=== PATIENT | female | born 1975 | race Caucasian/White ===

== ENCOUNTER → 2017-10-08 09:41 | Outpatient (CLI) | payer OTHER, SELFPAY ==
[2017-10-08 10:52] LABS: Microalbumin,Random Urine 9.4 mg/L (NO RANGE EST.); Microalbumin:Creatinine Ratio 6.6 mg/g CRE (<30 mg/g CRE)
[2017-10-08 11:02] LABS: ALB/GLOB Ratio 0.9 RATIO (0.9-2.4); AST(SGOT) 9 U/L (15-37); Alanine Aminotransfer ALT/SGPT 22 U/L (13-56); Albumin, Serum 3.4 g/dL (3.2-5.0); Alkaline Phosphatase 74 U/L (45-117); Anion Gap 8 (5-15); BUN 16 mg/dL (7-18); BUN/Creat Ratio 18.7 RATIO (10-20); Calcium,Total 8.4 mg/dL (8.5-10.1); Chloride 103 mmol/L (98-107); Cholesterol 151 mg/dL (200); Creatinine, Serum 0.86 mg/dL (0.55-1.02); EST Glomerular Filtration Rate 78 mL/min (>60); Est Glom Filt Rate - Afr Amer 94 mL/min (>60); Globulin 3.7 g/dL (2.2-4.2); Glucose 172 mg/dL (74-106); High Density Lipoprotein 34 mg/dL; Protein, Total 7.1 g/dL (6.4-8.2); Sodium Level 135 mmol/L (136-145); Triglycerides 121 mg/dL; Very Low Density Lipoprotein 24 mg/dL (5-40)
[2017-10-08 11:11] LABS: Hemoglobin A1c 9.4 % (4.2-6.3)
== END ==
PROVIDERS: Family Provider Family Medicine; PCP Family Medicine; Visit Provider Nurse Practitioner
DX: E10.9 Type 1 diabetes mellitus without complications (principal); E78.5 Hyperlipidemia, unspecified
CPT/HCPCS: 80053; 80061; 82043; 82570; 83036

== ENCOUNTER → 2017-10-31 12:16 | Outpatient (CLI) | payer BC, SELFPAY ==
[2017-10-31 14:42] LABS: Free T3 2.8 pg/mL (2.18-3.98); T4 Free Direct 0.92 ng/dL (0.76-1.46); Thyroid Stim Hormone (TSH) 2.91 uIU/mL (0.358-3.74)
[2017-11-02 11:22] LABS: Thyroid Peroxidase AB 7 IU/mL (0-34)
== END ==
PROVIDERS: Family Provider Family Medicine; PCP Family Medicine; Visit Provider Nurse Practitioner
DX: E03.9 Hypothyroidism, unspecified (principal)
CPT/HCPCS: 36415; 84439; 84443; 84481; 86376

== ENCOUNTER → 2018-01-19 07:58 | Outpatient (CLI) | payer BC, SELFPAY ==
[2018-01-19 09:26] LABS: Hemoglobin A1c 7.8 % (4.2-6.3)
[2018-01-19 09:35] LABS: AST(SGOT) 13 U/L (15-37); Alanine Aminotransfer ALT/SGPT 18 U/L (13-56); Albumin, Serum 3.4 g/dL (3.2-5.0); Alkaline Phosphatase 74 U/L (45-117); Anion Gap 7 (5-15); BUN 18 mg/dL (7-18); BUN/Creat Ratio 17.5 RATIO (10-20); Calcium,Total 8.5 mg/dL (8.5-10.1); Chloride 105 mmol/L (98-107); Creatinine, Serum 1.03 mg/dL (0.55-1.02); EST Glomerular Filtration Rate 63 mL/min (>60); Est Glom Filt Rate - Afr Amer 76 mL/min (>60); Globulin 3.5 g/dL (2.2-4.2); Glucose 183 mg/dL (74-106); Potassium 4.2 mmol/L (3.5-5.1); Protein, Total 6.9 g/dL (6.4-8.2); Sodium Level 139 mmol/L (136-145)
== END ==
PROVIDERS: Family Provider Family Medicine; PCP Family Medicine; Visit Provider Nurse Practitioner
DX: E10.319 Type 1 diabetes mellitus with unspecified diabetic retinopathy without macular edema (principal)
CPT/HCPCS: 36415; 80053; 83036

== ENCOUNTER → 2018-04-27 16:45 | Outpatient (CLI) | payer BC, SELFPAY ==
[2018-04-27 18:02] LABS: AST(SGOT) 22 U/L (15-37); Alanine Aminotransfer ALT/SGPT 31 U/L (13-56); Albumin, Serum 3.4 g/dL (3.2-5.0); Alkaline Phosphatase 72 U/L (45-117); Anion Gap 9 (5-15); BUN 14 mg/dL (7-18); BUN/Creat Ratio 13.7 RATIO (10-20); Calcium,Total 8.3 mg/dL (8.5-10.1); Chloride 102 mmol/L (98-107); Creatinine, Serum 1.02 mg/dL (0.55-1.02); EST Glomerular Filtration Rate 63 mL/min (>60); Est Glom Filt Rate - Afr Amer 77 mL/min (>60); Globulin 3.5 g/dL (2.2-4.2); Glucose 264 mg/dL (74-106); Potassium 3.9 mmol/L (3.5-5.1); Protein, Total 6.9 g/dL (6.4-8.2); Sodium Level 137 mmol/L (136-145)
[2018-04-27 18:08] LABS: Hemoglobin A1c 7.5 % (4.2-6.3)
== END ==
PROVIDERS: Visit Provider Nurse Practitioner
DX: E10.9 Type 1 diabetes mellitus without complications (principal)
CPT/HCPCS: 36415; 80053; 83036

== ENCOUNTER → 2018-06-22 08:57 | Outpatient (CLI) | payer BC, SELFPAY ==
[2018-06-26 12:00] LABS: Vitamin D 1,25-Dihydroxy 31.1 pg/mL (19.9-79.3)
== END ==
PROVIDERS: Referring Provider Nurse Practitioner; Visit Provider Nurse Practitioner
DX: E55.9 Vitamin D deficiency, unspecified (principal)
CPT/HCPCS: 36415; 82330; 82652; 83970

== ENCOUNTER → 2018-07-20 16:32 | Outpatient (CLI) | payer BC, SELFPAY ==
[2018-06-26 11:08] VITALS: BMI 35.9
--- NOTE | 2018-07-20 16:45 | EKG12_ITS ---
Test Reason : PREOP Blood Pressure : / mmHG Vent. Rate : 065 BPM Atrial Rate : 065 BPM P-R Int : 136 ms QRS Dur : 086 ms QT Int : 406 ms P-R-T Axes : 048 046 032 degrees QTc Int : 422 ms Normal sinus rhythm Normal ECG No previous ECGs available Confirmed by DELONTE SAWANT ([id number]), multimedia editor PAOLA NICOLE ([id number]) on 07/24/2018 9:38:54 AM Referred By: Toño Adair Confirmed By:DELONTE SAWANT
[2018-07-20 18:00] LABS: Anion Gap 7 (5-15); BUN 15 mg/dL (7-18); BUN/Creat Ratio 16.3 RATIO (10-20); Calcium,Total 8.7 mg/dL (8.5-10.1); Chloride 106 mmol/L (98-107); Creatinine, Serum 0.92 mg/dL (0.55-1.02); EST Glomerular Filtration Rate 71 mL/min (>60); Est Glom Filt Rate - Afr Amer 86 mL/min (>60); Glucose 167 mg/dL (74-106); Sodium Level 139 mmol/L (136-145)
--- OUTSIDE RECORDS SUMMARY | 2018-09-14 22:41 | XMS RPT_ITS ---
:02/24/2017 Author Organization [facility] Care Team Providers Name Role Phone DANIEL HOWELL Attending Unavailable PLAYL, JEREMIAS M Referring Unavailable PLAYL, JEREMIAS M Primary Care Unavailable PLAYL, JEREMIAS M Primary Care Unavailable OSEI, VALERIE Attending Unavailable DANIEL HOWELL Attending Unavailable PLAYL, JEREMIAS M Referring Unavailable PLAYL, JEREMIAS M Primary Care Unavailable MARTY MEJIA Attending Unavailable MARTY MEJIA Referring Unavailable MARTY MEJIA Admitting Unavailable MARTY MEJIA Attending Unavailable SHEREEN CARNEY (MACHINE GUIDE BASE WINDER) Attending Unavailable PLAYL, JEREMIAS M Attending Unavailable YAEL STARR (CEMENT TILE MAKER) Referring Unavailable PLAYL, JEREMIAS M Attending Unavailable PLAYL, JEREMIAS M Referring Unavailable SHEREEN CARNEY (MACHINE GUIDE BASE WINDER) Attending Unavailable PLAYL, JEREMIAS M Attending Unavailable DAVID ODELL Attending Unavailable ROBERTO, MARTY SPENCE Attending Unavailable DAVID ODELL Referring Unavailable ROBERTO, MARTY SPENCE Referring Unavailable PLAYL, JEREMIAS [place]air Attending Unavailable SHEREEN CARNEY (MACHINE GUIDE BASE WINDER) Referring Unavailable SHEREEN CARNEY (MACHINE GUIDE BASE WINDER) Attending Unavailable SHEREEN CARNEY (MACHINE GUIDE BASE WINDER) Referring Unavailable ROBERTO, MARTY SPENCE Attending Unavailable PLAYL, JEREMIAS [place]air Referring Unavailable PLAYL, JEREMIAS M Attending Unavailable SHONL, JEREMIAS M Attending Unavailable Shonl, Jeremias Primary Care Unavailable Paul Corona Attending Unavailable PROBLEMS PROBLEMS DATE TYPE CONDITION / CODE ATTENDING STATUS SOURCE 05/16/2018 Active Unknown / ROBERTO [facility] UNK(Unknown) JORDY Other [place] Repository 12/20/2017 Active Allergy to eggs / ROBERTO, [facility] Z91.012(ICD-10) [facility] Repository 12/20/2017 Active Allergy to milk ROBERTO, [facility] products / [facility] Z91.011(ICD-10) Repository 12/20/2017 Active Other adverse food ROBERTO MARTY [facility] reactions, not JORDY Other [place] elsewhere Repository classified, subsequent encounter / T78.1XXD(ICD-10) 09/05/2017 Active Infantile (acute) ROBERTO, [facility] (chronic) eczema / [facility] L20.83(ICD-10) Repository 03/23/2018 Active Encounter for SHEREEN CARNEY Active [facility] routine child (MACHINE GUIDE BASE WINDER) [facility] [place] health examination Repository without abnormal findings / Z00.129(ICD-10) 03/23/2018 Active Encounter for SHEREEN CARNEY Active [facility] immunization / (MACHINE GUIDE BASE WINDER) [facility] Z23(ICD-10) Repository 12/20/2017 Active Other adverse food Active [facility] reactions, not [facility] [place] elsewhere Repository classified, initial encounter / T78.1XXA(ICD-10) 10/11/2017 Active Displaced fracture NA Active [facility] of shaft of right [facility] [place] clavicle, Repository subsequent encounter for fracture with routine healing / S42.021D(ICD-10) PROCEDURES PROCEDURES No Procedure Records FoundRESULTS RESULTS PROGRESS Observed: 05/29/2018 Status: COMPLETED Source: [place] 10:07 AM [facility] RE[facility] HNO ID: [id number] Author: Jeremias Brock Service: (none) Author Type: Physician Type: Progress Notes Filed: 05/29/2018 10:52 AM Note Text: 15 month old female presents for a routine 15 month check-up. [] GENERAL QUESTIONS color enhanced section Parental concerns: NONE Diet: Breast: 4 feeds per 24 hours, feeding well, Juice: occasional, Solids: mostly table food Stools: NORMAL (soft and appropriately sized) Fluoride Water: uses significant amount of city water from: [employer] PWS - deficient (use recommendations for levels of <0.3 ppm), fluoride level: 0.13 ppm (2011 testing) Prescription: not using prescribed fluoride - patient refuses due to taste Ongoing subspecialty care: Ongoing care: allergy/immunology, urology Ongoing ancillary care: NONE Daycare/etc: NONE Lead exposure: No Significant stresses: No [] DEVELOPMENT FOR AGE 15 MONTHS color enhanced section Walks alone: Yes Drinks well from cup: Yes Stacks 2 cubes: Yes Gives and takes toys: Yes Uses 3-6 words: Yes Uses jargon and gestures: Yes Understands simple commands: Yes Points to 1-2 body parts: Yes Scribbles spontaneously: Yes 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 - Hydronephrosis 11/29/2017 resolved IMPORTED PAST SURGICAL HISTORY Procedure Laterality Date - NONE Family history: IMPORTED FAMILY HISTORY Problem Relation Age of Onset - Asthma Mother - Allergies Mother Social history: NEGATIVE SOCIAL HISTORY [] MISCELLANEOUS color enhanced section Difficulties with learning for caregiver: No [] ADDITIONAL NURSING COMMENTS color enhanced section None Dallas Love 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 PHYSICAL EXAM GENERAL: alert, well appearing, in no distress HABITUS: normal build HEAD: normocephalic LEFT EYE: no drainage noted, no conjunctival injection noted, pupil round and reactive to light, red reflex present; RIGHT EYE: no drainage noted, no conjunctival injection noted, pupil round and reactive to light, red reflex present; NO ADDITIONAL EYE FINDINGS LEFT EAR: pinna normal, auditory canal normal, tympanic membrane clear, no effusion noted, RIGHT EAR: pinna normal, auditory canal normal, tympanic membrane clear, no effusion noted NOSE/SINUSES: nares normal, mucosa normal, no drainage noted OROPHARYNX: lips without lesions noted, gums/mucosa normal, oropharynx without erythema or exudates NECK/ADENOPATHY: neck supple, no adenopathy noted CHEST/LUNGS: lungs clear to auscultation CARDIOVASCULAR: regular rate and rhythm, no murmur, capillary refill less than 2 seconds ABDOMEN: soft, nontender, bowel sounds normal, no masses, no organomegaly GENITILIA: FEMALE: external genitalia normal MUSCULOSKELETAL: extremities with full range of motion present throughout NEUROLOGICAL: cranial nerves II-XII grossly intact, deep tendon reflexes 2+/4+ throughout, muscle mass and tone normal SKIN: normal color, no rash, no jaundice [] ASSESSMENT color enhanced section Well patient Normal growth Normal development Issues: Continue specialty care unchanged PLAN Plan per orders. Counseling: car seats, home safety street and water safety, sunscreen whole milk, balanced diet meal behaviors, bottle weaning tooth care discipline, consistency appropriate expectations day care Forms filled out: NONE Follow up visit in 3 months for well care or prn with concerns. I have reviewed the above nursing obtained HPI and I concur. Problem list and history reviewed. Allergies reviewed. Medications reviewed. Immunizations reviewed. This note was partially generated using Confer voice recognition system, and there may be some incorrect words, spellings, and punctuation that were not noted in checking the note before saving. Jeremias Brock M.D. 15 month old female here for INACTIVATED INFLUENZA VACCINE. [id number] Season Patient is identified by name and date of : Yes [] CONTRAINDICATIONS color enhanced section Age less than 6 months? No Allergy to eggs, chicken, chicken feathers, or chicken dander? No Allergy to thimerosal (a preservative) or formaldehyde, gelatin? No History of severe reaction to any vaccine component or a previous dose of influenza vaccination? No History of Guillain-Dowling Syndrome within 6 weeks after a previous influenza vaccine? No Patient is not moderately or severely ill? No Current temperature greater or equal to 100.4F? No History of Bone Marrow Transplant prior 6 months or solid organ transplant in the past 3 months ? No History of fainting after a prior injection or medical procedure? No- ? If patient has fainted in the past, the CDC recommends sitting or lying down for 15 minutes after the vaccination. [] VERIFICATION color enhanced section Was the answer Yes for any of the above contraindications? No contraindications present. Acceptable to proceed with vaccine. Patient/guardian agrees the above answers are true to the best of their knowledge? Yes Flu vaccine information sheet given? Yes See immunization activity in [facility] for details of immunizations adminstered today. Patient age: 15 month old For The 6404-9796 Flu Season 6-35 months old: Fluzone 0.25 ml - IM (Preservative Free) 3 years of age: Fluzone 0.5 ml - IM (Preservative Free) 3 years and older: Fluzone 0.5 ml- IM-(with Preservatives) 65+ years old: 2-49 years old Fluzone High-Dose 0.5 ml - IM (Preservative Free) FLUMIST- intranasal REMEMBER: If patient is less than 9 years of age and this is the first vaccine of Influenza to be received in any flu season, they should receive a second dose in one months time. Estuardo Love LPN CNOV Observed: 05/29/2018 Status: COMPLETED Source: [place] 10:00 AM [facility] REPOSITORY Office Visit (PEDSWS) PRIYA JACQUES ([id number]) [birth year] F Date Time Provider Department 05/29/18 10:00 AM JEREMIAS BROCK [facility] During your visit today, we recorded the following information about you: Temperature Pulse Respiration Weight 97.1 degrees 120/minute 28/minute 10.2 kg Height Head Circumference 0.787 m 46.5cm Jeremias Brock MD 05/29/2018 10:52 AM Signed 15 month old female presents for a routine 15 month check-up. [] GENERAL QUESTIONS color enhanced section Parental concerns: NONE Diet: Breast: 4 feeds per 24 hours, feeding well, Juice: occasional, Solids: mostly table food Stools: NORMAL (soft and appropriately sized) Fluoride Water: uses significant amount of city water from: [employer] PWS - deficient (use recommendations for levels of <0.3 ppm), fluoride level: 0.13 ppm (2011 testing) Prescription: not using prescribed fluoride - patient refuses due to taste Ongoing subspecialty care: Ongoing care: allergy/immunology, urology Ongoing ancillary care: NONE Daycare/etc: NONE Lead exposure: No Significant stresses: No [] DEVELOPMENT FOR AGE 15 MONTHS color enhanced section Walks alone: Yes Drinks well from cup: Yes Stacks 2 cubes: Yes Gives and takes toys: Yes Uses 3-6 words: Yes Uses jargon and gestures: Yes Understands simple commands: Yes Points to 1-2 body parts: Yes Scribbles spontaneously: Yes 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 - Hydronephrosis 11/29/2017 resolved IMPORTED PAST SURGICAL HISTORY Procedure Laterality Date - NONE Family history: IMPORTED FAMILY HISTORY Problem Relation Age of Onset - Asthma Mother - Allergies Mother Social history: NEGATIVE SOCIAL HISTORY [] MISCELLANEOUS color enhanced section Difficulties with learning for caregiver: No [] ADDITIONAL NURSING COMMENTS color enhanced section None Estuardo Love 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 PHYSICAL EXAM GENERAL: alert, well appearing, in no distress HABITUS: normal build HEAD: normocephalic LEFT EYE: no drainage noted, no conjunctival injection noted, pupil round and reactive to light, red reflex present; RIGHT EYE: no drainage noted, no conjunctival injection noted, pupil round and reactive to light, red reflex present; NO ADDITIONAL EYE FINDINGS LEFT EAR: pinna normal, auditory canal normal, tympanic membrane clear, no effusion noted, RIGHT EAR: pinna normal, auditory canal normal, tympanic membrane clear, no effusion noted NOSE/SINUSES: nares normal, mucosa normal, no drainage noted OROPHARYNX: lips without lesions noted, gums/mucosa normal, oropharynx without erythema or exudates NECK/ADENOPATHY: neck supple, no adenopathy noted CHEST/LUNGS: lungs clear to auscultation CARDIOVASCULAR: regular rate and rhythm, no murmur, capillary refill less than 2 seconds ABDOMEN: soft, nontender, bowel sounds normal, no masses, no organomegaly GENITILIA: FEMALE: external genitalia normal MUSCULOSKELETAL: extremities with full range of motion present throughout NEUROLOGICAL: cranial nerves II-XII grossly intact, deep tendon reflexes 2+/4+ throughout, muscle mass and tone normal SKIN: normal color, no rash, no jaundice [] ASSESSMENT color enhanced section Well patient Normal growth Normal development Issues: Continue specialty care unchanged PLAN Plan per orders. Counseling: car seats, home safety street and water safety, sunscreen whole milk, balanced diet meal behaviors, bottle weaning tooth care discipline, consistency appropriate expectations day care Forms filled out: NONE Follow up visit in 3 months for well care or prn with concerns. I have reviewed the above nursing obtained HPI and I concur. Problem list and history reviewed. Allergies reviewed. Medications reviewed. Immunizations reviewed. This note was partially generated using Confer voice recognition system, and there may be some incorrect words, spellings, and punctuation that were not noted in checking the note before saving. Jeremias Brock M.D. 15 month old female here for INACTIVATED INFLUENZA VACCINE. [id number] Season Patient is identified by name and date of : Yes [] CONTRAINDICATIONS color enhanced section Age less than 6 months? No Allergy to eggs, chicken, chicken feathers, or chicken dander? No Allergy to thimerosal (a preservative) or formaldehyde, gelatin? No History of severe reaction to any vaccine component or a previous dose of influenza vaccination? No History of Guillain-Dowling Syndrome within 6 weeks after a previous influenza vaccine? No Patient is not moderately or severely ill? No Current temperature greater or equal to 100.4F? No History of Bone Marrow Transplant prior 6 months or solid organ transplant in the past 3 months ? No History of fainting after a prior injection or medical procedure? No- ? If patient has fainted in the past, the CDC recommends sitting or lying down for 15 minutes after the vaccination. [] VERIFICATION color enhanced section Was the answer Yes for any of the above contraindications? No contraindications present. Acceptable to proceed with vaccine. Patient/guardian agrees the above answers are true to the best of their knowledge? Yes Flu vaccine information sheet given? Yes See immunization activity in [facility] for details of immunizations adminstered today. Patient age: 15 month old For The [id number] Flu Season 6-35 months old: Fluzone 0.25 ml - IM (Preservative Free) 3 years of age: Fluzone 0.5 ml - IM (Preservative Free) 3 years and older: Fluzone 0.5 ml- IM-(with Preservatives) 65+ years old: 2-49 years old Fluzone High-Dose 0.5 ml - IM (Preservative Free) FLUMIST- intranasal REMEMBER: If patient is less than 9 years of age and this is the first vaccine of Influenza to be received in any flu season, they should receive a second dose in one months time. Estuardo Brock MD 05/29/2018 10:31 AM Signed 12-24 months Parent Tips ? Eat as a family. If you eat new, colorful and healthy food, your toddler will, too. ? At mealtimes, use small plates, spoons and forks. ? Let them serve themselves and choose how much to eat. Expect them to be messy. ? Gagging and funny faces can be normal when you offer new textures and tastes. Expect to offer a new food 10 to 12 times before they will accept it. ? Expect picky eating, but do not offer replacements. Don't worry if they don't eat that much. They will eat more at the next meal or the next day. ? Don't use food as a comfort or reward. Limit sweets, desserts and candy. Feeding Advice Self-feeding table food.* ? At each meal, serve vegetables first, when your toddler is most hungry. ? Half of the plate will be fruits and vegetables. The other half with be protein foods, such as fish, eggs, beans or meats, and whole grains, such as whole wheat bread and brown rice. ? If your toddler is hungry between meals, offer fruits and vegetables. *Beware of choking hazards (ask your healthcare provider). What should my toddler be drinking? ? If you are , continue to do so. ? Your toddler should be drinking from a cup. ? Offer milk in a cup at meals. Talk to your healthcare provider or dietitian about choices if your toddler cannot drink cow's milk. ? Water is best if your toddler is thirsty between meals. Juice is not necessary. If your doctor recommends it, give no more than 4 to 6 ounces a day of 100% juice. ? Sweetened beverages such as soft drinks, sports drinks, and fruit punches are not food for your toddler. Be Active ? Your toddler is naturally active. They like walking, climbing and more. It is best for toddlers not to sit for more than 30 minutes. ? Play with your toddler each day. ? Limit activities with screens (TV, computers, tablets, video games and cell phones) so your toddler is more active. Sleep Advice ? Enjoy a calming sleep routine with low lights, a warm bath, and reading together. ? No food or screens before bed. ? It is normal and best for toddlers at this age to sleep around 12 to 14 hours each day. This is a big year! From 12 to 24 months, your toddler will get good at walking, talking and feeding themselves. They also will learn to eat whatever your family eats. Have You Noticed? ? Your toddler asks for the same foods over and over. This is normal. Your job is to offer a wide variety of foods. ? Your toddler is starting to imitate the things that you do. Watching Your Child ? Every 12 to 24 month old toddler has temper tantrums. No is a big word. Try to learn what they want and say the words to them. ? When your toddler has a meltdown, don't react. Turn away for a few seconds. When they calm down, give them lots of attention. ? Talk quietly and listen to them, even if its babble. Use words to help them. Fun at Mealtime ? Meal times should be fun and messy. ? At least one time a day, sit down and eat together. ? Share what you're eating. Name things, say the colors and count. ? Watch how they learn about food by playing. Play with a Purpose Every day, set aside some time to play with your toddler down at their level: ? Talk - Babbling is talking. Talk back and forth and smile. ? Big muscles (legs, back arms) - At first, help them balance to pull up, walk and climb. Play games that make them run, jump, throw, kick and climb. ? Hands and fingers - Stack blocks or plastic cups, color, paint or use chalk; toss a soft ball, pull strings, and push toys. Try This! ? Offer 2 good choices for meals or snacks, but let them pick (apples or pears, peas or carrots). ? It's fun to mix breakfast, lunch and dinner foods, like eggs for dinner. ? Give small portions until you see how hungry they are. They'll ask if they want more. Healthy Bones AND Teeth 1-8 years old Kids need calcium to build strong bones and teeth. The amount need each day depends on his or her age. How much calcium does my child need each day? Kids Age Amount of calcium they need Calcium-rich servings each day 1 - 3 years 700 milligrams 2 servings 4 - 8 years 1,000 milligrams 3 servings Calcium-rich Foods Amount equal to one serving ? Milk ? 1 cup (8 ounces) ? Natural cheese like cheddar or string cheese ? 11/2 ounces (two 3/4 ounce slices) ? Yogurt ? 6 - 8 ounce container ? [place] milk or soy milk* ? 1 cup (8 ounces) ? Fortified nrhpi-rh-olq cereals ? 3/4 - 1 cup ? Tofu, soft or hard ? 1/2 cup ? White beans, cooked ? 1 cup ? Greens (kale, bok bebe, broccoli, collards, Tajik cabbage) ? 1 cup ? Almonds ? 1.5 ounces (30 or so nuts) - a big handful *The USDA recommends soy milk as the optimum alternative to cow's milk. Tips for a calcium boost There are small amounts of calcium in most fruits, vegetables, whole grains, beans, and lentils. Providing your child a variety of whole foods at each meal and snack time (in addition to the calcium-rich foods listed above) is the best way to make sure your child is getting the calcium he or she needs. ? Serve milk or a milk alternative at meals and water between meals. ? Add dark green leafy vegetables to your sandwiches or sauces for dinner. ? Offer 1/2 cup of low-sugar yogurt with fruit as part of breakfast or for a snack. ? A handful of almonds paired with fruit is a great snack. ? Try tofu in place of meat for dinner. Toddlers often enjoy eating and squishing tofu. ? Substitute milk for water when making hot cereals, instant or regular mashed potatoes, scrambled eggs, pancakes and condensed soups like tomato. Tips for Lactose Sensitive Kids If your child is lactose intolerant or only tolerates small amounts of milk, or milk products, try aged cheeses like cheddar and [place], which have much lower lactose levels. Yogurt has friendly bacteria called active cultures, which lower lactose levels. If your child avoids milk, soy milk is the best alternative because it contains the right amount of protein for each serving. [place] milk and rice milk have little protein. If you provide these milks, also provide a variety of other protein sources like lean meats, eggs, nuts, and beans. Almonds, tofu, dark green leafy vegetables, and canned sardines or salmon, are excellent non-dairy sources of calcium. Source: [place]., [place], Committee on Nutrition. Optimizing Bone Health in Children and Adolescents. 2014. [place] [employer]. Pediatr. 134(4) k2011-s2595. Dietary Guidelines for Americans, 9182-1525; visit www.heatherus.gov/dietaryguidelines and www.choosemyplate.gov/kids Referring Provider: SELF [200] Allergies As of Date: 05/29/2018 Noted Allergy Reaction IBUPROFEN 11/30/2017 4 - Hives EGG 12/20/2017 2 - Rash 4 - Hives MILK 09/05/2017 2 - Rash 4 - Hives 11 - Vomiting OTHER OMEGA-3S 05/01/2018 4 - Hives Comments: All Dairy products Date Reviewed: 05/29/2018 Reviewed by: Jeremias Brock - Fully Assessed Reason for Visit: Well Child [122] Imm/Inj [58] Cmt: Flu Vaccine Reason For Visit History Recorded Primary Visit Diagnosis:Encounter for routine child health examination w/o abnormal findings [Z00.129] Other Visit Diagnoses:Need for vaccination [Z23] Encounter for immunization [Z23] Order(s):INFLUENZA VAC QUADRIVALENT PRSRV FREE AGE 6-35 MO IM [[id number]] Order #: [id number] DIPTHERIA TETNUS ACELL PERTUS [[id number]] Order #: [id number] HIB VACCINE, PRP-T, IM [[id number]] Order #: [id number] Prescriptions as of 05/29/2018 Sig: DIPHENHYDRAMINE 12.5 MG/5 ML * Take by mouth as needed. EPIPEN INJECTION Inject intramuscularly as nee* ZYRTEC ORAL Take 2.5 mg by mouth. ACETAMINOPHEN 160 MG/5 ML ORA* Take by mouth every 4 hours * Medication notes this encounter DIPHENHYDRAMINE 12.5 MG/5 ML ORAL LIQUID >> [place] Ivan 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 05/29/2018 10:07 AM >> ESTUARDO LOVE 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 TueMay 29, 2018 10:07 AM prn Problem List As Of Date 05/29/2018 Noted Resolved Hydronephrosis [N13.30] 11/29/2017 Atopic dermatitis [L20.9] INVALID FOR* Closed displaced fracture of shaft of right cla*INVALID FOR*05/29/2018 Duplicated right renal collecting system [Q62.5]INVALID FOR* Milk allergy [Z91.011] INVALID FOR* More... Egg allergy [Z91.012] INVALID FOR* More... Ibuprofen adverse reaction [T39.315A] INVALID FOR* More... Other instructions from your clinician: 12-24 months Parent Tips ? Eat as a family. If you eat new, colorful and healthy food, your toddler will, too. ? At mealtimes, use small plates, spoons and forks. ? Let them serve themselves and choose how much to eat. Expect them to be messy. ? Gagging and funny faces can be normal when you offer new textures and tastes. Expect to offer a new food 10 to 12 times before they will accept it. ? Expect picky eating, but do not offer replacements. Don't worry if they don't eat that much. They will eat more at the next meal or the next day. ? Don't use food as a comfort or reward. Limit sweets, desserts and candy. Feeding Advice Self-feeding table food.* ? At each meal, serve vegetables first, when your toddler is most hungry. ? Half of the plate will be fruits and vegetables. The other half with be protein foods, such as fish, eggs, beans or meats, and whole grains, such as whole wheat bread and brown rice. ? If your toddler is hungry between meals, offer fruits and vegetables. *Beware of choking hazards (ask your healthcare provider). What should my toddler be drinking? ? If you are , continue to do so. ? Your toddler should be drinking from a cup. ? Offer milk in a cup at meals. Talk to your healthcare provider or dietitian about choices if your toddler cannot drink cow's milk. ? Water is best if your toddler is thirsty between meals. Juice is not necessary. If your doctor recommends it, give no more than 4 to 6 ounces a day of 100% juice. ? Sweetened beverages such as soft drinks, sports drinks, and fruit punches are not food for your toddler. Be Active ? Your toddler is naturally active. They like walking, climbing and more. It is best for toddlers not to sit for more than 30 minutes. ? Play with your toddler each day. ? Limit activities with screens (TV, computers, tablets, video games and cell phones) so your toddler is more active. Sleep Advice ? Enjoy a calming sleep routine with low lights, a warm bath, and reading together. ? No food or screens before bed. ? It is normal and best for toddlers at this age to sleep around 12 to 14 hours each day. This is a big year! From 12 to 24 months, your toddler will get good at walking, talking and feeding themselves. They also will learn to eat whatever your family eats. Have You Noticed? ? Your toddler asks for the same foods over and over. This is normal. Your job is to offer a wide variety of foods. ? Your toddler is starting to imitate the things that you do. Watching Your Child ? Every 12 to 24 month old toddler has temper tantrums. No is a big word. Try to learn what they want and say the words to them. ? When your toddler has a meltdown, don't react. Turn away for a few seconds. When they calm down, give them lots of attention. ? Talk quietly and listen to them, even if its babble. Use words to help them. Fun at Mealtime ? Meal times should be fun and messy. ? At least one time a day, sit down and eat together. ? Share what you're eating. Name things, say the colors and count. ? Watch how they learn about food by playing. Play with a Purpose Every day, set aside some time to play with your toddler down at their level: ? Talk - Babbling is talking. Talk back and forth and smile. ? Big muscles (legs, back arms) - At first, help them balance to pull up, walk and climb. Play games that make them run, jump, throw, kick and climb. ? Hands and fingers - Stack blocks or plastic cups, color, paint or use chalk; toss a soft ball, pull strings, and push toys. Try This! ? Offer 2 good choices for meals or snacks, but let them pick (apples or pears, peas or carrots). ? It's fun to mix breakfast, lunch and dinner foods, like eggs for dinner. ? Give small portions until you see how hungry they are. They'll ask if they want more. Healthy Bones AND Teeth 1-8 years old Kids need calcium to build strong bones and teeth. The amount need each day depends on his or her age. How much calcium does my child need each day? Kids Age Amount of calcium they need Calcium-rich servings each day 1 - 3 years 700 milligrams 2 servings 4 - 8 years 1,000 milligrams 3 servings Calcium-rich Foods Amount equal to one serving ? Milk ? 1 cup (8 ounces) ? Natural cheese like cheddar or string cheese ? 11/2 ounces (two 3/4 ounce slices) ? Yogurt ? 6 - 8 ounce container ? [place] milk or soy milk* ? 1 cup (8 ounces) ? Fortified pomcq-sr-joc cereals ? 3/4 - 1 cup ? Tofu, soft or hard ? 1/2 cup ? White beans, cooked ? 1 cup ? Greens (kale, bok bebe, broccoli, collards, Taj[place] cabbage) ? 1 cup ? Almonds ? 1.5 ounces (30 or so nuts) - a big handful *The USDA recommends soy milk as the optimum alternative to cow's milk. Tips for a calcium boost There are small amounts of calcium in most fruits, vegetables, whole grains, beans, and lentils. Providing your child a variety of whole foods at each meal and snack time (in addition to the calcium- rich foods listed above) is the best way to make sure your child is getting the calcium he or she needs. ? Serve milk or a milk alternative at meals and water between meals. ? Add dark green leafy vegetables to your sandwiches or sauces for dinner. ? Offer 1/2 cup of low-sugar yogurt with fruit as part of breakfast or for a snack. ? A handful of almonds paired with fruit is a great snack. ? Try tofu in place of meat for dinner. Toddlers often enjoy eating and squishing tofu. ? Substitute milk for water when making hot cereals, instant or regular mashed potatoes, scrambled eggs, pancakes and condensed soups like tomato. Tips for Lactose Sensitive Kids If your child is lactose intolerant or only tolerates small amounts of milk, or milk products, try aged cheeses like cheddar and Naur[place], which have much lower lactose levels. Yogurt has friendly bacteria called active cultures, which lower lactose levels. If your child avoids milk, soy milk is the best alternative because it contains the right amount of protein for each serving. [place] milk and rice milk have little protein. If you provide these milks, also provide a variety of other protein sources like lean meats, eggs, nuts, and beans. Almonds, tofu, dark green leafy vegetables, and canned sardines or salmon, are excellent non-dairy sources of calcium. Source: [place]., [place], Committee on Nutrition. Optimizing Bone Health in Children and Adolescents. 2014. [place] [employer]. Pediatr. 134(4) m0172-r2671. Dietary Guidelines for Americans, 2426-7087; visit www.[employer].gov/dietaryguidelines and www.choosemyplate.gov/kids Disposition: Return for Follow-up at 18 months of age. Follow-up and Disposition History Recorded Questionnaire: PED SOCIAL HLTH TOOL In the last 3 months, were you ever worried your food would run out before you could buy more? -> No In the last 12 months, has it been hard for you to pay any of these bills: Utility, Housing, Car, and Medical? -> No Are you worried that in the next 2 months, you may not have stable housing? -> No Do problems getting early childhood education worker make it difficult for you to work or study? (leave blank if you do not have children) -> No In the last 12 months, have you needed to see a doctor but could not because of the cost? -> No In the last 12 months, have you ever had to go without health care because you didn?t have a way to get there? -> No Do you ever need help reading hospital materials? -> No Are you afraid you might be hurt in your apartment building or house? -> No If you checked YES to any boxes above, would you like to receive assistance with any of these needs? -> No Are any of your needs urgent? (For example: I don?t have food tonight, I don?t have a place to sleep tonight) -> No Over the past 2 weeks, have you had little interest or pleasure in doing things? -> Not at all Over the past 2 weeks have you felt down, depressed or hopeless? 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 The last visit was on 04/27/18, and she returns for a baked egg challenge. She was accompanied by her mother and maternal grandmother. Avoiding milk (except in baked goods) and egg (in all forms) Went to [facility] last week Bark Skinner gave her a chocolate cookie containing egg Developed non-itchy hives on her chin Likely isolated to the sites of direct contact Resolved within 15 minutes Well this week Family has Auvi-Q 0.1 mg device Current Outpatient Prescriptions: diphenhydrAMINE (BENADRYL ALLERGY) 12.5 mg/5 mL liquid Take by mouth as needed. epinephrine (EPIPEN INJECTION) Inject intramuscularly as needed. cetirizine HCl (ZYRTEC ORAL) Take 2.5 mg by mouth. acetaminophen (CHILDREN'S TYLENOL) 160 mg/5 mL susp Take by mouth every 4 hours as needed. cefdinir (OMNICEF) 250 mg/5 mL suspension Take 250 mg by mouth twice daily. No current facility-administered medications for this visit. Review of Systems: Notable for those items mentioned in the HPI. All other systems reviewed and negative other than HPI. Physical Exam: Pulse 135, weight 10.4 kg (23 lb 0.3 oz). GEN- Awake, alert, comfortable, cooperative HEENT- Epicanthal folds with flat nasal bridge. No conjunctival injection or edema. No infraorbital shiners. NOSE- No nasal discharge or congestion. OP- Moist mucous membranes. No oral lesions. NECK- Normal. No lymphadenopathy. LUNGS- Clear without wheezing or crackles. Normal aeration. CV- Regular rate. No murmur. EXT- Normal. Well perfused. No peripheral edema. NEURO- Normal gait. Symmetric facial movements. Moving extremities well. SKIN- Well hydrated. One erythematous macule on right side of mouth. Scattered and very faint pink pinpoint papules in a cluster in left preauricular area. Baked egg challenge Checked into visit at 7:31 am and placed in room at 8:15 am. The risks, benefits, and alternatives of a graded baked egg challenge were reviewed with the mother. Informed consent was obtained. Priya was examined at baseline as documented above. She received gradually increases dose of muffin baked at home according to a provided recipe that contained 1/3 egg in each muffin. Her doses were administered every 15 minutes per the following protocol: ? 1/8 muffin 1/8 muffin 1/4 muffin 1/2 muffin Total of 1 muffin ? Priya did not demonstrate any signs or symptoms of an allergic reaction during the dosing or in a two hour observation after dosing completion. Priya was discharged home at 11:30 am in good condition. ? Outcome: passed baked egg challenge Assessment/Plan: Priya is a 14 month old girl with food allergies to milk and egg. She has an underlying history of mild eczema and a history of hives and vomiting after her only ibuprofen dose. ? 1. Food allergy to milk and egg with tolerance to baked milk and egg products Priya has a known history of food allergy to milk and egg, but she tolerates milk in baked goods. She used to tolerate egg in baked goods. Baked egg was restricted from her diet after a possible reaction, but she has successfully completed a baked egg challenge at this visit, and she did not have any signs or symptoms of reaction. I recommended continued avoidance of milk (except in baked goods) and egg (except in baked goods). I encouraged regular consumption of extensively heated milk and egg products according to provided instructions. A food allergy action plan was reviewed and provided in writing at the last visit. An Auvi-q 0.1 mg device was recently refilled. I plan to repeat ImmunoCAP testing at the follow up visit. ? 2. Mild eczema The patient's eczema has been well controlled. The family should continue daily bathing using the soak and seal technique. The family should continue using sensitive skin care products like Dove and Eucerin. Topical hydrocortisone may be applied twice a day as needed for flares. ? 3. History of hives and vomiting after ibuprofen The patient received her first and only dose of ibuprofen in the context of her first UTI. It is possible that she may have had an adverse ibuprofen reaction, but it is also possible that she may have experienced parainfectious urticaria, exacerbated by the direct mast cell release triggered by ibuprofen dosing, and vomiting secondary to the UTI. The patient has no immediate needs for ibuprofen dosing, and she should be treated with acetaminophen as needed for pain or fever for now. However, I advised the parents that it may be very reasonable to perform an ibuprofen dose challenge within the next couple of years to try to demonstrate tolerance if possible. Priya should return for follow up in 4-6 months. Thank you for allowing us to participate in the care of this patient. Please call with questions. Marty Mejia MD CNOV Observed: 05/16/2018 Status: COMPLETED Source: [place] 8:00 AM CLINIC OTHER CAMPUS REPOSITORY Office Visit (PALL[facility]) GEORGIEPRIYA Bolton ([id number]) [birth year] F Date Time Provider Department 05/16/18 8:00 AM MARTY MEJIA During your visit today, we recorded the following information about you: Pulse Weight 135/minute 10.4 kg Marty Mejia MD 05/16/2018 4:44 PM Signed This is a 14 month old girl with food allergy to milk and egg, mild eczema, and a history of reaction to ibuprofen. The last visit was on 04/27/18, and she returns for a baked egg challenge. She was accompanied by her mother and maternal grandmother. Avoiding milk (except in baked goods) and egg (in all forms) Went to [facility] last week Bark Skinner gave her a chocolate cookie containing egg Developed non-itchy hives on her chin Likely isolated to the sites of direct contact Resolved within 15 minutes Well this week Family has Auvi-Q 0.1 mg device Current Outpatient Prescriptions: diphenhydrAMINE (BENADRYL ALLERGY) 12.5 mg/5 mL liquid Take by mouth as needed. epinephrine (EPIPEN INJECTION) Inject intramuscularly as needed. cetirizine HCl (ZYRTEC ORAL) Take 2.5 mg by mouth. acetaminophen (CHILDREN'S TYLENOL) 160 mg/5 mL susp Take by mouth every 4 hours as needed. cefdinir (OMNICEF) 250 mg/5 mL suspension Take 250 mg by mouth twice daily. No current facility-administered medications for this visit. Review of Systems: Notable for those items mentioned in the HPI. All other systems reviewed and negative other than HPI. Physical Exam: Pulse 135, weight 10.4 kg (23 lb 0.3 oz). GEN- Awake, alert, comfortable, cooperative HEENT- Epicanthal folds with flat nasal bridge. No conjunctival injection or edema. No infraorbital shiners. NOSE- No nasal discharge or congestion. OP- Moist mucous membranes. No oral lesions. NECK- Normal. No lymphadenopathy. LUNGS- Clear without wheezing or crackles. Normal aeration. CV- Regular rate. No murmur. EXT- Normal. Well perfused. No peripheral edema. NEURO- Normal gait. Symmetric facial movements. Moving extremities well. SKIN- Well hydrated. One erythematous macule on right side of mouth. Scattered and very faint pink pinpoint papules in a cluster in left preauricular area. Baked egg challenge Checked into visit at 7:31 am and placed in room at 8:15 am. The risks, benefits, and alternatives of a graded baked egg challenge were reviewed with the mother. Informed consent was obtained. Priya was examined at baseline as documented above. She received gradually increases dose of muffin baked at home according to a provided recipe that contained 1/3 egg in each muffin. Her doses were administered every 15 minutes per the following protocol: ? 1/8 muffin 1/8 muffin 1/4 muffin 1/2 muffin Total of 1 muffin ? Priya did not demonstrate any signs or symptoms of an allergic reaction during the dosing or in a two hour observation after dosing completion. Priya was discharged home at 11:30 am in good condition. ? Outcome: passed baked egg challenge Assessment/Plan: Priya is a 14 month old girl with food allergies to milk and egg. She has an underlying history of mild eczema and a history of hives and vomiting after her only ibuprofen dose. ? 1. Food allergy to milk and egg with tolerance to baked milk and egg products Priya has a known history of food allergy to milk and egg, but she tolerates milk in baked goods. She used to tolerate egg in baked goods. Baked egg was restricted from her diet after a possible reaction, but she has successfully completed a baked egg challenge at this visit, and she did not have any signs or symptoms of reaction. I recommended continued avoidance of milk (except in baked goods) and egg (except in baked goods). I encouraged regular consumption of extensively heated milk and egg products according to provided instructions. A food allergy action plan was reviewed and provided in writing at the last visit. An Auvi-q 0.1 mg device was recently refilled. I plan to repeat ImmunoCAP testing at the follow up visit. ? 2. Mild eczema The patient's eczema has been well controlled. The family should continue daily bathing using the soak and seal technique. The family should continue using sensitive skin care products like Dove and Eucerin. Topical hydrocortisone may be applied twice a day as needed for flares. ? 3. History of hives and vomiting after ibuprofen The patient received her first and only dose of ibuprofen in the context of her first UTI. It is possible that she may have had an adverse ibuprofen reaction, but it is also possible that she may have experienced parainfectious urticaria, exacerbated by the direct mast cell release triggered by ibuprofen dosing, and vomiting secondary to the UTI. The patient has no immediate needs for ibuprofen dosing, and she should be treated with acetaminophen as needed for pain or fever for now. However, I advised the parents that it may be very reasonable to perform an ibuprofen dose challenge within the next couple of years to try to demonstrate tolerance if possible. Priya should return for follow up in 4-6 months. Thank you for allowing us to participate in the care of this patient. Please call with questions. MD Marty Cardona MD 05/16/2018 11:29 AM Addendum Congratulations! Priya has passed a baked egg challenge and is no longer considered to be allergic. I recommend that she continue to ingest baked milk and baked egg products on a regular basis (at least weekly) to maintain tolerance. Baked egg instructions Developed at [facility] [place] Your child has tolerated a baked egg product or passed the baked egg challenge. He or she will be able to eat extensively heated baked products with egg as an ingredient. If your child develops an allergic reaction to a food that contains baked egg, please record the offending food, amount eaten, preparation technique, and symptoms and contact the office at your earliest convenience to review the reaction. Your child MAY NOW EAT the following: *Store-bought baked products with egg or egg ingredients listed as the third ingredient or further down the list of ingredients. *Home-baked products that have no more than one third of a baked egg per serving. For example, a recipe that has 2 eggs per batch of a recipe that yields 6 servings. *Remember to check store-bought products and ingredients on the basis of your child's food allergies to avoid a reaction to other allergens. *All baked products must be baked throughout and not wet or soggy in the middle. Your child SHOULD CONTINUE TO AVOID unbaked egg and egg-based foods such as the following: *Baked products with egg listed as the first or second ingredient *Caesar salad dressing *Custard *Eggs in any form such as hard- or soft-boiled, scrambled, or poached *Egg noodles *Maltese toast/pancakes *Homemade waffles *Frosting containing egg *Ice cream *Mayonnaise *Quiche Follow up in 6 months Mary Anne Torres LPN 05/16/2018 1:57 PM Addendum ORAL FOOD CHALLENGES: Baked Eggs ORAL FOOD CHALLENGES: Muffin Time: 0835 Dose: 08/29 Reaction: None Treatment: None Time: 0850 Dose: 08/29 Reaction: None Treatment: None Time: 0905 Dose: 08/25 Reaction: None Treatment: None Time: 09 Dose: 08/23 Reaction: None Treatment: None Patient tolerated challenge well without incident. Patient discharged home with Mom and Grandmother. Mary Anne Torres LPN Referring Provider: MARTY MEJIA [[id number]] Allergies As of Date: 05/16/2018 Noted Allergy Reaction IBUPROFEN 11/30/2017 4 - Hives EGG 12/20/2017 2 - Rash 4 - Hives MILK 09/05/2017 2 - Rash 4 - Hives 11 - Vomiting OTHER OMEGA-3S 05/01/2018 4 - Hives Comments: All Dairy products Date Reviewed: 05/16/2018 Reviewed by: Marty Mejia - Fully Assessed Reason for Visit: Follow Up [171] Primary Visit Diagnosis:Allergic reaction to food, subsequent encounter [T78.1XXD] Other Visit Diagnoses:Milk allergy [Z91.011] Egg allergy [Z91.012] Infantile atopic dermatitis [L20.83] Order(s):INGESTION CHALLENGE TEST [[id number]] Order #: [id number] Prescriptions as of 05/16/2018 Sig: DIPHENHYDRAMINE 12.5 MG/5 ML * Take by mouth as needed. EPIPEN INJECTION Inject intramuscularly as nee* ZYRTEC ORAL Take 2.5 mg by mouth. 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 Egg allergy [Z91.012] INVALID FOR* More... Ibuprofen adverse reaction [T39.315A] INVALID FOR* More... Other instructions from your clinician: Congratulations! Priya has passed a baked egg challenge and is no longer considered to be allergic. I recommend that she continue to ingest baked milk and baked egg products on a regular basis (at least weekly) to maintain tolerance. Baked egg instructions Developed at [facility] Your child has tolerated a baked egg product or passed the baked egg challenge. He or she will be able to eat extensively heated baked products with egg as an ingredient. If your child develops an allergic reaction to a food that contains baked egg, please record the offending food, amount eaten, preparation technique, and symptoms and contact the office at your earliest convenience to review the reaction. Your child MAY NOW EAT the following: *Store-bought baked products with egg or egg ingredients listed as the third ingredient or further down the list of ingredients. *Home-baked products that have no more than one third of a baked egg per serving. For example, a recipe that has 2 eggs per batch of a recipe that yields 6 servings. *Remember to check store-bought products and ingredients on the basis of your child's food allergies to avoid a reaction to other allergens. *All baked products must be baked throughout and not wet or soggy in the middle. Your child SHOULD CONTINUE TO AVOID unbaked egg and egg- based foods such as the following: *Baked products with egg listed as the first or second ingredient *Caesar salad dressing *Custard *Eggs in any form such as hard- or soft-boiled, scrambled, or poached *Egg noodles *Maltese toast/pancakes *Homemade waffles *Frosting containing egg *Ice cream *Mayonnaise *Quiche Follow up in 6 months Visit Notes: >> Mary Anne Torres LPN e May 16, 2018 1:37 PM Status: Addendum ORAL FOOD CHALLENGES: Baked Eggs ORAL FOOD CHALLENGES: Muffin Time: 834 Dose: 08/29 Reaction: None Treatment: None Time: 08 Dose: 08/29 Reaction: None Treatment: None Time: 904 Dose: 08/25 Reaction: None Treatment: None Time: 919 Dose: 08/23 Reaction: None Treatment: None Patient tolerated challenge well without incident. Patient discharged home with Mom and Grandmother. Mary Anne Torres LPN Medications Discontinued During This Encounter cefdinir (OMNICEF) 250 mg/5 mL suspe* 05/16/2018 Class: Historical Med Route: ORAL Sig: Take 250 mg by mouth twice daily. Disc: Course of therapy completed Follow-up and Disposition History Recorded Encounter Status:Closed by MARTY MEJIA on 05/16/18 PROGRESS NOTE Observed: 05/01/2018 Status: COMPLETED Source: [place] 9:45 AM [facility] REPOSITORY Priya Jacques is here in follow-up for: Fluid In Kidney History of Presenting Problem: Here with mom. Doing well. No UTI, no fevers, no hematuria. Normal amount of wet diapers. BM daily.No obvious pain. US (05/01/2018): R 6.1 (borderline upper pole splitting), L 6.2 (no HN); Bladder: smooth walled; Rectum: no significant stool US (10/24/2017): R 5.3 (no HN), L 5.2 (no HN); Bladder: normal wall; Rectum: unremarkable 07/18/17: Here with mom. Tough to take FDN (mix in with food). Getting constipation. UA tr bl. Plan: stop CAP, FU 3 mo for US VCUG 07/18/17: no VUR 07/01/17: Here with mom/dad. Seen in ED 06/20 after developed fever to 101.5 (after recent diarrhea). Went to ER at [place] and urine concerning for UTI (UA LE/pr/hgb), transferred to [facility]. [Called to request culture results, but not enough urine so no culture]. Treated with ceftriaxone. UA at [facility] 06/21/17 LE/Hgb (UCx <1k). Discharged on Keflex, to be followed by Amox prophylaxis. No other UTIs. Born full term with normal US. No FH issues. PE: normal. Plan: FDN, VCUG US 06/21/17: R 5 (possible duplicated, Gr 1 HN), L 5.3 (splitting, primarily upper pole HN), normal bladder [my review] Past Medical History: Past Medical History: Diagnosis Date Broken collarbone UTI (urinary tract infection) History reviewed. No pertinent surgical history. Allergies: Allergies Allergen Reactions Motrin [Ibuprofen] Hives Other Hives All Dairy products Pampers Baby Dry Size 3 [Diapers & Supplies] Rash Per parents allergy to pampers diapers and wipes Medications: Outpatient Encounter Prescriptions as of 05/01/2018 Medication Sig Dispense Refill EPINEPHrine (EPIPEN IJ) Inject as directed Cetirizine HCl (ZYRTEC ALLERGY PO) Take by mouth DiphenhydrAMINE HCl (BENADRYL ALLERGY CHILDRENS PO) Take by mouth Acetaminophen (TYLENOL PO) Take 2.5 mL by mouth as needed No facility-administered encounter medications on file as of 05/01/2018. Family Medical History: Family History Problem Relation Age of Onset No known problems Mother No known problems Father Social History: Social History Social History Marital status: Single Spouse name: N/A Number of children: N/A Years of education: N/A Occupational History Not on file. Social History Main Topics Smoking status: Passive Smoke Exposure - Never Smoker Smokeless tobacco: Never Used Alcohol use Not on file Drug use: Unknown Sexual activity: Not on file Other Topics Concern Not on file Social History Narrative No narrative on file Additional History Is the patient on a special diet? No Age at toilet training? n/a Per parents, immunizations are up to date. Yes Patient lives with? Parents Factors which may affect learning None Review of Systems: Constitutional: negative Eyes: negative Ears, nose, mouth, throat, and face: negative Respiratory: negative Cardiovascular: negative Gastrointestinal: negative Integument/breast: negative Physical Examination: Vitals: 05/01/18 0957 Weight: 10.4 kg General: Well appearing, no acute distress Eyes: No exudates, conjunctiva normal HENT: Normocephalic, no nasal discharge Resp: Normal effort Lymphatic: No palpable lymph nodes (neck) Abdomen: Non-tender, non-distended, soft Neurologic: Grossly normal sensation Musculoskeletal: Normal ROM Skin: Warm and dry : Deferred Laboratory Testing: No results found for this visit on 05/01/18. Imaging: See HPI for brief read (+ media for scanned report/images). Assessment & Plan: Priya was seen today for fluid in kidney. Diagnoses and all orders for this visit: Other hydronephrosis - Kidney/Bladder Ultrasound Renal duplication History of UTI - Kidney/Bladder Ultrasound It is fortunate that we have not developed any UTIs and that the hydronephrosis shows no sign of worsening. We reviewed signs of UTI and they know to contact me if any issues were to arise. We will plan for follow up in 15 months for a repeat US. With a negative VCUG and ultrasounds either normal or with minimal splitting, I told mom that next visit may be the last if she continues to do well and the next US is stable. All questions were answered. Ambar Dominguez CNP May 01, 2018 I have personally shared in the visit of Priya Jacques, providing bedside participation in the E&M. I saw and evaluated the patient and discussed the plan with the resident/MACHINE GUIDE BASE WINDER. I added additional physical exam and history, which are in bold, and confirmed other pertinent data. I performed all of the medical decision making and developed the plan with the family. Daniel Howell MD PROGRESS Observed: 04/28/2018 Status: COMPLETED Source: [place] 8:32 AM [facility] REPOSIT[facility] O ID: [id number] Author: Jeremias Brock Service: (none) Author Type: Physician Type: Progress Notes Filed: 04/28/2018 8:33 AM Note Text: The patient was seen for the issues discussed below. Problem list and history reviewed. Allergies reviewed. Medications reviewed. Immunizations reviewed. HISTORY: see history section below PHYSICAL EXAM: GENERAL: alert, well appearing, in no distress LEFT EYE: no drainage noted, no conjunctival injection noted; RIGHT EYE: no drainage noted, no conjunctival injection noted; NO ADDITIONAL EYE FINDINGS LEFT EAR: pinna normal, auditory canal normal, tympanic membrane clear, no effusion noted, RIGHT EAR: pinna normal, auditory canal normal, tympanic membrane clear, no effusion noted NOSE/SINUSES: nares normal, mucosa normal, no drainage noted, congested OROPHARYNX: lips without lesions noted, gums/mucosa normal, oropharynx without erythema or exudates NECK/ADENOPATHY: neck supple, no adenopathy noted CHEST/LUNGS: lungs clear to auscultation GENERAL RECOMMENDATIONS: - Issues discussed in detail. - Symptom relief measures as needed. - Prescriptions, if ordered, are listed below. - Labs and/or X-rays, if ordered or obtained, are listed below. If the final results are not available at the conclusion of this visit, then additional recommendations may be made based on the final results. Note that all x-rays are reviewed by a radiologist before being considered final. - EKG, if ordered or obtained, is reviewed by a caser shoe parts before being considered final. Additional recommendations may be made based on the final results. - Return to clinic should current symptoms (if present) worsen, other problems develop, or as needed. ADDITIONAL AND DICTATED PORTION: ADDITIONAL HISTORY The following Nursing History was reviewed with the family: Patient presents with: Follow Up: ear infection- seen at [facility] on 04-19-18 Illness The patient has been treated with Omnicef for bilateral otitis media. Other then continued nasal congestion, no other issues are present this time. No fevers. No eye, ear, nose, throat complaints. No cough, wheezing, shortness of breath. No vomiting, diarrhea, abdominal pain. No rash. ADDITIONAL EXAM / OTHER INFORMATION none ADDITIONAL IMPRESSION / PLAN Otitis media resolved. Routine care. Time, established: Spent approx. 15+ minutes (43457 level) in [id number] contact with the patient and/or family, more than half of which was devoted to discussing the above problems. This note was partially generated using Confer voice recognition system, and there may be some incorrect words, spellings, and punctuation that were not noted in checking the note before saving. Jeremias Brock M.D. CNOV Observed: 04/28/2018 Status: COMPLETED Source: [place] 8:00 AM [facility] REPOS[facility] Office Visit (PEDSWS) PRIYA JACQUES ([id number]) [birth year] F Date Time Provider Department 04/28/18 8:00 AM JEREMIAS BROCK During your visit today, we recorded the following information about you: Temperature Pulse Respiration Weight 97.3 degrees 120/minute 24/minute 10.4 kg Jeremias Brock MD 04/28/2018 8:33 AM Signed The patient was seen for the issues discussed below. Problem list and history reviewed. Allergies reviewed. Medications reviewed. Immunizations reviewed. HISTORY: see history section below PHYSICAL EXAM: GENERAL: alert, well appearing, in no distress LEFT EYE: no drainage noted, no conjunctival injection noted; RIGHT EYE: no drainage noted, no conjunctival injection noted; NO ADDITIONAL EYE FINDINGS LEFT EAR: pinna normal, auditory canal normal, tympanic membrane clear, no effusion noted, RIGHT EAR: pinna normal, auditory canal normal, tympanic membrane clear, no effusion noted NOSE/SINUSES: nares normal, mucosa normal, no drainage noted, congested OROPHARYNX: lips without lesions noted, gums/mucosa normal, oropharynx without erythema or exudates NECK/ADENOPATHY: neck supple, no adenopathy noted CHEST/LUNGS: lungs clear to auscultation GENERAL RECOMMENDATIONS: - Issues discussed in detail. - Symptom relief measures as needed. - Prescriptions, if ordered, are listed below. - Labs and/or X-rays, if ordered or obtained, are listed below. If the final results are not available at the conclusion of this visit, then additional recommendations may be made based on the final results. Note that all x-rays are reviewed by a radiologist before being considered final. - EKG, if ordered or obtained, is reviewed by a caser shoe parts before being considered final. Additional recommendations may be made based on the final results. - Return to clinic should current symptoms (if present) worsen, other problems develop, or as needed. ADDITIONAL AND DICTATED PORTION: ADDITIONAL HISTORY The following Nursing History was reviewed with the family: Patient presents with: Follow Up: ear infection- seen at [facility] on 04-19-18 Illness The patient has been treated with Omnicef for bilateral otitis media. Other then continued nasal congestion, no other issues are present this time. No fevers. No eye, ear, nose, throat complaints. No cough, wheezing, shortness of breath. No vomiting, diarrhea, abdominal pain. No rash. ADDITIONAL EXAM / OTHER INFORMATION none ADDITIONAL IMPRESSION / PLAN Otitis media resolved. Routine care. Time, established: Spent approx. 15+ minutes (51475 level) in ivcp-zm-[id number] contact with the patient and/or family, more than half of which was devoted to discussing the above problems. This note was partially generated using Confer voice recognition system, and there may be some incorrect words, spellings, and punctuation that were not noted in checking the note before saving. Jeremias Brock M.D. Referring Provider: SELF [[id number]] Allergies As of Date: 04/28/2018 Noted Allergy Reaction IBUPROFEN 11/30/2017 4 - Hives EGG 12/20/2017 2 - Rash 4 - Hives MILK 09/05/2017 2 - Rash 4 - Hives 11 - Vomiting Date Reviewed: 04/28/2018 Reviewed by: Jeremias Brock - Fully Assessed Reason for Visit: Follow Up [171] Cmt: ear infection- seen at [facility] on 04-19-18 Illness [2733] Primary Visit Diagnosis:Bilateral otitis media, unspecified otitis media type [H66.93] Other Visit Diagnosis:Follow-up exam [Z09] Prescriptions as of 04/28/2018 Sig: CEFDINIR 250 MG/5 ML ORAL PAYTON* Take 250 mg by mouth twice da* EPIPEN INJECTION Inject intramuscularly as nee* ZYRTEC ORAL Take 2.5 mg by mouth. 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 Egg allergy [Z91.012] INVALID FOR* More... Ibuprofen adverse reaction [T39.315A] INVALID FOR* More... 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 The last visit was on 12/20/17. She was accompanied by her mother. Food allergy Avoiding: milk (except in baked good), egg in all forms Tolerating: baked milk products and peanut butter Unintentional exposures: Maternal grandmother gave her some yogurt bites. She broke out in hives on face and hands within 5 minutes, and lesions resolved within 20 minutes of Benadryl dosing. New reactions: none Epinephrine device: Auvi-q 0.1 mg Eczema Has been doing well No outbreaks No ibuprofen since last visit, avoiding due to possible reaction Current Outpatient Prescriptions: epinephrine (EPIPEN INJECTION) Inject intramuscularly as needed. cetirizine HCl (ZYRTEC ORAL) Take 2.5 mg by mouth. acetaminophen (CHILDREN'S TYLENOL) 160 mg/5 mL susp Take by mouth every 4 hours as needed. No current facility-administered medications for this visit. Review of Systems: Notable for those items mentioned in the HPI. All other systems reviewed and negative other than HPI. Physical Exam: Pulse 116, temperature 36.5 ?C (97.7 ?F), temperature source Temporal Artery, height 76.5 cm (2' 6.12), weight 10.3 kg (22 lb 10.4 oz), SpO2 100 %. GEN- Awake, alert, comfortable, cooperative HEENT- Epicanthal folds with flat nasal bridge. No conjunctival injection or edema. No infraorbital shiners. NOSE- No nasal discharge or congestion. OP- Moist mucous membranes. No oral lesions. NECK- Normal. No lymphadenopathy. LUNGS- Clear without wheezing or crackles. Normal aeration. CV- Regular rate. No murmur. EXT- Normal. Well perfused. No peripheral edema. NEURO- Normal gait. Symmetric facial movements. Moving extremities well. SKIN- Well hydrated. No visible rash. 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 She has an underlying history of mild eczema and a history of hives and vomiting after her only ibuprofen dose. ? 1. Food allergy to milk and egg Priya has a known history of food allergy to milk and egg, but she tolerates milk in baked goods. She used to tolerate egg in baked goods, but she had a single reaction so baked egg was restricted from her diet. I recommended continued avoidance of milk (except in baked goods) and egg, but I recommended a baked egg challenge. A food allergy action plan was reviewed and provided in writing at the last visit. An Auvi-q 0.1 mg device was refilled. The grader patrol was reluctant to administer the MMR vaccine, but I reassured the parents that MMR has been considered safe for egg allergic patients for many years. The MMR vaccine was administered in the office during the visit. I advised the parents that the seasonal influenza vaccine may also be given to infants and children with egg allergy without any special precautions according to the AAP and AAAAI organizations as there is minimal risk of reaction. 2. Mild eczema The patient's eczema has been well controlled. The family should continue daily bathing using the soak and seal technique. The family should continue using sensitive skin care products like Dove and Eucerin. Topical hydrocortisone may be applied twice a day as needed for flares. ? 3. History of hives and vomiting after ibuprofen The patient received her first and only dose of ibuprofen in the context of her first UTI. It is possible that she may have had an adverse ibuprofen reaction, but it is also possible that she may have experienced parainfectious urticaria, exacerbated by the direct mast cell release triggered by ibuprofen dosing, and vomiting secondary to the UTI. The patient has no immediate needs for ibuprofen dosing, and she should be treated with acetaminophen as needed for pain or fever for now. However, I advised the parents that it may be very reasonable to perform an ibuprofen dose challenge within the next couple of years to try to demonstrate tolerance if possible. Priya should return for follow up for a baked egg challenge. Thank you for allowing us to participate in the care of this patient. Please call with questions. Marty Mejia MD Sera Moreno 04/27/2018 10:53 AM Signed Time required to prepare patient and parent/s for examination greater than 5 mins Marty Mejia MD 04/27/2018 11:16 AM Signed Priya received her MMR vaccination at this visit. MMR can be safely given to infants and children with egg allergy. There is no contraindication. Priya should receive a seasonal influenza vaccine this fall. This may also be given to infants and children with egg allergy. There are no restrictions or special precautions required. Referring Provider: JEREMIAS BROCK [[id number]] Allergies As of Date: 04/27/2018 Noted Allergy Reaction IBUPROFEN 11/30/2017 4 - Hives EGG 12/20/2017 2 - Rash 4 - Hives MILK 09/05/2017 2 - Rash 4 - Hives 11 - Vomiting Date Reviewed: 04/27/2018 Reviewed by: Marty Mejia - Fully Assessed Reason for Visit: Follow Up [171] Cmt: food allergies Primary Visit Diagnosis:Allergic reaction to food, subsequent encounter [T78.1XXD] Other Visit Diagnoses:Milk allergy [Z91.011] Egg allergy [Z91.012] Adverse effect of ibuprofen, subsequent encounter [T39.315D] Order(s):MMR VIRUS IMMUNIZATION, SUBCUT [[id number]] Order #: [id number] Prescriptions as of 04/27/2018 Sig: CEFDINIR 250 MG/5 ML ORAL PAYTON* Take 250 mg by mouth twice da* EPIPEN INJECTION Inject intramuscularly as nee* ZYRTEC ORAL Take 2.5 mg by mouth. 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 Egg allergy [Z91.012] INVALID FOR* More... Ibuprofen adverse reaction [T39.315A] INVALID FOR* More... Other instructions from your clinician: Priya received her MMR vaccination at this visit. MMR can be safely given to infants and children with egg allergy. There is no contraindication. Priya should receive a seasonal influenza vaccine this fall. This may also be given to infants and children with egg allergy. There are no restrictions or special precautions required. Visit Notes: >> Sera Tiffanie Radha Apr 27, 2018 10:52 AM Status: Signed Time required to prepare patient and parent/s for examination greater than 5 mins Disposition: Return for baked egg challenge. 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 The last visit was on 12/20/17. She was accompanied by her mother. Food allergy Avoiding: milk (except in baked good), egg in all forms Tolerating: baked milk products and peanut butter Unintentional exposures: Maternal grandmother gave her some yogurt bites. She broke out in hives on face and hands within 5 minutes, and lesions resolved within 20 minutes of Benadryl dosing. New reactions: none Epinephrine device: Auvi-q 0.1 mg Eczema Has been doing well No outbreaks No ibuprofen since last visit, avoiding due to possible reaction Current Outpatient Prescriptions: epinephrine (EPIPEN INJECTION) Inject intramuscularly as needed. cetirizine HCl (ZYRTEC ORAL) Take 2.5 mg by mouth. acetaminophen (CHILDREN'S TYLENOL) 160 mg/5 mL susp Take by mouth every 4 hours as needed. No current facility-administered medications for this visit. Review of Systems: Notable for those items mentioned in the HPI. All other systems reviewed and negative other than HPI. Physical Exam: Pulse 116, temperature 36.5 ?C (97.7 ?F), temperature source Temporal Artery, height 76.5 cm (2' 6.12), weight 10.3 kg (22 lb 10.4 oz), SpO2 100 %. GEN- Awake, alert, comfortable, cooperative HEENT- Epicanthal folds with flat nasal bridge. No conjunctival injection or edema. No infraorbital shiners. NOSE- No nasal discharge or congestion. OP- Moist mucous membranes. No oral lesions. NECK- Normal. No lymphadenopathy. LUNGS- Clear without wheezing or crackles. Normal aeration. CV- Regular rate. No murmur. EXT- Normal. Well perfused. No peripheral edema. NEURO- Normal gait. Symmetric facial movements. Moving extremities well. SKIN- Well hydrated. No visible rash. 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 She has an underlying history of mild eczema and a history of hives and vomiting after her only ibuprofen dose. ? 1. Food allergy to milk and egg Priya has a known history of food allergy to milk and egg, but she tolerates milk in baked goods. She used to tolerate egg in baked goods, but she had a single reaction so baked egg was restricted from her diet. I recommended continued avoidance of milk (except in baked goods) and egg, but I recommended a baked egg challenge. A food allergy action plan was reviewed and provided in writing at the last visit. An Auvi- q 0.1 mg device was refilled. The grader patrol was reluctant to administer the MMR vaccine, but I reassured the parents that MMR has been considered safe for egg allergic patients for many years. The MMR vaccine was administered in the office during the visit. I advised the parents that the seasonal influenza vaccine may also be given to infants and children with egg allergy without any special precautions according to the AAP and AAAAI organizations as there is minimal risk of reaction. 2. Mild eczema The patient's eczema has been well controlled. The family should continue daily bathing using the soak and seal technique. The family should continue using sensitive skin care products like Dove and Eucerin. Topical hydrocortisone may be applied twice a day as needed for flares. ? 3. History of hives and vomiting after ibuprofen The patient received her first and only dose of ibuprofen in the context of her first UTI. It is possible that she may have had an adverse ibuprofen reaction, but it is also possible that she may have experienced parainfectious urticaria, exacerbated by the direct mast cell release triggered by ibuprofen dosing, and vomiting secondary to the UTI. The patient has no immediate needs for ibuprofen dosing, and she should be treated with acetaminophen as needed for pain or fever for now. However, I advised the parents that it may be very reasonable to perform an ibuprofen dose challenge within the next couple of years to try to demonstrate tolerance if possible. Priya should return for follow up for a baked egg challenge. Thank you for allowing us to participate in the care of this patient. Please call with questions. Marty Mejia MD CNCO Observed: 04/27/2018 Status: COMPLETED Source: [place] 12:00 AM [facility] Letter Text Priya Jacques has been scheduled for a medically supervised BAKED EGG challenge on 05/16/2018 @ 8:00 AM at [facility]. Please be on time and allow a minimum of 4 hours to complete the procedure. Due to limited space in the testing room, we ask that only parents or guardians accompany the child to this visit and that siblings and other family members do not accompany your child on this day. If other adult family members or children need to accompany the child, please call the physician's office to obtain permission. There are a few things that you child needs to do to prepare for this procedure: 1. Your child should not eat or drink anything the morning of the challenge. This will allow your child to be hungry enough to complete all the doses of the challenge. Your child may drink a small amount of water, if necessary and take all necessary medications. 2. Your child should avoid taking antihistamines or any medications containing antihistamines for 5-7 days prior to the challenge. If you are unsure if your child's medication is or contains an antihistamine, please contact your pharmacy. 3. Your child should be considered in good health on the day of the challenge. If your child is ill on the day of or the day before the challenge (i.e. cold, flu, fever, nausea, vomiting, diarrhea, wheezing, asthma symptoms), your child's food challenge should be rescheduled for a time when your child is in good health as the symptoms of his or her illness may resemble a reaction to the food being tested or the medications he or she is taking may mask a reaction to the food being tested. 4. You will need to prepare a batch of muffins at home and bring them with you to the challenge. The following is the recipe to follow: Baked Egg Recipe (Recipe developed at the [facility]) Yield: 6 muffins (2g egg protein per muffin) Dry Ingredients: Wet Ingredients: 1 cup of flour ? cup rice milk (may use cow milk or soy milk if your child is not allergic) ? teaspoon cinnamon (optional) 2 large eggs, beaten ? teaspoon salt ? teaspoon vanilla 1 teaspoon baking powder ? cup apple sauce ? cup sugar ? cup corn oil Directions: Preheat oven to 350? F. Line a muffin cat with 6 muffin liners Mix the dry ingredients (flour, cinnamon, salt, baking powder, sugar). Set aside. In a separate mixing bowl, use a whisk to mix the liquid ingredients thoroughly (rice milk, eggs, vanilla, applesauce, corn oil). Gradually add the liquid ingredients to the dry ingredients, stirring until well combined. Some small lumps may remain. Do not over stir. Divide the batter evenly into prepared muffin liners. You may end up making more than 6 muffins. Bake for 30-35 minutes or until llanes brown and firm to the touch. Bring the entire batch of muffins with you on the day of the challenge. 1 - 2 muffins are eaten during the challenge (depending on your physician's preference and the amount of muffins made). They are divided into 4 -6 doses, usually eaten every 15 minutes. When the child has finished the last dose, a 2 hour observation period (during which the child may consume food brought from home that has been tolerated in the past, if desired). If, at any time during the challenge, a reaction occurs, the child will be treated as needed and the challenge will be stopped. The child will be discharged two hours after the last dose has been fully consumed (or when any reaction has been treated adequately) and the child is deemed to be safely discharged by the physician. If you have any questions, please call the number below or message your physician through [employer]. Dr. Marty Mejia [facility] Office [address], [address] GPS address: [address] [place] [address] Office Food Challenge Appointment or Information: HEMOGLOBIN Collected: 03/24/2018 Status: F Source: [place] 2:45 PM [facility] REPOSITORY TYPE CODE TESTS RESULT OUT OF REFERENCE UNITS RANGE LAB HGB 10.1-12.7 g/dL Hemoglobin 11.2 Performed By: #### HGB, LEAD2 #### [facility] [employer] [address] [place] [id number] LEAD, BLOOD Collected: 03/24/2018 Status: F Source: [place] 2:45 [facility] REPOSITORY TYPE CODE TESTS RESULT OUT OF RANGE REFERENCE UNITS LAB LEAD 0.0-4.9 ug/dL Lead, <1.2 Blood Result Comment: This test was developed and its performance characteristics determined by [facility]'s Julien Chapman [facility] ([facility]). It has not been cleared or approved by the FDA. [facility] is regulated under CLIA as qualified to perform high-complexity testing. This test is used for clinical purposes. It should not be regarded as investigational or for research. Performed By: #### HGB, LEAD2 #### [facility] [employer] [address] [place] [id number] CNOV Observed: 03/23/2018 Status: COMPLETED Source: [place] 7:15 PM [facility] REPOSITORY Office Visit (PEDSWS) PRIYA JACQUES K ([id number]) [birth year] F Date Time Provider Department 03/23/18 7:15 PM SHEREEN CARNEY (MACHINE GUIDE [employer] WINDER) PEDSWS During your visit today, we recorded the following information about you: Temperature Pulse Respiration Weight 97.8 degrees 124/minute 32/minute 9.27 kg Height Head Circumference 0.743 m 45cm Maya Rowell MALENA 03/23/2018 7:16 PM Signed 12 month old female presents for a routine 12 month check-up. [] GENERAL QUESTIONS color enhanced section Parental concerns: NONE Diet: Breast: 3-4 feeds per 24 hours, feeding well, Solids: mostly table food Stools: NORMAL (soft and appropriately sized) Fluoride Water: uses significant amount of city water from: [employer] PWS - deficient (use recommendations for levels of <0.3 ppm), fluoride level: 0.13 ppm (2012 testing) Prescription: not using prescribed fluoride Ongoing subspecialty care: Ongoing care: allergy/immunology, urology Ongoing ancillary care: NONE Daycare/etc: NONE Lead exposure: No Significant stresses: No [] DEVELOPMENT FOR AGE 12 MONTHS color enhanced section Pulls to stand: Yes Cruises: Yes Walks with support: Yes Several steps alone (optional): Yes Points: Yes Precise pincer grasp: Yes Uses 1-3 words/sounds: Yes Uses mama and niya correctly: Yes Plays games such as peak-a-moss: Yes 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 - Hydronephrosis 11/29/2017 resolved IMPORTED PAST SURGICAL HISTORY Procedure Laterality Date - NONE Family history: IMPORTED FAMILY HISTORY Problem Relation Age of Onset - Asthma Mother - Allergies Mother Social history: Lives with: mother, father and aunt [] MISCELLANEOUS color enhanced section Difficulties with learning for patient: No [] ADDITIONAL NURSING COMMENTS color enhanced section None Maya Rowell LPN PHYSICAL EXAM General: alert and active in no apparent distress Head: Normocephalic Eyes: red reflexes present, no strabismus noted, conjunctiva clear, no drainage; sl erythematous around eyes (allergic dryness) Ears: External ears normal, canals clear Nose/Sinuses: Nares normal. Septum midline. Mucosa normal. No drainage or sinus tenderness. Oropharynx: moist mucous membranes, tonsils without hypertrophy and no exudates present Neck: supple, no adenopathy Heart: Regular Rate and Rhythm without murmurs or clicks and Pulses are normal Lungs: clear to auscultation Abdomen: Abdomen is soft, nontender, without organomegaly or masses. : External genitalia normal Musculoskeletal: Extremities with FROM and no problems identified., spine without evidence of scoliosis Neurological: Muscle tone normal and Normal age appropriate gait Skin: Normal skin exam without concerning lesions [] ASSESSMENT color enhanced section Well patient Normal growth Normal development PLAN Plan per orders. Note: MMR deferred due to egg allergy: to be given at Allergy office or wait for Legislative Assistant to approve it to be given here (has appt there 05/01/18). Parent verbalizes understanding. Counseling: car seats, home safety sunscreen whole milk advancing the diet, bottle weaning teething, tooth care discipline, consistency appropriate expectations Forms filled out: NONE Follow up visit in 3 months for well care or prn with concerns. I have reviewed the above nursing obtained HPI and I concur. Shereen Carney APRN.CEMENT TILE MAKER Shereen Carney APRN.CEMENT TILE MAKER 03/23/2018 8:09 PM Addendum Reviewed results of visit w/ patient/parent. Verbalize understanding. 12-24 months Parent Tips ? Eat as a family. If you eat new, colorful and healthy food, your toddler will, too. ? At mealtimes, use small plates, spoons and forks. ? Let them serve themselves and choose how much to eat. Expect them to be messy. ? Gagging and funny faces can be normal when you offer new textures and tastes. Expect to offer a new food 10 to 12 times before they will accept it. ? Expect picky eating, but do not offer replacements. Don't worry if they don't eat that much. They will eat more at the next meal or the next day. ? Don't use food as a comfort or reward. Limit sweets, desserts and candy. Feeding Advice Self-feeding table food.* ? At each meal, serve vegetables first, when your toddler is most hungry. ? Half of the plate will be fruits and vegetables. The other half with be protein foods, such as fish, eggs, beans or meats, and whole grains, such as whole wheat bread and brown rice. ? If your toddler is hungry between meals, offer fruits and vegetables. *Beware of choking hazards (ask your healthcare provider). What should my toddler be drinking? ? If you are , continue to do so. ? Your toddler should be drinking from a cup. ? Offer milk in a cup at meals. Talk to your healthcare provider or dietitian about choices if your toddler cannot drink cow's milk. ? Water is best if your toddler is thirsty between meals. Juice is not necessary. If your doctor recommends it, give no more than 4 to 6 ounces a day of 100% juice. ? Sweetened beverages such as soft drinks, sports drinks, and fruit punches are not food for your toddler. Be Active ? Your toddler is naturally active. They like walking, climbing and more. It is best for toddlers not to sit for more than 30 minutes. ? Play with your toddler each day. ? Limit activities with screens (TV, computers, tablets, video games and cell phones) so your toddler is more active. Sleep Advice ? Enjoy a calming sleep routine with low lights, a warm bath, and reading together. ? No food or screens before bed. ? It is normal and best for toddlers at this age to sleep around 12 to 14 hours each day. This is a big year! From 12 to 24 months, your toddler will get good at walking, talking and feeding themselves. They also will learn to eat whatever your family eats. Have You Noticed? ? Your toddler asks for the same foods over and over. This is normal. Your job is to offer a wide variety of foods. ? Your toddler is starting to imitate the things that you do. Watching Your Child ? Every 12 to 24 month old toddler has temper tantrums. No is a big word. Try to learn what they want and say the words to them. ? When your toddler has a meltdown, don't react. Turn away for a few seconds. When they calm down, give them lots of attention. ? Talk quietly and listen to them, even if its babble. Use words to help them. Fun at Mealtime ? Meal times should be fun and messy. ? At least one time a day, sit down and eat together. ? Share what you're eating. Name things, say the colors and count. ? Watch how they learn about food by playing. Play with a Purpose Every day, set aside some time to play with your toddler down at their level: ? Talk - Babbling is talking. Talk back and forth and smile. ? Big muscles (legs, back arms) - At first, help them balance to pull up, walk and climb. Play games that make them run, jump, throw, kick and climb. ? Hands and fingers - Stack blocks or plastic cups, color, paint or use chalk; toss a soft ball, pull strings, and push toys. Try This! ? Offer 2 good choices for meals or snacks, but let them pick (apples or pears, peas or carrots). ? It's fun to mix breakfast, lunch and dinner foods, like eggs for dinner. ? Give small portions until you see how hungry they are. They'll ask if they want more. Referring Provider: SELF [200] Allergies As of Date: 03/23/2018 Noted Allergy Reaction IBUPROFEN 11/30/2017 4 - Hives EGG 12/20/2017 2 - Rash 4 - Hives MILK 09/05/2017 2 - Rash 4 - Hives 11 - Vomiting Date Reviewed: 03/23/2018 Reviewed by: Shereen Cavazos (Ellen Carney - Fully Assessed Reason for Visit: Well Child [122] Primary Visit Diagnosis:Encounter for routine child health examination without abnormal findings [Z00.129] Other Visit Diagnosis:Encounter for immunization [Z23] Order(s):HEMOGLOBIN (HGB) [SQHGB] Order #: [id number] FUTURE LEAD BLOOD [SQLEAD] Order #: [id number] FUTURE PNEUMOCOCCAL-13 VACCINE PCV-13 [[id number]] Order #: [id number] HEPATITIS A VACCIN PED/ADOLX2 [[id number]] Order #: [id number] VARICELLA [[id number]] Order #: [id number] Prescriptions as of 03/23/2018 Sig: EPIPEN INJECTION Inject intramuscularly as nee* ZYRTEC ORAL Take by mouth. ACETAMINOPHEN 160 MG/5 ML ORA* Take by mouth every 4 hours * Problem List As Of Date 03/23/2018 Noted Resolved Hydronephrosis [N13.30] 11/29/2017 Atopic dermatitis [L20.9] INVALID FOR* Closed displaced fracture of shaft of right cla*INVALID FOR* Duplicated right renal collecting system [Q62.5]INVALID FOR* Allergic reaction to food [T78.1XXA] INVALID FOR* Milk allergy [Z91.011] INVALID FOR* More... Egg allergy [Z91.012] INVALID FOR* More... Ibuprofen adverse reaction [T39.315A] INVALID FOR* More... Other instructions from your clinician: Reviewed results of visit w/ patient/parent. Verbalize understanding. 12-24 months Parent Tips ? Eat as a family. If you eat new, colorful and healthy food, your toddler will, too. ? At mealtimes, use small plates, spoons and forks. ? Let them serve themselves and choose how much to eat. Expect them to be messy. ? Gagging and funny faces can be normal when you offer new textures and tastes. Expect to offer a new food 10 to 12 times before they will accept it. ? Expect picky eating, but do not offer replacements. Don't worry if they don't eat that much. They will eat more at the next meal or the next day. ? Don't use food as a comfort or reward. Limit sweets, desserts and candy. Feeding Advice Self-feeding table food.* ? At each meal, serve vegetables first, when your toddler is most hungry. ? Half of the plate will be fruits and vegetables. The other half with be protein foods, such as fish, eggs, beans or meats, and whole grains, such as whole wheat bread and brown rice. ? If your toddler is hungry between meals, offer fruits and vegetables. *Beware of choking hazards (ask your healthcare provider). What should my toddler be drinking? ? If you are , continue to do so. ? Your toddler should be drinking from a cup. ? Offer milk in a cup at meals. Talk to your healthcare provider or dietitian about choices if your toddler cannot drink cow's milk. ? Water is best if your toddler is thirsty between meals. Juice is not necessary. If your doctor recommends it, give no more than 4 to 6 ounces a day of 100% juice. ? Sweetened beverages such as soft drinks, sports drinks, and fruit punches are not food for your toddler. Be Active ? Your toddler is naturally active. They like walking, climbing and more. It is best for toddlers not to sit for more than 30 minutes. ? Play with your toddler each day. ? Limit activities with screens (TV, computers, tablets, video games and cell phones) so your toddler is more active. Sleep Advice ? Enjoy a calming sleep routine with low lights, a warm bath, and reading together. ? No food or screens before bed. ? It is normal and best for toddlers at this age to sleep around 12 to 14 hours each day. This is a big year! From 12 to 24 months, your toddler will get good at walking, talking and feeding themselves. They also will learn to eat whatever your family eats. Have You Noticed? ? Your toddler asks for the same foods over and over. This is normal. Your job is to offer a wide variety of foods. ? Your toddler is starting to imitate the things that you do. Watching Your Child ? Every 12 to 24 month old toddler has temper tantrums. No is a big word. Try to learn what they want and say the words to them. ? When your toddler has a meltdown, don't react. Turn away for a few seconds. When they calm down, give them lots of attention. ? Talk quietly and listen to them, even if its babble. Use words to help them. Fun at Mealtime ? Meal times should be fun and messy. ? At least one time a day, sit down and eat together. ? Share what you're eating. Name things, say the colors and count. ? Watch how they learn about food by playing. Play with a Purpose Every day, set aside some time to play with your toddler down at their level: ? Talk - Babbling is talking. Talk back and forth and smile. ? Big muscles (legs, back arms) - At first, help them balance to pull up, walk and climb. Play games that make them run, jump, throw, kick and climb. ? Hands and fingers - Stack blocks or plastic cups, color, paint or use chalk; toss a soft ball, pull strings, and push toys. Try This! ? Offer 2 good choices for meals or snacks, but let them pick (apples or pears, peas or carrots). ? It's fun to mix breakfast, lunch and dinner foods, like eggs for dinner. ? Give small portions until you see how hungry they are. They'll ask if they want more. Disposition: Return in about 3 months (around 06/23/2018) for well. Follow-up and Disposition History Recorded Encounter Status:Closed by SHEREEN CARNEY CNP on 03/23/18 PROGRESS Observed: 03/23/2018 Status: COMPLETED Source: [place] 7:14 PM [facility] REPOSITORY [facility] ID: [id number] Author: Maya Rowell LPN Service: (none) Author Type: (none) Type: Progress Notes Filed: 03/23/2018 8:09 PM Note Text: 12 month old female presents for a routine 12 month check-up. [] GENERAL QUESTIONS color enhanced section Parental concerns: NONE Diet: Breast: 3-4 feeds per 24 hours, feeding well, Solids: mostly table food Stools: NORMAL (soft and appropriately sized) Fluoride Water: uses significant amount of city water from: [employer] PWS - deficient (use recommendations for levels of <0.3 ppm), fluoride level: 0.13 ppm (2012 testing) Prescription: not using prescribed fluoride Ongoing subspecialty care: Ongoing care: allergy/immunology, urology Ongoing ancillary care: NONE Daycare/etc: NONE Lead exposure: No Significant stresses: No [] DEVELOPMENT FOR AGE 12 MONTHS color enhanced section Pulls to stand: Yes Cruises: Yes Walks with support: Yes Several steps alone (optional): Yes Points: Yes Precise pincer grasp: Yes Uses 1-3 words/sounds: Yes Uses mama and niya correctly: Yes Plays games such as [employer]: Yes 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 - Hydronephrosis 11/29/2017 resolved IMPORTED PAST SURGICAL HISTORY Procedure Laterality Date - NONE Family history: IMPORTED FAMILY HISTORY Problem Relation Age of Onset - Asthma Mother - Allergies Mother Social history: Lives with: mother, father and aunt [] MISCELLANEOUS color enhanced section Difficulties with learning for patient: No [] ADDITIONAL NURSING COMMENTS color enhanced section None Maya Rowell LPN PHYSICAL EXAM General: alert and active in no apparent distress Head: Normocephalic Eyes: red reflexes present, no strabismus noted, conjunctiva clear, no drainage; sl erythematous around eyes (allergic dryness) Ears: External ears normal, canals clear Nose/Sinuses: Nares normal. Septum midline. Mucosa normal. No drainage or sinus tenderness. Oropharynx: moist mucous membranes, tonsils without hypertrophy and no exudates present Neck: supple, no adenopathy Heart: Regular Rate and Rhythm without murmurs or clicks and Pulses are normal Lungs: clear to auscultation Abdomen: Abdomen is soft, nontender, without organomegaly or masses. : External genitalia normal Musculoskeletal: Extremities with FROM and no problems identified., spine without evidence of scoliosis Neurological: Muscle tone normal and Normal age appropriate gait Skin: Normal skin exam without concerning lesions [] ASSESSMENT color enhanced section Well patient Normal growth Normal development PLAN Plan per orders. Note: MMR deferred due to egg allergy: to be given at Allergy office or wait for Legislative Assistant to approve it to be given here (has appt there 05/01/18). Parent verbalizes understanding. Counseling: car seats, home safety sunscreen whole milk advancing the diet, bottle weaning teething, tooth care discipline, consistency appropriate expectations Forms filled out: NONE Follow up visit in 3 months for well care or prn with concerns. I have reviewed the above nursing obtained HPI and I concur. Shereen Carney APRN.CEMENT TILE MAKER PROGRESS Observed: 12/26/2017 Status: COMPLETED Source: [place] 9:39 AM [facility] REPOSITORY [facility] ID: [id number] Author: Jeremias Brock Service: (none) Author Type: Physician Type: Progress Notes Filed: 12/26/2017 10:10 AM Note Text: 10 month old female presents for a routine 9 month check-up. [] GENERAL QUESTIONS color enhanced section Parental concerns: NONE Diet: Breast: 3-4 feeds per 24 hours, feeding well, Solids: mostly table food Stools: NORMAL (soft and appropriately sized) Fluoride Water: uses significant amount of city water from: [employer] PWS - deficient (use recommendations for levels of <0.3 ppm), fluoride level: 0.13 ppm (2011 testing) Prescription: not using prescribed fluoride - has Rx, patient refuses due to taste Ongoing subspecialty care: Ongoing care: allergy/immunology, urology Ongoing ancillary care: NONE Daycare/etc: NONE Lead exposure: No Significant stresses: No [] DEVELOPMENT FOR AGE 9 MONTHS color enhanced section Patient is a female 10 month old who had an ASQ 10 month Questionnaire completed today. The questionnaire was completed by mother. Area Cutoff Score 0 5 10 15 20 25 30 35 40 45 50 55 60 Communication 22.87 50 Gross Motor 30.07 60 Fine Motor 37.97 55 Problem Solving 32.51 60 Personal-Social 27.25 60 If the baby's total score is in the white area, it is above the cutoff, and the baby's development appears to be normal. If the baby's total score is in the casarez area, it is close to the cutoff. (Please refer to cutoff score for infants with a score that is close to the red and casarez zone border.) Provide learning activities and monitor development. If the baby's total score is in the red area, it is below the cutoff. Further assessment with a professional may be needed. 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 - Hydronephrosis 11/29/2017 resolved IMPORTED PAST SURGICAL HISTORY Procedure Laterality Date - NONE Family history: IMPORTED FAMILY HISTORY Problem Relation Age of Onset - Asthma Mother - Allergies Mother Social history: NEGATIVE SOCIAL HISTORY [] MISCELLANEOUS color enhanced section Difficulties with learning for caregiver: No [] ADDITIONAL NURSING COMMENTS color enhanced section None Estuardo Love 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 PHYSICAL EXAM GENERAL: alert, well appearing, in no distress HABITUS: normal build HEAD: normocephalic, anterior fontanel soft and flat LEFT EYE: no drainage noted, no conjunctival injection noted, pupil round and reactive to light, red reflex present; RIGHT EYE: no drainage noted, no conjunctival injection noted, pupil round and reactive to light, red reflex present; NO ADDITIONAL EYE FINDINGS LEFT EAR: pinna normal, auditory canal normal, tympanic membrane clear, no effusion noted, RIGHT EAR: pinna normal, auditory canal normal, tympanic membrane clear, no effusion noted NOSE/SINUSES: nares normal, mucosa normal, no drainage noted OROPHARYNX: lips without lesions noted, gums/mucosa normal, oropharynx without erythema or exudates NECK/ADENOPATHY: neck supple, no adenopathy noted CHEST/LUNGS: lungs clear to auscultation CARDIOVASCULAR: regular rate and rhythm, no murmur, capillary refill less than 2 seconds ABDOMEN: soft, nontender, bowel sounds normal, no masses, no organomegaly GENITILIA: FEMALE: external genitalia normal MUSCULOSKELETAL: extremities with full range of motion present throughout NEUROLOGICAL: deep tendon reflexes 2+/4+ throughout, muscle mass and tone normal SKIN: normal color, no rash, no jaundice [] ASSESSMENT color enhanced section Well patient Normal growth Normal development Issues: 1. Otitis media resolved. Routine care. 2. Continue allergy and urology care unchanged. PLAN Plan per orders. Counseling: car seats, home safety sunscreen breast milk or formula advancing the diet, sipper cup teething, night awakening, shoes discipline, consistency Forms filled out: NONE Follow up visit in 3 months for well care or prn with concerns. I have reviewed the above nursing obtained HPI and I concur. Problem list and history reviewed. Allergies reviewed. Medications reviewed. Immunizations reviewed. This note was partially generated using Confer voice recognition system, and there may be some incorrect words, spellings, and punctuation that were not noted in checking the note before saving. Jeremias Brock M.D. CNOV Observed: 12/26/2017 Status: COMPLETED Source: [place] 9:30 AM [facility] REPOSITORY Office Visit (PEDSWS) PRIYA JACQUES ([id number]) [birth year] F Date Time Provider Department 12/26/17 9:30 AM JEREMIAS BROCK During your visit today, we recorded the following information about you: Temperature Pulse Respiration Weight 98.1 degrees 120/minute 28/minute 7.768 kg Height Head Circumference 0.711 m 44.5cm Jeremias Brock 12/26/2017 10:10 AM Signed 10 month old female presents for a routine 9 month check-up. [] GENERAL QUESTIONS color enhanced section Parental concerns: NONE Diet: Breast: 3-4 feeds per 24 hours, feeding well, Solids: mostly table food Stools: NORMAL (soft and appropriately sized) Fluoride Water: uses significant amount of city water from: [employer] PWS - deficient (use recommendations for levels of <0.3 ppm), fluoride level: 0.13 ppm (2011 testing) Prescription: not using prescribed fluoride - has Rx, patient refuses due to taste Ongoing subspecialty care: Ongoing care: allergy/immunology, urology Ongoing ancillary care: NONE Daycare/etc: NONE Lead exposure: No Significant stresses: No [] DEVELOPMENT FOR AGE 9 MONTHS color enhanced section Patient is a female 10 month old who had an ASQ 10 month Questionnaire completed today. The questionnaire was completed by mother. Area Cutoff Score 0 5 10 15 20 25 30 35 40 45 50 55 60 Communication 22.87 50 Gross Motor 30.07 60 Fine Motor 37.97 55 Problem Solving 32.51 60 Personal-Social 27.25 60 If the baby's total score is in the white area, it is above the cutoff, and the baby's development appears to be normal. If the baby's total score is in the casarez area, it is close to the cutoff. (Please refer to cutoff score for infants with a score that is close to the red and casarez zone border.) Provide learning activities and monitor development. If the baby's total score is in the red area, it is below the cutoff. Further assessment with a professional may be needed. 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 - Hydronephrosis 11/29/2017 resolved IMPORTED PAST SURGICAL HISTORY Procedure Laterality Date - NONE Family history: IMPORTED FAMILY HISTORY Problem Relation Age of Onset - Asthma Mother - Allergies Mother Social history: NEGATIVE SOCIAL HISTORY [] MISCELLANEOUS color enhanced section Difficulties with learning for caregiver: No [] ADDITIONAL NURSING COMMENTS color enhanced section None Estuardo Love 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 PHYSICAL EXAM GENERAL: alert, well appearing, in no distress HABITUS: normal build HEAD: normocephalic, anterior fontanel soft and flat LEFT EYE: no drainage noted, no conjunctival injection noted, pupil round and reactive to light, red reflex present; RIGHT EYE: no drainage noted, no conjunctival injection noted, pupil round and reactive to light, red reflex present; NO ADDITIONAL EYE FINDINGS LEFT EAR: pinna normal, auditory canal normal, tympanic membrane clear, no effusion noted, RIGHT EAR: pinna normal, auditory canal normal, tympanic membrane clear, no effusion noted NOSE/SINUSES: nares normal, mucosa normal, no drainage noted OROPHARYNX: lips without lesions noted, gums/mucosa normal, oropharynx without erythema or exudates NECK/ADENOPATHY: neck supple, no adenopathy noted CHEST/LUNGS: lungs clear to auscultation CARDIOVASCULAR: regular rate and rhythm, no murmur, capillary refill less than 2 seconds ABDOMEN: soft, nontender, bowel sounds normal, no masses, no organomegaly GENITILIA: FEMALE: external genitalia normal MUSCULOSKELETAL: extremities with full range of motion present throughout NEUROLOGICAL: deep tendon reflexes 2+/4+ throughout, muscle mass and tone normal SKIN: normal color, no rash, no jaundice [] ASSESSMENT color enhanced section Well patient Normal growth Normal development Issues: 1. Otitis media resolved. Routine care. 2. Continue allergy and urology care unchanged. PLAN Plan per orders. Counseling: car seats, home safety sunscreen breast milk or formula advancing the diet, sipper cup teething, night awakening, shoes discipline, consistency Forms filled out: NONE Follow up visit in 3 months for well care or prn with concerns. I have reviewed the above nursing obtained HPI and I concur. Problem list and history reviewed. Allergies reviewed. Medications reviewed. Immunizations reviewed. This note was partially generated using Confer voice recognition system, and there may be some incorrect words, spellings, and punctuation that were not noted in checking the note before saving. Jeremias Brock M.D. Jeremias Brock 12/26/2017 10:05 AM Signed 6-12 months Parent Tips ? For the next 6 months, babies will learn through tasting, smelling and touching food. Making faces or spitting out new foods is normal. ? Expect mealtime to be messy. ? Set regular feeding times with your baby. Some days they will eat less than other days. Let them be the guide. Do not force your baby to eat. Feeding Advice ? Continue on demand. ? If you are or formula feeding, let your baby decide how much to drink. ? The amount of milk they drink will decrease as they eat more solid foods. ? Ask your child's doctor about Vitamin D supplementation. Introducing food ? Offer new foods like soft veggies when your child is most hungry. Offer new foods with familiar foods. ? Your child may like something different from you. Be sure to offer lots of different fruits and vegetables. ? Stay positive. Don't be surprised if you have to offer a new food several times. ? This is your chance to let baby explore with their hands, tongue and eyes. Self-feeding with finger foods* ? Mealtimes: Offer new colors, flavors, textures and smells. Give small tastes. ? Enjoy family meals. Place your baby in a booster seat or high chair at the table. Let babies feed themselves as much as possible. ? Never bribe, reward or comfort your baby with food. ? They will let you know when they are done - tugging at their bib, turning their head or pushing away the plate or spoon. *Beware of choking hazards (ask your healthcare provider). What should baby be drinking? ? Around 9 to 12 months, trade the bottle for a cup. By one year, offer all drinks in a cup. ? At one year, offer milk at meals and water in between meals. Juice decreases your baby's appetite. Juice is not necessary. If your doctor recommends it, give less than 3 ounces a day of 100% juice. ? Soft drinks, fruit punch, sports drinks or other sweetened drinks are not good for your baby. Activity Advice ? Enjoy watching your baby crawl, reach, play with toys or walk. ? Play simple games together, like hiding or rolling balls. ? Play using all five senses by dancing to music, smelling new things, looking at colors and hand or clapping games. ? TV, computers, tablets, video games and cell phones can take away from time to move and explore. ? Build their words, talk to them. Ask baby what they see, read to them and tell stories together. Sleep Advice ? Continue a calming sleep routine with low lights, a warm bath, and reading together. ? No eating or TV before bed. ? It is normal and best for babies at this age to sleep about 14 hours each day. This is a happy time for your baby! ? Babies laugh, screech, kick when they see you coming. Watching Your Baby ? Watch your baby study new things with all five senses (sight, sound, smell, taste, feel). ? At first, your baby will point, screech, babble, and shake their head to show hunger or feeling full. Gradually they will use sounds, then words. ? Point out colors and count what's on the plate. ? Around 9 months they learn how to use their thumb and first finger to hot die picker small, soft food chunks, such as pieces of avocado, banana, pear, cheese or Cheerios. Fun at Mealtime ? Talk or sing when you sit with them. Ask questions and point. Wait to let baby make sounds. Talk back and forth. ? Put new and different foods and flavors on their finger or fist. Let the baby sit with you when you eat. ? Offer your baby lots of colors, textures, smells, and tastes. Let them squish, drop, splash, lick, and mix them up. Play with a Purpose Every day, set aside some time for floor play: ? Talk - Say out loud what you see them doing, like That's a banana. Are you squishing it? When they babble or make sounds, talk back to them. ? Big muscles (legs, back arms) - Put things just out of reach to make them roll, scoot, crawl or pull up to get them. ? Hands and fingers - Give them toys they can grab that feel rough, smooth, soft, furry. Offer things that light up or make sound (flash light, rattle, carl bag, wrapping paper). Try This! ? As you offer any new food, describe the food using all five senses. Say Mmm, tasty, then put a bite in your mouth and smile. What Comes Next? ? By 24 months, your child will learn to eat the same foods that your family does. ? Be aware of your baby's habits and tastes - they will continue to change. Don't get discouraged. ? Keep regular mealtimes, snack times, play times, nap times, reading times, and bed times. It will be easier for you and better for them. Referring Provider: SHEREEN CARNEY ([employer]ACH[employer]) [[id number]] Allergies As of Date: 12/26/2017 Noted Allergy Reaction IBUPROFEN 11/30/2017 4 - Hives EGG 12/20/2017 2 - Rash 4 - Hives MILK 09/05/2017 2 - Rash 4 - Hives 11 - Vomiting Date Reviewed: 12/26/2017 Reviewed by: Jeremias Brock - Fully Assessed Reason for Visit: Well Child [122] Cmt: 10 months ear recheck [Other] Reason For Visit History Recorded Visit Diagnosis:Encounter for routine child health examination without abnormal findings [Z00.129] Prescriptions as of 12/26/2017 Sig: ZYRTEC ORAL Take by mouth. ACETAMINOPHEN 160 MG/5 ML ORA* Take by mouth every 4 hours * Problem List As Of Date 12/26/2017 Noted Resolved Hydronephrosis [N13.30] 11/29/2017 Atopic dermatitis [L20.9] INVALID FOR* Closed displaced fracture of shaft of right cla*INVALID FOR* Duplicated right renal collecting system [Q62.5]INVALID FOR* Allergic reaction to food [T78.1XXA] INVALID FOR* Milk allergy [Z91.011] INVALID FOR* More... Egg allergy [Z91.012] INVALID FOR* More... Ibuprofen adverse reaction [T39.315A] INVALID FOR* More... Other instructions from your clinician: 6-12 months Parent Tips ? For the next 6 months, babies will learn through tasting, smelling and touching food. Making faces or spitting out new foods is normal. ? Expect mealtime to be messy. ? Set regular feeding times with your baby. Some days they will eat less than other days. Let them be the guide. Do not force your baby to eat. Feeding Advice ? Continue on demand. ? If you are or formula feeding, let your baby decide how much to drink. ? The amount of milk they drink will decrease as they eat more solid foods. ? Ask your child's doctor about Vitamin D supplementation. Introducing food ? Offer new foods like soft veggies when your child is most hungry. Offer new foods with familiar foods. ? Your child may like something different from you. Be sure to offer lots of different fruits and vegetables. ? Stay positive. Don't be surprised if you have to offer a new food several times. ? This is your chance to let baby explore with their hands, tongue and eyes. Self-feeding with finger foods* ? Mealtimes: Offer new colors, flavors, textures and smells. Give small tastes. ? Enjoy family meals. Place your baby in a booster seat or high chair at the table. Let babies feed themselves as much as possible. ? Never bribe, reward or comfort your baby with food. ? They will let you know when they are done - tugging at their bib, turning their head or pushing away the plate or spoon. *Beware of choking hazards (ask your healthcare provider). What should baby be drinking? ? Around 9 to 12 months, trade the bottle for a cup. By one year, offer all drinks in a cup. ? At one year, offer milk at meals and water in between meals. Juice decreases your baby's appetite. Juice is not necessary. If your doctor recommends it, give less than 3 ounces a day of 100% juice. ? Soft drinks, fruit punch, sports drinks or other sweetened drinks are not good for your baby. Activity Advice ? Enjoy watching your baby crawl, reach, play with toys or walk. ? Play simple games together, like hiding or rolling balls. ? Play using all five senses by dancing to music, smelling new things, looking at colors and hand or clapping games. ? TV, computers, tablets, video games and cell phones can take away from time to move and explore. ? Build their words, talk to them. Ask baby what they see, read to them and tell stories together. Sleep Advice ? Continue a calming sleep routine with low lights, a warm bath, and reading together. ? No eating or TV before bed. ? It is normal and best for babies at this age to sleep about 14 hours each day. This is a happy time for your baby! ? Babies laugh, screech, kick when they see you coming. Watching Your Baby ? Watch your baby study new things with all five senses (sight, sound, smell, taste, feel). ? At first, your baby will point, screech, babble, and shake their head to show hunger or feeling full. Gradually they will use sounds, then words. ? Point out colors and count what's on the plate. ? Around 9 months they learn how to use their thumb and first finger to hot die picker small, soft food chunks, such as pieces of avocado, banana, pear, cheese or Cheerios. Fun at Mealtime ? Talk or sing when you sit with them. Ask questions and point. Wait to let baby make sounds. Talk back and forth. ? Put new and different foods and flavors on their finger or fist. Let the baby sit with you when you eat. ? Offer your baby lots of colors, textures, smells, and tastes. Let them squish, drop, splash, lick, and mix them up. Play with a Purpose Every day, set aside some time for floor play: ? Talk - Say out loud what you see them doing, like That's a banana. Are you squishing it? When they babble or make sounds, talk back to them. ? Big muscles (legs, back arms) - Put things just out of reach to make them roll, scoot, crawl or pull up to get them. ? Hands and fingers - Give them toys they can grab that feel rough, smooth, soft, furry. Offer things that light up or make sound (flash light, rattle, carl bag, wrapping paper). Try This! ? As you offer any new food, describe the food using all five senses. Say Mmm, tasty, then put a bite in your mouth and smile. What Comes Next? ? By 24 months, your child will learn to eat the same foods that your family does. ? Be aware of your baby's habits and tastes - they will continue to change. Don't get discouraged. ? Keep regular mealtimes, snack times, play times, nap times, reading times, and bed times. It will be easier for you and better for them. Disposition: Return for Follow-up after first birthday. Follow-up and Disposition History Recorded Encounter Status:Closed by JEREMIAS BROCK MD on 12/26/17 ALGN EGG WHITE IGE Collected: 12/22/2017 Status: F Source: [place] 12:27 PM [facility] TYPE CODE TESTS RESULT OUT OF REFERENCE UNITS RANGE LAB EGGW <0.35 KU/L High Egg White 2.18 IgE LAB EGGCL 0 High Egg 2 White-Class Performed By: #### EGGWHT, MILKC #### [facility] [employer] [address] [place], [place] [address] ALGN MILK COW IGE Collected: 12/22/2017 Status: F Source: [place] 12:27 PM [facility] REPOSITORY TYPE CODE TESTS RESULT OUT OF REFERENCE UNITS RANGE LAB MLK <0.35 KU/L High Cow Milk 0.75 IgE LAB MLKCL 0 High Milk, 2 Cow-Class Performed By: #### EGGWHT, MILKC #### [facility] [employer] [address] [place], [place] [address] PROGRESS Observed: 12/20/2017 Status: COMPLETED Source: [place] 10:25 AM [facility] REPOSIT[facility] HNO ID: [id number] Author: Marty Mejia Service: (none) Author Type: Physician Type: Progress Notes Filed: 12/20/2017 2:22 PM Note Text: Consult This is a request for consultation by Dr. Jeremias Brock for an opinion regarding milk allergy. My final recommendations will be communicated back to the requesting physician by way of shared Medical record or letter to the requesting physician via [place] mail. This is a 9 month old girl with a suspected food allergy and prior reaction to ibuprofen. Has been breast fed since Mom has unrestricted diet No history of reactions to breast milk, no history of ingesting formula Ate a baby food puree containing milk at 6 months Developed small red dots around her mouth Director Of Corporate Responsibility recommended continuing the purees with milk Continued to have consistent reactions with red perioral bumps after milk exposures Has had hives with mashed potatoes and butter and hives with [id number] Has tolerated heated milk in products without reaction Had bite of mom's cereal with milk from a bowl of cereal with milk recently Developed hives within 5 minutes, eyes were swelling shut Did not receive treatment, symptoms resolved within 10-15 minutes Has not had vomiting, difficulty breathing, coughing, etc during reactions Mom continues to ingest milk, no reactions to breastmilk Has not had testing yet, does not have an epinephrine device Has tried scrambled egg once at 7 months Developed red flat dots in perioral distribution and on hands at sites of contact within minutes No other symptoms, no treatment required, resolved in 10-15 minutes Used to tolerate eggs in baked goods but had hives after eating cake recently Received first and only ibuprofen dose during first UTI in May 2017 Broke out in an itchy hive-like rash within 10 minutes of dose Vomited 2-3 times over the next 2 hours Has not had ibuprofen since then Has eczema, treated with a prescription topical hydrocortisone cream Uses Eucerin as a moisturizer Takes a bath every other day, has sensitive skin Previously using Gilberto and Gilberto, now using Dove sensitive skin Only has some flares behind ears now Tolerates peanut butter without symptoms Tolerates soy non-dairy yogurt and wheat products without reaction Has tolerated almond milk yogurt Tried salmon, no reaction Has not had tree nuts Mom unsure about sesame ingestion No history of wheezing Current Outpatient Prescriptions: acetaminophen (CHILDREN'S TYLENOL) 160 mg/5 mL susp Take by mouth every 4 hours as needed. No current facility-administered medications for this visit. 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 HEENT: No chronic nasal congestion, currently with mild URI for 2 days NECK: Negative for lumps, pain and significant neck swelling RESPIRATORY: Negative for cough, wheezing or shortness of breath. No snoring CARDIOVASCULAR: Negative for heart disease, extremity swelling. GI: Negative for abdominal discomfort, blood in stools or black stools or change in bowel habits, no vomiting, no diarrhea. MUSCULOSKELETAL: Negative for joint pain or swelling. SKIN: Negative for lesions, rash, and itching. History of mild eczema, history of urticaria with reactions HEMATOLOGY/LYMPHOLOGY: Negative for bruising easily, and swollen nodes. NEURO: Normal developmental milestones IMMUNE: As above All other reviewed and negative other than HPI. Physical Exam: Weight 7.3 kg (16 lb 1.5 oz). GEN- Sleeping comfortably in mother's arms during history and exam, well appearing HEENT- No dysmorphic features, no edema NOSE- Mild audible nasal congestion, no rhinorrhea OP- Moist, no edema NECK- Normal LUNGS- Normal, clear with good aeration, some transmitted upper airway sounds, no wheezing CV- Regular, no murmur ABD- Soft, non-tender, no hepatosplenomegaly EXT- Normal, no edema SKIN- No rashes but single patch of mild dry skin in right ear folds Skin testing was positive for milk and egg. Assessment/Plan: The patient is a pleasant 9 month old with newly confirmed food allergies to milk and egg. She has an underlying history of mild eczema and a history of hives and vomiting after her only ibuprofen dose. 1. Food allergy to milk and egg The patient has had reproducible cutaneous reactions to milk, starting with some mild perioral dermatitis but progressing to hives and angioedema in a more recent reaction. She had an initial cutaneous reaction to scrambled egg that was limited to the sites of direct contact, but she has had hives with a recent reaction to a baked egg product. Skin testing was positive to milk and egg. I recommended strict avoidance of milk (except in baked goods) and egg (in all forms). I encouraged regular ingestion of baked milk products to promote the development of milk tolerance. I recommended soy milk products as a substitute for cow's milk products, and I discussed a possible referral to nutrition for practical dietary advice. I encouraged the parents to continue to allow her to eat peanut regularly to maintain her peanut tolerance. I reviewed how to read a label instructions with the parents, and I provided a FARE food allergy form with avoidance recommendations in writing. A food allergy action plan was provided in writing, and the indications for epinephrine were reviewed with the parents.An Auvi-q 0.1 mg device was prescribed by fax as the infant [facility]. The administration technique was demonstrated using teach back and parental demonstration to confirm parental understanding. I ordered ImmunoCAP levels to milk and egg for additional prognostic information. 2. Mild eczema The patient's eczema has improved. I recommended daily bathing and explained the soak and seal technique. The family should continue using sensitive skin care products like Dove and Eucerin. Topical hydrocortisone may be applied twice a day as needed for flares. 3. History of hives and vomiting after ibuprofen The patient received her first and only dose of ibuprofen in the context of her first UTI. It is possible that she may have had an adverse ibuprofen reaction, but it is also possible that she may have experienced parainfectious urticaria, exacerbated by the direct mast cell release triggered by ibuprofen dosing, and vomiting secondary to the UTI. The patient has no immediate needs for ibuprofen dosing, and she should be treated with acetaminophen as needed for pain or fever for now. However, I advised the parents that it may be very reasonable to perform an ibuprofen dose challenge within the next couple of years to try to demonstrate tolerance if possible. Follow up in 2 months Thank you for allowing us to participate in the care of this patient. Please call with questions. Mraty Mejia MD CNOV Observed: 12/20/2017 Status: COMPLETED Source: [place] 9:00 AM [facility] REPOS[facility] Office Visit (PALLMN) PRIYA JACQUES ([id number]) [birth year] F Date Time Provider Department 12/20/17 9:00 AM MARTY MEJIA During your visit today, we recorded the following information about you: Weight 7.3 kg Marty Mejia MD 12/20/2017 2:22 PM Signed Consult This is a request for consultation by Dr. Jeremias Brock for an opinion regarding milk allergy. My final recommendations will be communicated back to the requesting physician by way of shared Medical record or letter to the requesting physician via US mail. This is a 9 month old girl with a suspected food allergy and prior reaction to ibuprofen. Has been breast fed since Mom has unrestricted diet No history of reactions to breast milk, no history of ingesting formula Ate a baby food puree containing milk at 6 months Developed small red dots around her mouth Director Of Corporate Responsibility recommended continuing the infant purees with milk Continued to have consistent reactions with red perioral bumps after milk exposures Has had hives with mashed potatoes and butter and hives with [id number] Has tolerated heated milk in products without reaction Had bite of mom's cereal with milk from a bowl of cereal with milk recently Developed hives within 5 minutes, eyes were swelling shut Did not receive treatment, symptoms resolved within 10-15 minutes Has not had vomiting, difficulty breathing, coughing, etc during reactions Mom continues to ingest milk, no reactions to breastmilk Has not had testing yet, does not have an epinephrine device Has tried scrambled egg once at 7 months Developed red flat dots in perioral distribution and on hands at sites of contact within minutes No other symptoms, no treatment required, resolved in 10-15 minutes Used to tolerate eggs in baked goods but had hives after eating cake recently Received first and only ibuprofen dose during first UTI in May 2017 Broke out in an itchy hive-like rash within 10 minutes of dose Vomited 2-3 times over the next 2 hours Has not had ibuprofen since then Has eczema, treated with a prescription topical hydrocortisone cream Uses Eucerin as a moisturizer Takes a bath every other day, has sensitive skin Previously using Gilberto and Gilberto, now using Dove sensitive skin Only has some flares behind ears now Tolerates peanut butter without symptoms Tolerates soy non-dairy yogurt and wheat products without reaction Has tolerated almond milk yogurt Tried salmon, no reaction Has not had tree nuts Mom unsure about sesame ingestion No history of wheezing Current Outpatient Prescriptions: acetaminophen (CHILDREN'S TYLENOL) 160 mg/5 mL susp Take by mouth every 4 hours as needed. No current facility-administered medications for this visit. 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 HEENT: No chronic nasal congestion, currently with mild URI for 2 days NECK: Negative for lumps, pain and significant neck swelling RESPIRATORY: Negative for cough, wheezing or shortness of breath. No snoring CARDIOVASCULAR: Negative for heart disease, extremity swelling. GI: Negative for abdominal discomfort, blood in stools or black stools or change in bowel habits, no vomiting, no diarrhea. MUSCULOSKELETAL: Negative for joint pain or swelling. SKIN: Negative for lesions, rash, and itching. History of mild eczema, history of urticaria with reactions HEMATOLOGY/LYMPHOLOGY: Negative for bruising easily, and swollen nodes. NEURO: Normal developmental milestones IMMUNE: As above All other reviewed and negative other than HPI. Physical Exam: Weight 7.3 kg (16 lb 1.5 oz). GEN- Sleeping comfortably in mother's arms during history and exam, well appearing HEENT- No dysmorphic features, no edema NOSE- Mild audible nasal congestion, no rhinorrhea OP- Moist, no edema NECK- Normal LUNGS- Normal, clear with good aeration, some transmitted upper airway sounds, no wheezing CV- Regular, no murmur ABD- Soft, non-tender, no hepatosplenomegaly EXT- Normal, no edema SKIN- No rashes but single patch of mild dry skin in right ear folds Skin testing was positive for milk and egg. Assessment/Plan: The patient is a pleasant 9 month old with newly confirmed food allergies to milk and egg. She has an underlying history of mild eczema and a history of hives and vomiting after her only ibuprofen dose. 1. Food allergy to milk and egg The patient has had reproducible cutaneous reactions to milk, starting with some mild perioral dermatitis but progressing to hives and angioedema in a more recent reaction. She had an initial cutaneous reaction to scrambled egg that was limited to the sites of direct contact, but she has had hives with a recent reaction to a baked egg product. Skin testing was positive to milk and egg. I recommended strict avoidance of milk (except in baked goods) and egg (in all forms). I encouraged regular ingestion of baked milk products to promote the development of milk tolerance. I recommended soy milk products as a substitute for cow's milk products, and I discussed a possible referral to nutrition for practical dietary advice. I encouraged the parents to continue to allow her to eat peanut regularly to maintain her peanut tolerance. I reviewed how to read a label instructions with the parents, and I provided a FARE food allergy form with avoidance recommendations in writing. A food allergy action plan was provided in writing, and the indications for epinephrine were reviewed with the parents.An Auvi-q 0.1 mg device was prescribed by fax as the infant dosing is not available by eprescription yet. The administration technique was demonstrated using teach back and parental demonstration to confirm parental understanding. I ordered ImmunoCAP levels to milk and egg for additional prognostic information. 2. Mild eczema The patient's eczema has improved. I recommended daily bathing and explained the soak and seal technique. The family should continue using sensitive skin care products like Dove and Eucerin. Topical hydrocortisone may be applied twice a day as needed for flares. 3. History of hives and vomiting after ibuprofen The patient received her first and only dose of ibuprofen in the context of her first UTI. It is possible that she may have had an adverse ibuprofen reaction, but it is also possible that she may have experienced parainfectious urticaria, exacerbated by the direct mast cell release triggered by ibuprofen dosing, and vomiting secondary to the UTI. The patient has no immediate needs for ibuprofen dosing, and she should be treated with acetaminophen as needed for pain or fever for now. However, I advised the parents that it may be very reasonable to perform an ibuprofen dose challenge within the next couple of years to try to demonstrate tolerance if possible. Follow up in 2 months Thank you for allowing us to participate in the care of this patient. Please call with questions. MD Marty Cardona MD 12/20/2017 11:21 AM Addendum Priya's skin testing was positive for milk and egg. I am sending lab testing at this visit for some additional prognostic information. Priya may continue to ingest milk in baked goods as she has tolerated baked milk. She should avoid milk in other forms, and she should avoid all forms of egg for now. Please continue to give peanut at least once a week. I am prescribing an Auvi-Q 0.1 mg device. I will have to submit the prescription to [facility], a mail order pharmacy. The pharmacy will call you to verify the shipping address. I will be calling you with test results. Follow up in 2 months. Ashlee Beard, RN, RN 12/20/2017 11:18 AM Signed FOOD ALLERGY SKIN TESTING -- Mean Wheal AND Flare Diameter Ordered By: Marty Mejia M.D. Interpreted By: Marty Mejia M.D. December 20, 2017 ALLERGEN MEASUREMENT Negative Control- W = 0mm F = 0mm Positive Control- W = 10mm F = 40mm Animal Eggwhite- W = 7mm F = 20mm Milk,Cow- W = 5mm F = 25mm * Clinically significant reactions are regarded as a wheal diameter greater than or equal to 3 mm with a flare diameter greater or equal to 6 mm. * Referring Provider: DAVID ODELL [[id number]] Allergies As of Date: 12/20/2017 Noted Allergy Reaction IBUPROFEN 11/30/2017 4 - Hives EGG 12/20/2017 2 - Rash 4 - Hives MILK 09/05/2017 2 - Rash 4 - Hives 11 - Vomiting Date Reviewed: 12/20/2017 Reviewed by: Marty Mejia - Fully Assessed Reason for Visit: Consult [502] Primary Visit Diagnosis:Allergic reaction to food, initial encounter [T78.1XXA] Other Visit Diagnoses:Milk allergy [Z91.011] Egg allergy [Z91.012] Infantile atopic dermatitis [L20.83] Adverse effect of ibuprofen, initial encounter [T39.315A] Order(s):ALLERGEN SKIN TEST-FOOD [[id number]] Order #: [id number] ALGN EGG WHITE IGE [SQEGGWHT] Order #: [id number] FUTURE ALGN MILK COW IGE [SQMILKC] Order #: [id number] FUTURE Prescriptions as of 12/20/2017 Sig: ACETAMINOPHEN 160 MG/5 ML ORA* Take by mouth every 4 hours * Problem List As Of Date 12/20/2017 Noted Resolved Hydronephrosis [N13.30] 11/29/2017 Atopic dermatitis [L20.9] INVALID FOR* Closed displaced fracture of shaft of right cla*INVALID FOR* Duplicated right renal collecting system [Q62.5]INVALID FOR* Allergic reaction to food [T78.1XXA] INVALID FOR* Milk allergy [Z91.011] INVALID FOR* More... Egg allergy [Z91.012] INVALID FOR* More... Ibuprofen adverse reaction [T39.315A] INVALID FOR* More... Other instructions from your clinician: Priya's skin testing was positive for milk and egg. I am sending lab testing at this visit for some additional prognostic information. Priya may continue to ingest milk in baked goods as she has tolerated baked milk. She should avoid milk in other forms, and she should avoid all forms of egg for now. Please continue to give peanut at least once a week. I am prescribing an Auvi-Q 0.1 mg device. I will have to submit the prescription to [facility], a mail order pharmacy. The pharmacy will call you to verify the shipping address. I will be calling you with test results. Follow up in 2 months. Visit Notes: >> Ashlee Cavazos (Rn) JOSÉ LUIS Beard December 20, 2017 11:16 AM Status: Signed FOOD ALLERGY SKIN TESTING -- Mean Wheal AND Flare Diameter Ordered By: Marty Mejia M.D. Interpreted By: Marty Mejia M.D. December 20, 2017 ALLERGEN MEASUREMENT Negative Control- W = 0mm F = 0mm Positive Control- W = 10mm F = 40mm Animal Eggwhite- W = 7mm F = 20mm Milk,Cow- W = 5mm F = 25mm * Clinically significant reactions are regarded as a wheal diameter greater than or equal to 3 mm with a flare diameter greater or equal to 6 mm. * Medications Discontinued During This Encounter Lactobacillus acidophilus (ACIDOPHIL* 10 c* 0 11/22/2017 12/20/2017 Si CAPSULE SPRINKLED ON BABY FOOD ONCE A DAY PO X 7 TO 10 DAYS Disc: Course of therapy completed pedi multivit no.2 w-fluoride (MULTI* 100 * 3 09/05/2017 12/20/2017 Route: ORAL Sig: Take 0.25 mg by mouth once daily. (1 ml = 0.25 mg fluoride) Disc: Discontinued by Patient nystatin (MYCOSTATIN) cream 30 g 0 07/16/2017 12/20/2017 Route: TOPICAL Sig: Apply 1 application to affected area four times daily. Disc: Course of therapy completed Disposition: Return in about 2 months (around 02/19/2018). Follow-up and Disposition History Recorded Encounter Status:Closed by MARTY MEJIA on 12/20/17 PROGRESS Observed: 12/02/2017 Status: COMPLETED Source: [place] 4:00 PM [facility] NADA REPOSITORY O ID: [id number] Author: David Odell Service: (none) Author Type: Physician Type: Progress Notes Filed: 12/04/2017 2:22 PM Note Text: 9-month-old female, PCP DELMY, seen on the schedule today at the request of the pediatric emergency room at [facility]. Patient's medical history was reviewed in the EPIC chart including her multiple visits as well as multiple providers and treatment course. Care everywhere was additionally reviewed. Patient received ceftriaxone approximate 48 hours ago for otitis media. Mother reports that the patient is significantly improved in the last 24 hours. Not fussy. Not irritable. Afebrile for 24 hours. Tolerating oral intake well. ACTIVE PROBLEM LIST Atopic Dermatitis Closed Displaced Fracture of Shaft of Right Clavicle Duplicated Right Renal Collecting System PAST MEDICAL HISTORY Diagnosis Date - Atopic dermatitis 09/05/2017 - Breech presentation 02/24/2017 Hip US Normal 03/2017 - Closed displaced fracture of shaft of right clavicle 10/11/2017 - 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/29/2017 - Hydronephrosis 11/29/2017 resolved PAST SURGICAL HISTORY Procedure Laterality Date - NONE ALLERGIES Allergen Reactions - Milk Rash 12/02/17 1604 Pulse: 118 Resp: 28 Temp: 36.9 ?C (98.4 ?F) TempSrc: Temporal Artery Weight: 7.229 kg (15 lb 15 oz) GENERAL: alert and active in no apparent distress, nontoxic-appearing HEAD: Normocephalic, atraumatic EYES: EOM's intact, conjunctiva clear, no drainage EARS: External auditory canals are free of lesions bilaterally. Tympanic membranes are intact bilaterally, thick serous fluid is present in the middle ear space bilaterally but there is no erythema or bulging NOSE/SINUSES : Clear nasal discharge OROPHARYNX:moist mucous membranes, tonsils without hypertrophy and no exudates present NECK: supple, no adenopathy CARDIOVASCULAR : Regular Rate and Rhythm without murmurs or clicks, well perfused LUNGS: clear to auscultation, excellent air exchange, resonant to percussion, easy respirations without grunting/flaring/retracting. MUSCULOSKELETAL: Extremities with FROM and no problems identified. EXTREMITIES: Normal exam of the extremities. No clubbing, cyanosis, or edema. NEUROLOGICAL : Muscle tone normal and Normal age appropriate gait SKIN : normal color, no jaundice or rash and Normal skin turgor Impression: Acute suppurative otitis media of both ears without spontaneous rupture of tympanic membranes, recurrence not specified (primary encounter diagnosis): Clinically well. Serous effusions present in the ears bilaterally. Plan: At this time I would not recommend further treatment with ceftriaxone or oral antibiotics If the patient were to become febrile with worsening of her ENT exam in the next 3-4 days I would recommend the patient is treated with ceftriaxone 50 mg/kg IM daily ?3 days. Discussed the natural history of otitis media and the resolution of fluid Patient should follow-up with her primary care provider in one month, sooner if needed David Odell MD [facility] Observed: 12/02/2017 Status: COMPLETED Source: [place] 4:00 PM [facility] NADA REPOSITORY Office Visit (WALKWS) PRIYA JACQUES Hoang ([id number]) [birth year] F Date Time Provider Department 12/02/17 4:00 PM DAVID ODELL During your visit today, we recorded the following information about you: Temperature Pulse Respiration Weight 98.4 degrees 118/minute 28/minute 7.229 kg David Odell MD 12/04/2017 2:22 PM Signed 9-month-old female, PCP DELMY, seen on the schedule today at the request of the pediatric emergency room at [facility]. Patient's medical history was reviewed in the EPIC chart including her multiple visits as well as multiple providers and treatment course. Care everywhere was additionally reviewed. Patient received ceftriaxone approximate 48 hours ago for otitis media. Mother reports that the patient is significantly improved in the last 24 hours. Not fussy. Not irritable. Afebrile for 24 hours. Tolerating oral intake well. ACTIVE PROBLEM LIST Atopic Dermatitis Closed Displaced Fracture of Shaft of Right Clavicle Duplicated Right Renal Collecting System PAST MEDICAL HISTORY Diagnosis Date - Atopic dermatitis 09/05/2017 - Breech presentation 02/24/2017 Hip US Normal 03/2017 - Closed displaced fracture of shaft of right clavicle 10/11/2017 - 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/29/2017 - Hydronephrosis 11/29/2017 resolved PAST SURGICAL HISTORY Procedure Laterality Date - NONE ALLERGIES Allergen Reactions - Milk Rash 12/02/17 1604 Pulse: 118 Resp: 28 Temp: 36.9 ?C (98.4 ?F) TempSrc: Temporal Artery Weight: 7.229 kg (15 lb 15 oz) GENERAL: alert and active in no apparent distress, nontoxic-appearing HEAD: Normocephalic, atraumatic EYES: EOM's intact, conjunctiva clear, no drainage EARS: External auditory canals are free of lesions bilaterally. Tympanic membranes are intact bilaterally, thick serous fluid is present in the middle ear space bilaterally but there is no erythema or bulging NOSE/SINUSES : Clear nasal discharge OROPHARYNX:moist mucous membranes, tonsils without hypertrophy and no exudates present NECK: supple, no adenopathy CARDIOVASCULAR : Regular Rate and Rhythm without murmurs or clicks, well perfused LUNGS: clear to auscultation, excellent air exchange, resonant to percussion, easy respirations without grunting/flaring/retracting. MUSCULOSKELETAL: Extremities with FROM and no problems identified. EXTREMITIES: Normal exam of the extremities. No clubbing, cyanosis, or edema. NEUROLOGICAL : Muscle tone normal and Normal age appropriate gait SKIN : normal color, no jaundice or rash and Normal skin turgor Impression: Acute suppurative otitis media of both ears without spontaneous rupture of tympanic membranes, recurrence not specified (primary encounter diagnosis): Clinically well. Serous effusions present in the ears bilaterally. Plan: At this time I would not recommend further treatment with ceftriaxone or oral antibiotics If the patient were to become febrile with worsening of her ENT exam in the next 3-4 days I would recommend the patient is treated with ceftriaxone 50 mg/kg IM daily ?3 days. Discussed the natural history of otitis media and the resolution of fluid Patient should follow-up with her primary care provider in one month, sooner if needed David Odell MD [facility] Department of Pediatrics, [facility] Referring Provider: SELF [200] Allergies As of Date: 12/02/2017 Noted Allergy Reaction MILK 09/05/2017 2 - Rash Date Reviewed: 12/02/2017 Reviewed by: Sherry Grove MA - Fully Assessed Reason for Visit: Recheck [92] Cmt: Ears Hives [56] Cmt: x 1 day, spreading Primary Visit Diagnosis:Acute suppurative otitis media of both ears without spontaneous rupture of tympanic membranes, recurrence not specified [H66.003] Prescriptions as of 12/02/2017 Sig: LACTOBACILLUS ACIDOPHILUS CAP* 1 CAPSULE SPRINKLED ON BABY F* ACETAMINOPHEN 160 MG/5 ML ORA* Take by mouth every 4 hours * PEDIATRIC MULTIVITAMIN NO.2 W* Take 0.25 mg by mouth once da* NYSTATIN 100,000 UNIT/GRAM TO* Apply 1 application to affect* Problem List As Of Date 12/02/2017 Noted Resolved Hydronephrosis [N13.30] 11/29/2017 Atopic dermatitis [L20.9] INVALID FOR* Closed displaced fracture of shaft of right cla*INVALID FOR* Duplicated right renal collecting system [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 Results faxed for continuity of care to [phone]. Nicole Mckenzie RN, RN 12/01/2017 2:20 PM Signed please fax over final urine culture report when completed Vance Mckenzie RN Allergies As of Date: 12/01/2017 Noted Allergy Reaction MILK 09/05/2017 2 - Rash Date Reviewed: 11/29/2017 Reviewed by: Jeremias Brock - Fully Assessed Reason for Visit: Release Of Medical Records [2017] Prescriptions as of 12/01/2017 Sig: LACTOBACILLUS ACIDOPHILUS CAP* 1 CAPSULE SPRINKLED ON BABY F* PEDIATRIC MULTIVITAMIN NO.2 W* Take 0.25 mg by mouth once da* NYSTATIN 100,000 UNIT/GRAM TO* Apply 1 application to affect* ACETAMINOPHEN 160 MG/5 ML ORA* Take by mouth every 4 hours * Problem List As Of Date 12/01/2017 Noted Resolved Hydronephrosis [N13.30] 11/29/2017 Atopic dermatitis [L20.9] INVALID FOR* Closed displaced fracture of shaft of right cla*INVALID FOR* Duplicated right renal collecting system [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.5]INVALID FOR* Encounter Status:Closed by NICOLE HOWE RN on 12/01/17 COMPLETE BLOOD COUNT Collected: 11/30/2017 Status: F Source: [place] 9:28 PM [facility] REPOSITORY TYPE CODE TESTS RESULT OUT OF REFERENCE UNITS RANGE LAB IWBC(LOINC 6.0-17.0 10E9/L ) WBC 12.0 LAB NRBC%(LOIN -1.0-0.0 % C) Nucleated RBC % 0.0 LAB RBC(LOINC) 3.70-4.90 10E12/L RBC 4.60 LAB IHGB(LOINC 10.5-12.8 g/dl ) Hemoglobin 11.4 LAB HCT(LOINC) 33.0-38.0 % Hematocrit 36.7 LAB MCV(LOINC) 70.0-84.0 fl MCV 79.8 LAB MCH(LOINC) 23.0-30.0 pg MCH 24.8 LAB MCHC(LOINC 31.0-37.0 % ) MCHC 31.1 LAB RDW(LOINC) 0.0-15.9 % RDW 13.8 LAB PLT(LOINC) 250-600 10E9/L Platelets 338 LAB MPV(LOINC) fl MPV 10.2 Result Comment: MPV is platelet range and age dependent LAB CMPLT(LOINC) NA Differential Complete Manual LAB IG%(LOINC) % % Immature granulocyte 0.20 Result Comment: Immature Granulocyte Percent includes promyelocytes, myelocytes, and metamyelocytes. IG% > 1.0 indicates a left shift is present. With automated differentials, bands are included in the neutrophil count and not in the Immature Granulocyte Percent. Performed By: #### CBC #### [facility] [id number] BASIC METABOLIC PANEL Collected: 11/30/2017 Status: F Source: [place] 9:28 PM [facility] REPOSITORY TYPE CODE TESTS RESULT OUT OF REFERENCE UNITS RANGE LAB NA(LOINC) 133-145 mEq/L Sodium 136 LAB K(LOINC) 3.3-5.1 mEq/L Potassium 4.5 LAB CL(LOINC) 96-108 mEq/L Chloride 99 LAB TCO2(LOINC 17.0-29.0 mEq/L ) Carbon Dioxide 22.9 LAB BUN(LOINC) 4-19 mg/dL Urea Nitrogen 8 LAB GLU(LOINC) 70-99 mg/dL High Glucose 105 Result Comment: Criteria for Diagnosis of Diabetes(Effective 01/25/11): Fasting specimen (no caloric intake for at least 8 hours). <100 mg/dl Normal 100-125 mg/dl Increased Risk for Diabetes >125 mg/dl Diagnostic for Diabetes Random Glucose (any time of day without regard to last meal). >=200 mg/dl plus Classic Symptoms of Diabetes LAB CREA(LOINC) 0.20-0.40 mg/dL Creatinine 0.27 Result Comment: Premature 0.3-1.0 mg/dL LAB CA(LOINC) 7.6-11.0 mg/dL Calcium 9.8 Performed By: #### BMP #### [address] [address] MANUAL DIFFERENTIAL Collected: 11/30/2017 Status: F Source: [place] 9:28 PM [facility] REPOSITORY TYPE CODE TESTS RESULT OUT OF REFERENCE UNITS RANGE LAB BANDS(EM 5-11 % NC) Band Neutrophils 4 Low LAB SEGS(LOIN 15-35 % C) Segmented 38 High Neutrophils LAB LYMPH(EM 45-76 % NC) Lymphocytes 45 LAB ATLYM(ME 0-8 % NC) Atypical 9 High Lymphocytes LAB MONO(LOIN 3-6 % C) Monocytes 4 LAB META(LOIN 0-0 % C) Metamyelocytes 0 LAB MYELO(EM 0-0 % NC) Myelocytes 0 LAB PROMY(EM 0-0 % NC) Promyelocytes 0 LAB ABNEU(EM NA NC) Absolute 5.0 Neutrophil No. LAB HYPO(LOIN NA C) Hypochromia Slight LAB POLY(LOIN NA C) Polychromasia Occasional LAB WCINC(EM NA NC) WBC Inclusions Occasional Result Comment: Occasional Toxic granulation Occasional # Vacuoles Performed By: #### MDIFF #### [address] [address] Observed: 11/30/2017 Status: F Source: [place] INFLUENZA A/B AG 8:25 PM [facility] REPOSITORY Influenza A/B Ag: Influenza A virus Ag: NEGATIVE Source: NPH Collected: 11/30/17 20:25 Site: Received : 11/30/17 20:38 Influenza A/B Ag FINAL 11/30/17 20:57 Influenza A virus Ag: NEGATIVE Influenza B virus Ag: NEGATIVE - Immunofluorometric Assay - A negative result does not rule out infection. - The sensitivity of this assay has been shown to be about 91% for the detection of seasonal influenza viruses. If influenza is circulating in your community, a diagnosis of influenza should be considered based on a patient's clinical presentation and empiric antiviral treatment should be considered, if indicated. - Normal Result: Negative. Performed By: #### FLUAG #### [facility] [address] [place], [place] [id number] ED PROVIDER PROGRESS Observed: 11/30/2017 Status: COMPLETED Source: [place] NOTE 8:11 PM [facility] REPOSITORY Priya Jacques : 02/24/2017 Chief Complaint Patient presents with Fever Allergies Allergen Reactions Motrin [Ibuprofen] Hives Pampers Baby Dry Size 3 [Diapers & Supplies] Rash Per parents allergy to pampers diapers and wipes DOS: 11/30/2017 Priya Jcaques is a 9 m.o. Girl with a PMHx of a duplicate renal collection. She presents today with a 2 day hx of fevers. She was dx with otitis media 2 weeks ago and started on amoxicillin. She had conjunctivitis and continued fevers. The abx was switched to omnicef. She seemed to be improving over the course of the week. 2 days ago the fever returned (highest reading at home was 103), she was not drinking/ eating (exculsively breast feed. Has not been taking much food since she got sick), she has been more tired and fussy and has only had one wet diaper today. Review of Systems Constitutional: Positive for activity change, appetite change, crying and fever. Negative for decreased responsiveness and diaphoresis. HENT: Positive for congestion and rhinorrhea. Eyes: Positive for discharge and redness. Respiratory: Negative for cough and wheezing. Cardiovascular: Negative for fatigue with feeds. Gastrointestinal: Positive for diarrhea. Negative for abdominal distention and constipation. Genitourinary: Negative for decreased urine volume. Musculoskeletal: Negative for extremity weakness. Skin: Negative for color change, pallor and rash. Neurological: Negative for seizures. Past Medical History: Diagnosis Date Broken collarbone UTI (urinary tract infection) History reviewed. No pertinent surgical history. Pediatric History Patient Guardian Status Mother: Isabela Aparicio Father: Chauncey Jacques Other Topics Concern Not on file Social History Narrative No narrative on file ED Triage Vitals Date and Time Temp Temp src Pulse Resp BP SpO2 Weight User 11/30/17 1656 (!) 38.8 C (101.8 F) Rectal 168 48 -- 99 % 7.24 kg MAB Physical Exam Constitutional: She appears well-developed and well-nourished. She is active. No distress. HENT: Head: Anterior fontanelle is full. Nose: Nasal discharge present. Mouth/Throat: Mucous membranes are moist. Erythema of the bilateral TM R>L, dullness and bulging of the Right. Eyes: Bilateral eyelids are red/ mildly swollen Neck: Normal range of motion. Cardiovascular: Normal rate and regular rhythm. Pulmonary/Chest: Effort normal and breath sounds normal. There is no cough. No respiratory distress. She has no wheezes. Abdominal: Soft. Bowel sounds are normal. She exhibits no distension. There is no tenderness. There is no guarding. Genitourinary: No labial rash. No labial fusion. Musculoskeletal: Normal range of motion. Lymphadenopathy: No occipital adenopathy is present. She has no cervical adenopathy. Neurological: She is alert. Skin: Skin is warm. Capillary refill takes less than 3 seconds. No petechiae and no rash noted. She is not diaphoretic. No jaundice. Procedures MDM Number of Diagnoses or Management Options Fever and chills: Left otitis media, unspecified otitis media type: Diagnosis management comments: Priya Jacques completed a course of abx for otitis media 2 days prior to the onset of fevers/ decreased PO intake. She appears to still have an acute otitis in the right ear. She was mildly dehydrated (dry appearing, only one wet diaper today.) Her CBC showed a leukocytosis. She was given fluid bolus and tylenol. She was feeling better/ more active and playful and her fever was controlled. She was given ceftriaxone IV and d/c home to follow up with her PCP. ED Course: Diagnosis' considered: Labs/Radiology: Consults: No orders of the defined types were placed in this encounter. Medical Record/Transferring Institution Record: Treatment/Reassessment: Diagnosis to highest level of medical certainty/plan: Final diagnoses: [H66.92] Left otitis media, unspecified otitis media type [R50.9] Fever and chills Attending note: I have reviewed the history and performed a pertinent physical examination. I agree with the findings described in the note above. Management of the patient has been carried out in accordance with my plans. In addition, patient with left otitis media with recent completion for the same. Mild dehydration with poor oral intake. Given IV fluids, labs obtained. Repeat exam with reassuring labs, much improved appearance with patient interactive, alert, playful with family. Given 1 dose Ceftriaxone and instructed to follow up with PCP tomorrow for Resp film array result as well as blood cultures. Concerning signs of dehydration, altered mental status and respiratory distress that require return reviewed. Electronically signed: 3:41 PM 12/01/17 Valerie Osei MD Observed: 11/29/2017 Status: F Source: [place] URINE CULTURE 3:25 PM [facility] Culture Result - <1,000 CFU/ml Normal urogenital stephane Performed By: #### URCUL #### [facility] [address] [place], [place] [address] PROGRESS Observed: 11/29/2017 Status: COMPLETED Source: [place] 2:45 PM [facility] HNO ID: [id number] Author: Jeremias Brock Service: (none) Author Type: Physician Type: Progress Notes Filed: 03/21/2018 2:57 PM Note Text: The patient was seen for the issues discussed below. Problem list and history reviewed. Allergies reviewed. Medications reviewed. Immunizations reviewed. HISTORY: see history section below PHYSICAL EXAM: GENERAL: alert, well appearing, quiet, in no distress LEFT EYE: no drainage noted, no conjunctival injection noted; RIGHT EYE: no drainage noted, no conjunctival injection noted; NO ADDITIONAL EYE FINDINGS LEFT EAR: pinna normal, auditory canal normal, tympanic membrane clear, no effusion noted, RIGHT EAR: pinna normal, auditory canal normal, tympanic membrane clear, effusion present (cloudy, moderate) NOSE/SINUSES: nares normal, mucosa normal, clear rhinorrhea OROPHARYNX: lips without lesions noted, gums/mucosa normal, oropharynx without erythema or exudates NECK/ADENOPATHY: neck supple, no adenopathy noted CHEST/LUNGS: lungs clear to auscultation, no retractions noted, expiratory phase normal, normal respiratory rate and rhythm CARDIOVASCULAR: regular rate and rhythm, capillary refill less than 2 seconds ABDOMEN: soft, nontender, bowel sounds normal, no masses, no organomegaly, abdomen nondistended SKIN: normal color, no rash, no jaundice, moist mucous membranes, turgor within normal limits GENERAL RECOMMENDATIONS: - Issues discussed in detail. - Symptom relief measures as needed. - Prescriptions, if ordered, are listed below. - Labs and/or X-rays, if ordered or obtained, are listed below. If the final results are not available at the conclusion of this visit, then additional recommendations may be made based on the final results. Note that all x-rays are reviewed by a radiologist before being considered final. - EKG, if ordered or obtained, is reviewed by a caser shoe parts before being considered final. Additional recommendations may be made based on the final results. - Return to clinic should current symptoms (if present) worsen, other problems develop, or as needed. ADDITIONAL AND DICTATED PORTION: ADDITIONAL HISTORY The following Nursing History was reviewed with the family: Patient presents with: Illness Fever Ciarra just completed Omnicef course for otitis media yesterday. She almost immediately developed fever 203? since that time. Fever has continued over the last 24 hours. Clear nasal drainage as well as some cough has also been present for several days. These 2 symptoms are improving. She has also been fussy. She also had diarrhea while on the antibiotics. Mother is concerned as the last time she had diarrhea she developed a urinary tract infection. 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 No urinary reflux was noted on imaging. Based on the duplicated renal collecting system, she is at higher risk to develop a urinary tract infection. No eye, ear, throat complaints. No lymphadenopathy. No bleeding or bruising. No wheezing, tachypnea, retractions. No vomiting. No abdominal distention. No rash or edema. ACTIVE PROBLEM LIST Atopic Dermatitis Closed Displaced Fracture of Shaft of Right Clavicle Duplicated Right Renal Collecting System IMPORTED PAST MEDICAL HISTORY Diagnosis Date - Breech presentation Hip US Normal 03/2017 - Hydronephrosis IMPORTED PAST SURGICAL HISTORY Procedure Laterality Date - NONE ADDITIONAL EXAM / OTHER INFORMATION Sterile catheterized urine was obtained with negative urinalysis. ADDITIONAL IMPRESSION / PLAN Fever. Catheterized urinalysis negative. Examination negative except for serous otitis. Patient just completed Omnicef yesterday. Urine sent for culture. Continue close observation. Symptom relief measures. This note was partially generated using Confer voice recognition system, and there may be some incorrect words, spellings, and punctuation that were not noted in checking the note before saving. Jeremias Brock M.D. Per Dr. Brock order: Urinary catheterization performed. A 5 straight catheter was placed under sterile technique without complications. Return: urine returned. Patient tolerated procedure well. Specimen obtained for testing:sent to lab Estuardo Love LPN CNOV Observed: 11/29/2017 Status: COMPLETED Source: [place] 2:00 PM [facility] Office Visit (PEDSWS) PRIYA JACQUES ([id number]) [birth year] F Date Time Provider Department 11/29/17 2:00 PM JEREMIAS BROCK During your visit today, we recorded the following information about you: Temperature Pulse Respiration Weight 98 degrees 120/minute 28/minute 7.314 kg Jeremias Brock MD 11/29/2017 3:00 PM Addendum The patient was seen for the issues discussed below. Problem list and history reviewed. Allergies reviewed. Medications reviewed. Immunizations reviewed. HISTORY: see history section below PHYSICAL EXAM: GENERAL: alert, well appearing, quiet, in no distress LEFT EYE: no drainage noted, no conjunctival injection noted; RIGHT EYE: no drainage noted, no conjunctival injection noted; NO ADDITIONAL EYE FINDINGS LEFT EAR: pinna normal, auditory canal normal, tympanic membrane clear, no effusion noted, RIGHT EAR: pinna normal, auditory canal normal, tympanic membrane clear, effusion present (cloudy, moderate) NOSE/SINUSES: nares normal, mucosa normal, clear rhinorrhea OROPHARYNX: lips without lesions noted, gums/mucosa normal, oropharynx without erythema or exudates NECK/ADENOPATHY: neck supple, no adenopathy noted CHEST/LUNGS: lungs clear to auscultation, no retractions noted, expiratory phase normal, normal respiratory rate and rhythm CARDIOVASCULAR: regular rate and rhythm, capillary refill less than 2 seconds ABDOMEN: soft, nontender, bowel sounds normal, no masses, no organomegaly, abdomen nondistended SKIN: normal color, no rash, no jaundice, moist mucous membranes, turgor within normal limits GENERAL RECOMMENDATIONS: - Issues discussed in detail. - Symptom relief measures as needed. - Prescriptions, if ordered, are listed below. - Labs and/or X-rays, if ordered or obtained, are listed below. If the final results are not available at the conclusion of this visit, then additional recommendations may be made based on the final results. Note that all x-rays are reviewed by a radiologist before being considered final. - EKG, if ordered or obtained, is reviewed by a caser shoe parts before being considered final. Additional recommendations may be made based on the final results. - Return to clinic should current symptoms (if present) worsen, other problems develop, or as needed. ADDITIONAL AND DICTATED PORTION: ADDITIONAL HISTORY The following Nursing History was reviewed with the family: Patient presents with: Illness Fever Ciarra just completed Omnicef course for otitis media yesterday. She almost immediately developed fever 203? since that time. Fever has continued over the last 24 hours. Clear nasal drainage as well as some cough has also been present for several days. These 2 symptoms are improving. She has also been fussy. She also had diarrhea while on the antibiotics. Mother is concerned as the last time she had diarrhea she developed a urinary tract infection. 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 No urinary reflux was noted on imaging. Based on the duplicated renal collecting system, she is at higher risk to develop a urinary tract infection. No eye, ear, throat complaints. No lymphadenopathy. No bleeding or bruising. No wheezing, tachypnea, retractions. No vomiting. No abdominal distention. No rash or edema. ACTIVE PROBLEM LIST Atopic Dermatitis Closed Displaced Fracture of Shaft of Right Clavicle Duplicated Right Renal Collecting System IMPORTED PAST MEDICAL HISTORY Diagnosis Date - Breech presentation Hip US Normal 03/2017 - Hydronephrosis IMPORTED PAST SURGICAL HISTORY Procedure Laterality Date - NONE ADDITIONAL EXAM / OTHER INFORMATION Sterile catheterized urine was obtained with negative urinalysis. ADDITIONAL IMPRESSION / PLAN Fever. Catheterized urinalysis negative. Examination negative except for serous otitis. Patient just completed Omnicef yesterday. Urine sent for culture. Continue close observation. Symptom relief measures. This note was partially generated using Confer voice recognition system, and there may be some incorrect words, spellings, and punctuation that were not noted in checking the note before saving. Jeremias Brock M.D. Per Dr. Brock order: Urinary catheterization performed. A 5 straight catheter was placed under sterile technique without complications. Return: urine returned. Patient tolerated procedure well. 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 #:[id number] Prescriptions as of 11/29/2017 Sig: X LACTOBACILLUS ACIDOPHILUS CAP* 1 CAPSULE SPRINKLED ON BABY F* X PEDIATRIC MULTIVITAMIN NO.2 W* Take 0.25 mg by mouth once da* X NYSTATIN 100,000 UNIT/GRAM TO* Apply 1 application to affect* ACETAMINOPHEN 160 MG/5 ML ORA* Take by mouth every 4 hours * Medication notes this encounter LACTOBACILLUS ACIDOPHILUS CAPSULE >> Estuardo Love 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 11/29/2017 1:55 PM >> LOVE, ESTUARDO 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 Tue Nov 29, 2017 1:55 PM prn Problem List As Of Date 11/29/2017 Noted Resolved Hydronephrosis [N13.30] 11/29/2017 Atopic dermatitis [L20.9] INVALID FOR* Closed displaced fracture of shaft of right cla*INVALID FOR* 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 Is on Omnicef x 2 days. Still pulling ears and fussy. Cough, runny nose, no fevers REVIEW OF SYSTEMS GENERAL: No weight loss, malaise or fevers; taking oral fluids ok HEENT: ear check, see HPI RESPIRATORY: cough, see HPI GI: no vomiting, loose stools with antibiotic : voiding qs All other reviewed and negative other than HPI. EXAM GENERAL: alert and active in no apparent distress HEAD: Normocephalic EYES: conjunctiva clear, no drainage EARS: Right and Left mild erythema, + fluid NOSE/SINUSES : clear coryza OROPHARYNX : moist mucous membranes and slight PND NECK: normal, supple, no adenopathy LUNGS: clear to auscultation, infreq loose cough, resp easy , no wheezes or rhonchi or rales ABDOMEN : Abdomen is soft, nontender, without organomegaly or masses. ASSESSMENT: Otitis media resolving PLAN: Continue present management with Omnicef Cool mist humidifier. Supportive measures reviewed. Current Outpatient Prescriptions: ciprofloxacin HCl (CILOXAN) 0.3 % ophthalmic solution 2 drops into affects eyes BID x 7 days cefdinir (OMNICEF) 250 mg/5 mL suspension Take 2 mL by mouth once daily for 10 days. acetaminophen (CHILDREN'S TYLENOL) 160 mg/5 mL susp Take by mouth every 4 hours as needed. pedi multivit no.2 w-fluoride (MULTI-VITAMIN WITH FLUORIDE) 0.25 mg/mL drop Take 0.25 mg by mouth once daily. (1 ml = 0.25 mg fluoride) nystatin (MYCOSTATIN) cream Apply 1 application to affected area four times daily. No current facility-administered medications for this visit. Shereen Carney APRN.CEMENT TILE MAKER CNOV Observed: 11/22/2017 Status: COMPLETED Source: [place] 12:15 PM [facility] Office Visit (PEDSWS) PRIYA JACQUES ([id number]) [birth year] F Date Time Provider Department 11/22/17 12:15 PM SHEREEN CARNEY (MACHINE GUIDE BASE WINDER) PEDSWS During your visit today, we recorded the following information about you: Temperature Pulse Respiration Weight 99 degrees 124/minute 24/minute 7.314 kg Shereen Carney APRN.[facility] 11/22/2017 12:30 PM Addendum Patient brought in today by mother presents today with ear recheck from . Is on Omnicef x 2 days. Still pulling ears and fussy. Cough, runny nose, no fevers REVIEW OF SYSTEMS GENERAL: No weight loss, malaise or fevers; taking oral fluids ok HEENT: ear check, see HPI RESPIRATORY: cough, see HPI GI: no vomiting, loose stools with antibiotic : voiding qs All other reviewed and negative other than HPI. EXAM GENERAL: alert and active in no apparent distress HEAD: Normocephalic EYES: conjunctiva clear, no drainage EARS: Right and Left mild erythema, + fluid NOSE/SINUSES : clear coryza OROPHARYNX : moist mucous membranes and slight PND NECK: normal, supple, no adenopathy LUNGS: clear to auscultation, infreq loose cough, resp easy , no wheezes or rhonchi or rales ABDOMEN : Abdomen is soft, nontender, without organomegaly or masses. ASSESSMENT: Otitis media resolving PLAN: Continue present management with Omnicef Cool mist humidifier. Supportive measures reviewed. Current Outpatient Prescriptions: ciprofloxacin HCl (CILOXAN) 0.3 % ophthalmic solution 2 drops into affects eyes BID x 7 days cefdinir (OMNICEF) 250 mg/5 mL suspension Take 2 mL by mouth once daily for 10 days. acetaminophen (CHILDREN'S TYLENOL) 160 mg/5 mL susp Take by mouth every 4 hours as needed. pedi multivit no.2 w-fluoride (MULTI-VITAMIN WITH FLUORIDE) 0.25 mg/mL drop Take 0.25 mg by mouth once daily. (1 ml = 0.25 mg fluoride) nystatin (MYCOSTATIN) cream Apply 1 application to affected area four times daily. No current facility-administered medications for this visit. Shereen Carney APRN.CEMENT TILE MAKER Shereen Carney APRN.[facility] 11/22/2017 12:26 PM Signed Orders reviewed. Parent verbalizes understanding. Shereen Carney APRN.[facility] 11/22/2017 12:30 PM Signed Addended by: SHEREEN CARNEY [facility] on: 11/22/2017 12:30 PM Modules accepted: Orders Referring Provider: SELF [[id number]] Allergies As of Date: 11/22/2017 Noted Allergy Reaction MILK 09/05/2017 2 - Rash Date Reviewed: 11/22/2017 Reviewed by: Shereen Cavazos (Nishant) Dom - Fully Assessed Reason for Visit: Recheck ear infection [Other] Cmt: Seen on 11/16 at Urgent care, seen again on 11/18 with change of Amoxicillin to Omnicef. No fevers. Eating and drinking okay. eye drainage [Other] Cmt: This has resolved since starting on Ciprodex gtts on 11/18. Reason For Visit History Recorded Primary Visit Diagnosis:Acute mucoid otitis media of both ears [H65.113] Order(s):Lactobacillus acidophilus (ACIDOPHILUS) cap1 CAPSULE SPRINKLED ON BABY FOOD ONCE A DAY PO X 7 TO 10 DAYSDisp: 10 capsuleRfl: 0 Prescriptions as of 11/22/2017 Sig: CIPROFLOXACIN 0.3 % EYE DROPS 2 drops into affects eyes BID* CEFDINIR 250 MG/5 ML ORAL [place]* Take 2 mL by mouth once daily* ACETAMINOPHEN 160 MG/5 ML ORA* Take by mouth every 4 hours * LACTOBACILLUS ACIDOPHILUS CAP* 1 CAPSULE SPRINKLED ON BABY F* PEDIATRIC MULTIVITAMIN NO.2 W* Take 0.25 mg by mouth once da* NYSTATIN 100,000 UNIT/GRAM TO* Apply 1 application to affect* Problem List As Of Date 11/22/2017 Noted Resolved Hydronephrosis [N13.30] Atopic dermatitis [L20.9] INVALID FOR* Closed displaced fracture of shaft of right cla*INVALID FOR* Other instructions from your clinician: Orders reviewed. Parent verbalizes understanding. Prescriptions ordered this encounter Disp Refills Start End LACTOBACILLUS ACIDOPHILUS CAPSULE 10 c* 0 11/22/2017 12/02/2017 Si CAPSULE SPRINKLED ON BABY FOOD ONCE A DAY PO X 7 TO 10 DAYS Follow-up and Disposition History Recorded Encounter Status:Closed by SHEREEN CARNEY CNP on 11/22/17 CNOV Observed: 11/18/2017 Status: COMPLETED Source: [place] 5:00 PM [facility] Office Visit (WSTR) PRIYA JACQUES ([id number]) [birth year] F Date Time Provider Department 11/18/17 5:00 PM SALLY ROGERS (NISHANT) WSTR During your visit today, we recorded the following information about you: Temperature Pulse Respiration Weight 98.2 degrees 128/minute 32/minute 7.286 kg Sally Rogers APRN.CNP 11/23/2017 7:44 AM Signed Subjective HPI Pt presents with drainage and redness in eyes x 24hrs. Pt seen in 3/28 for AOM and has started Amoxil but mother states has not noticed an improvement in fussiness. Denies known exposure to pink eye. Review of Systems Constitutional: Negative for chills, fever and malaise/fatigue. Fussy Decreased eating but still wetting diapers regularly HENT: Positive for congestion. Negative for ear pain and sore throat. Eyes: Positive for discharge and redness. Respiratory: Positive for cough. Gastrointestinal: Negative for abdominal pain, diarrhea, nausea and vomiting. Skin: Negative for rash. Neurological: Negative for headaches. PAST MEDICAL HISTORY Diagnosis Date - Breech presentation Hip US Normal 03/2017 - Hydronephrosis PAST SURGICAL HISTORY Procedure Laterality Date - NONE ALLERGIES Milk MEDICATIONS Lactobacillus acidophilus (ACIDOPHILUS) cap 1 CAPSULE SPRINKLED ON BABY FOOD ONCE A DAY PO X 7 TO 10 DAYS ciprofloxacin HCl (CILOXAN) 0.3 % ophthalmic solution 2 drops into affects eyes BID x 7 days cefdinir (OMNICEF) 250 mg/5 mL suspension Take 2 mL by mouth once daily for 10 days. pedi multivit no.2 w-fluoride (MULTI-VITAMIN WITH FLUORIDE) 0.25 mg/mL drop Take 0.25 mg by mouth once daily. (1 ml = 0.25 mg fluoride) nystatin (MYCOSTATIN) cream Apply 1 application to affected area four times daily. acetaminophen (CHILDREN'S TYLENOL) 160 mg/5 mL susp Take by mouth every 4 hours as needed. FAMILY HISTORY Problem Relation Age of Onset - Asthma Mother Social History Substance Use Topics - Smoking status: Passive Smoke Exposure - Never Smoker - Smokeless tobacco: Never Used Comment: outside - Alcohol use Not on file Objective Physical Exam Constitutional: She is well-developed, well-nourished, and in no distress. HENT: Head: Normocephalic. Right Ear: External ear and ear canal normal. Tympanic membrane is erythematous (opaque). Left Ear: External ear and ear canal normal. Tympanic membrane is erythematous (opaque). Nose: Rhinorrhea present. Right sinus exhibits no maxillary sinus tenderness and no frontal sinus tenderness. Left sinus exhibits no maxillary sinus tenderness and no frontal sinus tenderness. Mouth/Throat: Posterior oropharyngeal erythema (PND) present. Eyes: Right eye exhibits discharge. Left eye exhibits discharge. Right conjunctiva is injected. Left conjunctiva is injected. Neck: Normal range of motion. Neck supple. Cardiovascular: Normal rate, regular rhythm and normal heart sounds. Pulmonary/Chest: Effort normal and breath sounds normal. No respiratory distress. She has no wheezes. Abdominal: Soft. She exhibits no distension. There is no tenderness. Lymphadenopathy: She has cervical adenopathy. Skin: Skin is warm and dry. No rash noted. Nursing note and vitals reviewed. ASSESSMENT/PLAN: 1. Acute suppurative otitis media of both ears without spontaneous rupture of tympanic membranes, recurrence not specified - ICD9: 382.00, ICD10: H66.003 (primary diagnosis) Bilaterally - DC Amoxil - Will begin treatment with Omnicef 14 mg/kg QD - Supportive care with plenty of fluids, rest, and analgesia prn. - Follow up in 3-5 days if symptoms persist or worsen. 2. Acute conjunctivitis of both eyes, unspecified acute conjunctivitis type - ICD9: 372.00, ICD10: H10.33 - see medication orders - course and contagiousness issues discussed, including hand washing. - Instructed to call if high fever, development of periorbital redness or swelling, eye pain, visual changes, concerns or if symptoms persist. Prescription instructions reviewed with patient as applicable. Patient advised if symptoms do not improve or if symptoms worsen sooner, to contact their primary care physician. Potential red flag symptoms discussed with the patient. Reviewed appropriate action plan to take if red flag symptoms occur. Patient agreeable to treatment plan. Sally Rogers APRN.XOCHILT Rogers APRN.XOCHILT 11/18/2017 5:39 PM Signed CONJUNCTIVITIS GENERAL INFORMATION: Conjunctivitis is also known as pink eye. It is an irritation of the underside of the eyelid and the white part of the eye. Conjunctivitis can be caused by infection, chemical irritation, or allergy. If infectious, it is very contagious. INSTRUCTIONS: The doctor has prescribed antibiotic drops or ointment. Use them as prescribed. Do not touch the dropper to the eye. Throw out the medication after completing treatment. If the doctor only prescribed the medication to be placed in one eye, and the other eye starts to bother you with the same symptoms, you may treat it in the same fashion. To ease discomfort, apply a warm or cool clean washcloth to your eye several times a day for 10 to 20 minutes. Gently wipe away discharge from the eyes with tissues. Wash your hands often with soap and use paper towels to dry them. Do not share towels, washcloths, or pillows. This could spread infection. Do not use eye make-up until the infection has resolved. Keep contact lenses out of eyes until the irritation is gone. Discard any eye make-up which you may have contaminated before the infection was diagnosed, and any eye make-up older than one year. Children should not return to school or daycare until the eye is no longer pink. Do not drive or operate machinery if your vision is blurred. Wear sunglasses if your eyes are sensitive to the light. CONTACT YOUR DOCTOR IF YOU OR YOUR CHILD NOTICE: *The eye is still pink 3 days after starting treatment with medicine. *Pain in the eye increases. *The redness is spreading. *Vision becomes blurred. *You have a temperature over 100.5 F (38 C). Referring Provider: SELF [[id number]] Allergies As of Date: 11/18/2017 Noted Allergy Reaction MILK 09/05/2017 2 - Rash Date Reviewed: 11/18/2017 Reviewed by: Marianne Monique Ma - Fully Assessed Primary Visit Diagnosis:Acute suppurative otitis media of both ears without spontaneous rupture of tympanic membranes, recurrence not specified [H66.003] Other Visit Diagnosis:Acute conjunctivitis of both eyes, unspecified acute conjunctivitis type [H10.33] Order(s):ciprofloxacin HCl (CILOXAN) 0.3 % ophthalmic solution2 drops into affects eyes BID x 7 daysDisp: 1 BottleRfl: 0 cefdinir (OMNICEF) 250 mg/5 mL suspensionTake 2 mL by mouth once daily for 10 days.Disp: 20 mLRfl: 0 Prescriptions as of 11/18/2017 Sig: CIPROFLOXACIN 0.3 % EYE DROPS 2 drops into affects eyes BID* CEFDINIR 250 MG/5 ML ORAL PAYTON* Take 2 mL by mouth once daily* PEDIATRIC MULTIVITAMIN NO.2 W* Take 0.25 mg by mouth once da* NYSTATIN 100,000 UNIT/GRAM TO* Apply 1 application to affect* ACETAMINOPHEN 160 MG/5 ML ORA* Take by mouth every 4 hours * Problem List As Of Date 11/18/2017 Noted Resolved Hydronephrosis [N13.30] Atopic dermatitis [L20.9] INVALID FOR* Closed displaced fracture of shaft of right cla*INVALID FOR* Other instructions from your clinician: CONJUNCTIVITIS GENERAL INFORMATION: Conjunctivitis is also known as pink eye. It is an irritation of the underside of the eyelid and the white part of the eye. Conjunctivitis can be caused by infection, chemical irritation, or allergy. If infectious, it is very contagious. INSTRUCTIONS: The doctor has prescribed antibiotic drops or ointment. Use them as prescribed. Do not touch the dropper to the eye. Throw out the medication after completing treatment. If the doctor only prescribed the medication to be placed in one eye, and the other eye starts to bother you with the same symptoms, you may treat it in the same fashion. To ease discomfort, apply a warm or cool clean washcloth to your eye several times a day for 10 to 20 minutes. Gently wipe away discharge from the eyes with tissues. Wash your hands often with soap and use paper towels to dry them. Do not share towels, washcloths, or pillows. This could spread infection. Do not use eye make-up until the infection has resolved. Keep contact lenses out of eyes until the irritation is gone. Discard any eye make-up which you may have contaminated before the infection was diagnosed, and any eye make-up older than one year. Children should not return to school or daycare until the eye is no longer pink. Do not drive or operate machinery if your vision is blurred. Wear sunglasses if your eyes are sensitive to the light. CONTACT YOUR DOCTOR IF YOU OR YOUR CHILD NOTICE: *The eye is still pink 3 days after starting treatment with medicine. *Pain in the eye increases. *The redness is spreading. *Vision becomes blurred. *You have a temperature over 100.5 F (38 C). Prescriptions ordered this encounter Disp Refills Start End CIPROFLOXACIN 0.3 % EYE DROPS 1 Manjeet* 0 11/18/2017 11/25/2017 Si drops into affects eyes BID x 7 days CEFDINIR 250 MG/5 ML ORAL SUSPENSION 20 mL 0 11/18/2017 11/28/2017 Route: ORAL Sig: Take 2 mL by mouth once daily for 10 days. Medications Discontinued During This Encounter amoxicillin (AMOXIL) 400 mg/5 mL payton* 80 mL 0 11/16/2017 11/18/2017 Route: ORAL Sig: Take 4 mL by mouth twice daily for 10 days. Disc: Reason for discontinue is not on file. Disposition: Return if symptoms worsen or fail to improve. Follow-up and Disposition History Recorded Encounter Status:Closed by SALLY ROGERS on 11/23/17 PROGRESS Observed: 11/18/2017 Status: COMPLETED Source: [place] 7:41 AM [facility] REPOSITORY HNO ID: [id number] Author: Sally Mathis (Hydroelectric Component Machinist) Chauncey Service: (none) Author Type: Nurse Practitioner Type: Progress Notes Filed: 11/23/2017 7:44 AM Note Text: Subjective HPI Pt presents with drainage and redness in eyes x 24hrs. Pt seen in 11/16 for AOM and has started Amoxil but mother states has not noticed an improvement in fussiness. Denies known exposure to pink eye. Review of Systems Constitutional: Negative for chills, fever and malaise/fatigue. Fussy Decreased eating but still wetting diapers regularly HENT: Positive for congestion. Negative for ear pain and sore throat. Eyes: Positive for discharge and redness. Respiratory: Positive for cough. Gastrointestinal: Negative for abdominal pain, diarrhea, nausea and vomiting. Skin: Negative for rash. Neurological: Negative for headaches. PAST MEDICAL HISTORY Diagnosis Date - Breech presentation Hip US Normal 03/2017 - Hydronephrosis PAST SURGICAL HISTORY Procedure Laterality Date - NONE ALLERGIES Milk MEDICATIONS Lactobacillus acidophilus (ACIDOPHILUS) cap 1 CAPSULE SPRINKLED ON BABY FOOD ONCE A DAY PO X 7 TO 10 DAYS ciprofloxacin HCl (CILOXAN) 0.3 % ophthalmic solution 2 drops into affects eyes BID x 7 days cefdinir (OMNICEF) 250 mg/5 mL suspension Take 2 mL by mouth once daily for 10 days. pedi multivit no.2 w-fluoride (MULTI-VITAMIN WITH FLUORIDE) 0.25 mg/mL drop Take 0.25 mg by mouth once daily. (1 ml = 0.25 mg fluoride) nystatin (MYCOSTATIN) cream Apply 1 application to affected area four times daily. acetaminophen (CHILDREN'S TYLENOL) 160 mg/5 mL susp Take by mouth every 4 hours as needed. FAMILY HISTORY Problem Relation Age of Onset - Asthma Mother Social History Substance Use Topics - Smoking status: Passive Smoke Exposure - Never Smoker - Smokeless tobacco: Never Used Comment: outside - Alcohol use Not on file Objective Physical Exam Constitutional: She is well-developed, well-nourished, and in no distress. HENT: Head: Normocephalic. Right Ear: External ear and ear canal normal. Tympanic membrane is erythematous (opaque). Left Ear: External ear and ear canal normal. Tympanic membrane is erythematous (opaque). Nose: Rhinorrhea present. Right sinus exhibits no maxillary sinus tenderness and no frontal sinus tenderness. Left sinus exhibits no maxillary sinus tenderness and no frontal sinus tenderness. Mouth/Throat: Posterior oropharyngeal erythema (PND) present. Eyes: Right eye exhibits discharge. Left eye exhibits discharge. Right conjunctiva is injected. Left conjunctiva is injected. Neck: Normal range of motion. Neck supple. Cardiovascular: Normal rate, regular rhythm and normal heart sounds. Pulmonary/Chest: Effort normal and breath sounds normal. No respiratory distress. She has no wheezes. Abdominal: Soft. She exhibits no distension. There is no tenderness. Lymphadenopathy: She has cervical adenopathy. Skin: Skin is warm and dry. No rash noted. Nursing note and vitals reviewed. ASSESSMENT/PLAN: 1. Acute suppurative otitis media of both ears without spontaneous rupture of tympanic membranes, recurrence not specified - ICD9: 382.00, ICD10: H66.003 (primary diagnosis) Bilaterally - DC Amoxil - Will begin treatment with Omnicef 14 mg/kg QD - Supportive care with plenty of fluids, rest, and analgesia prn. - Follow up in 3-5 days if symptoms persist or worsen. 2. Acute conjunctivitis of both eyes, unspecified acute conjunctivitis type - ICD9: 372.00, ICD10: H10.33 - see medication orders - course and contagiousness issues discussed, including hand washing. - Instructed to call if high fever, development of periorbital redness or swelling, eye pain, visual changes, concerns or if symptoms persist. Prescription instructions reviewed with patient as applicable. Patient advised if symptoms do not improve or if symptoms worsen sooner, to contact their primary care physician. Potential red flag symptoms discussed with the patient. Reviewed appropriate action plan to take if red flag symptoms occur. Patient agreeable to treatment plan. Sally Rogers APRN.XOCHILT PROGRESS Observed: 11/16/2017 Status: COMPLETED Source: [place] 11:39 AM [facility] REPOSITORY O ID: [id number] Author: Sally Mathis (Nishant) Chauncey Service: (none) Author Type: Nurse Practitioner Type: Progress Notes Filed: 11/16/2017 12:06 PM Note Text: Subjective HPI Patient presents with: runny nose, cough and fussiness: x 3 days Mother states pulling at her right ear. OTC cough/congestion for infants with no reliefl Review of Systems Constitutional: Negative for fever. HENT: Positive for congestion and ear pain (pulling at right ear). Eyes: Negative for discharge and redness. Respiratory: Positive for cough. Gastrointestinal: Negative for diarrhea and vomiting. Skin: Negative for rash. Neurological: Negative for headaches. PAST MEDICAL HISTORY Diagnosis Date - Breech presentation Hip US Normal 03/2017 - Hydronephrosis PAST SURGICAL HISTORY Procedure Laterality Date - NONE ALLERGIES Milk MEDICATIONS pedi multivit no.2 w-fluoride (MULTI-VITAMIN WITH FLUORIDE) 0.25 mg/mL drop Take 0.25 mg by mouth once daily. (1 ml = 0.25 mg fluoride) nystatin (MYCOSTATIN) cream Apply 1 application to affected area four times daily. acetaminophen (CHILDREN'S TYLENOL) 160 mg/5 mL susp Take by mouth every 4 hours as needed. FAMILY HISTORY Problem Relation Age of Onset - Asthma Mother Social History Substance Use Topics - Smoking status: Passive Smoke Exposure - Never Smoker - Smokeless tobacco: Never Used Comment: outside - Alcohol use Not on file Objective Physical Exam Constitutional: She is well-developed, well-nourished, and in no distress. HENT: Head: Normocephalic. Right Ear: External ear and ear canal normal. Tympanic membrane is erythematous (opaque). Left Ear: External ear and ear canal normal. Tympanic membrane is injected. Nose: Nose normal. Eyes: Conjunctivae are normal. Neck: Normal range of motion. Cardiovascular: Normal rate, regular rhythm and normal heart sounds. Pulmonary/Chest: Effort normal and breath sounds normal. No respiratory distress. She has no wheezes. Abdominal: Soft. Lymphadenopathy: She has cervical adenopathy. Skin: Skin is warm and dry. No rash noted. Nursing note and vitals reviewed. ASSESSMENT/PLAN: 1. Acute suppurative otitis media of right ear without spontaneous rupture of tympanic membrane, recurrence not specified - ICD9: 382.00, ICD10: H66.001 (primary diagnosis) right - Will begin treatment with Amoxicillin - Supportive care with plenty of fluids, rest, and analgesia prn. - Follow up in 3-5 days if symptoms persist or worsen. 2. Viral URI - ICD9: 465.9, ICD10: J06.9 - Discussed viral etiology and rationale for treatment. - Symptomatic treatment with prn acetomenophen or ibuprofen - Saline nose gtts, humidifier and nasal suction prn - Supportive care with fluids and rest - Follow up in 3-5 days if symptoms persist or sooner if worsening of symptoms Prescription instructions reviewed with patient as applicable. Patient advised if symptoms do not improve or if symptoms worsen sooner, to contact their primary care physician. Potential red flag symptoms discussed with the patient. Reviewed appropriate action plan to take if red flag symptoms occur. Patient agreeable to treatment plan. Sally Rogers APRN.XOCHILT CNOV Observed: 11/16/2017 Status: COMPLETED Source: [place] 10:45 AM [facility] REPOSITORY Office Visit ([facility]) PRIYA JACQUES ([id number]) [birth year] F Date Time Provider Department 11/16/17 10:45 AM SALLY ROGERS (MACHINE GUIDE BASE WINDER) [facility] During your visit today, we recorded the following information about you: Temperature Pulse Respiration Weight 97.3 degrees 124/minute 28/minute 7.442 kg Sally Rogers APRN.CNP 11/16/2017 12:06 PM Signed Subjective HPI Patient presents with: runny nose, cough and fussiness: x 3 days Mother states pulling at her right ear. OTC cough/congestion for infants with no reliefl Review of Systems Constitutional: Negative for fever. HENT: Positive for congestion and ear pain (pulling at right ear). Eyes: Negative for discharge and redness. Respiratory: Positive for cough. Gastrointestinal: Negative for diarrhea and vomiting. Skin: Negative for rash. Neurological: Negative for headaches. PAST MEDICAL HISTORY Diagnosis Date - Breech presentation Hip US Normal 03/2017 - Hydronephrosis PAST SURGICAL HISTORY Procedure Laterality Date - NONE ALLERGIES Milk MEDICATIONS pedi multivit no.2 w-fluoride (MULTI-VITAMIN WITH FLUORIDE) 0.25 mg/mL drop Take 0.25 mg by mouth once daily. (1 ml = 0.25 mg fluoride) nystatin (MYCOSTATIN) cream Apply 1 application to affected area four times daily. acetaminophen (CHILDREN'S TYLENOL) 160 mg/5 mL susp Take by mouth every 4 hours as needed. FAMILY HISTORY Problem Relation Age of Onset - Asthma Mother Social History Substance Use Topics - Smoking status: Passive Smoke Exposure - Never Smoker - Smokeless tobacco: Never Used Comment: outside - Alcohol use Not on file Objective Physical Exam Constitutional: She is well-developed, well-nourished, and in no distress. HENT: Head: Normocephalic. Right Ear: External ear and ear canal normal. Tympanic membrane is erythematous (opaque). Left Ear: External ear and ear canal normal. Tympanic membrane is injected. Nose: Nose normal. Eyes: Conjunctivae are normal. Neck: Normal range of motion. Cardiovascular: Normal rate, regular rhythm and normal heart sounds. Pulmonary/Chest: Effort normal and breath sounds normal. No respiratory distress. She has no wheezes. Abdominal: Soft. Lymphadenopathy: She has cervical adenopathy. Skin: Skin is warm and dry. No rash noted. Nursing note and vitals reviewed. ASSESSMENT/PLAN: 1. Acute suppurative otitis media of right ear without spontaneous rupture of tympanic membrane, recurrence not specified - ICD9: 382.00, ICD10: H66.001 (primary diagnosis) right - Will begin treatment with Amoxicillin - Supportive care with plenty of fluids, rest, and analgesia prn. - Follow up in 3-5 days if symptoms persist or worsen. 2. Viral URI - ICD9: 465.9, ICD10: J06.9 - Discussed viral etiology and rationale for treatment. - Symptomatic treatment with prn acetomenophen or ibuprofen - Saline nose gtts, humidifier and nasal suction prn - Supportive care with fluids and rest - Follow up in 3-5 days if symptoms persist or sooner if worsening of symptoms Prescription instructions reviewed with patient as applicable. Patient advised if symptoms do not improve or if symptoms worsen sooner, to contact their primary care physician. Potential red flag symptoms discussed with the patient. Reviewed appropriate action plan to take if red flag symptoms occur. Patient agreeable to treatment plan. Sally Rogers APRN.CEMENT TILE MAKER Sally Rogers APRN.CEMENT TILE MAKER 11/16/2017 11:42 AM Signed Next to the common cold, an ear infection is the most common childhood illness. In fact, most children have at least one ear infection by the time they are 3 years old. Many ear infections clear up without causing any lasting problems. How do ear infections develop? When a child has a cold, nose or throat infection, or allergy, the mucus and fluid can enter the eustachian tube causing a buildup of fluid in the middle ear. If bacteria or a virus infects this fluid, it can cause swelling and pain in the ear. This type of ear infection is called acute otitis media (middle ear inflammation). Is my child at risk for developing an ear infection? Risk factors for developing childhood ear infections include - Age. Infants and young children are more likely to get ear infections than older children. Ear infections occur most often in children between 6 months and 3 years of age. - Family history. Ear infections can run in families. Children are more likely to have repeated middle ear infections if a parent or sibling also had repeated ear infections. - Colds. Colds often lead to ear infections. Children in group early childhood education worker settings have a higher chance of passing their colds to each other because they are exposed to more viruses from the other children. - Tobacco smoke. Children who breathe in someone else?s tobacco smoke have a higher risk of developing health problems, including ear infections. How can I reduce the risk of an ear infection? Some things you can do to help reduce your child?s risk of getting an ear infection are - Breastfeed instead of bottle-feed. may decrease the risk of frequent colds and ear infections. - Keep your child away from tobacco smoke, especially in your home or car. - Throw away pacifiers or limit to daytime use, if your child is older than 1 year. - Keep vaccinations up to date. How are ear infections treated? Because pain is often the first and most uncomfortable symptom of an ear infection, it?s important to help comfort your child by giving her pain medicine. Acetaminophen and ibuprofen are wwql-lhz-umypimn (OTC) pain medicines that may help decrease much of the pain. Be sure to use the right dosage for your child?s age and size. Don?t give aspirin to your child. There are also ear drops that may relieve ear pain for a short time. Ask your grader patrol whether these drops should be used. There is no need to use OTC cold medicines (decongestants and antihistamines), because they don?t help clear up ear infections. Not all ear infections require antibiotics. Some children who don?t have a high fever and aren?t severely ill may be observed without antibiotics. In most cases, pain and fever will improve in the first 1 to 2 days. If your child is younger than 2 years, has drainage from the ear, has a fever higher than 102.5?F, seems to be in a lot of pain, is unable to sleep, isn?t eating, or is acting ill, it?s important to call your grader patrol. If your child?s condition doesn?t improve within 3 days, or worsens at any time, call your grader patrol. Your grader patrol may wish to see your child and may prescribe an antibiotic to take by mouth, if one wasn?t given initially. If an antibiotic was already started, your child may need a different antibiotic. Be sure to follow your grader patrol?s instructions closely. If an antibiotic was prescribed, make sure your child finishes the entire prescription. If you stop the medicine too soon, some of the bacteria that caused the ear infection may still be present and cause an infection to start all over again. As the infection starts to clear up, your child might feel a ?popping? in the ears. This is a normal sign of healing. Children with ear infections don?t need to stay home if they are feeling well, as long as a early childhood education worker provider or someone at school can give them their medicine properly, if needed. If your child needs to travel in an airplane, or wants to swim, contact your grader patrol for specific Instructions. Are there complications from ear infections? Although it?s very rare, complications from ear infections can develop, including the following: - An infection of the inner ear that causes dizziness and imbalance (labyrinthitis) - An infection of the skull behind the ear (mastoiditis) - Scarring or thickening of the eardrum - Loss of feeling or movement in the face (facial paralysis) - Permanent hearing loss It?s normal for children to have several ear infections when they are young?even as many as 2 separate infections within a few months. Most ear infections that develop in children are minor. Recurring ear infections may be a nuisance, but they usually clear up without any lasting problems. With proper care and treatment, ear infections can usually be managed successfully. But, if your child has one ear infection after another for several months, you may want to talk about other treatment options with your grader patrol. Referring Provider: SELF [200] Allergies As of Date: 11/16/2017 Noted Allergy Reaction MILK 09/05/2017 2 - Rash Date Reviewed: 11/16/2017 Reviewed by: Ghada Werner LPN - Fully Assessed Reason for Visit: runny nose, cough and fussiness [Other] Cmt: x 3 days Primary Visit Diagnosis:Acute suppurative otitis media of right ear without spontaneous rupture of tympanic membrane, recurrence not specified [H66.001] Other Visit Diagnosis:Viral URI [J06.9] Order(s):amoxicillin (AMOXIL) 400 mg/5 mL suspensionTake 4 mL by mouth twice daily for 10 days.Disp: 80 mLRfl: 0 Prescriptions as of 11/16/2017 Sig: AMOXICILLIN 400 MG/5 ML ORAL * Take 4 mL by mouth twice manju* PEDIATRIC MULTIVITAMIN NO.2 W* Take 0.25 mg by mouth once da* NYSTATIN 100,000 UNIT/GRAM TO* Apply 1 application to affect* ACETAMINOPHEN 160 MG/5 ML ORA* Take by mouth every 4 hours * Problem List As Of Date 11/16/2017 Noted Resolved Hydronephrosis [N13.30] Atopic dermatitis [L20.9] INVALID FOR* Closed displaced fracture of shaft of right cla*INVALID FOR* Other instructions from your clinician: Next to the common cold, an ear infection is the most common childhood illness. In fact, most children have at least one ear infection by the time they are 3 years old. Many ear infections clear up without causing any lasting problems. How do ear infections develop? When a child has a cold, nose or throat infection, or allergy, the mucus and fluid can enter the eustachian tube causing a buildup of fluid in the middle ear. If bacteria or a virus infects this fluid, it can cause swelling and pain in the ear. This type of ear infection is called acute otitis media (middle ear inflammation). Is my child at risk for developing an ear infection? Risk factors for developing childhood ear infections include - Age. Infants and young children are more likely to get ear infections than older children. Ear infections occur most often in children between 6 months and 3 years of age. - Family history. Ear infections can run in families. Children are more likely to have repeated middle ear infections if a parent or sibling also had repeated ear infections. - Colds. Colds often lead to ear infections. Children in group early childhood education worker settings have a higher chance of passing their colds to each other because they are exposed to more viruses from the other children. - Tobacco smoke. Children who breathe in someone else?s tobacco smoke have a higher risk of developing health problems, including ear infections. How can I reduce the risk of an ear infection? Some things you can do to help reduce your child?s risk of getting an ear infection are - Breastfeed instead of bottle-feed. may decrease the risk of frequent colds and ear infections. - Keep your child away from tobacco smoke, especially in your home or car. - Throw away pacifiers or limit to daytime use, if your child is older than 1 year. - Keep vaccinations up to date. How are ear infections treated? Because pain is often the first and most uncomfortable symptom of an ear infection, it?s important to help comfort your child by giving her pain medicine. Acetaminophen and ibuprofen are nuna-snk-twxrjcr (OTC) pain medicines that may help decrease much of the pain. Be sure to use the right dosage for your child?s age and size. Don?t give aspirin to your child. There are also ear drops that may relieve ear pain for a short time. Ask your grader patrol whether these drops should be used. There is no need to use OTC cold medicines (decongestants and antihistamines), because they don?t help clear up ear infections. Not all ear infections require antibiotics. Some children who don?t have a high fever and aren?t severely ill may be observed without antibiotics. In most cases, pain and fever will improve in the first 1 to 2 days. If your child is younger than 2 years, has drainage from the ear, has a fever higher than 102.5?F, seems to be in a lot of pain, is unable to sleep, isn?t eating, or is acting ill, it?s important to call your grader patrol. If your child?s condition doesn?t improve within 3 days, or worsens at any time, call your grader patrol. Your grader patrol may wish to see your child and may prescribe an antibiotic to take by mouth, if one wasn?t given initially. If an antibiotic was already started, your child may need a different antibiotic. Be sure to follow your grader patrol?s instructions closely. If an antibiotic was prescribed, make sure your child finishes the entire prescription. If you stop the medicine too soon, some of the bacteria that caused the ear infection may still be present and cause an infection to start all over again. As the infection starts to clear up, your child might feel a ?popping? in the ears. This is a normal sign of healing. Children with ear infections don?t need to stay home if they are feeling well, as long as a early childhood education worker provider or someone at school can give them their medicine properly, if needed. If your child needs to travel in an airplane, or wants to swim, contact your grader patrol for specific Instructions. Are there complications from ear infections? Although it?s very rare, complications from ear infections can develop, including the following: - An infection of the inner ear that causes dizziness and imbalance (labyrinthitis) - An infection of the skull behind the ear (mastoiditis) - Scarring or thickening of the eardrum - Loss of feeling or movement in the face (facial paralysis) - Permanent hearing loss It?s normal for children to have several ear infections when they are young?even as many as 2 separate infections within a few months. Most ear infections that develop in children are minor. Recurring ear infections may be a nuisance, but they usually clear up without any lasting problems. With proper care and treatment, ear infections can usually be managed successfully. But, if your child has one ear infection after another for several months, you may want to talk about other treatment options with your grader patrol. Prescriptions ordered this encounter Disp Refills Start End AMOXICILLIN 400 MG/5 ML ORAL SUSPENS* 80 mL 0 11/16/2017 11/26/2017 Route: ORAL Sig: Take 4 mL by mouth twice daily for 10 days. Disposition: Return if symptoms worsen or fail to improve. Follow-up and Disposition History Recorded Encounter Status:Closed by SALLY ROGERS on 11/16/17 XR CLAVICLE 2V RT Observed: 11/15/2017 Status: F Source: [place] 11:46 AM [facility] NADA REPOSITORY * * *Final Report* * * DATE OF EXAM: Nov 15 2017 11:46AM WOX [id number] - XR CLAVICLE 2V RT / PROCEDURE REASON: Displaced fracture of shaft of right clavicle, subsequent encounter for fracture * * * * Physician Interpretation * * * * REASON FOR EXAM: Displaced fracture of shaft of right clavicle, subsequent encounter for fracture with routine healing TECHNIQUE: XR CLAVICLE 2V RT COMPARISON: 10/04/2017 FINDINGS: BONES: Healing midshaft right clavicular fracture. ALIGNMENT: Unchanged. CAST: None. IMPRESSION: Healing midshaft right clavicular fracture in unchanged alignment. Mica Plate Layer Hand: PSCB Transcribe Date/Time: Nov 15 2017 11:53A Dictated by : GEORGIE STEPHENS MD This examination was interpreted and the report reviewed and electronically signed by: GEORGIE STEPHENS MD on Nov 15 2017 11:54AM EST [id number] PROGRESS Observed: 11/15/2017 Status: COMPLETED Source: [place] 11:37 AM [facility] REPOSITORY HNO ID: [id number] Author: Jonathon Bangura (Rt) Jessica Anand Service: (none) Author Type: Household Cook Type: Progress Notes Filed: 11/15/2017 11:44 AM Note Text: Radiology Service Progress Note PATIENT NAME: Priya Jacques DATE OF SERVICE: November 15, 2017 TIME: 11:37 AM PATIENT IDENTITY VERIFICATION COMPLETED USING TWO (2) METHODS: Patient confirmed name verbally and Date of . PATIENT GENDER DATA: Female. status: : No status: NO. PATIENT RELEVANT IMPLANT DATA REVIEWED: Not Applicable RADIOLOGY DEPARTMENT: General X-ray: Exam(s) Completed: Upper Extremity X-Ray(s): Clavicle, right : PERIPHERAL IV DATA: Not applicable SIGNED BY: RT Kyle November 15, 2017 11:37 AM PROGRESS NOTE Observed: 10/24/2017 Status: COMPLETED Source: [place] 10:00 AM [facility] REPOSITORY Priya Jacques is here in follow-up for: Urinary Tract Infection History of Presenting Problem: Here with mom/dad. No issues since last seen. UTIs since last seen: No. Unexplained fevers: No. Hematuria: No. Voids: normal number of wet diapers. BM every couple days (breast fed). Recurrent flank/abdominal pain: No. US (10/24/2017): R 5.3 (no HN), L 5.2 (no HN); Bladder: normal wall; Rectum: unremarkable 07/18/17: Here with mom. Tough to take FDN (mix in with food). Getting constipation. UA tr bl. Plan: stop CAP, FU 3 mo for US VCUG 07/18/17: no VUR 07/01/17: Here with mom/dad. Seen in ED 06/20 after developed fever to 101.5 (after recent diarrhea). Went to ER at [place] and urine concerning for UTI (UA LE/pr/hgb), transferred to [facility]. [Called to request culture results, but not enough urine so no culture]. Treated with ceftriaxone. UA at [facility] 06/21/17 LE/Hgb (UCx <1k). Discharged on Keflex, to be followed by Amox prophylaxis. No other UTIs. Born full term with normal US. No FH issues. PE: normal. Plan: FDN, VCUG US 06/21/17: R 5 (possible duplicated, Gr 1 HN), L 5.3 (splitting, primarily upper pole HN), normal bladder [my review] Past Medical History: Past Medical History: Diagnosis Date Broken collarbone UTI (urinary tract infection) History reviewed. No pertinent surgical history. Allergies: Allergies Allergen Reactions Pampers Baby Dry Size 3 [Diapers & Supplies] Rash Per parents allergy to pampers diapers and wipes Medications: Outpatient Encounter Prescriptions as of 10/24/2017 Medication Sig Dispense Refill Acetaminophen (TYLENOL PO) Take 2.5 mL by mouth as needed [DISCONTINUED] nitrofurantoin (FURADANTIN) 25 MG/5ML SUSP oral suspension Take 2 mL (10 mg) by mouth daily 60 mL 5 No facility-administered encounter medications on file as of 10/24/2017. Family Medical History: Family History Problem Relation Age of Onset No known problems Mother No known problems Father Social History: Social History Social History Marital status: Single Spouse name: N/A Number of children: N/A Years of education: N/A Occupational History Not on file. Social History Main Topics Smoking status: Passive Smoke Exposure - Never Smoker Smokeless tobacco: Never Used Alcohol use Not on file Drug use: Unknown Sexual activity: Not on file Other Topics Concern Not on file Social History Narrative No narrative on file Additional History Is the patient on a special diet? No Age at toilet training? n/a Per parents, immunizations are up to date. Yes Patient lives with? Parents Factors which may affect learning None Review of Systems: Constitutional: negative Eyes: negative Ears, nose, mouth, throat, and face: negative Respiratory: negative Cardiovascular: negative Gastrointestinal: negative Integument/breast: negative Physical Examination: Vitals: 10/24/17 1006 Weight: 6.96 kg General: Well appearing, no acute distress Eyes: No exudates, conjunctiva normal HENT: Normocephalic, no nasal discharge Resp: Normal effort Lymphatic: No palpable lymph nodes (neck) Abdomen: Non-tender, non-distended, soft Neurologic: Grossly normal sensation Musculoskeletal: Normal ROM Skin: Warm and dry : Deferred Laboratory Testing: No results found for this visit on 10/24/17. Imaging: See HPI for brief read (+ media for scanned report/images). Assessment & Plan: Priya was seen today for urinary tract infection. Diagnoses and all orders for this visit: Other hydronephrosis - Kidney/Bladder Ultrasound Renal duplication I am happy that we have not developed any UTIs and that the hydronephrosis shows no sign of worsening. We reviewed signs of UTI and they know to contact me if any issues were to arise. We will plan for follow up in 6 months. All questions were answered Daniel Howell MD October 24, 2017 Counseling and/or coordination of care was greater than 12 minutes, which is more than 50% of the total time of 15 minutes spent on the encounter. PROGRESS Observed: 10/11/2017 Status: COMPLETED Source: [place] 4:06 PM [facility] NADA REPOSITORY [facility] ID: [id number] Author: Jeremias Brock Service: (none) Author Type: Physician Type: Progress Notes Filed: 10/11/2017 4:10 PM Note Text: The patient was seen for the issues discussed below. Problem list and history reviewed. Allergies reviewed. Medications reviewed. Immunizations reviewed. HISTORY: see history section below PHYSICAL EXAM: GENERAL: alert, well appearing, in no distress LEFT EYE: no drainage noted, no conjunctival injection noted; RIGHT EYE: no drainage noted, no conjunctival injection noted; NO ADDITIONAL EYE FINDINGS LEFT EAR: pinna normal, auditory canal normal, tympanic membrane clear, no effusion noted, RIGHT EAR: pinna normal, auditory canal normal, tympanic membrane clear, no effusion noted NOSE/SINUSES: nares normal, mucosa normal, no drainage noted OROPHARYNX: lips without lesions noted, gums/mucosa normal, oropharynx without erythema or exudates NECK/ADENOPATHY: neck supple, no adenopathy noted CHEST/LUNGS: lungs clear to auscultation CARDIOVASCULAR: regular rate and rhythm, capillary refill less than 2 seconds ABDOMEN: soft, nontender, bowel sounds normal, no masses, no organomegaly, abdomen nondistended SKIN: normal color, no rash, no jaundice, moist mucous membranes, turgor within normal limits EXTREMITIES: Callous formation present midshaft right clavicle. No tenderness to palpation. Patient using right upper extremity normally. Full range of motion present. Strength normal. GENERAL RECOMMENDATIONS: - Issues discussed in detail. - Symptom relief measures as needed. - Prescriptions, if ordered, are listed below. - Labs and/or X-rays, if ordered or obtained, are listed below. If the final results are not available at the conclusion of this visit, then additional recommendations may be made based on the final results. Note that all x-rays are reviewed by a radiologist before being considered final. - EKG, if ordered or obtained, is reviewed by a caser shoe parts before being considered final. Additional recommendations may be made based on the final results. - Return to clinic should current symptoms (if present) worsen, other problems develop, or as needed. ADDITIONAL AND DICTATED PORTION: ADDITIONAL HISTORY The following Nursing History was reviewed with the family: Patient presents with: Follow Up: praveen patino- see 10-04-17 Patient seen in the emergency room on 10/03/17 for right upper extremity injury. X-ray of the right upper extremity revealed no fracture. Patient subsequently seen in urgent care where x-ray of the clavicle was positive for fracture. Patient using the right arm normally. No fussiness. Callous formation has become prominent. No fever. No eye, ear, nose, throat complaints. No cough or wheezing. No vomiting or diarrhea. No rash. ADDITIONAL EXAM / OTHER INFORMATION none ADDITIONAL IMPRESSION / PLAN Right clavicle fracture with excellent callus formation. No evidence of neurologic sequelae to the upper extremity. Discussed in detail. Avoid injury to the region during the healing phase. Recheck x- ray in 4-8 weeks. Time, established: Spent approx. 15+ minutes (42290 level) in [id number]-bg-[id number] contact with the patient and/or family, more than half of which was devoted to discussing the above problems. This note was partially generated using Confer voice recognition system, and there may be some incorrect words, spellings, and punctuation that were not noted in checking the note before saving. Jeremias Brock M.D. XR CLAVICLE 2V RT Observed: 10/04/2017 Status: F Source: [place] 6:40 PM [facility] REPOSITORY * * *Final Report* * * DATE OF EXAM: Oct 04 2017 6:40PM WOX 5317 - XR CLAVICLE 2V RT / PROCEDURE REASON: Pain in right shoulder * * * * Physician Interpretation * * * * TECHNIQUE: XR CLAVICLE 2V RT Number of views: 2. HISTORY: Pain in right shoulder . Was seen in ER, did XR clavicle COMPARISON: None RESULT: Fracture of the midshaft of the right clavicle with around 2 mm of displacement and apex superior angulation. Associated soft tissue swelling at the fracture site. Glenohumeral joint is maintained. Visualized lung clear. IMPRESSION: Right midclavicular fracture as detailed. Mica Plate Layer Hand: KOBY Transcribe Date/Time: Oct 04 2017 6:47P Dictated by : DELONTE ROMERO MD This examination was interpreted and the report reviewed and electronically signed by: HERB BREAUX MD on Oct 04 2017 6:51PM EST [id number] PROGRESS Observed: 10/04/2017 Status: COMPLETED Source: [place] 6:29 PM [facility] REPOSITORY HNO ID: [id number] Author: Jonathon Bangura (RtJessica Lu Service: (none) Author Type: Household Cook Type: Progress Notes Filed: 10/04/2017 6:37 PM Note Text: Radiology Service Progress Note PATIENT NAME: Priya Jacques DATE OF SERVICE: October 04, 2017 TIME: 6:29 PM PATIENT IDENTITY VERIFICATION COMPLETED USING TWO (2) METHODS: Patient confirmed name verbally and Date of . PATIENT GENDER DATA: Female. status: : No status: NO. PATIENT RELEVANT IMPLANT DATA REVIEWED: Not Applicable RADIOLOGY DEPARTMENT: General X-ray: Exam(s) Completed: Upper Extremity X-Ray(s): Clavicle, right : PERIPHERAL IV DATA: Not applicable SIGNED BY: RT Kyle October 04, 2017 6:29 PM PROGRESS Observed: 10/04/2017 Status: COMPLETED Source: [place] 6:15 PM [facility] REPOSITORY HNO ID: [id number] Author: Yael Starr Service: (none) Author Type: Nurse Practitioner Type: Progress Notes Filed: 10/04/2017 7:11 PM Note Text: EXPRESS CARE VISIT PEDIATRIC RASH/NUR/INJURY Priya Jacques is a 7 month old female accompanied by mother and father and grandparents for evaluation of right shoulder pain and swelling of 1 day(s) duration. Child was seen yesterday in [place] ER and evaluated post fall while walking in front of mother. XR was done of upper arm, not of clavicle History was obtained from: mother HPI: Pruritic: N / A Drainage: No Pain: Cry when arm lifted or clavicle palpated Fevers: No Sore throat: No Known Exposures: No Sick Contacts: no Modifying Factors Attempted: tylenol ACTIVE PROBLEM LIST Atopic Dermatitis - 09/05/2017 Hydronephrosis PAST MEDICAL HISTORY Diagnosis Date - Breech presentation Hip US Normal 03/2017 - Hydronephrosis ALLERGIES: ALLERGIES Allergen Reactions - Milk Rash MEDICATIONS: acetaminophen (CHILDREN'S TYLENOL) 160 mg/5 mL susp Take by mouth every 4 hours as needed. pedi multivit no.2 w-fluoride (MULTI-VITAMIN WITH FLUORIDE) 0.25 mg/mL drop Take 0.25 mg by mouth once daily. (1 ml = 0.25 mg fluoride) nystatin (MYCOSTATIN) cream Apply 1 application to affected area four times daily. SOCIAL HISTORY: Lives with: both parents Attends daycare or school: no ROS: GENERAL: Normal sleep, appetite and activity. No fevers or irritability. HEENT: Negative for ear pain, nasal congestion or sore throat. NECK: Negative for stiffness, lumps or significant neck swelling MUSCULOSKELETAL: positive soft tissue swelling on clavicle, and pain with movement of right arm SKIN: Negative for lesions, rash, and itching NEURO: No weakness, seizures, headaches or change in mental status. All other systems reviewed and are negative. PHYSICAL EXAMINATION: Pulse 124 Temp 36.6 ?C (97.8 ?F) (Tympanic) Resp 24 Wt 6.747 kg (14 lb 14 oz) General: Well developed, No acute distress Neck: supple and no adenopathy Lungs: clear to auscultation bilaterally, good air exchange, no retractions CVS: Normal rate, regular rhythm, no murmur MS: Swelling over right clavicle, crepitus noted, with brisk cap refill in extremties of right hand, decreased ROM of right shoulder. Integument: Warm and Dry Rash: none Discharge: None ASSESSMENT/PLAN: 1. Acute pain of right shoulder - ICD9: 719.41, ICD10: M25.511 - XR CLAVICLE 2V RT - interpreted by IMPRESSION: Right midclavicular fracture as detailed. RESULT: Fracture of the midshaft of the right clavicle with around 2 mm of displacement and apex superior angulation. ?Associated soft tissue swelling at the fracture site. ?Glenohumeral joint is maintained. ? Visualized lung clear. ASSESSMENT/PLAN: 1. Acute pain of right shoulder - ICD9: 719.41, ICD10: M25.511 Ice Tylenol as needed for comfort Self limiting, per Dr. Odell no sling needed or pinning of arm Care on picking up, not under arms. Follow up with Dr. Brock in 1 week for recheck - XR CLAVICLE 2V RT - fracture seen Patient instructed to follow up with PCP if symptoms change, worsen or fail to improve in three days. Disposition: Home with mother SIGNATURE: Yael Starr CNP PATIENT NAME: Priya Jacques DATE: October 04, 2017 TIME: 6:15 PM EMERGENCY DEPARTMENT Observed: 10/03/2017 Status: F Source: [place] SUMMARY 4:43 PM [facility] REPOSITORY [facility] Medical Records Department [address] [place] [address] Emergency Department Summary 10/03/17 1525 MR#: [id number] Acct: [id number] Name: PRIYA JACQUES Rep #: [id number] : 02/24/2016 07M 06D From: Paul Kim PCP: Jeremias Brock MD Status: REG ER - ER Visit Summary Date of Service: 10/03/17 Chief Complaint: Right upper extremity injury History of Present Illness: The patient is a 7m 6d F here with parents evaluation right upper extremity injury half hour prior to arrival. Mother states patient wanting to walk, she was holding mother's finger walking when patient slipped. States her right shoulder was twisted back. Patient immediately cried. There is no direct falls on the ground. No head injuries. Patient no past medical history. No surgeries. Physical Examination: General: Nontoxic, well appearing child, no acute distress HEENT: Normocephalic, atraumatic. TMs are normal bilaterally. Moist mucosal membranes. No posterior pharyngeal erythema. Neck: Supple, no lymphadenopathy Cardiovascular: Regular rate and rhythm, no murmurs Lungs: No distress, no wheezing, no retractions Abdomen: Soft, nontender, nondistended Extremity: Normal range of motion. Right upper extremity: There is no clavicular tenderness or crepitus. Patient is crying when palpation proximal shoulder. No deformities. No pain at elbow or forearm. Skin intact. Skin: No rash or lesions Test Results: Upper extremity x-rays: No fracture Emergency Department Course and Treatment: Patient upper extremity injury. There is no clavicular tenderness or crepitus. Image studies of the upper extremity obtained shows no fracture. Tylenol was given by parents prior to arrival. They will continue this as needed. Monitor symptoms follow-up with PCP. All questions were answered. Treatment Plan: Symptomatic Disposition: Discharge Impression: Right shoulder strain This note was generated with Confer dictation software. It may contain incorrect words, spelling, and punctuation that were not noted in review of the chart prior to signing ED Disposition - Plan for ED Patient: Disposition: Home or Assisted Living Chief Complaint: Upper Extremity Injury Diagnosis: Right shoulder strain Instructions: ED Sprain Shoulder Referrals: Jeremias Brock MD [Primary Care Provider] - 5-7 Days What to do if you have Problems For any increased pain, shortness of breath, bleeding, nausea or vomiting, chest pain, or any unexpected problems, contact your Primary Care Provider. Call [facility] ([phone]) or report to the closest Emergency Room. Call 911 if necessary. 10/03/17 1643 <Electronically signed by Paul Kim> Date Paul Kim Cosigner Signature (If Indicated): Date CC: Jeremias Brock MD INFANT UPPER EXT Observed: 10/03/2017 Status: F Source: [place] MIN 2 VIEWS 3:25 PM [facility] REPOSITORY [facility] Imaging Services [address] [place] [id number] Infant Upper Ext Min 2 Views MR#: [id number] Acct: [id number] Name: PRIYA JACQUES Rep #: [id number] : 02/24/2016 F 07M 06D From: Minh Cunningham MD PCP: Jeremias Brock MD Status: REG ER Study: Upper Ext Min 2 Views Date of Exam: 10/03/17 Exam# [id number] Ordering Dr: Paul Corona DO STUDY: X-RAY - RIGHT UPPER EXTREMITY REASON FOR EXAM: Female, 7 months old. Injury. Fall. TECHNIQUE: 2 view(s) of the upper extremity. COMPARISON: None. FINDINGS: Normal visualized humerus. Normal visualized radius and ulna. There is no fracture seen. The soft tissue structures are unremarkable. RAD/Infant Upper Ext Min 2 Views IMPRESSION: Normal x-ray examination of the upper extremity. Electronically Signed: Minh Cunningham MD at 16:37 EST , Service support , CC: Jeremias Brock MD; Paul Corona Mica Plate Layer Hand: Signed PROGRESS Observed: 09/05/2017 Status: COMPLETED Source: [place] 3:42 PM [facility] REPOSITORY O ID: [id number] Author: Jeremias Brock Service: (none) Author Type: Physician Type: Progress Notes Filed: 09/05/2017 5:28 PM Note Text: 6 month old female presents for a routine 6 month check-up. [] GENERAL QUESTIONS color enhanced section Parental concerns: Issues: dry skin continuing Diet: Breast: 5-6 feeds per 24 hours, feeding well, Solids: mostly baby food Stools: NORMAL (soft and appropriately sized) Fluoride Water: uses significant amount of city water from: [employer] PWS - deficient (use recommendations for levels of <0.3 ppm), fluoride level: 0.13 ppm (2012 testing) Ongoing subspecialty care: Ongoing care: urology Ongoing ancillary care: NONE Daycare/etc: NONE Lead exposure: No Significant stresses: No [] DEVELOPMENT FOR AGE 6 MONTHS color enhanced section Rolls over: Yes Bears weight: Yes Sits with support: Yes Transfers objects hand to hand: Yes Rakes small objects with hand: Yes Turns to sound: Yes Laughs, squeals, and/or babbles: Yes Shows displeasure at toy loss: Yes HISTORY Past medical history: IMPORTED PAST MEDICAL HISTORY Diagnosis Date - Breech presentation Hip US Normal 03/2017 - Hydronephrosis IMPORTED PAST SURGICAL HISTORY Procedure Laterality Date - NONE Family history: IMPORTED FAMILY HISTORY Problem Relation Age of Onset - Asthma Mother Social history: NEGATIVE SOCIAL HISTORY [] MISCELLANEOUS color enhanced section Difficulties with learning for caregiver: No [] ADDITIONAL NURSING COMMENTS color enhanced section None Estuardo Love 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 PHYSICAL EXAM GENERAL: alert, well appearing, in no distress HABITUS: normal build HEAD: normocephalic, anterior fontanel soft and flat LEFT EYE: no drainage noted, no conjunctival injection noted, pupil round and reactive to light, red reflex present; RIGHT EYE: no drainage noted, no conjunctival injection noted, pupil round and reactive to light, red reflex present; NO ADDITIONAL EYE FINDINGS LEFT EAR: pinna normal, auditory canal normal, tympanic membrane clear, no effusion noted, RIGHT EAR: pinna normal, auditory canal normal, tympanic membrane clear, no effusion noted NOSE/SINUSES: nares normal, mucosa normal, no drainage noted OROPHARYNX: lips without lesions noted, gums/mucosa normal, oropharynx without erythema or exudates NECK/ADENOPATHY: neck supple, no adenopathy noted CHEST/LUNGS: lungs clear to auscultation CARDIOVASCULAR: regular rate and rhythm, no murmur, capillary refill less than 2 seconds ABDOMEN: soft, nontender, bowel sounds normal, no masses, no organomegaly GENITILIA: FEMALE: external genitalia normal MUSCULOSKELETAL: extremities with full range of motion present throughout NEUROLOGICAL: deep tendon reflexes 2+/4+ throughout, muscle mass and tone normal SKIN: normal color, no jaundice, mild atopic dermatitis over the back and lower extremities [] ASSESSMENT color enhanced section Well patient Normal growth Normal development Issues: Mother reports a history of patient having a rash around the mouth when milk was taken. Photographs reviewed in that revealed possible urticaria. No history of associated respiratory issues or other signs of anaphylaxis. Recommended avoiding milk products until at least one year of age. Mild atopic dermatitis. Discussed in detail. Moisturizing cream recommended. Avoid harsh soaps and detergents. Family history is positive for mother having eczema as a child. PLAN Plan per orders. Counseling: car seats, home safety sunscreen breast milk or formula advancing the diet, sipper cup teething, night awakening, shoes discipline, consistency Forms filled out: NONE Follow up visit in 3 months for well care or prn with concerns. I have reviewed the above nursing obtained HPI and I concur. Problem list and history reviewed. Allergies reviewed. Medications reviewed. Immunizations reviewed. This note was partially generated using Confer voice recognition system, and there may be some incorrect words, spellings, and punctuation that were not noted in checking the note before saving. Jeremias Brock M.D. 6 month old female here for INACTIVATED INFLUENZA VACCINE. [id number] Season Patient is identified by name and date of : Yes [] CONTRAINDICATIONS color enhanced section Age less than 6 months? No Allergy to eggs, chicken, chicken feathers, or chicken dander? No Allergy to thimerosal (a preservative) or formaldehyde? No History of severe reaction to any vaccine component or a previous dose of influenza vaccination? No History of Guillain-Dowling Syndrome within 6 weeks after a previous influenza vaccine? No Current moderate or severe illness? No Current temperature greater or equal to 100.4F? No History of Bone Marrow Transplant in past 6 months or solid organ transplant in the past 3 months ? No [] VERIFICATION color enhanced section Was the answer Yes for any of the above contraindications? No contraindications present. Acceptable to proceed with vaccine. Patient/guardian agrees the above answers are true to the best of their knowledge? Yes Flu vaccine information sheet given? Yes See immunization activity in [facility] for details of immunizations adminstered today. Patient age: 6 month old For The 2797-0263 Flu Season 6-35 months old: Fluzone 0.25 ml - IM (Preservative Free) 3 years of age: Fluzone 0.5 ml - IM (Preservative Free) 3 years and older: Fluzone 0.5 ml- IM-(with Preservatives) 65+ years old: Fluzone High-Dose 0.5 ml - IM (Preservative Free) REMEMBER: If patient is less than 9 years of age and this is the first vaccine of Influenza to be received in any flu season, they should receive a second dose in one months time. Estuardo Love LPN CNOV Observed: 09/05/2017 Status: COMPLETED Source: PILY 3:30 PM [facility] REPOSITORY Office Visit (PEDSWS) PRIYA JACQUES ([id number]) [birth year] F Date Time Provider Department 09/05/17 3:30 PM JEREMIAS BROCK During your visit today, we recorded the following information about you: Temperature Pulse Respiration Weight 98.2 degrees 120/minute 24/minute 5.897 kg Height Head Circumference 0.641 m 41.5cm Jeremias Brock MD 09/05/2017 5:28 PM Signed 6 month old female presents for a routine 6 month check-up. [] GENERAL QUESTIONS color enhanced section Parental concerns: Issues: dry skin continuing Diet: Breast: 5-6 feeds per 24 hours, feeding well, Solids: mostly baby food Stools: NORMAL (soft and appropriately sized) Fluoride Water: uses significant amount of ANDquot;cityANDquot; water from: [facility] PWS - deficient (use recommendations for levels of ANDlt;0.3 ppm), fluoride level: 0.13 ppm (2012 testing) Ongoing subspecialty care: Ongoing care: urology Ongoing ancillary care: NONE Daycare/etc: NONE Lead exposure: No Significant stresses: No [] DEVELOPMENT FOR AGE 6 MONTHS color enhanced section Rolls over: Yes Bears weight: Yes Sits with support: Yes Transfers objects hand to hand: Yes Rakes small objects with hand: Yes Turns to sound: Yes Laughs, squeals, and/or babbles: Yes Shows displeasure at toy loss: Yes HISTORY Past medical history: IMPORTED PAST MEDICAL HISTORY Diagnosis Date - Breech presentation Hip US Normal 03/2017 - Hydronephrosis IMPORTED PAST SURGICAL HISTORY Procedure Laterality Date - NONE Family history: IMPORTED FAMILY HISTORY Problem Relation Age of Onset - Asthma Mother Social history: NEGATIVE SOCIAL HISTORY [] MISCELLANEOUS color enhanced section Difficulties with learning for caregiver: No [] ADDITIONAL NURSING COMMENTS color enhanced section None Estuardo Love 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 PHYSICAL EXAM GENERAL: alert, well appearing, in no distress HABITUS: normal build HEAD: normocephalic, anterior fontanel soft and flat LEFT EYE: no drainage noted, no conjunctival injection noted, pupil round and reactive to light, red reflex present; RIGHT EYE: no drainage noted, no conjunctival injection noted, pupil round and reactive to light, red reflex present; NO ADDITIONAL EYE FINDINGS LEFT EAR: pinna normal, auditory canal normal, tympanic membrane clear, no effusion noted, RIGHT EAR: pinna normal, auditory canal normal, tympanic membrane clear, no effusion noted NOSE/SINUSES: nares normal, mucosa normal, no drainage noted OROPHARYNX: lips without lesions noted, gums/mucosa normal, oropharynx without erythema or exudates NECK/ADENOPATHY: neck supple, no adenopathy noted CHEST/LUNGS: lungs clear to auscultation CARDIOVASCULAR: regular rate and rhythm, no murmur, capillary refill less than 2 seconds ABDOMEN: soft, nontender, bowel sounds normal, no masses, no organomegaly GENITILIA: FEMALE: external genitalia normal MUSCULOSKELETAL: extremities with full range of motion present throughout NEUROLOGICAL: deep tendon reflexes 2+/4+ throughout, muscle mass and tone normal SKIN: normal color, no jaundice, mild atopic dermatitis over the back and lower extremities [] ASSESSMENT color enhanced section Well patient Normal growth Normal development Issues: Mother reports a history of patient having a rash around the mouth when milk was taken. Photographs reviewed in that revealed possible urticaria. No history of associated respiratory issues or other signs of anaphylaxis. Recommended avoiding milk products until at least one year of age. Mild atopic dermatitis. Discussed in detail. Moisturizing cream recommended. Avoid harsh soaps and detergents. Family history is positive for mother having eczema as a child. PLAN Plan per orders. Counseling: car seats, home safety sunscreen breast milk or formula advancing the diet, sipper cup teething, night awakening, shoes discipline, consistency Forms filled out: NONE Follow up visit in 3 months for well care or prn with concerns. I have reviewed the above nursing obtained HPI and I concur. Problem list and history reviewed. Allergies reviewed. Medications reviewed. Immunizations reviewed. This note was partially generated using Confer voice recognition system, and there may be some incorrect words, spellings, and punctuation that were not noted in checking the note before saving. Jeremias Brock M.D. 6 month old female here for INACTIVATED INFLUENZA VACCINE. [id number] Season Patient is identified by name and date of : Yes [] CONTRAINDICATIONS color enhanced section Age less than 6 months? No Allergy to eggs, chicken, chicken feathers, or chicken dander? No Allergy to thimerosal (a preservative) or formaldehyde? No History of severe reaction to any vaccine component or a previous dose of influenza vaccination? No History of Guillain-Dowling Syndrome within 6 weeks after a previous influenza vaccine? No Current moderate or severe illness? No Current temperature greater or equal to 100.4F? No History of Bone Marrow Transplant in past 6 months or solid organ transplant in the past 3 months ? No [] VERIFICATION color enhanced section Was the answer ANDquot;YesANDquot; for any of the above contraindications? No contraindications present. Acceptable to proceed with vaccine. Patient/guardian agrees the above answers are true to the best of their knowledge? Yes Flu vaccine information sheet given? Yes See immunization activity in [facility] for details of immunizations adminstered today. Patient age: 6 month old For The [id number] Flu Season 6-35 months old: Fluzone 0.25 ml - IM (Preservative Free) 3 years of age: Fluzone 0.5 ml - IM (Preservative Free) 3 years and older: Fluzone 0.5 ml- IM-(with Preservatives) 65+ years old: Fluzone High-Dose 0.5 ml - IM (Preservative Free) REMEMBER: If patient is less than 9 years of age and this is the first vaccine of Influenza to be received in any flu season, they should receive a second dose in one months time. Estuardo Brock MD 09/05/2017 4:11 PM Signed NUTRITION AND FEEDING Feeding Your Baby ? Most babies have doubled their weight. ? Your baby's growth will slow down. ? If you are still , that's great! Continue as long as you both like. ? If you are formula feeding, use an iron-fortified formula. ? You may begin to feed your baby solid food when your baby is ready. ? Some of the signs you baby is ready for solids ? Opens mouth for the spoon. ? Sits with support. ? Good head and neck control. ? Interest in foods you eat. Starting New Foods ? Introduce new foods one at a time. ? Iron-fortified cereal ? Good sources of iron include ? Red meat ? Introduce fruits and vegetables after your baby eats iron- fortified cereal or pureed meats well. ? Offer 1-2 tablespoons of solid food 2-3 times per day. ? Avoid feeding your baby too much by following the baby's signs of fullness. ? Leaning back ? Turning away ? Do not force your baby to eat or finish foods. ? It may take 10-15 times of giving your baby a food to try before she will like it. ? Avoid foods that can cause allergies---peanuts, tree nuts, fish, and shellfish. ? To prevent choking ? Only give your baby very soft, small bites of finger foods. ? Keep small objects and plastic bags away from your baby. FAMILY FUNCTIONING How Your Family is Doing ? Call on others for help. ? Encourage your partner to help care for your baby. ? Ask us about helpful resources if you are alone. ? Invite friends over or join a parent group. ? Choose a mature, trained, and responsible lab clerk or caregiver. ? You can talk with us about your early childhood education worker choices. ORAL HEALTH Healthy Teeth ? Many babies begin to cut teeth. ? Use a soft cloth or toothbrush to clean each tooth with water only as it comes in. ? Ask us about the need for fluoride. ? Do not give a bottle in bed. ? Do not prop the bottle. ? Have regular times for your baby to eat. Do not let him eat all day. INFANT DEVELOPMENT Your Baby's Development ? Place your baby so she is sitting up and can look around. ? Talk with your baby by copying the sounds your baby makes. ? Look at and read books together. ? Play games such as pemeXBT / [employer], [employer], and so big. ? Offer active play with mirrors, floor gyms, and colorful toys to hold. ? If your baby is fussy, give her safe toys to hold and put in her mouth and make sure she is getting regular naps and playtimes. Crib/Playpen ? Put your baby to sleep on her back. ? In a crib that meets current safety standards, with no drop- side rails and slats no more than 2 3/8 inches apart. Find more information on the Consumer Product Safety Commission Web site at www.cpsc.gov. ? If your crib has a drop-side rail, keep it up and locked at all times. Contact the crib company to see if there is a device to keep the drop-side rail from falling down. ? Keep soft objects and loose bedding such as comforters, pillows, bumper pads, and toys out of the crib. ? Lower your baby's mattress all the way. ? If using a mesh playpen, make sure the openings are less than 1/4 inch apart. SAFETY Safety ? Use a rear-facing car safety seat in the back seat in all vehicles, even for very short trips. ? Never put you baby in the front seat of a vehicle with a passenger air bag. ? Don't leave your baby alone in the tub or high places such as changing tables, beds, or sofas. ? While in the kitchen, keep your baby in a high chair or playpen. ? Do not use a baby walker. ? Place nuñez on stairs. ? Close doors to rooms where you baby could be hurt, like the bathroom. ? Prevent nur by setting your water heater so the temperature at the faucet is 120 degrees Fahrenheit or lower. ? Turn pot handles inward on the stove. ? Do not leave hot irons or hair care products plugged in. ? Never leave your baby alone near water or in bathwater, even in a bath seat or ring. ? Always be close enough to touch your baby. ? Lock up poisons, medicines, and cleaning supplies; call Poison Help if your baby eats them. What to Expect at Your Baby's 9 Month Visit We will talk about ? Disciplining your baby ? Introducing new foods and establishing a routine ? Helping your baby learn ? Car seat safety ? Safety at home Poison Help: Child safety seat inspection: 8-259-VYJIHZTNZ; seatcheck.org 6-12 months Parent Tips ? For the next 6 months, babies will learn through tasting, smelling and touching food. Making faces or spitting out new foods is normal. ? Expect mealtime to be messy. ? Set regular feeding times with your baby. Some days they will eat less than other days. Let them be the guide. Do not force your baby to eat. Feeding Advice ? Continue on demand. ? If you are or formula feeding, let your baby decide how much to drink. ? The amount of milk they drink will decrease as they eat more solid foods. ? Ask your child's doctor about Vitamin D supplementation. Introducing food ? Offer new foods like soft veggies when your child is most hungry. Offer new foods with familiar foods. ? Your child may like something different from you. Be sure to offer lots of different fruits and vegetables. ? Stay positive. Don't be surprised if you have to offer a new food several times. ? This is your chance to let baby explore with their hands, tongue and eyes. Self-feeding with finger foods* ? Mealtimes: Offer new colors, flavors, textures and smells. Give small tastes. ? Enjoy family meals. Place your baby in a booster seat or high chair at the table. Let babies feed themselves as much as possible. ? Never bribe, reward or comfort your baby with food. ? They will let you know when they are done - tugging at their bib, turning their head or pushing away the plate or spoon. *Beware of choking hazards (ask your healthcare provider). What should baby be drinking? ? Around 9 to 12 months, trade the bottle for a cup. By one year, offer all drinks in a cup. ? At one year, offer milk at meals and water in between meals. Juice decreases your baby's appetite. Juice is not necessary. If your doctor recommends it, give less than 3 ounces a day of 100% juice. ? Soft drinks, fruit punch, sports drinks or other sweetened drinks are not good for your baby. Activity Advice ? Enjoy watching your baby crawl, reach, play with toys or walk. ? Play simple games together, like hiding or rolling balls. ? Play using all five senses by dancing to music, smelling new things, looking at colors and hand or clapping games. ? TV, computers, tablets, video games and cell phones can take away from time to move and explore. ? Build their words, talk to them. Ask baby what they see, read to them and tell stories together. Sleep Advice ? Continue a calming sleep routine with low lights, a warm bath, and reading together. ? No eating or TV before bed. ? It is normal and best for babies at this age to sleep about 14 hours each day. This is a happy time for your baby! ? Babies laugh, screech, kick when they see you coming. Watching Your Baby ? Watch your baby study new things with all five senses (sight, sound, smell, taste, feel). ? At first, your baby will point, screech, babble, and shake their head to show hunger or feeling full. Gradually they will use sounds, then words. ? Point out colors and count what's on the plate. ? Around 9 months they learn how to use their thumb and first finger to hot die picker small, soft food chunks, such as pieces of avocado, banana, pear, cheese or Cheerios. Fun at Mealtime ? Talk or sing when you sit with them. Ask questions and point. Wait to let baby make sounds. ANDquot;TalkANDquot; back and forth. ? Put new and different foods and flavors on their finger or fist. Let the baby sit with you when you eat. ? Offer your baby lots of colors, textures, smells, and tastes. Let them squish, drop, splash, lick, and mix them up. Play with a Purpose Every day, set aside some time for floor play: ? Talk - Say out loud what you see them doing, like ANDquot;That's a banana. Are you squishing it?ANDquot; When they babble or make sounds, talk back to them. ? Big muscles (legs, back arms) - Put things just out of reach to make them roll, scoot, crawl or pull up to get them. ? Hands and fingers - Give them toys they can grab that feel rough, smooth, soft, furry. Offer things that light up or make sound (flash light, rattle, carl bag, wrapping paper). Try This! ? As you offer any new food, describe the food using all five senses. Say ANDquot;Mmm, tasty,ANDquot; then put a bite in your mouth and smile. What Comes Next? ? By 24 months, your child will learn to eat the same foods that your family does. ? Be aware of your baby's habits and tastes - they will continue to change. Don't get discouraged. ? Keep regular mealtimes, snack times, play times, nap times, reading times, and bed times. It will be easier for you and better for them. Transition to Solids When is Baby Ready for Solids? ? Most babies are ready to try solids around 6 months. Some babies are ready as early as 4 months or as late as 7 months but you will know when your baby is ready because they will: - sit up without support - grab things and hold items - guide objects to mouths Sometimes baby's activities make us think they are ready earlier - these are ANDquot;false clues.ANDquot; These may be a part of baby's development, but not a cue to begin solids. False cues: ? Watching others eat ? Waking at night ? Slow weight gain ? Lip smacking ? Not falling asleep while nursing or feeding How Do You Start Feeding Solids? ? Continue and/or iron-fortified formula; offer first bites between or bottles. ? Baby begins by joining the family for meals. Keep screens off to help baby enjoy the family and the meal. ? In the beginning, this is more about exploring foods. Do not worry if baby does not eat much in the beginning. ? Use small bites and soft foods to begin. ? Let baby feed herself - let her decide how much she wants to eat and how quickly. ? Offer water with solids once baby is 6 months and older - offer sippy cup to begin. How to continue? ? Offer a new food every other day. Make foods different colors, textures, smell, or add herbs. ? Offer foods that were spit out other days; remember new flavors sometimes take 5-13 tries before baby likes them. ? Gradually, move baby from sippy cup to a regular cup by age 12-18 months. Where? ? At the table with a high chair or booster seat. But remember a mess is to be expected. ? Baby's exploration is so good for their development but may not be for your carpeted floor. Put an old shower curtain or towel down. What? ? Soft, cooked vegetables - carrots, broccoli (soft enough to eat, but not too soft, so they crumble). ? Roasted, peeled vegetables - potato wedges, sweet potato and carrots. ? Ripe, soft fresh fruit - pear, banana, jim, melon and avocado. ? Meat and Fish - avoid lumps, but make it easy enough for baby to hot die picker and chew. Typically, baby will suck on meat and spit out remainder until they are older and can chew better. ? Beans - rinse soft beans and mash them with a fork to get rid of larger lumps. What About Choking? ? It is important to know that choking is different from gagging. Gagging is baby's normal safety response preventing the food from moving too far back inside the throat. ? Choking is when the food is obstructing baby's airway and baby is starting to look panicked, has stopped making sounds, and may be turning blue. ? To avoid or respond to choking, be sure that: - babies are always sitting up and not leaning when they are eating. - foods are soft and in small bites. - if baby is choking, follow standard CPR practices. Referring Provider: SELF [200] Allergies As of Date: 09/05/2017 Noted Allergy Reaction MILK 09/05/2017 2 - Rash Date Reviewed: 09/05/2017 Reviewed by: Jeremias Brock - Fully Assessed Reason for Visit: Well Child [122] Imm/Inj [58] Cmt: Flu Vaccine Reason For Visit History Recorded Primary Visit Diagnosis:Encounter for routine child health examination with abnormal findings [Z00.121] Other Visit Diagnoses:Atopic dermatitis, unspecified type [L20.9] Need for vaccination [Z23] Encounter for immunization [Z23] Order(s):INFLUENZA VAC QUADRIVALENT PRSRV FREE AGE 6-35 MO IM [[id number]] Order #: [id number] pedi multivit no.2 w-fluoride (MULTI-VITAMIN WITH FLUORIDE) 0.25 mg/mL dropTake 0.25 mg by mouth once daily. (1 ml = 0.25 mg fluoride)Disp: 100 mLRfl: 3 [id number] VACCINE IM [[id number]] Order #: [id number] PNEUMOCOCCAL-13 VACCINE PCV-13 [[id number]] Order #: [id number] ROTAVIRUS VACCINE, ORAL [[id number]] Order #: [id number] HEPATITIS B VACCINE,PED/ADOL,IM [[id number]] Order #: [id number] Prescriptions as of 09/05/2017 Sig: PEDIATRIC MULTIVITAMIN NO.2 W* Take 0.25 mg by mouth once da* NYSTATIN 100,000 UNIT/GRAM TO* Apply 1 application to affect* ACETAMINOPHEN 160 MG/5 ML ORA* Take by mouth every 4 hours * Medication notes this encounter NYSTATIN 100,000 UNIT/GRAM TOPICAL CREAM >> Estuardo Love 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 09/05/2017 3:42 PM >> LOVE, ESTUARDO 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 TueSep 05, 2017 3:42 PM finished ACETAMINOPHEN 160 MG/5 ML ORAL SUSPENSION >> Estuardo Love 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 09/05/2017 3:42 PM >> LOVE, ESTUARDO 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 TueSep 05, 2017 3:42 PM prn Problem List As Of Date 09/05/2017 Noted Resolved Hydronephrosis [N13.30] Atopic dermatitis [L20.9] INVALID FOR* Other instructions from your clinician: NUTRITION AND FEEDING Feeding Your Baby ? Most babies have doubled their weight. ? Your baby's growth will slow down. ? If you are still , that's great! Continue as long as you both like. ? If you are formula feeding, use an iron-fortified formula. ? You may begin to feed your baby solid food when your baby is ready. ? Some of the signs you baby is ready for solids ? Opens mouth for the spoon. ? Sits with support. ? Good head and neck control. ? Interest in foods you eat. Starting New Foods ? Introduce new foods one at a time. ? Iron-fortified cereal ? Good sources of iron include ? Red meat ? Introduce fruits and vegetables after your baby eats iron-fortified cereal or pureed meats well. ? Offer 1-2 tablespoons of solid food 2-3 times per day. ? Avoid feeding your baby too much by following the baby's signs of fullness. ? Leaning back ? Turning away ? Do not force your baby to eat or finish foods. ? It may take 10-15 times of giving your baby a food to try before she will like it. ? Avoid foods that can cause allergies---peanuts, tree nuts, fish, and shellfish. ? To prevent choking ? Only give your baby very soft, small bites of finger foods. ? Keep small objects and plastic bags away from your baby. FAMILY FUNCTIONING How Your Family is Doing ? Call on others for help. ? Encourage your partner to help care for your baby. ? Ask us about helpful resources if you are alone. ? Invite friends over or join a parent group. ? Choose a mature, trained, and responsible lab clerk or caregiver. ? You can talk with us about your early childhood education worker choices. ORAL HEALTH Healthy Teeth ? Many babies begin to cut teeth. ? Use a soft cloth or toothbrush to clean each tooth with water only as it comes in. ? Ask us about the need for fluoride. ? Do not give a bottle in bed. ? Do not prop the bottle. ? Have regular times for your baby to eat. Do not let him eat all day. INFANT DEVELOPMENT Your Baby's Development ? Place your baby so she is sitting up and can look around. ? Talk with your baby by copying the sounds your baby makes. ? Look at and read books together. ? Play games such as pemeXBT / [employer], [employer], and so big. ? Offer active play with mirrors, floor gyms, and colorful toys to hold. ? If your baby is fussy, give her safe toys to hold and put in her mouth and make sure she is getting regular naps and playtimes. Crib/Playpen ? Put your baby to sleep on her back. ? In a crib that meets current safety standards, with no drop-side rails and slats no more than 2 3/8 inches apart. Find more information on the Consumer Product Safety Commission Web site at www.cpsc.gov. ? If your crib has a drop-side rail, keep it up and locked at all times. Contact the crib company to see if there is a device to keep the drop-side rail from falling down. ? Keep soft objects and loose bedding such as comforters, pillows, bumper pads, and toys out of the crib. ? Lower your baby's mattress all the way. ? If using a mesh playpen, make sure the openings are less than 1/4 inch apart. SAFETY Safety ? Use a rear-facing car safety seat in the back seat in all vehicles, even for very short trips. ? Never put you baby in the front seat of a vehicle with a passenger air bag. ? Don't leave your baby alone in the tub or high places such as changing tables, beds, or sofas. ? While in the kitchen, keep your baby in a high chair or playpen. ? Do not use a baby walker. ? Place nuñez on stairs. ? Close doors to rooms where you baby could be hurt, like the bathroom. ? Prevent nur by setting your water heater so the temperature at the faucet is 120 degrees Fahrenheit or lower. ? Turn pot handles inward on the stove. ? Do not leave hot irons or hair care products plugged in. ? Never leave your baby alone near water or in bathwater, even in a bath seat or ring. ? Always be close enough to touch your baby. ? Lock up poisons, medicines, and cleaning supplies; call Poison Help if your baby eats them. What to Expect at Your Baby's 9 Month Visit We will talk about ? Disciplining your baby ? Introducing new foods and establishing a routine ? Helping your baby learn ? Car seat safety ? Safety at home Poison Help: Child safety seat inspection: 6-826-JIYGKWRYK; seatcheck.org 6-12 months Parent Tips ? For the next 6 months, babies will learn through tasting, smelling and touching food. Making faces or spitting out new foods is normal. ? Expect mealtime to be messy. ? Set regular feeding times with your baby. Some days they will eat less than other days. Let them be the guide. Do not force your baby to eat. Feeding Advice ? Continue on demand. ? If you are or formula feeding, let your baby decide how much to drink. ? The amount of milk they drink will decrease as they eat more solid foods. ? Ask your child's doctor about Vitamin D supplementation. Introducing food ? Offer new foods like soft veggies when your child is most hungry. Offer new foods with familiar foods. ? Your child may like something different from you. Be sure to offer lots of different fruits and vegetables. ? Stay positive. Don't be surprised if you have to offer a new food several times. ? This is your chance to let baby explore with their hands, tongue and eyes. Self-feeding with finger foods* ? Mealtimes: Offer new colors, flavors, textures and smells. Give small tastes. ? Enjoy family meals. Place your baby in a booster seat or high chair at the table. Let babies feed themselves as much as possible. ? Never bribe, reward or comfort your baby with food. ? They will let you know when they are done - tugging at their bib, turning their head or pushing away the plate or spoon. *Beware of choking hazards (ask your healthcare provider). What should baby be drinking? ? Around 9 to 12 months, trade the bottle for a cup. By one year, offer all drinks in a cup. ? At one year, offer milk at meals and water in between meals. Juice decreases your baby's appetite. Juice is not necessary. If your doctor recommends it, give less than 3 ounces a day of 100% juice. ? Soft drinks, fruit punch, sports drinks or other sweetened drinks are not good for your baby. Activity Advice ? Enjoy watching your baby crawl, reach, play with toys or walk. ? Play simple games together, like hiding or rolling balls. ? Play using all five senses by dancing to music, smelling new things, looking at colors and hand or clapping games. ? TV, computers, tablets, video games and cell phones can take away from time to move and explore. ? Build their words, talk to them. Ask baby what they see, read to them and tell stories together. Sleep Advice ? Continue a calming sleep routine with low lights, a warm bath, and reading together. ? No eating or TV before bed. ? It is normal and best for babies at this age to sleep about 14 hours each day. This is a happy time for your baby! ? Babies laugh, screech, kick when they see you coming. Watching Your Baby ? Watch your baby study new things with all five senses (sight, sound, smell, taste, feel). ? At first, your baby will point, screech, babble, and shake their head to show hunger or feeling full. Gradually they will use sounds, then words. ? Point out colors and count what's on the plate. ? Around 9 months they learn how to use their thumb and first finger to hot die picker small, soft food chunks, such as pieces of avocado, banana, pear, cheese or Cheerios. Fun at Mealtime ? Talk or sing when you sit with them. Ask questions and point. Wait to let baby make sounds. Talk back and forth. ? Put new and different foods and flavors on their finger or fist. Let the baby sit with you when you eat. ? Offer your baby lots of colors, textures, smells, and tastes. Let them squish, drop, splash, lick, and mix them up. Play with a Purpose Every day, set aside some time for floor play: ? Talk - Say out loud what you see them doing, like That's a banana. Are you squishing it? When they babble or make sounds, talk back to them. ? Big muscles (legs, back arms) - Put things just out of reach to make them roll, scoot, crawl or pull up to get them. ? Hands and fingers - Give them toys they can grab that feel rough, smooth, soft, furry. Offer things that light up or make sound (flash light, rattle, carl bag, wrapping paper). Try This! ? As you offer any new food, describe the food using all five senses. Say Mmm, tasty, then put a bite in your mouth and smile. What Comes Next? ? By 24 months, your child will learn to eat the same foods that your family does. ? Be aware of your baby's habits and tastes - they will continue to change. Don't get discouraged. ? Keep regular mealtimes, snack times, play times, nap times, reading times, and bed times. It will be easier for you and better for them. Transition to Solids When is Baby Ready for Solids? ? Most babies are ready to try solids around 6 months. Some babies are ready as early as 4 months or as late as 7 months but you will know when your baby is ready because they will: - sit up without support - grab things and hold items - guide objects to mouths Sometimes baby's activities make us think they are ready earlier - these are false clues. These may be a part of baby's development, but not a cue to begin solids. False cues: ? Watching others eat ? Waking at night ? Slow weight gain ? Lip smacking ? Not falling asleep while nursing or feeding How Do You Start Feeding Solids? ? Continue and/or iron-fortified formula; offer first bites between or bottles. ? Baby begins by joining the family for meals. Keep screens off to help baby enjoy the family and the meal. ? In the beginning, this is more about exploring foods. Do not worry if baby does not eat much in the beginning. ? Use small bites and soft foods to begin. ? Let baby feed herself - let her decide how much she wants to eat and how quickly. ? Offer water with solids once baby is 6 months and older - offer sippy cup to begin. How to continue? ? Offer a new food every other day. Make foods different colors, textures, smell, or add herbs. ? Offer foods that were spit out other days; remember new flavors sometimes take 5-13 tries before baby likes them. ? Gradually, move baby from sippy cup to a regular cup by age 12-18 months. Where? ? At the table with a high chair or booster seat. But remember a mess is to be expected. ? Baby's exploration is so good for their development but may not be for your carpeted floor. Put an old shower curtain or towel down. What? ? Soft, cooked vegetables - carrots, broccoli (soft enough to eat, but not too soft, so they crumble). ? Roasted, peeled vegetables - potato wedges, sweet potato and carrots. ? Ripe, soft fresh fruit - pear, banana, jim, melon and avocado. ? Meat and Fish - avoid lumps, but make it easy enough for baby to hot die picker and chew. Typically, baby will suck on meat and spit out remainder until they are older and can chew better. ? Beans - rinse soft beans and mash them with a fork to get rid of larger lumps. What About Choking? ? It is important to know that choking is different from gagging. Gagging is baby's normal safety response preventing the food from moving too far back inside the throat. ? Choking is when the food is obstructing baby's airway and baby is starting to look panicked, has stopped making sounds, and may be turning blue. ? To avoid or respond to choking, be sure that: - babies are always sitting up and not leaning when they are eating. - foods are soft and in small bites. - if baby is choking, follow standard CPR practices. Prescriptions ordered this encounter Disp Refills Start End PEDIATRIC MULTIVITAMIN NO.2 WITH FLU* 100 * 3 09/05/2017 Route: ORAL Sig: Take 0.25 mg by mouth once daily. (1 ml = 0.25 mg fluoride) Disposition: Return for Follow-up at 9-10 months of age. Follow-up and Disposition History Recorded Encounter Status:Closed by JEREMIAS BROCK MD on 09/05/17 PROGRESS Observed: 08/25/2017 Status: COMPLETED Source: [place] 1:13 PM [facility] REPOSITORY HNO ID: [id number] Author: Shereen Cavazos (Nishant) Dom Service: (none) Author Type: Nurse Practitioner Type: Progress Notes Filed: 08/25/2017 1:23 PM Note Text: Patient brought in today by mother presents today with cough x 10 days; vomiting with cough at times and can't catch her breath, runny nose x 10 days REVIEW OF SYSTEMS GENERAL: No weight loss, malaise or fevers ; eating normally, taking oral fluids ok HEENT: runny nose, see HPI RESPIRATORY: cough, see HPI; post-tussive vomiting x 5 in past 3 days GI: No nausea, vomiting, or diarrhea :voiding qs All other reviewed and negative other than HPI. EXAM GENERAL: alert and active in no apparent distress HEAD: Normocephalic EYES: conjunctiva clear, no drainage, red rimmed EARS: Right normal, Left normal NOSE/SINUSES : clear coryza OROPHARYNX : moist mucous membranes and slight PND NECK: normal, supple, no adenopathy LUNGS: clear to auscultation, occsa loose cough, resp easy , no wheezes or rhonchi or rales ABDOMEN : Abdomen is soft, nontender, without organomegaly or masses. SKIN: dry patches upper back ASSESSMENT: Viral respiratory illness Dry skin dermatitis PLAN: Cool mist humidifier. Supportive measures reviewed. Reviewed signs and symptoms of respiratory distress, and seek immediate medical attention for such. Bathe only every other day or less, unscented soap, moisturizer Current Outpatient Prescriptions: nystatin (MYCOSTATIN) cream Apply 1 application to affected area four times daily. acetaminophen (CHILDREN'S TYLENOL) 160 mg/5 mL susp Take by mouth every 4 hours as needed. No current facility-administered medications for this visit. Shereen Carney CNP CNOV Observed: 08/25/2017 Status: COMPLETED Source: [place] 12:45 PM [facility] REPOSITORY Office Visit (PEDSWS) GEORGIEPRIYA Bolton ([id number]) [birth year] F Date Time Provider Department 08/25/17 12:45 PM SHEREEN CARNEY (MACHINE GUIDE BASE WINDER) PEDSWS During your visit today, we recorded the following information about you: Temperature Pulse Respiration Weight 98.4 degrees 120/minute 28/minute 5.982 kg Shereen Carney CNP 08/25/2017 1:23 PM Signed Patient brought in today by mother presents today with cough x 10 days; vomiting with cough at times and ANDquot;can't catch her breathANDquot;, runny nose x 10 days REVIEW OF SYSTEMS GENERAL: No weight loss, malaise or fevers ; eating normally, taking oral fluids ok HEENT: runny nose, see HPI RESPIRATORY: cough, see HPI; post-tussive vomiting x 5 in past 3 days GI: No nausea, vomiting, or diarrhea :voiding qs All other reviewed and negative other than HPI. EXAM GENERAL: alert and active in no apparent distress HEAD: Normocephalic EYES: conjunctiva clear, no drainage, red rimmed EARS: Right normal, Left normal NOSE/SINUSES : clear coryza OROPHARYNX : moist mucous membranes and slight PND NECK: normal, supple, no adenopathy LUNGS: clear to auscultation, occsa loose cough, resp easy , no wheezes or rhonchi or rales ABDOMEN : Abdomen is soft, nontender, without organomegaly or masses. SKIN: dry patches upper back ASSESSMENT: Viral respiratory illness Dry skin dermatitis PLAN: Cool mist humidifier. Supportive measures reviewed. Reviewed signs and symptoms of respiratory distress, and seek immediate medical attention for such. Bathe only every other day or less, unscented soap, moisturizer Current Outpatient Prescriptions: nystatin (MYCOSTATIN) cream Apply 1 application to affected area four times daily. acetaminophen (CHILDREN'S TYLENOL) 160 mg/5 mL susp Take by mouth every 4 hours as needed. No current facility-administered medications for this visit. XOCHILT Davis CNP 08/25/2017 1:23 PM Signed Orders reviewed. Parent verbalizes understanding. Referring Provider: SELF [200] Allergies As of Date: 08/25/2017 (No Known Allergies) Date Reviewed: 08/25/2017 Reviewed by: Shereen Cavazos (Hydroelectric Component Machinist) Dom - Fully Assessed Reason for Visit: nasal drainage [Other] Cmt: green with red colored in at times, onset times 9 days, increased fussines, is eating well, drinking well. Cough [28] Cmt: wet, onest times 9 days, cries when she coughs like it hurts, mother currently has bronchitis. Primary Visit Diagnosis:Viral respiratory illness [J98.8, B97.89] Prescriptions as of 08/25/2017 Sig: NYSTATIN 100,000 UNIT/GRAM TO* Apply 1 application to affect* ACETAMINOPHEN 160 MG/5 ML ORA* Take by mouth every 4 hours * Medication notes this encounter NITROFURANTOIN 25 MG/5 ML ORAL SUSPENSION >> Vance Mckenzie, RN, RN 08/25/2017 12:48 PM >> VANCE MCKENZIE RN Radha Aug 25, 2017 12:48 PM [facility] specialist stopped the medication per mother. Problem List As Of Date 08/25/2017 Noted Resolved Hydronephrosis [N13.30] Other instructions from your clinician: Orders reviewed. Parent verbalizes understanding. Medications Discontinued During This Encounter nitrofurantoin (FURADANTIN) 25 mg/5 * 5 2017 08/25/2017 Class: Historical Med Sig: TAKE 2 ML (10 MG) BY MOUTH DAILY Disc: Reason for discontinue is not on file. Disposition: Return if symptoms worsen or fail to improve. Follow-up and Disposition History Recorded Encounter Status:Closed by SHEREEN CARNEY CNP on 08/25/17 PROGRESS Observed: 08/22/2017 Status: COMPLETED Source: [place] 11:54 AM [facility] REPOSITORY O ID: [id number] Author: Prakash Da Silva Service: (none) Author Type: Physician Type: Progress Notes Filed: 08/22/2017 12:15 PM Note Text: Patient presents with: Cough: x 1 week Fever: x 3 days Rhinitis: x 1 week Ear Problem: x 3 days pulling at right ear HPI: Feeling sick with URI for 1 week. Cough is worsening, fever the last couple days. Mother has bronchitis Positive symptoms: raspy Cough, Ear pulling, Rhinorrhea, Fever (up to 100.3), Negative symptoms: Diarrhea, OTC: Zarbees cough Medicine, Tylenol MEDICATIONS: Current Outpatient Prescriptions: nystatin (MYCOSTATIN) cream Apply 1 application to affected area four times daily. acetaminophen (CHILDREN'S TYLENOL) 160 mg/5 mL susp Take by mouth every 4 hours as needed. nitrofurantoin (FURADANTIN) 25 mg/5 mL suspension TAKE 2 ML (10 MG) BY MOUTH DAILY amoxicillin (AMOXIL) 250 mg/5 mL suspension No current facility-administered medications for this visit. ALLERGIES: ALLERGIES No Known Allergies VITALS: Pulse 136 Temp 36.2 ?C (97.1 ?F) (Left Tympanic) Resp (!) 22 Wt 5.925 kg (13 lb 1 oz) SpO2 98% PHYSICAL EXAM: GEN: mildly ill appearing, alert, active. Accompanied by her mother. HEENT: PERRL, EOMI, conjunctiva clear Ears: canals clear RTM without erythema, bulge, or effusion; LTM without erythema, bulge, or effusion Nose: Mild crust Throat: moist mucous membranes, mild erythema, no exudate Neck: supple, no thyromegaly, no lymphadenopathy HEART: regular rate and rhythm, no murmurs LUNGS: clear to auscultation, no wheezes or crackles, no increased WOB ABD: Soft, non-distended, non-tender, no masses ASSESSMENT/PLAN: 1. URI, acute - ICD9: 465.9, ICD10: J06.9 - Symptomatic treatment with prn acetomenophen or ibuprofen - Supportive care with Saline nose gtts, humidifier Prakash Da Silva MD CNOV Observed: 08/22/2017 Status: COMPLETED Source: [place] 10:35 AM [facility] REPOSITORY Office Visit (WSTR) PRIYA JACQUES ([id number]) [birth year] F Date Time Provider Department 08/22/17 10:35 AM PRAKASH DA SILVA [facility] During your visit today, we recorded the following information about you: Temperature Pulse Respiration Weight 97.1 degrees 136/minute 22/minute 5.925 kg Prakash Da Silva MD 08/22/2017 12:15 PM Signed Patient presents with: Cough: x 1 week Fever: x 3 days Rhinitis: x 1 week Ear Problem: x 3 days pulling at right ear HPI: Feeling sick with URI for 1 week. Cough is worsening, fever the last couple days. Mother has bronchitis Positive symptoms: raspy Cough, Ear pulling, Rhinorrhea, Fever (up to 100.3), Negative symptoms: Diarrhea, OTC: Zarbees cough Medicine, Tylenol MEDICATIONS: Current Outpatient Prescriptions: nystatin (MYCOSTATIN) cream Apply 1 application to affected area four times daily. acetaminophen (CHILDREN'S TYLENOL) 160 mg/5 mL susp Take by mouth every 4 hours as needed. nitrofurantoin (FURADANTIN) 25 mg/5 mL suspension TAKE 2 ML (10 MG) BY MOUTH DAILY amoxicillin (AMOXIL) 250 mg/5 mL suspension No current facility-administered medications for this visit. ALLERGIES: ALLERGIES No Known Allergies VITALS: Pulse 136 Temp 36.2 ?C (97.1 ?F) (Left Tympanic) Resp (!) 22 Wt 5.925 kg (13 lb 1 oz) SpO2 98% PHYSICAL EXAM: GEN: mildly ill appearing, alert, active. Accompanied by her mother. HEENT: PERRL, EOMI, conjunctiva clear Ears: canals clear RTM without erythema, bulge, or effusion; LTM without erythema, bulge, or effusion Nose: Mild crust Throat: moist mucous membranes, mild erythema, no exudate Neck: supple, no thyromegaly, no lymphadenopathy HEART: regular rate and rhythm, no murmurs LUNGS: clear to auscultation, no wheezes or crackles, no increased WOB ABD: Soft, non-distended, non-tender, no masses ASSESSMENT/PLAN: 1. URI, acute - ICD9: 465.9, ICD10: J06.9 - Symptomatic treatment with prn acetomenophen or ibuprofen - Supportive care with Saline nose gtts, humidifier Prakash Da Silva MD Referring Provider: SELF [200] Allergies As of Date: 08/22/2017 (No Known Allergies) Date Reviewed: 08/22/2017 Reviewed by: Ibeth Claros LPN - Fully Assessed Reason for Visit: Cough [28] Cmt: x 1 week Fever [47] Cmt: x 3 days Rhinitis [369] Cmt: x 1 week Ear Problem [38] Cmt: x 3 days pulling at right ear Primary Visit Diagnosis:URI, acute [J06.9] Prescriptions as of 08/22/2017 Sig: NYSTATIN 100,000 UNIT/GRAM TO* Apply 1 application to affect* ACETAMINOPHEN 160 MG/5 ML ORA* Take by mouth every 4 hours * NITROFURANTOIN 25 MG/5 ML ORA* TAKE 2 ML (10 MG) BY MOUTH DA* Problem List As Of Date 08/22/2017 Noted Resolved Hydronephrosis [N13.30] Medications Discontinued During This Encounter amoxicillin (AMOXIL) 250 mg/5 mL payton* 06/21/2017 08/22/2017 Class: Historical Med Sig: Disc: Reason for discontinue is not on file. Encounter Status:Closed by PRAKASH DA SILVA MD on 08/22/17 ALLERGIES ALLERGIES DATE TYPE / CODE NAME / CODE REACTION SEVERITY SOURCE 05/01/2018 DRUG OTHER OMEGA-3S HIVES [facility] INGREDI/419 Other [place] 645000(SNOM Repository ED CT) 05/01/2018 Food/749802 OTHER All dairy [facility] 000(SNOMED products Hospital CT) Repository 12/20/2017 DRUG EGG RASH [facility] INGREDI/419 Other [place] 212939(SNOM Repository ED CT) 11/30/2017 DRUG IBUPROFEN HIVES Med [facility] INGREDI/419 Other [place] 964191(SNOM Repository ED CT) 11/30/2017 DRUG IBUPROFEN Med [facility] INGREDI/419 [facility] [id number](SNOM Repository ED CT) 10/03/2017 Drug lactose/[id number] Hives Unknown [facility]/416 32(RXNORM) [facility] 788595(SNOM Repository ED CT) 09/05/2017 DRUG MILK RASH [facility] INGREDI/419 Other [place] 272989(SNOM Repository ED CT) 06/20/2017 DRUG/513671 DIAPERS & Per parents [place] [address](SNOMED SUPPLIES allergy to Hospital CT) pampers diapers Repository and wipes Drug NO KNOWN [facility] Class/64527 ALLERGIES [facility] [place] 1003(SNOMED Repository CT) ENCOUNTERS ENCOUNTERS ADMIT/DISCHARGE ACCOUNT NUMBER ADMITTING ENCOUNTER LOCATION SOURCE CLASS 05/29/2018/05/30/20 [id number] Ambulatory [address] [place] Repository 05/16/2018 [id number] MARTY MEJIA Ambulatory [facility] Other [place] Repository 05/16/2018/05/16/20 [id number] Ambulatory [address] Other [place] Repository 05/01/2018/05/01/20 [id number] Ambulatory Building:[place] [address] [facility] Repository 04/28/2018/05/01/20 [id number] Ambulatory [address] [place] Repository 04/27/2018/04/27/20 [id number] Ambulatory [address] [place] Repository 03/24/2018/03/24/20 [id number] Ambulatory [address] [place] Repository 03/23/2018/03/23/20 [id number] Ambulatory [address] [place] Repository 12/26/2017/12/29/19 [id number] Ambulatory [address] [place] Repository 12/22/2017 [id number] Ambulatory [facility] [place] Repository 12/20/2017/12/21/19 [id number] Ambulatory [address] [place] Repository 12/02/2017/12/06/19 [id number] Ambulatory [address] [place] Repository 11/30/2017/12/02/19 [id number] Emergency Building:[facility] [place] [address] [facility] Repository 11/29/2017/12/13/19 [id number] Ambulatory [address] [place] Repository 11/22/2017/11/23/19 [id number] Ambulatory [address] [place] Repository 11/18/2017/11/25/19 [id number] Ambulatory [address] [place] Repository 11/16/2017/11/17/19 [id number] Ambulatory [address] [address] [place] Repository 11/15/2017/11/17/19 [id number] Ambulatory [address] [place] Repository 10/24/2017/10/25/19 [id number] Ambulatory Building:[address] Repository 10/11/2017/10/13/19 [id number] Ambulatory [address] [place] Repository 10/04/2017/10/04/19 [id number] Ambulatory [address] [place] Repository 10/04/2017/10/04/19 [id number] Ambulatory [address] Repository 10/03/2017/10/03/19 [id number] Emergency [place] [address] ding:ED Repository 09/05/2017/09/06/19 [id number] Ambulatory [address] Repository 08/25/2017/08/29/19 [id number] Ambulatory [address] Repository 08/22/2017/08/23/19 [id number] Ambulatory [address] Repository PAYERS PAYERS ENCOUNTER GUARANTOR PAYER SUBSCRIBER SOURCE 05/01/[address] [facility] [address]: [facility] cy Number: [id number], [place] Date: [address], [place] [address]Chg: [phone] () 11/30/2017 ISABELA RUTH [facility] W cy Number: [id number] [address]ository [id number], [place] Date: [address] [address]Dcr: [phone] () 10/24/2017 ISABELA RUTH [facility] Insurance:Willem DEVRIES: [facility] W cy Number: [id number] Repository [facility] [id number] Date: [place]T [place], [place] [address]Nok: [phone] (HP) 10/03/2017 ISABELA N Primary PRIYA W[place] [id number] Insurance:MARILYN DEVRIES: [facility] [id number] PLANPolicy Number: Repository [id number]: (497) [id number] [phone] (HP) Date:[id number] [address]EL: 10/03/2017 Secondary NOT GIVENUNK [place] Insurance:SELF PAY [facility] Number: Effective Repository Date:2017-10-03
== END ==
PROVIDERS: Referring Provider Otolaryngology; Visit Provider Otolaryngology
DX: J03.90 Acute tonsillitis, unspecified (principal)
CPT/HCPCS: 36415; 80048; 87070; 87077; 93005

== ENCOUNTER → 2018-07-24 10:08 | Outpatient (CLI) | payer BC, SELFPAY ==
[2018-06-26 11:08] VITALS: BMI 35.9
[2018-07-24 10:47] LABS: Hemoglobin 14.1 g/dl (12.0-15.0); Mean Corp Hgb Conc 33.6 g/gl (32-36); Mean Corpuscular Hgb 29.2 pg (27.0-32.0); Platelet Count 324 K/mm3 (150-450); RBC Distribution Width CV 12.3 % (11.6-14.6); RBC Distribution Width SD 38.7 fl (35.1-43.9); Red Blood Count 4.83 M/mm3 (4.2-5.4); White Blood Count 9.3 K/mm3 (4.4-11.0)
[2018-07-24 10:51] LABS: Scan Indicated on CBC? Y/N NO
[2018-07-24 11:14] LABS: ALB/GLOB Ratio 0.8 RATIO (0.9-2.4); AST(SGOT) 13 U/L (15-37); Alanine Aminotransfer ALT/SGPT 20 U/L (13-56); Albumin, Serum 3.4 g/dL (3.2-5.0); Alkaline Phosphatase 92 U/L (45-117); Anion Gap 8 (5-15); BUN 15 mg/dL (7-18); BUN/Creat Ratio 14.4 RATIO (10-20); Calcium,Total 9.4 mg/dL (8.5-10.1); Chloride 101 mmol/L (98-107); Creatinine, Serum 1.04 mg/dL (0.55-1.02); EST Glomerular Filtration Rate 62 mL/min (>60); Est Glom Filt Rate - Afr Amer 75 mL/min (>60); Globulin 4.2 g/dL (2.2-4.2); Glucose 215 mg/dL (74-106); Potassium 4.1 mmol/L (3.5-5.1); Protein, Total 7.6 g/dL (6.4-8.2); Sodium Level 137 mmol/L (136-145)
[2018-07-24 12:11] LABS: Hemoglobin A1c 8.2 % (4.2-6.3)
--- OUTSIDE RECORDS SUMMARY | 2018-09-16 15:05 | XMS RPT_ITS ---
:02/24/2017 Author Organization [facility] Care Team Providers Name Role Phone DANIEL [...] Unavailable MARTY MEJIA Attending Unavailable SHEREEN CARNEY (CREDIT CARD INTERVIEWER) Attending Unavailable PLAYL, JEREMIAS M Attending Unavailable YAEL STARR (HUB LEAD) Referring Unavailable PLAYL, JEREMIAS M Attending Unavailable PLAYL, JEREMIAS M Referring Unavailable SHEREEN CARNEY (CREDIT CARD INTERVIEWER) Attending Unavailable PLAYL, JEREMIAS M Attending Unavailable DAVID ODELL Attending Unavailable ROEBRTO, MARTY SPENCE Attending Unavailable DAVID ODELL Referring Unavailable ROBERTO, MARTY SPENCE Referring Unavailable PLAYL, JEREMIAS [place]air Attending Unavailable SHEREEN CARNEY (CREDIT CARD INTERVIEWER) Referring Unavailable SHEREEN CARNEY (CREDIT CARD INTERVIEWER) Attending Unavailable SHEREEN CARNEY (CREDIT CARD INTERVIEWER) Referring Unavailable ROBERTO, MARTY SPENCE Attending Unavailable PLAYL, JEREMIAS [place] Referring Unavailable PLAYL, JEREMIAS M Attending Unavailable SHONL, JEREMIAS M Attending Unavailable Shonl, Jeremias Primary Care Unavailable Paul Corona Attending Unavailable PROBLEMS PROBLEMS DATE TYPE CONDITION / CODE ATTENDING STATUS SOURCE 05/16/2018 Active Unknown / ROBERTO [facility] UNK(Unknown) JORDY Other [facility] Repository 12/20/2017 Active Allergy to eggs / ROBERTO, [facility] Z91.012(ICD-10) [facility] Repository 12/20/2017 Active Allergy to milk ROBERTO, [facility] products / [facility] Z91.011(ICD-10) Repository 12/20/2017 Active Other adverse food ROBERTO MARTY [facility] reactions, not JORDY Other [facility] elsewhere Repository classified, subsequent encounter / T78.1XXD(ICD-10) 09/05/2017 Active Infantile (acute) ROBERTO, [facility] (chronic) eczema / [facility] L20.83(ICD-10) Repository 03/23/2018 Active Encounter for SHEREEN CARNEY Active [facility] routine child (CREDIT CARD INTERVIEWER) Main [facility] health examination Repository without abnormal findings / Z00.129(ICD-10) 03/23/2018 Active Encounter for SHEREEN CARNEY Active [facility] immunization / (CREDIT CARD INTERVIEWER) [facility] Z23(ICD-10) Repository 12/20/2017 Active Other adverse food Active [facility] reactions, not Main [facility] elsewhere Repository classified, initial encounter / T78.1XXA(ICD-10) 10/11/2017 Active Displaced fracture NA Active [facility] of shaft of right Main [facility] clavicle, Repository subsequent encounter for fracture with routine healing / S42.021D(ICD-10) PROCEDURES PROCEDURES No Procedure Records FoundRESULTS RESULTS PROGRESS Observed: 05/29/2018 Status: COMPLETED Source: [place] 10:07 AM [facility] REPOSITORY HNO ID: [id number] Author: Jeremias Brock Service: (none) Author Type: [...] uses significant amount of city water from: [employer] PWS - deficient (use recommendations for levels [...] ADDITIONAL NURSING COMMENTS color enhanced section None [place] Love MORTGAGE OPERATIONS MANAGER PHYSICAL EXAM GENERAL: alert, well appearing, in [...] reviewed. This note was partially generated using Life With Linda voice recognition system, and there may be some incorrect words, spellings, and punctuation that were not noted in checking the note before saving. Jeremias Brock M.D. 15 month old female here for INACTIVATED INFLUENZA VACCINE. [id number] Season Patient is identified by name and date of : Yes [] CONTRAINDICATIONS color enhanced section Age less than 6 months? No Allergy to eggs, chicken, chicken feathers, or chicken dander? No Allergy to thimerosal (a preservative) or formaldehyde, gelatin? No History of severe reaction to any vaccine component or a previous dose of influenza vaccination? No History of Guillain-[place] Syndrome within 6 weeks after a previous [...] sheet given? Yes See immunization activity in [facility] for details of immunizations adminstered today. Patient age: 15 month old For The 1986-3401 Flu Season 6-35 months old: Fluzone 0.25 [...] LPN CNOV Observed: 05/29/2018 Status: COMPLETED Source: [place] 10:00 AM [facility] REPOSITORY Office Visit (PEDSWS) PRIYA JACQUES ([id number]) [birth year] F Date Time Provider Department 05/29/18 [...] uses significant amount of city water from: [employer] PWS - deficient (use recommendations for levels [...] COMMENTS color enhanced section None Estuardo Love MORTGAGE OPERATIONS MANAGER PHYSICAL EXAM GENERAL: alert, well appearing, in [...] reviewed. This note was partially generated using [employer] With Linda voice recognition system, and there may be some incorrect words, spellings, and punctuation that were not noted in checking the note before saving. Jeremias Brock M.D. 15 month old female here for INACTIVATED INFLUENZA VACCINE. [id number] Season Patient is identified by name and date of : Yes [] CONTRAINDICATIONS color enhanced section Age less than 6 months? No Allergy to eggs, chicken, chicken feathers, or chicken dander? No Allergy to thimerosal (a preservative) or formaldehyde, gelatin? No History of severe reaction to any vaccine component or a previous dose of influenza vaccination? No History of Guillain-Saint [place] Syndrome within 6 weeks after a previous [...] sheet given? Yes See immunization activity in [facility] for details of immunizations adminstered today. Patient age: 15 month old For The 3315-4033 Flu Season 6-35 months old: Fluzone 0.25 [...] ? 6 - 8 ounce container ? [place] milk or soy milk* ? 1 cup (8 ounces) ? Fortified gczqo-pt-khk cereals ? 3/4 - 1 cup ? Tofu, soft or hard ? 1/2 cup ? White beans, cooked ? 1 cup ? Greens (kale, bok bebe, broccoli, collards, Lebanese cabbage) ? 1 cup ? Almonds ? [...] products, try aged cheeses like cheddar and Bolivian, which have much lower lactose levels. Yogurt has friendly bacteria called active cultures, which lower lactose levels. If your child avoids milk, soy milk is the best alternative because it contains the right amount of protein for each serving. [place] milk and rice milk have little protein. If you provide these milks, also provide a variety of other protein sources like lean meats, eggs, nuts, and beans. Almonds, tofu, dark green leafy vegetables, and canned sardines or salmon, are excellent non-dairy sources of calcium. Source: ALCON [place]., [place] Evelyn, Committee on Nutrition. Optimizing Bone Health in Children and Adolescents. 2014. [place] Academy of Pediatrics. Pediatr. 134(4) a6517-j3401. Dietary Guidelines for Americans, 6171-8156; visit www.heatherus.gov/dietaryguidelines and www.choosemyplate.gov/kids Referring Provider: SELF [...] QUADRIVALENT PRSRV FREE AGE 6-35 MO IM [[id number]] Order #: [id number] DIPTHERIA TETNUS ACELL PERTUS [[id number]] Order #: [id number] HIB VACCINE, PRP-T, IM [[id number]] Order #: [id number] Prescriptions as of 05/29/2018 Sig: DIPHENHYDRAMINE 12.5 MG/5 ML * Take by mouth as needed. EPIPEN INJECTION Inject intramuscularly as nee* ZYRTEC ORAL Take 2.5 mg by mouth. ACETAMINOPHEN 160 MG/5 ML ORA* Take by mouth every 4 hours * Medication notes this encounter DIPHENHYDRAMINE 12.5 MG/5 ML ORAL LIQUID >> Cleveland Ivan MORTGAGE OPERATIONS MANAGER 05/29/2018 10:07 AM >> ESTUARDO LOVE MORTGAGE OPERATIONS MANAGER TueMay 29, 2018 10:07 AM prn Problem [...] ? 6 - 8 ounce container ? [place] milk or soy milk* ? 1 cup (8 ounces) ? Fortified ugcbd-on-oek cereals ? 3/4 - 1 cup ? Tofu, soft or hard ? 1/2 cup ? White beans, cooked ? 1 cup ? Greens (kale, bok bebe, broccoli, collards, Lebanese cabbage) ? 1 cup ? Almonds ? [...] products, try aged cheeses like cheddar and Bolivian, which have much lower lactose levels. Yogurt has friendly bacteria called active cultures, which lower lactose levels. If your child avoids milk, soy milk is the best alternative because it contains the right amount of protein for each serving. [place] milk and rice milk have little protein. If you provide these milks, also provide a variety of other protein sources like lean meats, eggs, nuts, and beans. Almonds, tofu, dark green leafy vegetables, and canned sardines or salmon, are excellent non-dairy sources of calcium. Source: ALCON [place]., [place] Evelyn, Committee on Nutrition. Optimizing Bone Health in Children and Adolescents. 2014. [place] Academy of Pediatrics. Pediatr. 134(4) l5901-j5526. Dietary Guidelines for Americans, 2895-7963; visit www.FreeChargeus.gov/dietaryguidelines and www.choosemyplate.gov/kids Disposition: Return for Follow-up at [...] stable housing? -> No Do problems getting child care group leader make it difficult for you to work [...] 05/29/18 PROGRESS Observed: 05/16/2018 Status: COMPLETED Source: [place] 8:21 AM CLINIC OTHER CAMPUS REPOSITORY O ID: [id number] Author: Marty Mejia Service: (none) Author Type: [...] and egg (in all forms) Went to [facility] last week Supervisor Firearms gave her a chocolate cookie containing egg [...] MD CNOV Observed: 05/16/2018 Status: COMPLETED Source: [place] 8:00 AM [facility] OTHER [facility]AMPUS REPOSITORY Office Visit (PALLHM) GEORGIEPRIYA Bolton ([id number]) [birth year] F Date Time Provider Department 05/16/18 [...] and egg (in all forms) Went to [facility] last week Supervisor Firearms gave her a chocolate cookie containing egg [...] maintain tolerance. Baked egg instructions Developed at [facility] [place] Your child has tolerated a baked egg [...] or soft-boiled, scrambled, or poached *Egg noodles *Gabonese toast/pancakes *Homemade waffles *Frosting containing egg *Ice [...] Anne Torres LPN Referring Provider: MARTY MEJIA [[id number]] Allergies As of Date: 05/16/2018 Noted Allergy [...] Infantile atopic dermatitis [L20.83] Order(s):INGESTION CHALLENGE TEST [[id number]] Order #: [id number] Prescriptions as of 05/16/2018 Sig: DIPHENHYDRAMINE 12.5 [...] maintain tolerance. Baked egg instructions Developed at [facility] [place] Your child has tolerated a baked egg [...] or soft-boiled, scrambled, or poached *Egg noodles *Gabonese toast/pancakes *Homemade waffles *Frosting containing egg *Ice [...] Status: COMPLETED Source: [place] 9:45 AM [facility] REPOSITORY Priya Jacques is here in follow-up [...] (after recent diarrhea). Went to ER at [facility] and urine concerning for UTI (UA LE/pr/hgb), transferred to [facility]. [Called to request culture results, but not enough urine so no culture]. Treated with ceftriaxone. UA at [facility] 06/21/17 LE/Hgb (UCx <1k). Discharged on [...] patient and discussed the plan with the resident/CREDIT CARD INTERVIEWER. I added additional physical exam and history, which are in bold, and confirmed other pertinent data. I performed all of the medical decision making and developed the plan with the family. Daniel Howell MD PROGRESS Observed: 04/28/2018 Status: COMPLETED Source: [place] 8:32 AM [facility] REPOSITORY O ID: [id number] Author: Jeremias Brock Service: (none) Author Type: [...] ordered or obtained, is reviewed by a instrument mechanic before being considered final. Additional recommendations may be made based on the final results. - Return to clinic should current symptoms (if present) worsen, other problems develop, or as needed. ADDITIONAL AND DICTATED PORTION: ADDITIONAL HISTORY The following Nursing History was reviewed with the family: Patient presents with: Follow Up: ear infection- seen at [facility] on 04-19-18 Illness The patient [...] care. Time, established: Spent approx. 15+ minutes (56008 level) in djrg-qu-rtzs contact with the patient and/or family, more than half of which was devoted to discussing the above problems. This note was partially generated using Life With Linda voice recognition system, and there may be some incorrect words, spellings, and punctuation that were not noted in checking the note before saving. Jeremias Brock M.D. CNOV Observed: 04/28/2018 Status: COMPLETED Source: [place] 8:00 AM [facility] REPOSITORY Office Visit (PEDSWS) PRIYA JACQUES ([id number]) [birth year] F Date Time Provider Department 04/28/18 [...] ordered or obtained, is reviewed by a instrument mechanic before being considered final. Additional recommendations may be made based on the final results. - Return to clinic should current symptoms (if present) worsen, other problems develop, or as needed. ADDITIONAL AND DICTATED PORTION: ADDITIONAL HISTORY The following Nursing History was reviewed with the family: Patient presents with: Follow Up: ear infection- seen at [facility] on 04-19-18 Illness The patient [...] care. Time, established: Spent approx. 15+ minutes (57179 level) in fpvz-ll-yatr contact with the patient and/or family, more than half of which was devoted to discussing the above problems. This note was partially generated using Life With Linda voice recognition system, and there may be [...] Up [171] Cmt: ear infection- seen at [facility] on 04-19-18 Illness [2733] Primary [...] Medication notes this encounter EPIPEN INJECTION >> Cleveland Love MORTGAGE OPERATIONS MANAGER 04/28/2018 8:14 AM >> LOVE, ESTUARDO MORTGAGE OPERATIONS MANAGER TueApr 28, 2018 8:14 AM prn ZYRTEC ORAL >> Estuardo Love MORTGAGE OPERATIONS MANAGER 04/28/2018 8:14 AM >> LOVE, ESTUARDO MORTGAGE OPERATIONS MANAGER TueApr 28, 2018 8:14 AM prn Problem [...] 04/28/18 CNOV Observed: 04/27/2018 Status: COMPLETED Source: [place] 11:30 AM [facility] REPOSITORY Office Visit (PALLMN) PRIYA JACQUES ([id number]) [birth year] F Date Time Provider Department 04/27/18 [...] Auvi-q 0.1 mg device was refilled. The auto tech was reluctant to administer the MMR vaccine, [...] special precautions required. Referring Provider: JEREMIAS BROCK [[id number]] Allergies As of Date: 04/27/2018 Noted Allergy [...] subsequent encounter [T39.315D] Order(s):MMR VIRUS IMMUNIZATION, SUBCUT [[id number]] Order #: [id number] Prescriptions as of 04/27/2018 Sig: CEFDINIR 250 [...] 04/27/18 PROGRESS Observed: 04/27/2018 Status: COMPLETED Source: [place] 10:51 AM [facility] REPOSITORY HNO ID: [id number] Author: Marty Mejia Service: (none) Author Type: [...] q 0.1 mg device was refilled. The auto tech was reluctant to administer the MMR vaccine, [...] MD CNCO Observed: 04/27/2018 Status: COMPLETED Source: [place] 12:00 AM [facility] REPOSITORY Letter Text Priya Jacques has been scheduled for a medically supervised BAKED EGG challenge on 05/16/2018 @ 8:00 AM [facility]. Please be on time and allow a [...] Baked Egg Recipe (Recipe developed at the [facility] [place]) Yield: 6 muffins (2g egg protein per [...] number below or message your physician through [employer]d. Dr. Marty Mejia [facility] Medical Office Building [address], [address] GPS address: [address] [place] [address] Office Food Challenge Appointment or Information: HEMOGLOBIN Collected: 03/24/2018 Status: F Source: [place] 2:45 PM [facility] REPOSITORY TYPE CODE TESTS RESULT OUT OF REFERENCE UNITS RANGE LAB HGB 10.1-12.7 g/dL Hemoglobin 11.2 Performed By: #### HGB, LEAD2 #### [facility] [address] [place] [id number] LEAD, BLOOD Collected: 03/24/2018 Status: F Source: [place] 2:45 [facility] REPOSITORY TYPE CODE TESTS RESULT OUT OF RANGE REFERENCE UNITS LAB LEAD 0.0-4.9 ug/dL Lead, <1.2 Blood Result Comment: This test was developed and its performance characteristics determined by [facility]'s [facility] [place] ([facility]). It has not been cleared or approved by the FDA. [facility] is regulated under CLIA as qualified to perform high-complexity testing. This test is used for clinical purposes. It should not be regarded as investigational or for research. Performed By: #### HGB, LEAD2 #### [facility] [address] [place] [id number] CNOV Observed: 03/23/2018 Status: COMPLETED Source: [place] 7:15 PM [facility] REPOSITORY Office Visit (PEDSWS) PRIYA JACQUES K ([id number]) [birth year] F Date Time Provider Department 03/23/18 7:15 PM SHEREEN CARNEY (CREDIT CARD INTERVIEWER) PEDSWS During your visit today, we recorded [...] uses significant amount of city water from: [employer] PWS - deficient (use recommendations for levels [...] ADDITIONAL NURSING COMMENTS color enhanced section None aMya Rowell LPN PHYSICAL EXAM General: alert and [...] given at Allergy office or wait for Compounding Assistant to approve it to be given [...] obtained HPI and I concur. Shereen Carney APRN.HUB LEAD Shereen Carney APRN.HUB LEAD 03/23/2018 8:09 PM Addendum Reviewed results of [...] immunization [Z23] Order(s):HEMOGLOBIN (HGB) [SQHGB] Order #: [id number] FUTURE LEAD BLOOD [SQLEAD] Order #: [id number] FUTURE PNEUMOCOCCAL-13 VACCINE PCV-13 [[id number]] Order #: [id number] HEPATITIS A VACCIN PED/ADOLX2 [[id number]] Order #: [id number] VARICELLA [[id number]] Order #: [id number] Prescriptions as of 03/23/2018 Sig: EPIPEN INJECTION [...] 03/23/2018 Status: COMPLETED Source: [place] 7:14 PM [facility] REPOSITORY HNO ID: [id number] Author: Maya Rowell LPN Service: (none) Author [...] uses significant amount of city water from: [facility] [place] [employer] PWS - deficient (use recommendations for levels [...] niya correctly: Yes Plays games such as JellyvisionaEstate Assistmoss: Yes HISTORY Past medical history: IMPORTED PAST [...] given at Allergy office or wait for Compounding Assistant to approve it to be given [...] obtained HPI and I concur. Shereen Carney APRN.HUB LEAD PROGRESS Observed: 12/26/2017 Status: COMPLETED Source: [place] 9:39 AM [facility] REPOSITORY [facility] ID: [id number] Author: Jeremias Brock Service: (none) Author Type: [...] uses significant amount of city water from: [employer] PWS - deficient (use recommendations for levels [...] COMMENTS color enhanced section None Estuardo Love MORTGAGE OPERATIONS MANAGER PHYSICAL EXAM GENERAL: alert, well appearing, in [...] reviewed. This note was partially generated using Life With Linda voice recognition system, and there may be some incorrect words, spellings, and punctuation that were not noted in checking the note before saving. Jeremias Brock M.D. CNOV Observed: 12/26/2017 Status: COMPLETED Source: [place] 9:30 AM [facility] REPOSITORY Office Visit (PEDSWS) PRIYA JACQUES ([id number]) [birth year] F Date Time Provider Department 12/26/17 [...] uses significant amount of city water from: [employer] PWS - deficient (use recommendations for levels [...] COMMENTS color enhanced section None Estuardo Love MORTGAGE OPERATIONS MANAGER PHYSICAL EXAM GENERAL: alert, well appearing, in [...] reviewed. This note was partially generated using Life With Linda voice recognition system, and there may be [...] use their thumb and first finger to cook pickled meat small, soft food chunks, such as pieces [...] better for them. Referring Provider: SHEREEN CARNEY (CREDIT CARD INTERVIEWER) [[id number]] Allergies As of Date: 12/26/2017 Noted Allergy [...] use their thumb and first finger to cook pickled meat small, soft food chunks, such as pieces [...] WHITE IGE Collected: 12/22/2017 Status: F Source: [place] 12:27 PM [facility] REPOSITORY TYPE CODE TESTS RESULT OUT OF REFERENCE UNITS RANGE LAB EGGW <0.35 KU/L High Egg White 2.18 IgE LAB EGGCL 0 High Egg 2 White-Class Performed By: #### EGGWHT, MILKC #### [facility] [address] [place], [place] [address] ALGN MILK COW IGE Collected: 12/22/2017 Status: F Source: [place] 12:27 PM [facility] REPOSITORY TYPE CODE TESTS RESULT OUT OF REFERENCE UNITS RANGE LAB MLK <0.35 KU/L High Cow Milk 0.75 IgE LAB MLKCL 0 High Milk, 2 Cow-Class Performed By: #### EGGWHT, MILKC #### [facility] [address] [place], [place] [address] PROGRESS Observed: 12/20/2017 Status: COMPLETED Source: [place] 10:25 AM [facility] REPOSITORY HNO ID: [id number] Author: Marty Mejia Service: (none) Author Type: [...] Developed small red dots around her mouth Precision Instrument Maker recommended continuing the purees with milk Continued to have consistent reactions with red perioral bumps after milk exposures Has had hives with mashed potatoes and butter and hives with qyl-k-vawctx Has tolerated heated milk in products without [...] History: None Past Social History: Lives in [place] with parents Family has a dog Parents [...] the infant [facility]. The administration technique was demonstrated using [...] with questions. Marty Mejia MD CNOV Observed: 12/20/2017 Status: COMPLETED Source: [place] 9:00 AM [facility] REPOSITORY Office Visit (PALLMN) PRIYA JACQUES ([id number]) [birth year] F Date Time Provider Department 12/20/17 [...] Developed small red dots around her mouth Precision Instrument Maker recommended continuing the infant purees with milk Continued to have consistent reactions with red perioral bumps after milk exposures Has had hives with mashed potatoes and butter and hives with xda-z-ylryij Has tolerated heated milk in products without [...] History: None Past Social History: Lives in [place] with parents Family has a dog Parents [...] 6 mm. * Referring Provider: DAVID ODELL [[id number]] Allergies As of Date: 12/20/2017 Noted Allergy [...] ibuprofen, initial encounter [T39.315A] Order(s):ALLERGEN SKIN TEST-FOOD [[id number]] Order #: [id number] ALGN EGG WHITE IGE [SQEGGWHT] Order #: [id number] FUTURE ALGN MILK COW IGE [SQMILKC] Order #: [id number] FUTURE Prescriptions as of 12/20/2017 Sig: ACETAMINOPHEN [...] 12/20/17 PROGRESS Observed: 12/02/2017 Status: COMPLETED Source: [place] 4:00 PM [facility] REPOSITORY O ID: [id number] Author: David Odell Service: (none) Author Type: Physician Type: Progress Notes Filed: 12/04/2017 2:22 PM Note Text: 9-month-old female, PCP DELMY, seen on the schedule today at the request of the pediatric emergency room at [facility]. Patient's medical history was reviewed in the [...] month, sooner if needed David Odell MD [facility] CNOV Observed: 12/02/2017 Status: COMPLETED Source: [place] 4:00 PM [facility] REPOSITORY Office Visit (WALKWS) PRIYA JACQUES Hoang ([id number]) [birth year] F Date Time Provider Department 12/02/17 4:00 PM DAVID ODELL During your visit today, we recorded the following information about you: Temperature Pulse Respiration Weight 98.4 degrees 118/minute 28/minute 7.229 kg David Odell MD 12/04/2017 2:22 PM Signed 9-month-old female, PCP DELMY, seen on the schedule today at the request of the pediatric emergency room at [facility]. Patient's medical history was reviewed in the [...] month, sooner if needed David Odell MD [facility] Department of Pediatrics, [facility] [...] 12/04/17 CNPN Observed: 12/01/2017 Status: COMPLETED Source: [place] 12:00 AM [facility] REPOSITORY Telephone (PEDSWS) PRIYA JACQUES ([id number]) [birth year] F Date Time Provider Department 12/01/17 JEREMIAS BROCK During your visit today, we recorded the following information about you: Nicole Howe RN 12/01/2017 10:05 AM Signed Patient's urology office called, requesting results of recent u/a and culture. Results faxed for continuity of care to [phone]. Nicole Mckenzie RN, RN 12/01/2017 2:20 PM [...] 11/30/2017 Status: F Source: [place] 9:28 PM [facility] REPOSITORY TYPE CODE TESTS RESULT OUT [...] Granulocyte Percent. Performed By: #### CBC #### [facility] [place] [id number] BASIC METABOLIC PANEL Collected: 11/30/2017 Status: F Source: [place] 9:28 PM [facility] REPOSITORY TYPE CODE TESTS RESULT OUT [...] Calcium 9.8 Performed By: #### BMP #### [address] [address] MANUAL DIFFERENTIAL Collected: 11/30/2017 Status: F Source: [place] 9:28 PM [facility] REPOSITORY TYPE CODE TESTS RESULT OUT OF REFERENCE UNITS RANGE LAB BANDS(EM 5-11 % NC) Band Neutrophils 4 Low LAB SEGS(LOIN 15-35 % C) Segmented 38 High Neutrophils LAB LYMPH(EM 45-76 % NC) Lymphocytes 45 LAB ATLYM(EM 0-8 % NC) Atypical 9 High Lymphocytes [...] # Vacuoles Performed By: #### MDIFF #### [address] [address] Observed: 11/30/2017 Status: F Source: [place] INFLUENZA A/B AG 8:25 PM [facility] REPOSITORY Influenza A/B Ag: Influenza A [...] Result: Negative. Performed By: #### FLUAG #### [facility] [place] [address] [place], [place] [id number] ED PROVIDER PROGRESS Observed: 11/30/2017 Status: COMPLETED Source: [place]ARY NOTE 8:11 PM [facility] REPOSITORY Priya Jacques : 02/24/2016 Chief Complaint Patient presents with Fever Allergies Allergen Reactions Motrin [Ibuprofen] Hives Pampers Baby Dry Size 3 [Diapers & Supplies] Rash Per parents allergy to pampers diapers and wipes DOS: 11/30/2017 Priya Jacques is a 9 m.o. Girl with a [...] Osei MD Observed: 11/29/2017 Status: F Source: [place] URINE CULTURE 3:25 PM [facility] REPOSITORY Culture Result - <1,000 CFU/ml Normal urogenital stephane Performed By: #### URCUL #### [facility] [address] [place], [place] [address] PROGRESS Observed: 11/29/2017 Status: COMPLETED Source: [place] 2:45 PM [facility] REPOSITORY HNO ID: [id number] Author: Jeremias Brock Service: (none) Author Type: [...] ordered or obtained, is reviewed by a instrument mechanic before being considered final. Additional recommendations may [...] measures. This note was partially generated using Life With Linda voice recognition system, and there may be some incorrect words, spellings, and punctuation that were not noted in checking the note before saving. Jeermias Brock M.D. Per Dr. Brock order: Urinary catheterization performed. A 5 straight catheter was placed under sterile technique without complications. Return: urine returned. Patient tolerated procedure well. Specimen obtained for testing:sent to lab Estuardo Love LPN CNOV Observed: 11/29/2017 Status: COMPLETED Source: [place] 2:00 PM [facility] REPOSITORY Office Visit (PEDSWS) PRIYA JACQUES ([id number]) [birth year] F Date Time Provider Department 11/29/17 [...] ordered or obtained, is reviewed by a instrument mechanic before being considered final. Additional recommendations may [...] measures. This note was partially generated using Life With Linda voice recognition system, and there may be [...] recurrence not specified [H65.01] Order(s):UA DIP B/O [[id number]] Order #: [id number] URINE CULTURE [SQURCUL] Order #: [id number]. #:[id number] Prescriptions as of 11/29/2017 Sig: X LACTOBACILLUS ACIDOPHILUS CAP* 1 CAPSULE SPRINKLED ON BABY F* X PEDIATRIC MULTIVITAMIN NO.2 W* Take 0.25 mg by mouth once da* X NYSTATIN 100,000 UNIT/GRAM TO* Apply 1 application to affect* ACETAMINOPHEN 160 MG/5 ML ORA* Take by mouth every 4 hours * Medication notes this encounter LACTOBACILLUS ACIDOPHILUS CAPSULE >> Estuardo Love MORTGAGE OPERATIONS MANAGER 11/29/2017 1:55 PM >> LOVE, ESTUARDO MORTGAGE OPERATIONS MANAGER Tue Nov 29, 2017 1:55 PM prn Problem List As Of Date 11/29/2017 Noted Resolved Hydronephrosis [N13.30] 11/29/2017 Atopic dermatitis [L20.9] INVALID FOR* Closed displaced fracture of shaft of right cla*INVALID FOR* 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 Shereen Carney APRN.HUB LEAD CNOV Observed: 11/22/2017 Status: COMPLETED Source: [place] 12:15 PM [facility] REPOSITORY Office Visit (PEDSWS) PRIYA JACQUES ([id number]) [birth year] F Date Time Provider Department 11/22/17 12:15 PM SHEREEN CARNEY (CREDIT CARD INTERVIEWER) PEDSWS During your visit today, we recorded [...] facility-administered medications for this visit. Shereen Carney APRN.HUB LEAD Shereen Carney APRN.[facility] 11/22/2017 12:26 PM Signed Orders reviewed. Parent verbalizes understanding. Shereen Carney APRN.[facility] 11/22/2017 12:30 PM Signed Addended by: SHEREEN CARNEY [facility] on: 11/22/2017 12:30 PM Modules accepted: Orders [...] 11/22/17 CNOV Observed: 11/18/2017 Status: COMPLETED Source: [place] 5:00 PM [facility] REPOSITORY Office Visit (WSTR) PRIYA JACQUES ([id number]) [birth year] F Date Time Provider Department 11/18/17 [...] 11/23/17 PROGRESS Observed: 11/18/2017 Status: COMPLETED Source: [place] 7:41 AM [facility] REPOSITORY HNO ID: [id number] Author: Sally Mathis (Department Operations Manager) Chauncey Service: (none) Author Type: Nurse Practitioner [...] APRN.XOCHILT PROGRESS Observed: 11/16/2017 Status: COMPLETED Source: [place] 11:39 AM [facility] REPOSITORY O ID: [id number] Author: Sally Mathis (Nishant) Chauncey Service: (none) [...] APRN.XOCHILT CNOV Observed: 11/16/2017 Status: COMPLETED Source: [place] 10:45 AM [facility] REPOSITORY Office Visit (WSTR) PRIYA JACQUES ([id number]) [birth year] F Date Time Provider Department 11/16/17 10:45 AM SALLY ROGERS (CREDIT CARD INTERVIEWER) [facility] During your visit today, we recorded the [...] Patient agreeable to treatment plan. Sally Rogers APRN.HUB LEAD Sally Rogers APRN.HUB LEAD 11/16/2017 11:42 AM Signed Next to the [...] lead to ear infections. Children in group child care group leader settings have a higher chance of passing [...] her pain medicine. Acetaminophen and ibuprofen are vcuy-dtm-dtdmwnd (OTC) pain medicines that may help decrease much of the pain. Be sure to use the right dosage for your child?s age and size. Don?t give aspirin to your child. There are also ear drops that may relieve ear pain for a short time. Ask your auto tech whether these drops should be used. There [...] acting ill, it?s important to call your auto tech. If your child?s condition doesn?t improve within 3 days, or worsens at any time, call your auto tech. Your auto tech may wish to see your child and may prescribe an antibiotic to take by mouth, if one wasn?t given initially. If an antibiotic was already started, your child may need a different antibiotic. Be sure to follow your auto tech?s instructions closely. If an antibiotic was prescribed, [...] are feeling well, as long as a child care group leader provider or someone at school can give them their medicine properly, if needed. If your child needs to travel in an airplane, or wants to swim, contact your auto tech for specific Instructions. Are there complications from [...] talk about other treatment options with your auto tech. Referring Provider: SELF [200] Allergies As of [...] lead to ear infections. Children in group child care group leader settings have a higher chance of passing [...] her pain medicine. Acetaminophen and ibuprofen are qtcn-ibn-clwfuco (OTC) pain medicines that may help decrease much of the pain. Be sure to use the right dosage for your child?s age and size. Don?t give aspirin to your child. There are also ear drops that may relieve ear pain for a short time. Ask your auto tech whether these drops should be used. There [...] acting ill, it?s important to call your auto tech. If your child?s condition doesn?t improve within 3 days, or worsens at any time, call your auto tech. Your auto tech may wish to see your child and may prescribe an antibiotic to take by mouth, if one wasn?t given initially. If an antibiotic was already started, your child may need a different antibiotic. Be sure to follow your auto tech?s instructions closely. If an antibiotic was prescribed, [...] are feeling well, as long as a child care group leader provider or someone at school can give them their medicine properly, if needed. If your child needs to travel in an airplane, or wants to swim, contact your auto tech for specific Instructions. Are there complications from [...] talk about other treatment options with your auto tech. Prescriptions ordered this encounter Disp Refills Start End AMOXICILLIN 400 MG/5 ML ORAL SUSPENS* 80 mL 0 11/16/2017 11/26/2017 Route: ORAL Sig: Take 4 mL by mouth twice daily for 10 days. Disposition: Return if symptoms worsen or fail to improve. Follow-up and Disposition History Recorded Encounter Status:Closed by SALLY ROGERS on 11/16/17 XR CLAVICLE 2V RT Observed: 11/15/2017 Status: F Source: [place] 11:46 AM [facility] REPOSITORY * * *Final Report* * * [...] midshaft right clavicular fracture in unchanged alignment. Safekeeping Clerk: PSCB Transcribe Date/Time: Nov 15 2017 11:53A Dictated by : GEORGIE STEPHENS MD This examination was interpreted and the report reviewed and electronically signed by: GEORGIE STEPHENS MD on Nov 15 2017 11:54AM EST [id number] PROGRESS Observed: 11/15/2017 Status: COMPLETED Source: [place] 11:37 AM [facility] REPOSITORY HNO ID: [id number] Author: Jonathon Bangura (Rt) Jessica Anand Service: (none) Author Type: Detail Manager Type: Progress Notes Filed: 11/15/2017 11:44 AM [...] PROGRESS NOTE Observed: 10/24/2017 Status: COMPLETED Source: [place] 10:00 AM [facility] REPOSITORY Priya Jacques is here in follow-up [...] (after recent diarrhea). Went to ER at [facility] and urine concerning for UTI (UA LE/pr/hgb), transferred to [facility]. [Called to request culture results, but not enough urine so no culture]. Treated with ceftriaxone. UA at [facility] 06/21/17 LE/Hgb (UCx <1k). Discharged on [...] encounter. PROGRESS Observed: 10/11/2017 Status: COMPLETED Source: [place] 4:06 PM [facility] REPOSITORY [facility] ID: [id number] Author: Jeremias Brock Service: (none) Author Type: [...] ordered or obtained, is reviewed by a instrument mechanic before being considered final. Additional recommendations may [...] weeks. Time, established: Spent approx. 15+ minutes (72708 level) in mjbl-di-ttxx contact with the patient and/or family, more than half of which was devoted to discussing the above problems. This note was partially generated using Life With Linda voice recognition system, and there may be some incorrect words, spellings, and punctuation that were not noted in checking the note before saving. Jeremias Brock M.D. XR CLAVICLE 2V RT Observed: 10/04/2017 Status: F Source: [place] 6:40 PM [facility] REPOSITORY * * *Final Report* * [...] clear. IMPRESSION: Right midclavicular fracture as detailed. Safekeeping Clerk: KOBY Transcribe Date/Time: Oct 04 2017 6:47P Dictated by : DELONTE ROMERO MD This examination was interpreted and the report reviewed and electronically signed by: HERB BREAUX MD on Oct 04 2017 6:51PM EST [id number] PROGRESS Observed: 10/04/2017 Status: COMPLETED Source: [place] 6:29 PM [facility] REPOSITORY HNO ID: [id number] Author: Jonathon Bangura (RtJessica Lu Service: (none) Author Type: Detail Manager Type: Progress Notes Filed: 10/04/2017 6:37 PM [...] PM PROGRESS Observed: 10/04/2017 Status: COMPLETED Source: [place] 6:15 PM [facility] REPOSITORY HNO ID: [id number] Author: Yael Starr Service: (none) Author Type: Nurse Practitioner Type: Progress Notes Filed: 10/04/2017 7:11 PM Note Text: EXPRESS CARE VISIT PEDIATRIC RASH/NUR/INJURY Priya Jacques is a 7 month old female accompanied by mother and father and grandparents for evaluation of right shoulder pain and swelling of 1 day(s) duration. Child was seen yesterday in [facility] ER and evaluated post fall while walking [...] EMERGENCY DEPARTMENT Observed: 10/03/2017 Status: F Source: [place] SUMMARY 4:43 PM [facility] REPOSITORY [facility] Medical Records Department [address] [place] [address] Emergency Department Summary 10/03/17 1525 MR#: [id number] Acct: [id number] Name: PRIYA JACQUES Rep #: [id number] : 02/24/2016 07M 06D From: Paul Kim [...] shoulder strain This note was generated with Life With Linda dictation software. It may contain incorrect words, [...] your Primary Care Provider. Call [facility] ([phone]) or report to the closest Emergency Room. Call 911 if necessary. 10/03/17 1643 <Electronically signed by Paul Kim> Date Paul Kim Cosigner Signature (If Indicated): Date CC: Jeremias Brock MD INFANT UPPER EXT Observed: 10/03/2017 Status: F Source: [place] MIN 2 VIEWS 3:25 PM [facility] REPOSITORY [facility] Imaging Services [address] [place] [id number] Infant Upper Ext Min 2 Views MR#: [id number] Acct: [id number] Name: PRIYA JACQUES Rep #: [id number] : 02/24/2016 F 07M 06D From: Minh Cunningham MD PCP: Jeremias Brock MD Status: REG ER Study: Upper Ext Min 2 Views Date of Exam: 10/03/17 Exam# [id number] Ordering Dr: Paul Corona DO STUDY: X-RAY [...] , CC: Jeremias Brock MD; Paul Corona Safekeeping Clerk: Signed PROGRESS Observed: 09/05/2017 Status: COMPLETED Source: [place] 3:42 PM [facility] REPOSITORY O ID: [id number] Author: Jeremias Brock Service: (none) Author Type: [...] uses significant amount of city water from: [employer] PWS - deficient (use recommendations for levels [...] COMMENTS color enhanced section None Estuardo Love MORTGAGE OPERATIONS MANAGER PHYSICAL EXAM GENERAL: alert, well appearing, in [...] reviewed. This note was partially generated using Life With Linda voice recognition system, and there may be some incorrect words, spellings, and punctuation that were not noted in checking the note before saving. Jeremias Brock M.D. 6 month old female here for INACTIVATED INFLUENZA VACCINE. 9856-3124 Season Patient is identified by name and date of : Yes [] CONTRAINDICATIONS color enhanced section Age less than 6 months? No Allergy to eggs, chicken, chicken feathers, or chicken dander? No Allergy to thimerosal (a preservative) or formaldehyde? No History of severe reaction to any vaccine component or a previous dose of influenza vaccination? No History of Guillain-Saint [place] Syndrome within 6 weeks after a previous [...] sheet given? Yes See immunization activity in [facility] for details of immunizations adminstered today. Patient age: 6 month old For The 6168-8313 Flu Season 6-35 months old: Fluzone 0.25 [...] 09/05/2017 Status: COMPLETED Source: [place] 3:30 PM [facility] REPOSITORY Office Visit (PEDSWS) PRIYA JACQUES ([id number]) [birth year] F Date Time Provider Department 09/05/17 [...] uses significant amount of ANDquot;cityANDquot; water from: [facility] PWS - deficient (use recommendations for levels [...] COMMENTS color enhanced section None Estuardo Love MORTGAGE OPERATIONS MANAGER PHYSICAL EXAM GENERAL: alert, well appearing, in [...] reviewed. This note was partially generated using Life With Linda voice recognition system, and there may be some incorrect words, spellings, and punctuation that were not noted in checking the note before saving. Jeremias Brock M.D. 6 month old female here for INACTIVATED INFLUENZA VACCINE. 4674-6932 Season Patient is identified by name and date of : Yes [] CONTRAINDICATIONS color enhanced section Age less than 6 months? No Allergy to eggs, chicken, chicken feathers, or chicken dander? No Allergy to thimerosal (a preservative) or formaldehyde? No History of severe reaction to any vaccine component or a previous dose of influenza vaccination? No History of Guillain-Saint [place] Syndrome within 6 weeks after a previous [...] sheet given? Yes See immunization activity in [facility] for details of immunizations adminstered today. Patient age: 6 month old For The 6404-1744 Flu Season 6-35 months old: Fluzone 0.25 [...] ? Choose a mature, trained, and responsible customer engagement specialist or caregiver. ? You can talk with us about your child care group leader choices. [facility] [employer] ? Many [...] books together. ? Play games such as peOnstream Media, Keen IO, and so big. ? Offer active play [...] home Poison Help: Child safety seat inspection: 8-200-RNPZGBXZO; seatcheck.org 6-12 months Parent Tips ? For [...] use their thumb and first finger to cook pickled meat small, soft food chunks, such as pieces [...] make it easy enough for baby to cook pickled meat and chew. Typically, baby will suck on [...] QUADRIVALENT PRSRV FREE AGE 6-35 MO IM [[id number]] Order #: [id number] pedi multivit no.2 w-fluoride (MULTI-VITAMIN WITH FLUORIDE) 0.25 mg/mL dropTake 0.25 mg by mouth once daily. (1 ml = 0.25 mg fluoride)Disp: 100 mLRfl: 3 KIRQ-TYL-IZG VACCINE IM [[id number]] Order #: [id number] PNEUMOCOCCAL-13 VACCINE PCV-13 [[id number]] Order #: [id number] ROTAVIRUS VACCINE, ORAL [[id number]] Order #: [id number] HEPATITIS B VACCINE,PED/ADOL,IM [[id number]] Order #: [id number] Prescriptions as of 09/05/2017 Sig: PEDIATRIC MULTIVITAMIN NO.2 W* Take 0.25 mg by mouth once da* NYSTATIN 100,000 UNIT/GRAM TO* Apply 1 application to affect* ACETAMINOPHEN 160 MG/5 ML ORA* Take by mouth every 4 hours * Medication notes this encounter NYSTATIN 100,000 UNIT/GRAM TOPICAL CREAM >> Estuardo Love MORTGAGE OPERATIONS MANAGER 09/05/2017 3:42 PM >> LOVE, ESTUARDO MORTGAGE OPERATIONS MANAGER TueSep 05, 2017 3:42 PM finished ACETAMINOPHEN 160 MG/5 ML ORAL SUSPENSION >> Estuardo Love MORTGAGE OPERATIONS MANAGER 09/05/2017 3:42 PM >> LOVE, ESTUARDO MORTGAGE OPERATIONS MANAGER TueSep 05, 2017 3:42 PM prn Problem [...] ? Choose a mature, trained, and responsible customer engagement specialist or caregiver. ? You can talk with us about your child care group leader choices. [employer] [facility] ? Many [...] books together. ? Play games such as peOnstream Media, Keen IO, and so big. ? Offer active play [...] not use a baby walker. ? Place nuñze on stairs. ? Close doors to rooms [...] home Poison Help: Child safety seat inspection: 5-862-CXJPSLPDN; seatcheck.org 6-12 months Parent Tips ? For [...] use their thumb and first finger to cook pickled meat small, soft food chunks, such as pieces [...] make it easy enough for baby to cook pickled meat and chew. Typically, baby will suck on [...] 09/05/17 PROGRESS Observed: 08/25/2017 Status: COMPLETED Source: [place] 1:13 PM [facility] REPOSITORY HNO ID: [id number] Author: Shereen Cavazos (Nishant) Dom Service: (none) [...] CNP CNOV Observed: 08/25/2017 Status: COMPLETED Source: [place] 12:45 PM [facility] REPOSITORY Office Visit (PEDSWS) GEORGIEPRIYA Bolton ([id number]) [birth year] F Date Time Provider Department 08/25/17 12:45 PM SHEREEN CARNEY (CREDIT CARD INTERVIEWER) PEDSWS During your visit today, we recorded [...] Date Reviewed: 08/25/2017 Reviewed by: Shereen Cavazos (Department Operations Manager) Dom - Fully Assessed Reason for Visit: [...] 08/25/17 PROGRESS Observed: 08/22/2017 Status: COMPLETED Source: [place] 11:54 AM [facility] REPOSITORY O ID: [id number] Author: Prakash Da Silva Service: (none) Author [...] MD CNOV Observed: 08/22/2017 Status: COMPLETED Source: [place] 10:35 AM [facility] REPOSITORY Office Visit (WSTR) PRIYA JACQUES ([id number]) [birth year] F Date Time Provider Department 08/22/17 [...] SEVERITY SOURCE 05/01/2018 DRUG OTHER OMEGA-3S HIVES [facility] INGREDI/419 Other [facility] 086299(SNOM Repository ED CT) 05/01/2018 Food/041239 OTHER All dairy [facility] 000(SNOMED products Hospital CT) Repository 12/20/2017 DRUG EGG RASH [facility] INGREDI/419 Other [facility] 132453(SNOM Repository ED CT) 11/30/2017 DRUG IBUPROFEN HIVES Med [facility] INGREDI/419 Other [facility] 368226(SNOM Repository ED CT) 11/30/2017 DRUG IBUPROFEN Med [facility] INGREDI/419 [facility] 426166(SNOM Repository ED CT) 10/03/2017 Drug lactose/[id number] Hives Unknown [facility] Allergy/416 32(RXNORM) [facility] 723276(SNOM Repository ED CT) 09/05/2017 DRUG MILK RASH [facility] INGREDI/419 Other [facility] 975690(SNOM Repository ED CT) 06/20/2017 DRUG/359865 DIAPERS & Per parents [place] [address](SNOMED SUPPLIES allergy to Hospital CT) pampers diapers Repository and wipes Drug NO KNOWN [facility] Class/42320 ALLERGIES Main [facility] 1003(SNOMED Repository CT) ENCOUNTERS ENCOUNTERS ADMIT/DISCHARGE ACCOUNT NUMBER ADMITTING ENCOUNTER LOCATION SOURCE CLASS 05/29/2018/05/30/20 [id number] Ambulatory [address] Main [facility] Repository 05/16/2018 [id number] MARTY MEJIA Ambulatory [facility] Other [facility] Repository 05/16/2018/05/16/20 [id number] Ambulatory [address] Other [facility] Repository 05/01/2018/05/01/20 [id number] Ambulatory Building:[place] [address] [facility] Repository 04/28/2018/05/01/20 [id number] Ambulatory [address] Main [facility] Repository 04/27/2018/04/27/20 [id number] Ambulatory [address] Main [facility] Repository 03/24/2018/03/24/20 [id number] Ambulatory [address] Main [facility] Repository 03/23/2018/03/23/20 [id number] Ambulatory [address] Main [facility] Repository 12/26/2017/12/29/19 [id number] Ambulatory [address] Main [facility] Repository 12/22/2017 [id number] Ambulatory [facility] Main [facility] Repository 12/20/2017/12/21/19 [id number] Ambulatory [address] Main [facility] Repository 12/02/2017/12/06/19 [id number] Ambulatory [address] Main [facility] Repository 11/30/2017/12/02/19 [id number] Emergency Building:CAROL[place] 18 RGENCY [facility] Repository 11/29/2017/12/13/19 [id number] Ambulatory [address] Main [facility] Repository 11/22/2017/11/23/19 [id number] Ambulatory [address] Main [facility] Repository 11/18/2017/11/25/19 [id number] Ambulatory [address] Main [facility] Repository 11/16/2017/11/17/19 [id number] Ambulatory [address] Main [facility] Repository 11/15/2017/11/17/19 [id number] Ambulatory [address] Main [facility] Repository 10/24/2017/10/25/19 [id number] Ambulatory Building:[address] Repository 10/11/2017/10/13/19 [id number] Ambulatory [address] Main [facility] Repository 10/04/2017/10/04/19 [id number] Ambulatory [address] Main [facility] Repository 10/04/2017/10/04/19 [id number] Ambulatory [address] Repository 10/03/2017/10/03/19 [id number] Emergency [facility] [address] ding:ED Repository 09/05/2017/09/06/19 [id number] Ambulatory [address] Repository 08/25/2017/08/29/19 [id number] Ambulatory [address] Repository 08/22/2017/08/23/19 [id number] Ambulatory [address] Repository PAYERS PAYERS ENCOUNTER GUARANTOR PAYER SUBSCRIBER SOURCE 05/01/2018 [facility]UTH [facility]: [facility] cy Number: [id number] Repository [address] [id number], [place] Date: [address] [place], [place] [address]Eqb: [phone] () 11/30/2017 ISABELA RUTH [facility] W cy Number: [id number] Repository [address] [id number] [address], [place] Date: [address], [place] [address]Hey: [phone] () 10/24/2017 ISABELA RUTH Primary [facility] Insurance:Willem DEVRIES: [facility] W cy Number: [id number] Repository [facility] [address] [id number] Date: [address] [place], [place] [address]Sfy: [phone] (HP) 10/03/2017 ISABELA N Primary PRIYA WILD Oliver [id number] Insurance:MARILYN DEVRIES: [facility] [id number] PLANPolicy Number: Repository [id number]: [id number] [phone] (HP) Date:[id number] [address]YT: 10/03/2017 Secondary NOT GIVENUNK Oliver Insurance:SELF PAY [facility] Number: Effective Repository Date:2017-10-03
== END ==
PROVIDERS: Nurse Practitioner; Family Provider Family Medicine; PCP Family Medicine; Referring Provider Otolaryngology; Visit Provider Otolaryngology
DX: Z01.818 Encounter for other preprocedural examination (principal); E10.9 Type 1 diabetes mellitus without complications; E78.5 Hyperlipidemia, unspecified
CPT/HCPCS: 36415; 80053; 83036; 85027

== ENCOUNTER → 2018-11-06 07:30 | Outpatient (CLI) | payer BC, SELFPAY ==
[2018-10-16 10:40] VITALS: BMI 35.6
[2018-11-06 10:41] LABS: Microalbumin,Random Urine 44.5 mg/L (NO RANGE EST.)
[2018-11-06 10:46] LABS: AST(SGOT) 15 U/L (15-37); Alanine Aminotransfer ALT/SGPT 23 U/L (13-56); Albumin, Serum 3.4 g/dL (3.2-5.0); Alkaline Phosphatase 73 U/L (45-117); Anion Gap 7 (5-15); BUN 17 mg/dL (7-18); Calcium,Total 8.5 mg/dL (8.5-10.1); Chloride 105 mmol/L (98-107); Cholesterol 174 mg/dL (200); Creatinine, Serum 1.06 mg/dL (0.55-1.02); EST Glomerular Filtration Rate 60 mL/min (>60); Est Glom Filt Rate - Afr Amer 73 mL/min (>60); Globulin 3.5 g/dL (2.2-4.2); Glucose 175 mg/dL (74-106); High Density Lipoprotein 34 mg/dL; Protein, Total 6.9 g/dL (6.4-8.2); Sodium Level 139 mmol/L (136-145); Triglycerides 190 mg/dL; Very Low Density Lipoprotein 38 mg/dL (5-40)
== END ==
PROVIDERS: Family Provider Family Medicine; PCP Family Medicine; Referring Provider Nurse Practitioner; Visit Provider Nurse Practitioner
DX: E10.9 Type 1 diabetes mellitus without complications (principal); E78.5 Hyperlipidemia, unspecified
CPT/HCPCS: 36415; 80053; 80061; 82043; 82570; 83036

== ENCOUNTER → 2020-08-28 15:04 | Outpatient (CLI) | payer BC, SELFPAY ==
[2020-08-28 14:26] VITALS: BMI 36.2
[2020-08-28 16:57] LABS: AST(SGOT) 16 U/L (15-37); Alanine Aminotransfer ALT/SGPT 29 U/L (13-56); Albumin, Serum 3.6 g/dL (3.2-5.0); Alkaline Phosphatase 84 U/L (45-117); Anion Gap 5 (5-15); BUN 15 mg/dL (7-18); BUN/Creat Ratio 14.9 RATIO (10-20); Calcium,Total 8.8 mg/dL (8.5-10.1); Chloride 103 mmol/L (98-107); Cholesterol 199 mg/dL (200); Creatinine, Serum 1.01 mg/dL (0.55-1.02); EST Glomerular Filtration Rate 63 mL/min (>60); Est Glom Filt Rate - Afr Amer 77 mL/min (>60); Globulin 3.6 g/dL (2.2-4.2); Glucose 161 mg/dL (74-106); High Density Lipoprotein 31 mg/dL; Potassium 4.1 mmol/L (3.5-5.1); Protein, Total 7.2 g/dL (6.4-8.2); Sodium Level 135 mmol/L (136-145); Thyroid Stim Hormone (TSH) 2.19 uIU/mL (0.358-3.74); Triglycerides 362 mg/dL; Very Low Density Lipoprotein 72 mg/dL (5-40)
[2020-08-28 17:10] LABS: Microalbumin,Random Urine 18.6 mg/L (NO RANGE EST.); Microalbumin:Creatinine Ratio 11.5 mg/g CRE (<30 mg/g CRE)
[2020-09-01 20:45] LABS: Hepatitis Be Ab Negative (Negative)
== END ==
PROVIDERS: Referring Provider Internal Medicine Endocrinology, Diabetes & Metabolism; Visit Provider Internal Medicine Endocrinology, Diabetes & Metabolism
DX: E03.9 Hypothyroidism, unspecified (principal); E10.9 Type 1 diabetes mellitus without complications; E55.9 Vitamin D deficiency, unspecified; E78.2 Mixed hyperlipidemia
CPT/HCPCS: 36415; 80053; 80061; 82043; 82570; 84443; 86707

== ENCOUNTER → 2021-08-03 11:34 | Outpatient (CLI) | payer BC, SELFPAY ==
[2021-08-03 13:54] LABS: Vitamin D,25 Hydroxy 58.9 ng/mL
== END ==
PROVIDERS: PCP Family Medicine; Referring Provider Nurse Practitioner Family; Visit Provider Nurse Practitioner Family
DX: E55.9 Vitamin D deficiency, unspecified (principal)
CPT/HCPCS: 36415; 82306

== ENCOUNTER → 2021-12-30 | Outpatient (CLI) | payer BC, SELFPAY ==
[2021-12-30 10:29] LABS: Hemoglobin A1c 6.9 % (3.8-5.6)
[2021-12-30 10:34] LABS: Microalbumin,Random Urine 14.9 mg/L (NO RANGE EST.); Microalbumin:Creatinine Ratio 7.6 mg/g CRE (<30 mg/g CRE)
[2021-12-30 10:35] LABS: ALB/GLOB Ratio 1.1 RATIO (0.9-2.4); AST(SGOT) 16 U/L (15-37); Alanine Aminotransfer ALT/SGPT 26 U/L (13-56); Albumin, Serum 3.5 g/dL (3.2-5.0); Alkaline Phosphatase 57 U/L (45-117); Anion Gap 4 (5-15); BUN 18 mg/dL (7-18); BUN/Creat Ratio 19.2 RATIO (10-20); Chloride 105 mmol/L (98-107); Cholesterol 125 mg/dL (200); Creatinine, Serum 0.94 mg/dL (0.55-1.02); EST Glomerular Filtration Rate 69 mL/min (>60); Est Glom Filt Rate - Afr Amer 83 mL/min (>60); Globulin 3.3 g/dL (2.2-4.2); Glucose 135 mg/dL (74-106); High Density Lipoprotein 35 mg/dL; Potassium 3.9 mmol/L (3.5-5.1); Protein, Total 6.8 g/dL (6.4-8.2); Sodium Level 135 mmol/L (136-145); Thyroid Stim Hormone (TSH) 2.94 uIU/mL (0.358-3.74); Triglycerides 97 mg/dL; Very Low Density Lipoprotein 19 mg/dL (5-40)
[2021-12-30 11:00] LABS: Hepatitis C Antibody Non-Reactive (Nonreactive); Vitamin D,25 Hydroxy 61.4 ng/mL
== END | disposition home or self-care (01) ==
LOC: MTLAB 07:34
PROVIDERS: Internal Medicine Endocrinology, Diabetes & Metabolism; PCP Family Medicine; Referring Provider Family Medicine; Visit Provider Family Medicine
DX: E55.9 Vitamin D deficiency, unspecified (principal); E10.319 Type 1 diabetes mellitus with unspecified diabetic retinopathy without macular edema; F41.9 Anxiety disorder, unspecified; E78.5 Hyperlipidemia, unspecified; Z11.59 Encounter for screening for other viral diseases
CPT/HCPCS: 36415; 80053; 80061; 82043; 82306; 82570; 83036; 84443; 86803

== ENCOUNTER → 2022-06-30 | Outpatient (CLI) | payer BC, SELFPAY ==
--- NOTE | 2022-06-30 07:38 | RAD_ITS ---
PROCEDURE: Fluoroscopic guided right shoulder Injection DATE: 06/30/2022. INDICATION: Female, 46 years old. Chronic right shoulder pain. Adhesive capsulitis. PHYSICIAN: Francis Kapoor M.D. MEDICATIONS: 12 mg of BETAMETHASONE and 4 cc of 1% LIDOCAINE. 2% Lidocaine administered subcutaneously for local anesthesia. ACCESS SITE: Right shoulder. NEEDLE: 22-gauge spinal needle. FLUOROSCOPY TIME (if supplied): (0:38) minutes/seconds. One image was obtained. FINDINGS: The risks, benefits, and alternatives to the procedure were explained to the patient. The specific risks of bleeding, infection, and neurovascular injury were detailed and accepted. Witnessed informed consent was obtained. A 22-gauge spinal needle was positioned under radiographic fluoroscopic localization. Approximately 2 cc of ISOVUE-300 instilled for localization purposes. Medication was then injected. The patient tolerated the procedure well without any immediate complications. RAD/Inj/Asp Duglas Jt Should/Hip/Knee IMPRESSION: 1. Successful fluoroscopic guided right shoulder injection. Electronically Signed: Francis Kapoor MD at 8:39 EST ,
[2022-06-30] MEDS: Betamethasone/Betamethasone 30 MG/5 ML Vial 12 MG INTRAARTIC (08:10)
[2022-06-30] MEDS: Lidocaine 1% (5 ml sdv) 5 ML Vial 4 ML OPERA.SITE (08:10)
== END | disposition home or self-care (01) ==
PROVIDERS: PCP Family Medicine; Visit Provider Specialist
DX: M75.01 Adhesive capsulitis of right shoulder (principal)
CPT/HCPCS: 20610; 77002; J0702

== ENCOUNTER → 2023-01-10 | Outpatient (CLI) | payer BC, SELFPAY ==
[2023-01-10 10:31] LABS: Hemoglobin A1c 7.6 % (3.8-5.6)
== END | disposition home or self-care (01) ==
PROVIDERS: PCP Family Medicine; Referring Provider Nurse Practitioner Family; Visit Provider Nurse Practitioner Family
DX: E10.65 Type 1 diabetes mellitus with hyperglycemia (principal)
CPT/HCPCS: 36415; 83036

== ENCOUNTER → 2023-01-13 | Outpatient (CLI) | payer BC, SELFPAY ==
[2023-01-13 12:24] LABS: Microalbumin,Random Urine 7.9 mg/L (NO RANGE EST.); Microalbumin:Creatinine Ratio 7.5 mg/g CRE (<30 mg/g CRE)
[2023-01-13 12:37] LABS: Vitamin D,25 Hydroxy 67.9 ng/mL
[2023-01-13 13:06] LABS: AST(SGOT) 11 U/L (15-37); Alanine Aminotransfer ALT/SGPT 19 U/L (13-56); Albumin, Serum 3.5 g/dL (3.2-5.0); Alkaline Phosphatase 78 U/L (45-117); Anion Gap 5 (5-15); BUN 24 mg/dL (7-18); Calcium,Total 8.9 mg/dL (8.5-10.1); Chloride 105 mmol/L (98-107); Cholesterol 147 mg/dL (200); EST Glomerular Filtration Rate 63 mL/min (>60); Est Glom Filt Rate - Afr Amer 77 mL/min (>60); Globulin 3.6 g/dL (2.2-4.2); Glucose 124 mg/dL (74-106); High Density Lipoprotein 32 mg/dL; Potassium 4.2 mmol/L (3.5-5.1); Protein, Total 7.1 g/dL (6.4-8.2); Sodium Level 138 mmol/L (136-145); Thyroid Stim Hormone (TSH) 2.46 uIU/mL (0.358-3.74); Triglycerides 139 mg/dL; Very Low Density Lipoprotein 28 mg/dL (5-40)
== END | disposition home or self-care (01) ==
LOC: MTLAB 10:33 → LAB 10:34
PROVIDERS: PCP Family Medicine; Referring Provider Nurse Practitioner Family; Visit Provider Nurse Practitioner Family
DX: E10.65 Type 1 diabetes mellitus with hyperglycemia (principal)
CPT/HCPCS: 36415; 80053; 80061; 82043; 82306; 82570; 84443

== ENCOUNTER → 2023-06-16 | Outpatient (CLI) | payer BC, SELFPAY ==
[2023-06-16 11:26] LABS: Hematocrit 41.6 % (37-47); Hemoglobin 13.6 g/dL (12.0-15.0); Mean Corp Hgb Conc 32.7 g/dL (32-36); Mean Corpuscular Hgb 29.1 pg (27.0-32.0); Mean Corpuscular Volume 88.9 fL (81-99); Mean Platelet Vol. 9.8 fl (6.2-12.0); Platelet Count 278 K/mm3 (150-450); RBC Distribution Width CV 12.3 % (11.6-14.6); RBC Distribution Width SD 39.9 fl (35.1-43.9); Red Blood Count 4.68 M/mm3 (4.2-5.4)
[2023-06-16 11:53] LABS: Magnesium 2.1 mg/dL (1.6-2.6)
[2023-06-16 12:02] LABS: Vitamin B12 715 pg/mL (211-911)
== END | disposition home or self-care (01) ==
LOC: LAB 11:09
PROVIDERS: PCP Family Medicine; Referring Provider Family Medicine; Visit Provider Family Medicine
DX: Z00.00 Encounter for general adult medical examination without abnormal findings (principal); R53.83 Other fatigue; E55.9 Vitamin D deficiency, unspecified
CPT/HCPCS: 36415; 82607; 83735; 85027

== ENCOUNTER → 2024-03-31 | Outpatient (CLI) | payer BC, SELFPAY ==
[2024-03-31 08:31] LABS: Hematocrit 40.6 % (37-47); Mean Corpuscular Hgb 28.4 pg (27.0-32.0); Mean Corpuscular Volume 88.8 fL (81-99); Mean Platelet Vol. 9.6 fl (6.2-12.0); Platelet Count 283 K/mm3 (150-450); RBC Distribution Width CV 12.6 % (11.6-14.6); RBC Distribution Width SD 41.1 fl (35.1-43.9); Red Blood Count 4.57 M/mm3 (4.2-5.4); White Blood Count 8.2 K/mm3 (4.4-11.0)
[2024-03-31 09:08] LABS: ALB/GLOB Ratio 1.1 RATIO (0.9-2.4); AST(SGOT) 16 U/L (15-37); Alanine Aminotransfer ALT/SGPT 23 U/L (13-56); Albumin, Serum 3.3 g/dL (3.2-5.0); Alkaline Phosphatase 66 U/L (45-117); Anion Gap 3 (5-15); BUN 18 mg/dL (7-18); BUN/Creat Ratio 18.6 RATIO (10-20); Calcium,Total 8.1 mg/dL (8.5-10.1); Chloride 108 mmol/L (98-107); Cholesterol 131 mg/dL (200); Creatinine, Serum 0.97 mg/dL (0.55-1.02); EST Glomerular Filtration Rate 65 mL/min (>60); Est Glom Filt Rate - Afr Amer 79 mL/min (>60); Globulin 3.1 g/dL (2.2-4.2); Glucose 105 mg/dL (74-106); High Density Lipoprotein 34 mg/dL; Potassium 4.1 mmol/L (3.5-5.1); Protein, Total 6.4 g/dL (6.4-8.2); Sodium Level 138 mmol/L (136-145); Thyroid Stim Hormone (TSH) 2.69 uIU/mL (0.358-3.74); Triglycerides 137 mg/dL; Very Low Density Lipoprotein 27 mg/dL (5-40)
[2024-03-31 10:53] LABS: Microalbumin,Random Urine 7.6 mg/L (NO RANGE EST.); Microalbumin:Creatinine Ratio 7.1 mg/g CRE (<30 mg/g CRE)
[2024-04-02 09:51] LABS: Vitamin D,25 Hydroxy 46.6 ng/mL
== END | disposition home or self-care (01) ==
LOC: LAB 07:16
PROVIDERS: Nurse Practitioner Family; PCP Family Medicine; Referring Provider Family Medicine; Visit Provider Family Medicine
DX: Z00.00 Encounter for general adult medical examination without abnormal findings (principal); E10.319 Type 1 diabetes mellitus with unspecified diabetic retinopathy without macular edema; E78.5 Hyperlipidemia, unspecified; F41.9 Anxiety disorder, unspecified; E55.9 Vitamin D deficiency, unspecified
CPT/HCPCS: 36415; 80053; 80061; 82043; 82306; 82570; 84443; 85027

== ENCOUNTER → 2025-04-08 | Outpatient (CLI) | payer BC, SELFPAY ==
--- OUTSIDE RECORDS SUMMARY | 2025-04-08 07:13 | XMS RPT_ITS | CCD ---
Author Organization [facility]iniSyn[facility] Care Team Providers Care Local Flatbed Driver Name Role Phone Goldie Wendy DILLARD Unavailable Dr. Jan Muñoz Primary Care Provider Dr. Jan Muñoz Referring Provider [phone] Dr. Darshan Gomez Attending Provider [phone] MARLENE Recinos Attending Provider Jan Muñoz DO Primary Care Provider [phone] Jan Muñoz DO Primary Care Provider [phone] JAN MUÑOZ DO Primary Care [phone] Dr. Jan Muñoz Primary Care Provider Dr. Jan Muñoz Referring Provider [phone] MARLENE Recinos Attending Provider Dr. Jan Muñoz Primary Care Provider Dr. Jan Muñoz Referring Provider [phone] MARLENE Recinos Attending Provider Jan Muñoz DO Primary Care Provider [phone] JAN MUÑOZ DO Primary Care Physician [phone] JAN MUÑOZ DO Attending Unavailable JAN MUÑOZ DO Primary Care Unavailable Jan Muñoz DO Primary Care Provider [phone] JAN MUÑOZ DO Attending Unavailable JAN MUÑOZ DO Primary Care Unavailable CHARLOTTE, CRISTIN Referring Unavailable JAN MUÑOZ Primary Care Unavailable JAN MUÑOZ Primary Care Unavailable JAN MUÑOZ Primary Care Unavailable [place]TE, CRISTIN Attending Unavailable JAN MUÑOZ Primary Care Unavailable CRISTIN ELIAS Referring Unavailable Dr. Jan Muñoz DO Primary Care Provider [phone] Dr. Jan Muñoz DO Referring Provider Jorje BURNSCColleen Attending Provider Jan Muñoz Referring Unavailable Colleen Recinos Attending Unavailable Jan Muñoz Primary Care Unavailable Jan Muñoz Referring Unavailable Colleen Recinos Attending Unavailable Jan Muñoz Primary Care Unavailable Jan Muñoz Attending Unavailable Jan Muñoz Primary Care Unavailable Shaheed Muñozistin Referring Unavailable Jan Muñoz Referring Unavailable Colleen Recinos Attending Unavailable Jan Muñoz Primary Care Unavailable Jan Muñoz Referring Unavailable Colleen Recinos Attending Unavailable Jan Muñoz Primary Care Unavailable Allergies Allergy Classification Reported Allergen(s) Allergy Type Date of Onset Reaction(s) Facility (4 sources) Adhesive Tape; Translations: [TAPE] allergy to substance 10-14-19 17 Itching [facility] Work Phone: (12 sources) tape [Other] Propensity to adverse reactions 12-16-19 07 Itching [facility] (7 sources) Adhesive Tape-Silicones; Translations: [ADHESIVE TAPE-SILICONES] Drug Allergy 11-03-19 24 Hives, Itching [facility] (1 source) Adhesive Tape Drug allergy (disorder) 02-12-20 25 [facility] Repository Medications Current Medications Medication Drug Class(es) Dates Sig (Normalized) Sig (Original) aspirin 81 mg delayed release oral tablet (20 sources) Nonsteroidal Anti-inflammatory Drug Start: 08-30-2017 take 1 tablet by mouth once daily Aspirin (Adult Aspirin Regimen) 81 mg tablet,delayed release (DR/EC) Active 81 mg PO daily August 30, 2017 1:00am take 81 mg by mouth once daily A SPIRIN ORAL Take 81 mg by mouth once daily. Active Comment on above: Take 81 mg by mouth once daily. atorvastatin 10 mg oral tablet (20 sources) HMG-CoA Reductase Inhibitor Start: 021 End: 025 take 1 tablet by mouth once daily Atorvastatin 10 mg tablet Active 10 mg PO DAILY October 17, 2024 11:42am brimonidine tartrate 2 mg/ml ophthalmic solution (1 source) alpha-Adrenergic Agonist Start: Brimonidine 0.2 % drops Active NMA OPHTHALMIC February 11, 2025 12:00am bromfenac 0.75 mg/ml ophthalmic solution (1 source) Nonsteroidal Anti-inflammatory Drug Start: take 0.075 drop(s) into the eye(s) once daily Bromfenac (Bromsite) 0.075 % drops Active 1 NMA OPHTHALMIC daily February 11, 2025 12:00am calcium carbonate 1500 mg oral tablet (1 source) Start: 024 take 1 tablet by mouth once daily Calcium Carbonate (Calcium 600) 600 mg calcium (1,500 mg) tablet Active 600 mg PO daily May 03, 2024 12:00am cholecalciferol 0.05 mg oral capsule (20 sources) Vitamin D Start: 023 take 1 capsule by mouth once daily Cholecalciferol (Vitamin D3) 50 mcg (2,000 unit) capsule Active 50 ug PO DAILY January 13, 2023 12:00am Start: 08-30-2017 End: 01-13-2023 take 1 capsule by mouth every week Cholecalciferol (Vitamin D3) 50,000 unit capsule Discontinued 23223 U PO EVERY WEEK May 24, 2018 8:27pm May 20, 2020 4:42pm Start: 06-09-2017 End: 09-09-2025 VITAMIN D3 90806 UNIT TABS T mirtha on tablet once weekly. CHOLECALCIFEROL [phone] Wendy Amezcua NP citalopram 20 mg oral tablet (20 sources) Serotonin Reuptake Inhibitor Start: 08-30-2017 End: 12-23-2024 citalopram 20 mg oral tablet Dose : 20 mg = 1 tab(s), Oral, qDay, # 90 tab(s), 3 Refill(s), Pharmacy: [facility] [place]/[facility]acy [id number], Mild recurrent major depression Anxiety, 155.5, cm, 12/29/23 9:21:00 EDT, Height, kg, 12/29/23 9:12:00 EDT, Dosing Weight Start Date: 12/29/23 Stop Date: 12/23/24 Status: Ordered Comment on above: Take 20 mg by mouth once daily. COMPOUNDED PRESCRIPTION (20 sources) Start: 08-13-2010 COMPOUNDED PRESCRIPTION Transmitter adhesive patch. Apply with trasmitter 10 Patch 4 08/13/2010 Active Comment on above: Transmitter adhesive patch. Apply with trasmitter dexamethasone 0.001 mg/mg / neomycin 0.0035 mg/mg / polymyxin b 10 unt/mg ophthalmic ointment (3 sources) Aminoglycoside Antibacterial, Polymyxin-class Antibacterial, Corticosteroid Start: 09-11-2024 NEOMYCIN 3.5 MG/G-POLYMYXIN B 10,000 UNIT/G-DEXAMETH 0.1 % EYE OINT Use 1 application in the right eye daily at bedtime. 09/11/2024 Active docosahexanoic acid/epa (FISH OIL ORAL) (20 sources) docosahexanoic acid/epa (FISH OIL ORAL) Take by mouth. Active docosahexanoic a lissette/epa (FISH OIL ORAL) Take by mouth. 0 Active Comment on above: Take by mouth. dorzolamide 20 mg/ml / timolol 5 mg/ml ophthalmic solution (4 sources) Carbonic Anhydrase Inhibitor, beta-Adrenergic Jan Start: 11-19-2024 Dorzolamide-Timolol 22.3-6.8 mg/mL drops Active 1 NMA OPHTHALMIC TWICE A DAY November 19, 2024 12:00am Start: 11-01-2024 take 1 drop(s) into the eye(s) twice daily dorzolamide-timolol (COSOPT) 22.3-6.8 mg/mL ophthalmic solution Use 1 Drop in the right eye two times a day. 11/01/2024 Active Fish Oils (2 sources) Start: 03-01-2019 Fish Oil 1000 mg oral capsule Dose : 1,000 mg = 1 cap(s), Oral, qDay, # 90 cap(s), 0 Refill(s) Start Date: 03/01/19 Status: Ordered flax seed oil 1000 mg oral capsule (2 sources) Start: 03-01-2019 flax seed oil 1000 mg oral capsule Dose : 1,000 mg = 1 cap(s), Oral, Daily, 0 Refill(s) Start Date: 03/01/19 Status: Ordered insulin lispro 100 unt/ml injectable solution (20 sources) Insulin Analogue Start: 01-21-2025 Insulin Lispr o (Humalog U-100 Insulin) 100 unit/mL solution Active 0 SC daily January 21, 2025 8:22am uses 130U qd via pump SC QDAY Start: 11-23-2023 End: 01-21-2025 Insulin Lispro (Humalog U-10 0 Insulin) 100 unit/mL solution Discontinued 0 SC daily November 23, 2023 8:03am January 21, 2025 8:22am uses 130U qd via pump SC QDAY Start: 07-19-2022 End: 11-23-2023 Insulin Lispro (Humalog U-10 0 Insulin) 100 unit/mL solution Discontinued 0 SC daily July 19, 2022 1:10pm November 23, 2023 8:03am uses 130U qd via pump SC QDAY Start: 01-18-2022 End: 07-19-2022 Insulin Lispro (Humalog U-10 0 Insulin) 100 unit/mL solution Discontinued 0 SC daily January 18, 2022 4:45pm July 19, 2022 1:12pm uses 100U qd via pump SC QDAY; uses 100U qd via pump SC QDAY Start: 08-28-2020 End: 01-18-2022 Insulin Lispro (Humalog U-10 0 Insulin) 100 unit/mL solution Discontinued 0 SC daily January 29, 2021 10:24am January 18, 2022 4:45pm uses 100U qd via pump SC QDAY; uses 100U qd via pump SC QDAY Start: 11-08-2019 HumaLOG 100 un its/mL injectable solution VIAL See Instructions, Uses up to 110 units in insulin pump daily, # 40 mL, 11 Refill(s), Pharmacy: [id number] #30, 154.5, cm, 09/13/19 9:31:00 EST, Height, kg, 09/13/19 9:31:00 EST, Dosing Weight Start Date: 11/08/19 Status: Ordered Start: 11-13-2018 End: 08-28-2020 Insulin Lispro (Humalog U-10 0 Insulin) 100 unit/mL solution Discontinued 0 SC daily November 13, 2018 12:23pm August 28, 2020 3:52pm uses 100U qd via pump SC QDAY; uses 100U qd via pump SC QDAY Start: 08-30-2017 End: 11-13-2018 Insulin Lispro (Humalog U-10 0 Insulin) 100 unit/mL solution Discontinued 0 SC daily August 30, 2017 1:00am November 13, 2018 9:26am uses 100U qd via pump SC QDAY Start: 10-14-2016 End: 01-11-2025 Insulin Lispro (Humalog U-10 0 Insulin) 100 unit/mL solution Discontinued 100 U SC ONCE 30 October 17, 2017 6:41pm November 13, 2018 9:24am use up to 100 units via insulin pump daily E10.9 Start: 10-31-2015 insulin lispro (HUMALOG) 100 unit/mL injection Indications: 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 (HCC) Uses with insulin pump, up to 100 units daily 3 Vial 11 10/31/2015 Active Comment on above: Uses with insulin pu mp, up to 100 units daily Insulin Syringe-Needle U-100 (BD INSULIN SYRINGE UF II) 1/2 mL 31 x 5/16 Syrg (20 sources) Start: 10-27-19 13 Insulin Syringe-Needle U-100 (BD INSULIN SYRINGE UF II) 1/2 mL 31 x 5/16 Syrg use as directed if pump fails 100 Syringe 11 10/26/2012 Active Comment on above: use as directed if p ump fails INSULIN SYRINGE-NEEDLE U-100 0.5 ML 31 X 3/8 (20 sources) Start: 08-07-20 07 INSULIN SYRINGE-NEEDLE U-100 0.5 ML 31 X 3/8 use as directed with each meal 100 11 08/07/2007 Active Comment on above: use as directed with each meal mecobalamin 1 mg chewable tablet (1 source) Start: 07-28-20 take 1 tablet by mouth once daily Mecobalamin (Vitamin B12) 1,000 mcg tablet,chewable Active 1000 ug PO DAILY July 28, 2023 1:00am nitrofurantoin, macrocrystals 25 mg / nitrofurantoin, monohydrate 75 mg oral capsule (4 sources) Nitrofuran Antibacterial Start: 09-19-19 End: 09-24-19 take 1 capsule by mouth twice daily nitrofurantoin monohydrate and macrocrystal (MACROBID) 100 mg capsule Indications: Urinary frequency Take 1 capsule by mouth two times a day for 5 days. 10 capsule 09/19/2024 09/24/2024 Active Start: 03-23-2024 End: 03-28-2024 take 1 capsule by mouth twice daily nitrofurantoin monohydrate and macrocrystal (MACROBID) 100 mg capsule Indications: Urinary frequency Take 1 capsule by mouth two times a day for 5 days. 10 capsule 0 03/23/2024 03/28/2024 Active Start: 09-24-2023 End: 09-29-2023 take 1 capsule by mouth twice daily nitrofurantoin monohydrate and macrocrystal (MACROBID) 100 mg capsule Indications: Urinary frequency Take 1 capsule by mouth two times a day for 5 days. 10 capsule 0 09/24/2023 09/29/2023 Active Comment on above: Take 1 capsule by mo ut two times a day for 5 days. ofloxacin 3 mg/ml ophthalmic solution (1 source) Quinolone Antimicrobial Start: take 0.3 drop(s) into the eye(s) four times daily Ofloxacin 0.3 % drops Active 1 NMA OPHTHALMIC 4 TIMES DAILY February 11, 2025 12:00am Alpine-3 Fatty Acids (Fish Oil Concentrate) 1,000 mg capsule (6 sources) Start: take 1 capsule by mouth once daily Alpine-3 Fatty Acids (Fish Oil Concentrate) 1,000 mg capsule Active 1000 MG PO DAILY January 03, 2020 2:53pm Start: 01-03-2020 End: 07-30-2024 take 1 capsule by mouth once daily Alpine-3 Fatty Acids (Fish Oil Concentrate) 1,000 mg capsule Discontinued 1000 mg PO DAILY January 03, 2020 12:00am July 30, 2024 11:33am Start: 01-03-2020 take 1 capsule by mo ut once daily Alpine-3 Fatty Acids (Fish Oil Concentrate) 1,000 mg capsule Active 1000 MG PO DAILY January 03, 2020 12:00am Start: 01-03-2020 take 1 capsule by mo ut once daily Alpine-3 Fatty Acids (Fish Oil Concentrate) 1,000 mg capsule Active 1000 MG PO DAILY January 02, 2020 11:00pm ondansetron 4 mg oral tablet (16 sources) Serotonin-3 Receptor Antagonist Start: 01-03-2020 End: 11-19-2024 take 1 tablet by mouth every eight hours as needed for nausea and vomiting Ondansetron Hcl 4 mg tablet Active 4 mg PO Q8H as needed for nausea and vomiting November 19, 2024 3:56pm Start: 03-01-2019 Zofran 8 mg or al tablet mg = tab(s), Oral, AsDirected, 0 Refill(s) Start Date: 03/01/19 Status: Ordered vit B complex no.12/niacin,B 3, (VITAMIN B COMPLEX NO.12-NIACIN ORAL) (8 sources) vit B complex no .12/niacin,B3, (VITAMIN B COMPLEX NO.12-NIACIN ORAL) Take by mouth. Active vit B complex no .12/niacin,B3, (VITAMIN B COMPLEX NO.12-NIACIN ORAL) Take by mouth. 0 Active Comment on above: Take by mouth. Vitamin B12 1000 mcg oral tablet (1 source) Start: 06-02-2023 Vitamin B12 1000 mcg oral tablet Dose : 1,000 mcg = 1 tab(s), Oral, qDay, # 30 tab(s), 0 Refill(s) Start Date: 06/02/23 Status: Ordered Vitamin D3 50 mcg (2000 intl units) oral capsule (2 sources) Start: 12-02-2022 take 1 tablet by mouth once daily Vitamin D3 50 mcg (2000 intl units) oral capsule 1 tab(s), Oral, Daily, # 30 tab(s), 0 Refill(s) Start Date: 12/02/22 Status: Ordered Completed/Discontinued Medications Medication Drug Class(es) Dates Sig (Normalized) Sig (Original) empagliflozin 25 mg oral tablet (1 source) Sodium-Glucose Cotransporter 2 Inhibitor Start: 05-03-2024 End: 07-30-2024 take 1 tablet by mouth once daily in the morning Empagliflozin (Jardiance) 25 mg tablet Discontinued 25 mg PO EVERY MORNING May 03, 2024 12:00am July 30, 2024 11:33am enalapril maleate 20 mg oral tablet (20 sources) Angiotensin Converting Enzyme Inhibitor Start: 08-11-2016 End: 01-11-2025 take 1 tablet by mouth once daily Enalapril Maleate 20 mg tablet Discontinued 20 mg PO daily November 03, 2022 10:00am September 22, 2023 10:40am Comment on above: Take 1 tablet by emily th once daily. ergocalciferol 1.25 mg oral capsule (15 sources) Provitamin D2 Compound Start: 05-18-2016 End: 11-03-2023 take 1 capsule by mouth every week ergocalciferol, vitamin D2, (DRISDOL) 50,000 unit capsule Take 1 capsule by mouth once each week. 12 capsule 4 05/18/2016 11/03/2023 Discontinued Comment on above: Take 1 capsule by mo [facility] once each week. fluticasone propionate 0.05 mg/actuat metered dose nasal spray (6 sources) Corticosteroid Start: 05-01-2018 End: 01-03-2020 Fluticasone Propionate (Flonase Allergy Relief) 50 mcg/actuation spray,suspension Discontinued 1 NMA INTRANASAL DAILY May 01, 2018 12:00am January 03, 2020 2:52pm Start: 05-01-2018 End: 01-03-2020 Fluticasone Propionate (Flon ase Allergy Relief) 50 mcg/actuation spray,suspension Discontinued 1 SPRAY INTRANASAL DAILY May 01, 2018 12:00am January 03, 2020 2:52pm GLUCOSE BLOOD (1 source) Start: 10-14-2016 End: 01-11-2025 DialedIN ULTRA BLUE STRP Check BG 6 times daily GLUCOSE BLOOD [id number] Wendy Amezcua NP insulin glargine 100 unt/ml injectable solution (20 sources) Insulin Analog Start: 11-13-2015 End: 05-20-2020 Insulin Glargine (Lantus U-100 Insulin) 100 unit/mL solution Discontinued 0 SC daily January 09, 2018 1:07pm May 20, 2020 4:08pm use as directed incase of pump failure SC QDAY Comment on above: Inject 44 Units subc utaneously daily at bedtime. if pump fails (total of basal rates) linseed oil 1000 mg oral capsule (20 sources) Start: 03-20-2018 End: 07-30-2024 take 1 capsule by mouth once daily Flaxseed Oil 1,000 mg capsule Discontinued 1000 mg PO daily March 20, 2018 12:00am July 30, 2024 11:33am Comment on above: Take by mouth. prednisoLONE acetate 10 mg/ml ophthalmic suspension (1 source) Corticosteroid Start: 11-19-2024 End: 02-11-2025 Prednisolone Acetate 1 % drops,suspension Discontinued 1 NMA OPHTHALMIC 4 TIMES DAILY November 19, 2024 12:00am February 11, 2025 2:12pm simvastatin 10 mg oral tablet (20 sources) HMG-CoA Reductase Inhibitor Start: 05-05-2020 End: 05-05-2020 take 1 tablet by mouth once daily Simvastatin 10 mg tablet Discontinued 10 mg PO DAILY May 05, 2020 12:00am May 05, 2020 1:54pm Start: 10-14-2016 End: 01-11-2025 take 1 tablet by mouth once daily Simvastatin 20 mg tablet Discontinued 20 mg PO DAILY May 05, 2020 12:00am August 28, 2020 3:51pm Problems Active Problems Problem Classification Problem Date Documented Da te Episodic/Chronic Anxiety disorders (5 sources) Anxiety; Translations: [Mixed anxiety and depressive disorder] Onset: 10-22-2016 10-22-2016 Chronic Cataract (6 sources) Cataract; Translations: [Unspecified cataract] Onset: 11-05-2024 03-08-2023 Chronic Comment on above: OUexam 02/15/23 Diabetes mellitus with complications (20 sources) 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; Translations: [Hyperglycemia due to type 1 diabetes mellitus] Onset: 05-28-2005 Resolved: 02-20-2016 03-13-2020 Chronic Comment on above: PDR with macular barbie ma OUexam 02/15/23 Diabetes mellitus without complication (20 sources) Type 1 diabetes mellitus; Translations: [Diabetes mellitus] Onset: 05-13-2016 10-14-2016 Chronic Diabetes mellitus without complication (20 sources) Insulin pump present; Translations: [Presence of insulin pump (external) (internal)] Onset: 11-13-2015 Episodic Disorders of lipid metabolism (20 sources) Hyperlipidemia; Translations: [Type 2 diabetes mellitus with other specified complication] Onset: 11-13-2015 10-22-2016 Chronic Malaise and fatigue (2 sources) Fatigue 06-02-2023 Episodic Mood disorders (2 sources) Recurrent major depressive episodes, mild 06-02-2023 Chronic Nutritional deficiencies (20 sources) Vitamin D deficiency; Translations: [Vitamin D deficiency, unspecified] Onset: 02-02-2010 Chronic Other eye disorders (2 sources) Hemorrhage of right vitreous body; Translations: [Vitreous hemorrhage, right eye] 04-15-2023 Chronic Other eye disorders (1 source) Vitreous hemorrhage; Translations: [Vitreous hemorrhage, unspecified eye] 07-05-2023 Chronic Other non-traumatic joint disorders (3 sources) Shoulder pain 06-03-2022 Episodic Other non-traumatic joint disorders (1 source) Decreased range of hip movement 10-04-2024 Episodic Other nutritional; endocrine; and metabolic disorders (2 sources) Overweight; Translations: [Body mass index 30+ - obesity] Onset: 10-14-2016 12-23-2016 Chronic Other nutritional; endocrine; and metabolic disorders (7 sources) Obesity; Translations: [Obesity, unspecified] 10-09-2021 Chronic Other nutritional; endocrine; and metabolic disorders (4 sources) Obesity, unspecified; Translations: [Obesity, unspecified] Chronic Other nutritional; endocrine; and metabolic disorders (20 sources) Body mass index 30+ - obesity; Translations: [Obesity, unspecified] Onset: 04-13-2018 07-19-2022 Chronic Other nutritional; endocrine; and metabolic disorders (2 sources) Morbid obesity 06-02-2023 Chronic Other nutritional; endocrine; and metabolic disorders (6 sources) Overweight; Translations: [Overweight] 03-04-2018 Episodic 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 Other screening for suspected conditions (not mental disorders or infectious disease) (10 sources) Patient encounter status; Translations: [Encounter for screening mammogram for malignant neoplasm of breast] Onset: 11-05-2024 Episodic Residual codes; unclassified (3 sources) Needs influenza immunization 06-03-2021 Episodic Residual codes; unclassified (3 sources) Requires diphtheria, tetanus and pertussis vaccination 06-03-2022 Episodic Residual codes; unclassified (2 sources) Screening due 06-02-2023 Episodic Retinal detachments; defects; vascular occlusion; and retinopathy (2 sources) Unspecified background retinopathy; Translations: [Retinal disorder] Onset: 10-22-2016 10-22-2016 Chronic Thyroid disorders (9 sources) Acquired hypothyroidism; Translations: [Hypothyroidism, unspecified] Onset: 07-30-2024 Chronic Unclassified (1 source) Body mass index (BMI) 34.0-34.9, adult; Translations: [Body mass index (BMI) 34.0-34.9, adult] Onset: 12-23-2016 12-23-2016 Chronic Unclassified (1 source) Insertion of insulin pump; Translations: [Presence of insulin pump (external) (internal)] Onset: 10-14-2016 10-14-2016 Unclassified (20 sources) Type 1 diabetes mellitus; Translations: [Uncontrolled type 1 diabetes mellitus without complication, with long-term current use of insulin] Onset: 02-20-2016 02-20-2016 Unclassified (3 sources) Cancer cervix screening status 06-03-2021 Unclassified (3 sources) Never used tobacco 06-03-2022 Unclassified (20 sources) Patient encounter status 06-03-2021 Past or Other Problems Problem Classification Problem Date Documented Da te Episodic/Chronic Genitourinary symptoms and ill-defined conditions (7 sources) Increased frequency of urination; Translations: [Frequency of micturition] Onset: 07-30-2024 09-24-2023 Episodic Other connective tissue disease (20 sources) Adhesive capsulitis of right shoulder; Translations: [Adhesive capsulitis of right shoulder] Onset: 07-07-2022 Episodic Other non-traumatic joint disorders (20 sources) Chronic pain of right upper limb; Translations: [Pain in right shoulder] Onset: 04-15-2021 Episodic Unclassified (5 sources) nasal implant 03-22-2022 Results Test Name Value Interpretation Reference Range Facility Endocrinology Visit Reporton 02-11-2025 Endocrinology Visit Report [facility] [address] [place] [address] OFFICE VISIT Date of Service: 02/11/25 MR#: [id number] Acct: [id number] Name: MARCIE VELAZCO Rep #: [id number] : 1975 Provider: MARLENE patricia Age/Sex: 49/F [place] [facility] [place]: Signed Intake Vital Signs 11/19/24 14:34 02/11/25 14:06 Height 5 ft 1 in 5 ft 1 in Weight: 211 lb 4 oz 213 lb BMI 39.9 40.2 BP 128/73 H 139/74 H Blood Pressure Location Lt brachial Lt brachial Position Sitting Sitting Pulse 72 75 Pulse Source Monitor Monitor Pulse Oximetry (%) 97 96 Oxygen Delivery Method room air room air Intake Visit Reasons: 3 M FU Chief Complaint: f/u diabetes Is patient in pain?: No Allergies adhesive tape Allergy (Severe, Verified 02/11/25 14:11) Unknown Medications ???Medication ???Instructions ???Recorded ???Confirmed ???Type aspirin 81 mg tablet,delayed 81 mg PO QDAY 08/30/17 02/11/25 Hi story release (Adult Aspirin Regimen) citalopram 20 mg tablet (Celexa) 20 mg PO QDAY 08/30/17 02/11/25 Hi story blood sugar diagnostic (Accu-Chek #150 ea 09/29/22 02/11/25 Rx Guide test strips) cholecalciferol (vitamin D3) 50 50 mcg PO DAILY 01/13/23 02/11/25 History mcg (2,000 unit) capsule mecobalamin (vitamin B12) 1,000 1,000 mcg PO DAILY 07/28/23 History mcg chewable tablet insulin syringe-needle U-100 0.5 #100 ea 04/20/24 02/11/25 Rx mL 31 gauge x 5/16 (BD Insulin Syringe Ultra-Fine) calcium carbonate (Calcium 600) 600 mg PO QDAY 05/03/24 02/11/25 H istory atorvastatin 10 mg tablet 10 mg PO DAILY #90 tabs 10/17/24 0 02/11/25 Rx enalapril maleate 20 mg tablet 20 mg PO QDAY #90 tabs 10/17/24 Rx dorzolamide 22.3 mg-timolol 6.8 1 drp ophthalmic (eye) BID 5 02/11/25 History mg/mL eye drops ondansetron HCl 4 mg tablet 4 mg PO Q8H PRN nausea and 5 02/11/25 Rx vomiting #4 tabs insulin lispro 100 unit/mL See Rx Instructions subcut QDAY 02/11/25 Rx subcutaneous solution (Humalog e10.9 #117 mL U-100 Insulin) brimonidine 0.2 % eye drops drp ophthalmic (eye) Eye Pressure 02/11/25 02/11/25 History bromfenac 0.075 % eye drops 1 drp ophthalmic (eye) QDAY 02/11/25 History (BromSite) ofloxacin 0.3 % eye drops 1 drp ophthalmic (eye) 4X/DAY 01/2102/11/25 History PFSH Medical History (Updated 11/19/24 @ 16:06 by MARLENE Rosas) PDR (proliferative diabetic retinopathy) nasal implant Retinopathy High triglycerides High cholesterol Diabetes type 1, controlled Anxiety Surgical History H/O vitrectomy Family History Father Diabetes Heart disease High cholesterol Mother Heart disease Social History Smoking Status: Never smoker second hand exposure: No alcohol intake: current substance use type: does not use HPI HPI Chief Complaint: f/u diabetes Details: MARCIE VELAZCO, is a 49 F who presents to the office today for evaluation and management of diabetes. A1C today is 7.0%, improved from 11/19/24 at 7.3%. She has gained 2 lbs since that time. Currently using [employer] 780g with [employer] CGM. Insulin pump downloaded and reviewed- she continues to under reporting carbohydrates; however, she has been more diligent than typical. She reports recurring lows during sleeping hours. She is going to bed elevated, she is not correcting for elevated blood sugars, only bolusing for food. Denies any significant episode of hypoglycemia that has required assistance from others. BP controlled. Currently taking enalapril 20 mg once daily. She takes a daily statin. She takes a daily vitamin D supplement. She has upcoming labs scheduled with her PCP. She continues to have issues surrounding retinal detachment of left eye. Denies any acute concerns. ROS Const Constitutional: No fatigue or weight change Eyes Eyes: Positive for change in vision, irritation and vision loss ENT ENT: No dizziness/vertigo Cardio Cardiology: No chest pain at rest, chest pain with exertion, shortness of breath or palpitations Skin Skin: No wounds Endo Endocrine: No fatigue or weight change Exam Const General: cooperative, healthy appearing, comfortable and no acute distress Nutritional Appearance: obese Orientation: alert, awake and oriented x3 HENMT Head: normal to inspection Neck Neck: normal visual inspection Chest Chest palpation inspection: normal inspection of the chest Resp Effort Inspection: normal respiratory effort, able to speak in complete sentences, symmetric chest movement, normal re (more content not included)... Normal [facility] Endocrinology Visit Reporton 11-19-2024 Endocrinology Visit Report [facility] [address] [place] [address] OFFICE VISIT Date of Service: 11/19/24 MR#: [id number] Acct: [id number] Name: MARCIE VELAZCO Rep #: [id number] : 1975 Provider: MARLENE patricia Age/Sex: 49/F [place] [facility] [place]: Signed Intake Vital Signs 07/30/24 10:29 11/19/24 14:34 Height 5 ft 1 in 5 ft 1 in Weight: 209 lb 211 lb 4 oz BMI 39.4 39.9 BP 124/76 H 128/73 H Blood Pressure Location Lt brachial Lt brachial Position Sitting Sitting Pulse 80 72 Pulse Source Monitor Monitor Pulse Oximetry (%) 95 97 Oxygen Delivery Method room air room air Intake Visit Reasons: 3 M FU Chief Complaint: f/u diabetes Is patient in pain?: No Allergies adhesive tape Allergy (Severe, Verified 11/19/24 14:38) Unknown Medications ???Medication ???Instructions ???Recorded ???Confirmed ???Type aspirin 81 mg tablet,delayed 81 mg PO QDAY 08/30/17 11/19/24 Hi story release (Adult Aspirin Regimen) citalopram 20 mg tablet (Celexa) 20 mg PO QDAY 08/30/17 11/19/24 Hi story blood sugar diagnostic (Accu-Chek #150 ea 09/29/22 07/30/24 Rx Guide test strips) cholecalciferol (vitamin D3) 50 50 mcg PO DAILY 01/13/23 11/19/24 History mcg (2,000 unit) capsule mecobalamin (vitamin B12) 1,000 1,000 mcg PO DAILY 07/28/23 History mcg chewable tablet insulin lispro 100 unit/mL See Rx Instructions subcut QDAY 11/19/24 Rx subcutaneous solution (Humalog e10.9 #117 mL U-100 Insulin) insulin syringe-needle U-100 0.5 #100 ea 04/20/24 07/30/24 Rx mL 31 gauge x 5/16 (BD Insulin Syringe Ultra-Fine) calcium carbonate (Calcium 600) 600 mg PO QDAY 05/03/24 11/19/24 H istory atorvastatin 10 mg tablet 10 mg PO DAILY #90 tabs 10/17/24 0 11/19/24 Rx enalapril maleate 20 mg tablet 20 mg PO QDAY #90 tabs 10/17/24 Rx dorzolamide 22.3 mg-timolol 6.8 1 drp ophthalmic (eye) BID 5 11/19/24 History mg/mL eye drops ondansetron HCl 4 mg tablet 4 mg PO Q8H PRN nausea and 5 11/19/24 Rx vomiting #4 tabs prednisolone acetate 1 % eye 1 drp ophthalmic (eye) 4X/DAY 10/2211/19/24 History drops,suspension PFSH Medical History (Updated 11/19/24 @ 16:06 by MARLENE Rosas) PDR (proliferative diabetic retinopathy) nasal implant Retinopathy High triglycerides High cholesterol Diabetes type 1, controlled Anxiety Surgical History H/O vitrectomy Family History Father Diabetes Heart disease High cholesterol Mother Heart disease Social History Smoking Status: Never smoker second hand exposure: No alcohol intake: current substance use type: does not use HPI HPI Chief Complaint: f/u diabetes Details: MARCIE VELAZCO, is a 49 F who presents to the office today for evaluation and management of diabetes. A1C today is 7.3, improved from 07/30/24 at 7.7%. She has gained 2 lbs since that time. Currently using Medtronic 780g insulin pump. Insulin pump downloaded and reviewed- she is having post meal elevations. She is occasionally missing boluses, she boluses after she eats. She is trying to be more mindful about counting carbs accurately. BP is controlled. Currently taking enalapril 20 mg once daily. She is taking a daily statin. Recently had a retinal detachment to the right eye. Denies any acute concerns. ROS Const Constitutional: No fatigue or weight change Eyes Eyes: Positive for change in vision ENT ENT: No dizziness/vertigo Cardio Cardiology: No chest pain at rest, chest pain with exertion, shortness of breath or palpitations Skin Skin: No wounds Endo Endocrine: No fatigue or weight change Exam Const General: cooperative, healthy appearing, comfortable and no acute distress Nutritional Appearance: obese Orientation: alert, awake and oriented x3 HENMT Head: normal to inspection Ears: hearing grossly normal bilaterally Nose: external nose normal Face and sinus: normal facial exam Eyes General: appearance normal, both eyes and all related structures Alignment and Position: alignment normal Sclera: sclerae normal Neck Neck: normal visual inspection Chest Chest palpation inspection: normal inspection of the chest Resp Effort Inspection: normal respiratory effort, able to speak in complete sentences, symmetric chest movement, normal respiratory pattern, no audible wheezes and no cough Auscultation: Bilateral: Clear to Auscultation Cardio Rate: regular rate Rhythm: regular rhythm Heart Sounds: S1 normal and S2 normal GI Inspection: obesity Musc Cervical Sp (more content not included)... Normal [facility] Laboratory - Hematology and Cell countsOrdered By: Colleen Recinos on 11-19-2024 HbA1c (Bld) [Mass fraction] 7.3 % High 4.2-6.3 [facility] CNOVon 11-05-2024 CNOV Office Visit (OBGYWM) MARCIE VELAZCO ([id number]) 1975 F Date Time Provider Department 11/05/24 9:00 AM CRISTIN ELIAS OBGYWM During your visit today, we recorded the following information about you: Blood pressure Weight Height Last Period 124/76 93.6 kg 1.557 m 10/24/24 Cristin Elias APRN.VIDEO GAME REPAIR TECHNICIAN 11/05/2024 9:32 AM Signed Patient declined port warden. aMrcie is a 49 year old who presents for an annual gynecologic exam without complaints. Menses: cycles every 25-26 days and 3-5 days of flow. Contraception: vasectomy HPV vaccine: N/A Last Pap: 10/2023 normal HPV: 10/2023 negative History of abnormal pap: Yes 2015 ASCUS Last mammogram: 2024 today Sexually active: Yes OB History Gravida0 Para0 Term0 Preterm0 AB0 Living0 SAB0 IAB0 Ectopic0 Multiple0 Live Births0 FAMILY HISTORY Problem Relation Age of Onset Coronary Artery Disease Mother Diabetes Father Heart Father Fatal [place] Diabetes Other mat gr aunt SOCIAL HISTORY Social History Tobacco Use Smoking status: Never Passive exposure: Never Smokeless tobacco: Never Vaping Use Vaping status: Never Used Substance Use Topics Alcohol use: Yes Comment: occasionally Drug use: No REVIEW OF SYSTEMS Abdomen: No abdominal pain, nausea, vomiting, diarrhea, or constipation. No bloating, early satiety, indigestion, or increased flatulence. Bladder: No dysuria, gross hematuria, urinary frequency, urinary urgency, or incontinence. Breast: No breast lumps, nipple d/c, overlying skin changes, redness or skin retraction. Allergies and current medication updated:Yes SENSITIVE EXAM: The sensitive examination was discussed with the Patient or Patient's Authorized Wharf Labourer. As applicable, any other physician, advance practice provider, medical student, or other health professional student that will be observing or involved in the sensitive examination for educational or training purposes was discussed with the Patient or Authorized Wharf Labourer. The Patient or Authorized Wharf Labourer has agreed to proceed with the sensitive examination. (Sensitive examination includes inspection and/or palpation of the breasts, pelvis, prostate and anorectal regions). EXAM: BP 124/76 Ht 5' 1.299 (1.56m) Wt 206 lb 6.4 oz (93.6kg) LMP 10/24/2024 BMI 38.62 kg/(m2). GENERAL: pleasant, female in no apparent distress HEENT: Normocephalic, atraumatic, mucus membranes moist, and no lesions DERMATOLOGY: Normal, without lesions, non-icteric, and non-hirsute BREAST: soft, non-tender, symmetric, no dominant mass, normal nipple-areolar complex, no lymphadenopathy, and no nipple discharge CHEST: Normal inspiratory effort ABDOMEN: soft, non-tender, and no masses PELVIC: external genitalia normal, normal Bartholin's glands, urethra, Keener's glands, no vulvar lesions, no cervical lesions, physiologic discharge present, normal appearing perineal body and perianal region BIMANUAL: uterus normal size, shape and consistency, no adnexal masses, and non-tender RECTOVAGINAL: deferred. NEURO: alert and oriented x3,exam grossly non-focal EXTREMITIES: normal ASSESSMENT/PLAN: 1) Health maintenance: Pap/HPV up to date. Mammogram up to date . Nutrition, exercise and routine health maintenance exams reviewed. Calcium/Vitamin D supplementation information provided. Colon cancer screening: up to date with screening done 2021 2) Contraception: vasectomy. Contraceptive options reviewed and information provided. 3) STD screening: Declined STD check. 4) Follow up one year or sooner as needed Cristin Elias APRN.VIDEO GAME REPAIR TECHNICIAN Referring Provider: CRISTIN ELIAS [[id number]] Allergies As of Date: 11/05/2024 Noted Allergy Reaction ADHESIVE TAPE-SILICONES 11/03/2023 4 - Hives 9 - Itching Date Reviewed: 11/05/2024 Reviewed by: Cristin Elias APRN.VIDEO GAME REPAIR TECHNICIAN - Fully Assessed Reason for Visit: Well Woman [1463] Primary Visit Diagnosis:Encounter for gynecological examination (general) (routine) without abnormal findings [Z01.419] Other Visit Diagnosis:Encounter for screening mammogram for breast cancer [Z12.31] Order(s):[facility] Ana Paula ALANIZ [[id number]] Order #: [id number] FUTURE Prescriptions as of 11/05/2024 - NEOMYCIN 3.5 MG/G-POLYMYXIN B 10,000 UNIT/G-DEXAMETH 0.1 % EYE OINT Use 1 application in the right eye daily at bedtime. - dorzolamide-timolol (COSOPT) 22.3-6.8 mg/mL ophthalmic solution Use 1 Drop in the right eye two times a day. - vit B complex no.12/niacin,B3, (VITAMIN B COMPLEX NO.12-NIACIN ORAL) Take by mouth. - atorvastatin (LIPITOR) 10 mg tablet - docosahexanoic acid/epa (FISH OIL ORAL) Take by mouth. - Flaxseed Oil 1,000 mg cap Take by mouth. - enalapril (VASOTEC) 20 mg tablet Take 1 tablet by mouth once daily. - insulin glargine (LANTUS) 100 unit/mL injection Inject 44 Units subcutaneously daily at bedtime. if pu (more content not included)... Normal [facility] SCREENINGon 11-05-2024 [facility] * * *Final Report* * * DATE OF EXAM: Nov 05 2024 9:49AM ATIF 0581 - [facility] / PROCEDURE REASON: Encounter for screening mammogram for breast cancer * * * * Physician Interpretation * * * * RESULT: [place] [address] [place] [id number] #[id number] - [facility] HISTORY: 49 year-old patient seen for screening. Patient is asymptomatic in both breasts. Patient states no personal history of breast cancer. COMPARISON STUDIES: The present examination has been compared to prior imaging studies dated 07/24/2018 (mammogram), 08/02/2019 (mammogram), 08/04/2020 (mammogram), 08/13/2021 (mammogram) and 09/13/2022 (mammogram). MAMMOGRAM TECHNIQUE: The study was acquired using full field digital technology and interpreted from soft copy. MAMMOGRAM FINDINGS: There are scattered areas of fibroglandular density. No suspicious masses, calcifications or other abnormalities are seen in either breast. There are no significant interval changes. IMPRESSION: There is no mammographic evidence of malignancy in either breast. Routine screening mammogram is recommended. Annual mammogram will be due in 1 year. BI-RADS Category 1: Negative RISK: Based on the Tyrer-Cuzick (TC) risk assessment model, this patient has a 8.6% lifetime risk of developing breast cancer, meaning they are at average risk for developing breast cancer. However, this is only an estimate based on available history provided on the patient's questionnaire. We encourage all patients to talk with their providers about these results, further recommendations for managing breast health, and appropriate supplemental screening options if the patient has dense breast tissue. Interpreting Radiologist: Annalisa Hussein M.D. Electronically signed on: 11/06/2024 Hybrid Powertrain Development Engineer: SRUTHI Transcribe Date/Time: Nov 05 2024 9:39A Dictated by: ANNALISA HUSSEIN MD This examination was interpreted and the report reviewed and electronically signed by: ANNALISA HUSSEIN MD on Nov 06 2024 3:06PM EST [id number] Normal [facility] XR HIP BILATERAL W/PELVIS WA NIMUM 5 VIEWSon 10-05-2024 XR HIP BILATERAL W/PELVIS MINIMUM 5 VIEWS ORIGINAL EXAMINATION: XR pelvis two views and both hips two views each, 6 views 10/04/2024 10:49 am COMPARISON: None HISTORY: ORDERING SYSTEM PROVIDED HISTORY: Reason for Exam: pain, trauma, pain, patient gives history of recent fall, pain in both hips FINDINGS: There is no visualized acute fracture or dislocation. No radio-opaque foreign body or soft tissue gas is seen. Symmetric normal SI joints. No degenerative changes in either hip. IMPRESSION: No acute fracture seen. Interpreted by: Johnny Quintero MD Preliminary Report By: Johnny Quintero MD Electronically signed By Johnny Quintero MD Dictated Date: 10/05/2024 4:46:27 PM Prelim Date: 10/05/2024 4:47:31 PM Sign Date: 10/05/2024 4:47:31 PM Ordering Provider: JAN MUÑOZ Normal [facility] Bacteria Ur Culton Bacteria identified Cx Nom (U) ORGANISM ID: 1 10,000 -<50,000 CFU/ml Mixed microbiota No further workup. Mixed microbiota can be due to???urine???contami nation with skin bacteria at time of collection or presence of a long-term urinary catheter. If a new culture is needed, please consider re-education of the patient on proper midstream collection technique or straight catheterization for???urine???collec tion. Normal [facility] Comment on above: Performed By: #### 6 30-4 #### [facility] CLIA [id number] [address] [place] [address] [place] CNOVon 09-19-2024 CNOV Office Visit (UCWSTR) MARCIE VELAZCO ([id number]) 1975 F Date Time Provider Department 09/19/24 11:45 AM [facility] During your visit today, we recorded the following information about you: Temperature Pulse Respiration Blood pressure 97.2 degrees 86/minute 16/minute 142/82 Weight 97.6 kg Camila Carranza APRN.VIDEO GAME REPAIR TECHNICIAN 09/19/2024 12:25 PM Signed CC: Patient presents with: Urinary Frequency: burning with urination x 5 days HPI Marcie Velazco is a 49 year old female who presents with complaint of possible UTI. These symptoms have been present for 5 days. Associated symptoms: burning and urgency Denies: fever, chills, sweats, abdominal pain, and flank pain Treatments: nothing The ROS was otherwise negative. PMH, Medications, labs, allergies, and recent past visits with PCP were reviewed and updated as able. PHYSICAL EXAM: BP 142/82 Pulse 86 Temp 36.2 ?C (97.2 ?F) Resp 16 Wt 97.6 kg (215 lb 2.7 oz) LMP 10/19/2023 SpO2 98% BMI 40.66 kg/m? General: Well appearing and alert CV: Regular rate and rhythm without obvious murmur Lungs: clear to auscultation bilaterally Back: straight and symmetric Abdomen: soft, nontender, nondistended PAST MEDICAL HISTORY Diagnosis Date Anxiety Diabetes mellitus Frozen shoulder right shoulder PAST SURGICAL HISTORY Procedure Laterality Date INSULIN PUMP IMPLANTATION HX 2006 PAST SURGICAL HISTORY OF 01/05/07 removal of insulin pump PAST SURGICAL HISTORY OF 03/27/2012 eye surgery PAST SURGICAL HISTORY OF 07/2018 nasal implant ALLERGIES Adhesive Tape-Silicones MEDICATIONS vit B complex no.12/niacin,B3, (VITAMIN B COMPLEX NO.12-NIACIN ORAL) Take by mouth. atorvastatin (LIPITOR) 10 mg tablet docosahexanoic acid/epa (FISH OIL ORAL) Take by mouth. Flaxseed Oil 1,000 mg cap Take by mouth. enalapril (VASOTEC) 20 mg tablet Take 1 tablet by mouth once daily. insulin glargine (LANTUS) 100 unit/mL injection Inject 44 Units subcutaneously daily at bedtime. if pump fails (total of basal rates) insulin lispro (HUMALOG) 100 unit/mL injection Uses with insulin pump, up to 100 units daily blood sugar diagnostic (AccountNowTOUCH ULTRA TEST) test strip Testing up to six times daily ASPIRIN ORAL Take 81 mg by mouth once daily. Insulin Syringe-Needle U-100 (BD INSULIN SYRINGE UF II) 1/2 mL 31 x 5/16 Syrg use as directed if pump fails citalopram (CELEXA) 20 mg tablet Take 20 mg by mouth once daily. COMPOUNDED PRESCRIPTION Transmitter adhesive patch. Apply with trasmitter INSULIN SYRINGE-NEEDLE U-100 0.5 ML 31 X 3/8 use as directed with each meal nitrofurantoin monohydrate and macrocrystal (MACROBID) 100 mg capsule Take 1 capsule by mouth two times a day for 5 days. FAMILY HISTORY Problem Relation Age of Onset Coronary Artery Disease Mother Diabetes Father Heart Father Fatal [place] Diabetes Other mat gr aunt Social History Tobacco Use Smoking status: Never Passive exposure: Never Smokeless tobacco: Never Vaping Use Vaping status: Never Used Substance Use Topics Alcohol use: Yes Comment: occasionally Drug use: No ASSESSMENT/PLAN: 1. Urinary frequency - ICD9: 788.41, ICD10: R35.0 - UA DIP, URINE (POC) - BACTERIAL CULTURE, URINE - NITROFURANTOIN MONOHYDRATE AND MACROCRYSTAL 100 MG ORAL CAP Prescription instructions reviewed with patient as applicable. Potential red flag symptoms discussed with the patient. Reviewed appropriate action plan to take if red flag symptoms occur. Patient agreeable to treatment plan. Camila Carranza APRN.VIDEO GAME REPAIR TECHNICIAN Allergies As of Date: 09/19/2024 Noted Allergy Reaction ADHESIVE TAPE-SILICONES 11/03/2023 4 - Hives 9 - Itching Date Reviewed: 09/19/2024 Reviewed by: Radha Mckinney MA - Fully Assessed Reason for Visit: Urinary Frequency [1086] Cmt: burning with urination x 5 days Primary Visit Diagnosis:Urinary frequency [R35.0] Order(s):UA DIP, URINE (POC) [[id number]] Order #: [id number]. #:[id number] BACTERIAL CULTURE, URINE [SQURCUL] Order #: [id number]. #:[id number] nitrofurantoin monohydrate and macrocrystal (MACROBID) 100 mg capsuleTake 1 capsule by mouth two times a day for 5 days.Disp: 10 capsuleRfl: 0 Prescriptions as of 09/19/2024 - nitrofurantoin monohydrate and macrocrystal (MACROBID) 100 mg capsule Take 1 capsule by mouth two times a day for 5 days. - vit B complex no.12/niacin,B3, (VITAMIN B COMPLEX NO.12-NIACIN ORAL) Take by mouth. - atorvastatin (LIPITOR) 10 mg tablet - docosahexanoic acid/epa (FISH OIL ORAL) Take by mouth. - Flaxseed Oil 1,000 mg cap Take by mouth. - enalapril (VASOTEC) 20 mg tablet Take 1 tablet by mouth once daily. - insulin glargine (LANTUS) 100 unit/mL injection Inject 44 Units subcutaneously daily at bedtime. if pump fails (total of basal rates) - insulin lispro (HUMALOG) 100 unit/mL inje (more content not included)... Normal [facility] UA DIP, URINE (POC)on 2024 BILIRUBIN UA (POCT) Negative Negative [facility] CLARITY UA (POCT) [facility] COLOR UA (POCT) Light yellow [facility] GLUCOSE UA (POCT) Negative Negative mg/dL [facility] Hemoglobin Ql (U) Large Abnormal Negative [facility] Interpretation and review of laboratory results Abnormal [facility] KETONE UA (POCT) Negative Negative mg/dL [facility] LEUKOCYTES UA (POCT) Moderate Abnormal Negative [facility] NITRITE UA (POCT) Negative Negative [facility] PH UA (POCT) 6.5 4.5 - 8.0 [facility] Protein Ql (U) 100 mg/dL Abnormal Negative [facility] SPECIFIC GRAVITY UA (POCT) 1.015 1.005 - 1.030 [facility] UROBILINOGEN UA (POCT) 0.2 Normal E.U./dL [facility] Location:[facility], [address], [place], [place], [id number] [place] [address] POINT OF CARE [facility] Endocrinology Visit Reporton 07-30-2024 Endocrinology Visit Report [facility] [address] [place], [place] [id number] OFFICE VISIT Date of Service: 07/30/24 MR#: [id number] Acct: [id number] Name: MARCIE VELAZCO Rep #: [id number] : 1975 Provider: MARLENE patricia Age/Sex: 49/F [place] [facility] [place]: Signed Intake Vital Signs 05/03/24 10:26 07/30/24 10:29 Height 5 ft 1 in 5 ft 1 in Weight: 209 lb 209 lb BMI 39.4 39.4 BP 127/65 H 124/76 H Blood Pressure Location Lt brachial Lt brachial Position Sitting Sitting Pulse 70 80 Pulse Source Monitor Monitor Pulse Oximetry (%) 96 95 Oxygen Delivery Method room air room air Intake Visit Reasons: 3 M FU Chief Complaint: f/u diabetes Is patient in pain?: No Allergies adhesive tape Allergy (Severe, Verified 05/03/24 10:31) Unknown Medications ???Medication ???Instructions ???Recorded ???Confirmed ???Type aspirin 81 mg tablet,delayed 81 mg PO QDAY 08/30/17 07/30/24 History release (Adult Aspirin Regimen) citalopram 20 mg tablet (Celexa) 20 mg PO QDAY 08/30/17 07/30/24 History blood sugar diagnostic (Accu-Chek #150 ea 09/29/22 07/30/24 Rx Guide test strips) cholecalciferol (vitamin D3) 50 50 mcg PO DAILY 01/13/23 07/30/24 History mcg (2,000 unit) capsule mecobalamin (vitamin B12) 1,000 1,000 mcg PO DAILY 07/28/23 07/30/24 History mcg chewable tablet atorvastatin 10 mg tablet 10 mg PO DAILY #90 tabs 09/22/23 07/30/24 Rx enalapril maleate 20 mg tablet 20 mg PO QDAY #90 tabs 09/22/23 07/30/24 Rx ondansetron HCl 4 mg tablet 4 mg PO Q8H PRN nausea and 09/22/23 07/30/24 Rx vomiting #4 tabs insulin lispro 100 unit/mL See Rx Instructions subcut QDAY 11/23/23 07/30/24 Rx subcutaneous solution (Humalog e10.9 #117 mL U-100 Insulin) insulin syringe-needle U-100 0.5 #100 ea 04/20/24 07/30/24 Rx mL 31 gauge x 5/16 (BD Insulin Syringe Ultra-Fine) calcium carbonate (Calcium 600) 600 mg PO QDAY 05/03/24 07/30/24 History PFSH Medical History PDR (proliferative diabetic retinopathy) Diabetes nasal implant Retinopathy High triglycerides High cholesterol Diabetes type 1, controlled Anxiety Surgical History H/O vitrectomy Family History Father Diabetes Heart disease High cholesterol Mother Heart disease Social History Smoking Status: Never smoker second hand exposure: No alcohol intake: current substance use type: does not use HPI HPI Chief Complaint: f/u diabetes Details: MARCIE VELAZCO, is a 49 F who presents to the office today for evaluation and management of diabetes. A1C today is 7.7%, increased from 05/03/24 at 7.4%. Weight is stable. Currently using [employer] 780g with [employer] CGM. Insulin pump downloaded and reviewed- she is having post meal elevations, she is under reporting carbohydrates. Occasionally she is missing boluses. Denies significant episodes of hypoglycemia that have required assistance from others. She admits that she is off track with her diet. She has started receiving eye injections q 8 weeks to right eye. She has microalbuminuria. SGLT-2 was ordered at her last appointment; however, there has been difficulty getting it approved by insurance. She is on ACEI. BP controlled. Currently taking enalapril 20 mg once daily. Labs are up to date. Denies any acute concerns. ROS Const Constitutional: No fatigue or weight change ENT ENT: No dizziness/vertigo Cardio Cardiology: No chest pain at rest, chest pain with exertion, shortness of breath or palpitations Skin Skin: No wounds Endo Endocrine: No fatigue or weight change Results POC A1C POC A1C 7.7 % Last Edit by Hitesh Toledo RN on 07/30/24 10:38 Assessment and Plan Assessment and Plan (1) Type 1 diabetes mellitus with hyperglycemia: Status: Chronic Plan: Chronic- not well controlled. I reviewed with the patient the risk of developing and worsening of diabetes complications including retinopathy, neuropathy, nephropathy, heart attack, stroke, amputation, and sudden . Diabetes education provided. A1C NOT at goal: <7.5%. CGM tracings reviewed in detail with patient. CGM: she is checking blood sugar 4x/day, she is on a continuous infusion insulin pump, she is using blood sugar reading to titrate insulin dose, he is at risk of hypoglycemia. Reviewed most recent labs. The patient was counseled regarding the importance of foot care including daily visual and tactile inspection. The patient was instructed not to go barefoot and to always wear socks with their shoes. Follow up in 3 months. (2 (more content not included)... Normal [facility] Endocrinology Visit Reporton 05-03-2024 Endocrinology Visit Report [facility] [address] [place] [address] OFFICE VISIT Date of Service: 05/03/24 MR#: [id number] Acct: [id number] Name: MARCIE VELAZCO Rep #: [id number] : 1975 Provider: MARLENE patricia Age/Sex: 48/F [place] [facility] [place]: Signed Intake Vital Signs 01/12/24 09:59 05/03/24 10:26 Height 5 ft 1 in 5 ft 1 in Weight: 202 lb 2 oz 209 lb BMI 38.2 39.4 BP 114/68 127/65 H Blood Pressure Location Rt brachial Lt brachial Position Sitting Pulse 71 70 Pulse Source Monitor Temp 96.5 F L Temp Source Temporal Pulse Oximetry (%) 95 96 Oxygen Delivery Method room air Intake Visit Reasons: 3 M ARISTIDES, RS 04/19 Chief Complaint: f/u diabetes 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 Required: No Accompanied by: Self Is patient in pain?: No Allergies adhesive tape Allergy (Severe, Verified 05/03/24 10:31) Unknown Medications ???Medication ???Instructions ???Recorded ???Confirmed ???Type aspirin 81 mg tablet,delayed 81 mg PO QDAY 08/30/17 05/03/24 History release (Adult Aspirin Regimen) citalopram 20 mg tablet (Celexa) 20 mg PO QDAY 08/30/17 05/03/24 History flaxseed oil 1,000 mg capsule 1,000 mg PO QDAY 03/20/18 05/03/24 History omega-3 fatty acids 1,000 mg 1,000 mg PO DAILY 01/03/20 05/03/24 History capsule (Fish Oil Concentrate) blood sugar diagnostic (Accu-Chek #150 ea 09/29/22 05/03/24 Rx Guide test strips) cholecalciferol (vitamin D3) 50 50 mcg PO DAILY 01/13/23 05/03/24 History mcg (2,000 unit) capsule mecobalamin (vitamin B12) 1,000 1,000 mcg PO DAILY 07/28/23 05/03/24 History mcg chewable tablet atorvastatin 10 mg tablet 10 mg PO DAILY #90 tabs 09/22/23 05/03/24 Rx enalapril maleate 20 mg tablet 20 mg PO QDAY #90 tabs 09/22/23 05/03/24 Rx ondansetron HCl 4 mg tablet 4 mg PO Q8H PRN nausea and 09/22/23 05/03/24 Rx vomiting #4 tabs insulin lispro 100 unit/mL See Rx Instructions subcut QDAY 11/23/23 05/03/24 Rx subcutaneous solution (Humalog e10.9 #117 mL U-100 Insulin) insulin syringe-needle U-100 0.5 #100 ea 04/20/24 05/03/24 Rx mL 31 gauge x 5/16 (BD Insulin Syringe Ultra-Fine) calcium carbonate (Calcium 600) 600 mg PO QDAY 05/03/24 05/03/24 History empagliflozin 25 mg tablet 25 mg PO QAM #30 tabs 05/03/24 05/03/24 Rx (Jardiance) PFSH Medical History PDR (proliferative diabetic retinopathy) Diabetes nasal implant Retinopathy High triglycerides High cholesterol Diabetes type 1, controlled Anxiety Surgical History H/O vitrectomy Family History Father Diabetes Heart disease High cholesterol Mother Heart disease Social History Smoking Status: Never smoker second hand exposure: No alcohol intake: current substance use type: does not use HPI HPI Chief Complaint: f/u diabetes Details: MARCIE MILES, is a 48 F who presents to the office today for evaluation and management of diabetes. A1C today is 7.4%, increased from 01/12/24 at 7.0%. She has gained 7 lbs. Currently using Medtronic 780g with Guardian 4 CGM- overall pleased with system. Insulin pump downloaded and reviewed- she continues to under report carbohydrates- she is aware of this. She is receiving a significant amount of auto correct for elevated blood sugars. Denies any significant episode of hypoglycemia that has required assistance from others. Hx of retinopathy and microalbuminuria. Labs are up to date. Denies any acute concerns. ROS Const Constitutional: Positive for fatigue and weight change Eyes Eyes: Positive for blurry vision Psych Psychiatric: Positive for other (brain fog) Endo Endocrine: Positive for fatigue, heat intolerance and weight change Exam Const General: cooperative, healthy appearing, comfortable and no acute distress Nutritional Appearance: obese Orientation: alert, awake and oriented x3 HENMT Head: normal to inspection Ears: hearing grossly normal bilaterally Nose: external nose normal Face and sinus: normal facial exam Eyes General: appearance normal, both eyes and all related structures Alignment and Position: alignment normal Sclera: sclerae normal Neck Neck: normal visual inspection Carotids: normal carotid upstroke Chest Chest palpation inspection: normal inspection of the chest Resp Effort Inspection: normal respiratory effort, able to speak in complete sentences, symmetric chest movement, normal respiratory pattern, no audible wheezes and no cough Auscultation: Bilateral: Clear to Auscultation Cardio Rate: regular rate Rhythm: regular rhythm He (more content not included)... Normal [facility] Vitamin D,25 Hydroxyon 04-02 Vitamin D 25-OH 46.6 ng/mL Normal [facility] Comment on above: Order Comment: JIMMY AYALA ORDERED LIPID,TSH,CMP,VITD, MICROALBUMIN URINE DR WONG ORDERED CMP, TSH, LIPID, VITD, CBC Result Comment: Kisha min D 25(OH) Status Range Deficiency <20 ng/mL (50nmol/L) Insufficiency 20 - 30 ng/mL (50 - 75 nmol/L) Sufficiency 30 - 100 ng/mL (75 - 250 nmol/L) Toxicity >100 ng/mL (>250 nmol/L) Performed By: #### L 501.1289, L500.4050, L100.0500, L506.1000, L500.4100, L502.0250 #### [facility] [address] [place], [address] CBC-Complete Blood Cnt No Di ffon 03-31-2024 Erythrocyte distribution width (RBC) [Ratio] 12.6 % Normal 11.6-14.6 [facility] Comment on above: Order Comment: JIMMY AYALA ORDERED LIPID,TSH,CMP,VITD, MICROALBUMIN URINE DR WONG ORDERED CMP, TSH, LIPID, VITD, CBC Performed By: #### L 501.9520, L500.4050, L100.0500, L506.1000, L500.4100, L502.0250 #### [facility] [address] [place], [address] Hematocrit (Bld) [Volume fraction] 40.6 % Normal 37-47 [facility] Comment on above: Order Comment: JIMMY AYALA ORDERED LIPID,TSH,CMP,VITD, MICROALBUMIN URINE DR WONG ORDERED CMP, TSH, LIPID, VITD, CBC Performed By: #### L 501.9520, L500.4050, L100.0500, L506.1000, L500.4100, L502.0250 #### [facility] [address] [place], [address] Hemoglobin (Bld) [Mass/Vol] 13.0 g/dL Normal 12.0-15.0 [facility] Comment on above: Order Comment: JIMMY AYALA ORDERED LIPID,TSH,CMP,VITD, MICROALBUMIN URINE DR WONG ORDERED CMP, TSH, LIPID, VITD, CBC Performed By: #### L 501.9520, L500.4050, L100.0500, L506.1000, L500.4100, L502.0250 #### [facility] [address] [place], [address] MCH (RBC) [Entitic mass] 28.4 pg Normal 27.0-32.0 [facility] Comment on above: Order Comment: JIMMY AYALA ORDERED LIPID,TSH,CMP,VITD, MICROALBUMIN URINE DR WONG ORDERED CMP, TSH, LIPID, VITD, CBC Performed By: #### L 501.9520, L500.4050, L100.0500, L506.1000, L500.4100, L502.0250 #### [facility] [address] [place], [address] MCHC (RBC) [Mass/Vol] 32.0 g/dL Normal 32-36 [facility] Comment on above: Order Comment: JIMMY AYALA ORDERED LIPID,TSH,CMP,VITD, MICROALBUMIN URINE DR WONG ORDERED CMP, TSH, LIPID, VITD, CBC Performed By: #### L 501.9520, L500.4050, L100.0500, L506.1000, L500.4100, L502.0250 #### [facility] [address] [place], [address] MCV (RBC) [Entitic vol] 88.8 fL Normal 81-99 [facility] Comment on above: Order Comment: JIMMY AYALA ORDERED LIPID,TSH,CMP,VITD, MICROALBUMIN URINE DR WONG ORDERED CMP, TSH, LIPID, VITD, CBC Performed By: #### L 501.9520, L500.4050, L100.0500, L506.1000, L500.4100, L502.0250 #### [facility] [address] [place], [address] Platelet mean volume (Bld) [Entitic vol] 9.6 fL Normal 6.2-12.0 [facility] Comment on above: Order Comment: JIMMY AYALA ORDERED LIPID,TSH,CMP,VITD, MICROALBUMIN URINE DR WONG ORDERED CMP, TSH, LIPID, VITD, CBC Performed By: #### L 501.9520, L500.4050, L100.0500, L506.1000, L500.4100, L502.0250 #### [facility] [address] [place], [address] Platelets (Bld) [#/Vol] 283 10*3/uL Normal 150-450 [facility] Comment on above: Order Comment: JIMMY AYALA ORDERED LIPID,TSH,CMP,VITD, MICROALBUMIN URINE DR WONG ORDERED CMP, TSH, LIPID, VITD, CBC Performed By: #### L 501.9520, L500.4050, L100.0500, L506.1000, L500.4100, L502.0250 #### [facility] [address] [place], [address] RBC (Bld) [#/Vol] 4.57 10*6/uL Normal 4.2-5.4 [facility] Comment on above: Order Comment: JIMMY AYALA ORDERED LIPID,TSH,CMP,VITD, MICROALBUMIN URINE DR WONG ORDERED CMP, TSH, LIPID, VITD, CBC Performed By: #### L 501.9520, L500.4050, L100.0500, L506.1000, L500.4100, L502.0250 #### [facility] [address] [place], [address] RDW SD 41.1 fl Normal 35.1-43.9 [facility] Comment on above: Order Comment: JIMMY AYALA ORDERED LIPID,TSH,CMP,VITD, MICROALBUMIN URINE DR WONG ORDERED CMP, TSH, LIPID, VITD, CBC Performed By: #### L 501.9520, L500.4050, L100.0500, L506.1000, L500.4100, L502.0250 #### [facility] [address] [place], [address] WBC (Bld) [#/Vol] 8.2 10*3/uL Normal 4.4-11.0 [facility] Comment on above: Order Comment: JIMMY AYALA ORDERED LIPID,TSH,CMP,VITD, MICROALBUMIN URINE DR WONG ORDERED CMP, TSH, LIPID, VITD, CBC Performed By: #### L 501.9520, L500.4050, L100.0500, L506.1000, L500.4100, L502.0250 #### [facility] [address] [place], [address] Comprehensive Metabolic Prof njon 03-31-2024 Albumin [Mass/Vol] 3.3 g/dL Normal 3.2-5.0 [facility] Comment on above: Order Comment: JIMMY AYALA ORDERED LIPID,TSH,CMP,VITD, MICROALBUMIN URINE DR WONG ORDERED CMP, TSH, LIPID, VITD, CBC Performed By: #### L 501.9520, L500.4050, L100.0500, L506.1000, L500.4100, L502.0250 #### [facility] [address] [place], [address] Albumin/Globulin [Mass ratio] 1.1 {ratio} Normal 0.9-2.4 [facility] Comment on above: Order Comment: JIMMY AYALA ORDERED LIPID,TSH,CMP,VITD, MICROALBUMIN URINE DR WONG ORDERED CMP, TSH, LIPID, VITD, CBC Performed By: #### L 501.9520, L500.4050, L100.0500, L506.1000, L500.4100, L502.0250 #### [facility] [address] [place], [address] ALK P 66 U/L Normal 45-117 [facility] Comment on above: Order Comment: JIMMY AYALA ORDERED LIPID,TSH,CMP,VITD, MICROALBUMIN URINE DR WONG ORDERED CMP, TSH, LIPID, VITD, CBC Performed By: #### L 501.9520, L500.4050, L100.0500, L506.1000, L500.4100, L502.0250 #### [facility] [address] [facility] [address] [place], [place], [id number] ALT [Catalytic activity/Vol] 23 U/L Normal 13-56 [facility] Comment on above: Order Comment: JIMMY AYALA ORDERED LIPID,TSH,CMP,VITD, MICROALBUMIN URINE DR WONG ORDERED CMP, TSH, LIPID, VITD, CBC Performed By: #### L 501.9520, L500.4050, L100.0500, L506.1000, L500.4100, L502.0250 #### [facility] [address] [place], [address] ( AST [Catalytic activity/Vol] 16 U/L Normal 15-37 [facility] Comment on above: Order Comment: JIMMY AYALA ORDERED LIPID,TSH,CMP,VITD, MICROALBUMIN URINE DR WONG ORDERED CMP, TSH, LIPID, VITD, CBC Performed By: #### L 501.9520, L500.4050, L100.0500, L506.1000, L500.4100, L502.0250 #### [facility] [address] [place], [address] Bilirubin [Mass/Vol] 0.60 mg/dL Normal 0.20-1.00 [facility] Comment on above: Order Comment: JIMMY AYALA ORDERED LIPID,TSH,CMP,VITD, MICROALBUMIN URINE DR WONG ORDERED CMP, TSH, LIPID, VITD, CBC Result Comment: For patients on eltrombopag therapy, use of Dimension [place] TBIL is not recommended. Performed By: #### L 501.9520, L500.4050, L100.0500, L506.1000, L500.4100, L502.0250 #### [facility] [address] [facility] [place], [address] BUN/CRE 18.6 RATIO Normal 10-20 [facility] Comment on above: Order Comment: JIMMY AYALA ORDERED LIPID,TSH,CMP,VITD, MICROALBUMIN URINE DR WONG ORDERED CMP, TSH, LIPID, VITD, CBC Performed By: #### L 501.9520, L500.4050, L100.0500, L506.1000, L500.4100, L502.0250 #### [facility] [address] [place], [address] CA,Total 8.1 mg/dL Low 8.5-10.1 [facility] Comment on above: Order Comment: JIMMY AYALA ORDERED LIPID,TSH,CMP,VITD, MICROALBUMIN URINE DR WONG ORDERED CMP, TSH, LIPID, VITD, CBC Performed By: #### L 501.9520, L500.4050, L100.0500, L506.1000, L500.4100, L502.0250 #### [facility] [address] [place], [address] Chloride [Moles/Vol] 108 mmol/L High 98-107 [facility] Comment on above: Order Comment: JIMMY AYALA ORDERED LIPID,TSH,CMP,VITD, MICROALBUMIN URINE DR WONG ORDERED CMP, TSH, LIPID, VITD, CBC Performed By: #### L 501.9520, L500.4050, L100.0500, L506.1000, L500.4100, L502.0250 #### [facility] [address] [place], [address] CO2 [Moles/Vol] 27.0 mmol/L Normal 21.0-32.0 [facility] Comment on above: Order Comment: JIMMY AYALA ORDERED LIPID,TSH,CMP,VITD, MICROALBUMIN URINE DR WONG ORDERED CMP, TSH, LIPID, VITD, CBC Performed By: #### L 501.9520, L500.4050, L100.0500, L506.1000, L500.4100, L502.0250 #### [facility] [address] [place], [address] Creatinine [Mass/Vol] 0.97 mg/dL Normal 0.55-1.02 [facility] Comment on above: Order Comment: JIMMY AYALA ORDERED LIPID,TSH,CMP,VITD, MICROALBUMIN URINE DR WONG ORDERED CMP, TSH, LIPID, VITD, CBC Result Comment: The validity of the calculated GFR GFRAA in patients over 70 years has not been determined. Clinical correlation is essential. Performed By: #### L 501.9520, L500.4050, L100.0500, L506.1000, L500.4100, L502.0250 #### [facility] [address] [place], [address] EST GFR - AA 79 mL/min Normal >60 [facility] Comment on above: Order Comment: JIMMY AYALA ORDERED LIPID,TSH,CMP,VITD, MICROALBUMIN URINE DR WONG ORDERED CMP, TSH, LIPID, VITD, CBC Result Comment: Afri can Iranian GFR Calc Performed By: #### L 501.9520, L500.4050, L100.0500, L506.1000, L500.4100, L502.0250 #### [facility] [address] [place], [address] GAP 3 Low 5-15 [facility] Comment on above: Order Comment: JIMMY AYALA ORDERED LIPID,TSH,CMP,VITD, MICROALBUMIN URINE DR WONG ORDERED CMP, TSH, LIPID, VITD, CBC Performed By: #### L 501.9520, L500.4050, L100.0500, L506.1000, L500.4100, L502.0250 #### [facility] [address] [place], [address] GFR/1.73 sq M.predicted among non-blacks MDRD (S/P/Bld) [Vol rate/Area] 65 mL/min/{1.73_m2} Normal >60 [facility] Comment on above: Order Comment: JIMMY AYALA ORDERED LIPID,TSH,CMP,VITD, MICROALBUMIN URINE DR WONG ORDERED CMP, TSH, LIPID, VITD, CBC Result Comment: Non- GFR Calc Performed By: #### L 501.9520, L500.4050, L100.0500, L506.1000, L500.4100, L502.0250 #### [facility] [address] [place], [address] Globulin (S) [Mass/Vol] 3.1 g/dL Normal 2.2-4.2 [facility] Comment on above: Order Comment: JIMMY AYALA ORDERED LIPID,TSH,CMP,VITD, MICROALBUMIN URINE DR WONG ORDERED CMP, TSH, LIPID, VITD, CBC Performed By: #### L 501.9520, L500.4050, L100.0500, L506.1000, L500.4100, L502.0250 #### [facility] [address] [facility] [place], [address] Glucose [Mass/Vol] 105 mg/dL Normal 74-106 [facility] Comment on above: Order Comment: JIMMY AYALA ORDERED LIPID,TSH,CMP,VITD, MICROALBUMIN URINE DR WONG ORDERED CMP, TSH, LIPID, VITD, CBC Result Comment: Fast ing Glucose result from 100 to 125 mg/dL suggests IMPAIRED HOMEOSTASIS per A.D.A. criteria. Performed By: #### L 501.9520, L500.4050, L100.0500, L506.1000, L500.4100, L502.0250 #### [facility] [address] [place], [address] Potassium [Moles/Vol] 4.1 mmol/L Normal 3.5-5.1 [facility] Comment on above: Order Comment: JIMMY AYALA ORDERED LIPID,TSH,CMP,VITD, MICROALBUMIN URINE DR WONG ORDERED CMP, TSH, LIPID, VITD, CBC Performed By: #### L 501.9520, L500.4050, L100.0500, L506.1000, L500.4100, L502.0250 #### [facility] [address] [place], [address] Sodium [Moles/Vol] 138 mmol/L Normal 136-145 [facility] Comment on above: Order Comment: JIMMY AYALA ORDERED LIPID,TSH,CMP,VITD, MICROALBUMIN URINE DR WONG ORDERED CMP, TSH, LIPID, VITD, CBC Performed By: #### L 501.9520, L500.4050, L100.0500, L506.1000, L500.4100, L502.0250 #### [facility] [address] [place], [address] T PROT 6.4 g/dL Normal 6.4-8.2 [facility] Comment on above: Order Comment: JIMMY AYALA ORDERED LIPID,TSH,CMP,VITD, MICROALBUMIN URINE DR WONG ORDERED CMP, TSH, LIPID, VITD, CBC Performed By: #### L 501.9520, L500.4050, L100.0500, L506.1000, L500.4100, L502.0250 #### [facility] [address] [place], [address] Urea nitrogen [Mass/Vol] 18 mg/dL Normal 7-18 [facility] Comment on above: Order Comment: JIMMY AYALA ORDERED LIPID,TSH,CMP,VITD, MICROALBUMIN URINE DR WONG ORDERED CMP, TSH, LIPID, VITD, CBC Performed By: #### L 501.9520, L500.4050, L100.0500, L506.1000, L500.4100, L502.0250 #### [facility] [address] [place], [place], [address] Lipid Profileon 03-31-2024 Cholesterol [Mass/Vol] 131 mg/dL Normal 200 [facility] Comment on above: Order Comment: JIMMY AYALA ORDERED LIPID,TSH,CMP,VITD, MICROALBUMIN URINE DR WONG ORDERED CMP, TSH, LIPID, VITD, CBC Result Comment: <200 mg/dL Desirable 200-240 mg/dL Borderline >240 mg/dL High Risk Performed By: #### L 501.9520, L500.4050, L100.0500, L506.1000, L500.4100, L502.0250 #### [facility] [address] [place], [address] Cholesterol in HDL [Mass/Vol] 34 mg/dL Low [facility] Comment on above: Order Comment: JIMMY AYALA ORDERED LIPID,TSH,CMP,VITD, MICROALBUMIN URINE DR WONG ORDERED CMP, TSH, LIPID, VITD, CBC Result Comment: The drugs N-Acetylcysteine and Metamizole may falsely depress this assay. Reference Range HDL <40 mg/dL Low HDL Cholesterol HDL >or= 60 mg/dL High HDL Cholesterol Performed By: #### L 501.9520, L500.4050, L100.0500, L506.1000, L500.4100, L502.0250 #### [facility] [address] [place], [address] Cholesterol in LDL [Mass/Vol] 70 mg/dL Normal 0-130 [facility] Comment on above: Order Comment: JIMMY AYALA ORDERED LIPID,TSH,CMP,VITD, MICROALBUMIN URINE DR WONG ORDERED CMP, TSH, LIPID, VITD, CBC Performed By: #### L 501.9520, L500.4050, L100.0500, L506.1000, L500.4100, L502.0250 #### [facility] [address] [place], [address] Cholesterol in VLDL [Mass/Vol] 27 mg/dL Normal 5-40 [facility] Comment on above: Order Comment: JIMMY AYALA ORDERED LIPID,TSH,CMP,VITD, MICROALBUMIN URINE DR WONG ORDERED CMP, TSH, LIPID, VITD, CBC Performed By: #### L 501.9520, L500.4050, L100.0500, L506.1000, L500.4100, L502.0250 #### [facility] [address] [place], [place], [phone] ([phone]) Triglyceride [Mass/Vol] 137 mg/dL Normal [facility] Comment on above: Order Comment: JIMMY AYALA ORDERED LIPID,TSH,CMP,VITD, MICROALBUMIN URINE DR WONG ORDERED CMP, TSH, LIPID, VITD, CBC Result Comment: The drugs N-Acetylcysteine and Metamizole may falsely depress this assay. Serum Triglycerides Reference Interval Normal <150 mg/dL Borderline high 150 - 199 mg/dL High 200 - 499 mg/dL Very High > or = 500 mg/dL Performed By: #### L 501.9520, L500.4050, L100.0500, L506.1000, L500.4100, L502.0250 #### [facility] [address] [place], [place], [id number] ([phone]) Microalb:Creat Ratio,Random URon 03-31-2024 Creatinine [Mass/Vol] 108.00 mg/dL Normal NO RANGE EST . [facility] Comment on above: Order Comment: JIMMY AYALA ORDERED LIPID,TSH,CMP,VITD, MICROALBUMIN URINE DR WONG ORDERED CMP, TSH, LIPID, VITD, CBC Performed By: #### L 501.9520, L500.4050, L100.0500, L506.1000, L500.4100, L502.0250 #### [facility] [address] [place], [place], [phone] ([phone]) MALB:CRE 7.1 mg/g CRE Normal <30 mg/g CRE [facility] Comment on above: Order Comment: JIMMY AYALA ORDERED LIPID,TSH,CMP,VITD, MICROALBUMIN URINE DR WONG ORDERED CMP, TSH, LIPID, VITD, CBC Performed By: #### L 501.9520, L500.4050, L100.0500, L506.1000, L500.4100, L502.0250 #### [facility] [address] [place], [address] MICROALBUMIN,UR 7.6 mg/L Normal NO RANGE EST. [facility] Comment on above: Order Comment: JIMMY AYALA ORDERED LIPID,TSH,CMP,VITD, MICROALBUMIN URINE DR WONG ORDERED CMP, TSH, LIPID, VITD, CBC Performed By: #### L 501.9520, L500.4050, L100.0500, L506.1000, L500.4100, L502.0250 #### [facility] [address] [place], [place], [id number] Thyroid Stim Hormone (TSH)on 03-31-2024 TSH 2.69 uIU/mL Normal 0.358-3.74 [facility] Comment on above: Order Comment: JIMMY AYALA ORDERED LIPID,TSH,CMP,VITD, MICROALBUMIN URINE DR WONG ORDERED CMP, TSH, LIPID, VITD, CBC Performed By: #### L 501.9520, L500.4050, L100.0500, L506.1000, L500.4100, L502.0250 #### [facility] [address] [place], [address] Bacteria Ur Culton 4 Bacteria identified Cx Nom (U) ORGANISM ID: 1 50,000-<100,000 CFU/ml Escherichia coli ORGANISM ID: 1 (ESCHERICHIA COLI) ANTIBIOTIC INTERPRETATION AYALA STATUS REFERENCE RANGE Ampicillin S <=2 F Susceptible <=8 , Intermediate >8 , Resistant >16 Cefazolin S <=4 F Susceptible 0-16 , Intermediate <0 or >16 , Resistant >16 For uncomplicated urinary tract infections, cefazolin results can be used to predict susceptibility or resistance to cephalexin. Ceftriaxone S <=1 F Susceptible <=1 , Intermediate >1 , Resistant >=4 Cefepime S <=1 F Susceptible <=2 , Susceptible-Dose Dependent >2 , Resistant >=16 Ertapenem S <=0.5 F Susceptible <=0.5 , Intermediate >.5 , Resistant >1 Meropenem S <=0.25 F Susceptible <=1 , Intermediate >1 , Resistant >2 Ampicillin/Sulbact S <=2 F Susceptible <=8 , Intermediate >8 , Resistant >16 Piperacillin/Tazobac S <=4 F Susceptible <16 , Susceptible-Dose Dependent >=16 , Resistant >=32 Gentamicin S <=1 F Susceptible <=2 , Intermediate >2 , Resistant >=8 Tobramycin S <=1 F Susceptible <4 , Intermediate >=4 , Resistant >=8 Trimeth sulfameth S <=20 F Susceptible <=40 , Resistant >40 Ciprofloxacin S <=0.25 F Susceptible <0.5 , Intermediate >=.5 , Resistant >=1 Nitrofurantoin S <=16 F Susceptible <=32 , Intermediate >32 , Resistant >64 Abnormal [facility] Comment on above: Performed By: #### 6 30-4 #### [facility] CLIA [id number] [address] [place] [address] [place] CNOVon 03-23-2024 CNOV Office Visit ([facility]WSTR) MARCIE VELAZCO ([id number]) 1975 F Date Time Provider Department 03/23/24 11:00 AM PRAKASH DA SILVA [facility] During your visit today, we recorded the following information about you: Temperature Pulse Respiration Blood pressure 97.3 degrees 82/minute 20/minute 114/58 Weight 94.2 kg Prakash Da Silva MD 03/23/2024 11:35 AM Signed Patient presents with: Urinary Problem: Frequency, pain x 4 days HPI: Symptoms for 4 days. Dysuria: Yes Frequency: Yes Hematuria: pink when wiping today Nausea: No Fever or chills: No Back pain: No Abdominal pain: bladder area pressure Prior UTI: Yes, E coli 2021, mixed 09/2023. Blood sugar has been running OK. PAST MEDICAL HISTORY No date: Anxiety No date: Diabetes mellitus No date: Frozen shoulder Comment: right shoulder PAST SURGICAL HISTORY 2007: INSULIN PUMP IMPLANTATION HX 01/05/07: PAST SURGICAL HISTORY OF Comment: removal of insulin pump 03/27/2012: PAST SURGICAL HISTORY OF Comment: eye surgery 07/2018: PAST SURGICAL HISTORY OF Comment: nasal implant MEDICATIONS: Current Outpatient Medications Medication Sig vit B complex no.12/niacin,B3, (VITAMIN B COMPLEX NO.12-NIACIN ORAL) Take by mouth. atorvastatin (LIPITOR) 10 mg tablet docosahexanoic acid/epa (FISH OIL ORAL) Take by mouth. Flaxseed Oil 1,000 mg cap Take by mouth. enalapril (VASOTEC) 20 mg tablet Take 1 tablet by mouth once daily. insulin glargine (LANTUS) 100 unit/mL injection Inject 44 Units subcutaneously daily at bedtime. if pump fails (total of basal rates) insulin lispro (HUMALOG) 100 unit/mL injection Uses with insulin pump, up to 100 units daily blood sugar diagnostic (ONETOUCH ULTRA TEST) test strip Testing up to six times daily ASPIRIN ORAL Take 81 mg by mouth once daily. Insulin Syringe-Needle U-100 (BD INSULIN SYRINGE UF II) 1/2 mL 31 x 5/16 Syrg use as directed if pump fails citalopram (CELEXA) 20 mg tablet Take 20 mg by mouth once daily. COMPOUNDED PRESCRIPTION Transmitter adhesive patch. Apply with trasmitter INSULIN SYRINGE-NEEDLE U-100 0.5 ML 31 X 3/8 use as directed with each meal No current facility-administere d medications for this visit. ALLERGIES: ALLERGIES Allergen Reactions Adhesive Tape-Silic* Hives, Itching VITALS: BP 114/58 Pulse 82 Temp 36.3 ?C (97.3 ?F) Resp 20 Wt 94.2 kg (207 lb 10.8 oz) LMP 10/19/2023 SpO2 98% BMI 39.24 kg/m? PHYSICAL EXAM: GEN: NAD HEENT: EOMI, conjunctiva clear, HEART: regular rate and rhythm, no murmurs LUNGS: clear to auscultation, no wheezes or crackles, no increased WOB ABDOMEN: Soft, nondistended, no masses, no suprapubic tenderness BACK: No CVA tenderness ASSESSMENT/PLAN: 1. Urinary frequency - ICD9: 788.41, ICD10: R35.0 - UA positive for hilario esterase and hematuria - UA DIP, URINE (POC) - URINE CULTURE - NITROFURANTOIN MONOHYDRATE AND MACROCRYSTAL 100 MG ORAL CAP Prakash Da Silva MD Allergies As of Date: 03/23/2024 Noted Allergy Reaction ADHESIVE TAPE-SILICONES 11/03/2023 4 - Hives 9 - Itching Date Reviewed: 03/23/2024 Reviewed by: Afua Huff MA - Fully Assessed Reason for Visit: Urinary Problem [252] Cmt: Frequency, pain x 4 days Primary Visit Diagnosis:Urinary frequency [R35.0] Order(s):UA DIP, URINE (POC) [[id number]] Order #: [id number]. #:[id number] URINE CULTURE [SQURCUL] Order #: [id number]. #:[id number] nitrofurantoin monohydrate and macrocrystal (MACROBID) 100 mg capsuleTake 1 capsule by mouth two times a day for 5 days.Disp: 10 capsuleRfl: 0 Prescriptions as of 03/23/2024 - nitrofurantoin monohydrate and macrocrystal (MACROBID) 100 mg capsule Take 1 capsule by mouth two times a day for 5 days. - vit B complex no.12/niacin,B3, (VITAMIN B COMPLEX NO.12-NIACIN ORAL) Take by mouth. - atorvastatin (LIPITOR) 10 mg tablet - docosahexanoic acid/epa (FISH OIL ORAL) Take by mouth. - Flaxseed Oil 1,000 mg cap Take by mouth. - enalapril (VASOTEC) 20 mg tablet Take 1 tablet by mouth once daily. - insulin glargine (LANTUS) 100 unit/mL injection Inject 44 Units subcutaneously daily at bedtime. if pump fails (total of basal rates) - insulin lispro (HUMALOG) 100 unit/mL injection Uses with insulin pump, up to 100 units daily - blood sugar diagnostic (AccountNowTOUCH ULTRA TEST) test strip Testing up to six times daily - ASPIRIN ORAL Take 81 mg by mouth once daily. - Insulin Syringe-Needle U-100 (BD INSULIN SYRINGE UF II) 1/2 mL 31 x 5/16 Syrg use as directed if pump fails - citalopram (CELEXA) 20 mg tablet Take 20 mg by mouth once daily. - COMPOUNDED PRESCRIPTION Transmitter adhesive patch. Apply with trasmitter - INSULIN SYRINGE-NEEDLE U-100 0.5 ML 31 X 3/8 use as directed with each meal Problem List As Of Date 03/23/2024 Noted Resolved Diabetes mellitus types 1 AND 2 [E10.39] 05/28 (more content not included)... Normal [facility] UA DIP, URINE (POC)on 2023 BILIRUBIN UA (POCT) Negative Negative [facility] CLARITY UA (POCT) Cloudy [facility] [place] [facility] COLOR UA (POCT) Yellow [facility] [place] GLUCOSE UA (POCT) Negative Negative mg/dL [facility] [place] Hemoglobin Ql (U) Small Abnormal Negative [facility] [place] [facility] Interpretation and review of laboratory results Abnormal [facility] [place] KETONE UA (POCT) Negative Negative mg/dL [facility] [place] LEUKOCYTES UA (POCT) Small Abnormal Negative [facility] NITRITE UA (POCT) Negative Negative [facility] [place] [facility] PH UA (POCT) 5.5 4.5 - 8.0 [facility] [place] Protein Ql (U) Negative Negative mg/dL [facility] [place] SPECIFIC GRAVITY UA (POCT) 1.015 1.005 - 1.030 [facility] [place] UROBILINOGEN UA (POCT) 0.2 Normal E.U./dL [facility] [place] Location:[address], [place], [place], [id number] [place] [address] POINT OF CARE [facility] [place] LABORATORYOrdered By: Mamadou Cottrell on 12-29-2023 Albumin DL <= 20 mg/L (U) [Mass/Vol] 497 mcg/dL Invalid Interpretation Code AO ADM SS Albumin/Creatinine DL <= 20 mg/L (U) [Mass ratio] 7 mcg/mg Normal 0 - 30 mcg/mg AO ADM SS Creatinine (U) [Mass/Vol] 68.3 mg/dL Normal 28.0 - 117.0 mg/dL AO ADM SS MALBRon 12-29-2023 U Creatinine 68.3 mg/dL Normal 28.0-117.0 [facility] Comment on above: Performed By: #### M ALBR #### [facility] [address] [place], [place] [address] U Microalb 497 mcg/dL Normal [facility] ([place]) Comment on above: Performed By: #### M ALBR #### [facility] [address] [place], [place] [address] U Ratio Alb/Cre 7 mcg/mg Normal 0-30 [facility] ([place]) Comment on above: Performed By: #### M ALBR #### [facility] [address] [place], [place] [address] UA DIP, URINE (POC)on 2023 BILIRUBIN UA (POCT) Negative Negative [facility] CLARITY UA (POCT) Clear [facility] [place] [facility] COLOR UA (POCT) Yellow [facility] [place] GLUCOSE UA (POCT) Negative Negative mg/dL [facility] [place] Hemoglobin Ql (U) Moderate Abnormal Negative [facility] [place] [facility] KETONE UA (POCT) Negative Negative mg/dL [facility] [place] LEUKOCYTES UA (POCT) Negative Negative [facility] NITRITE UA (POCT) Negative Negative [facility] [place] [facility] PH UA (POCT) 6.0 4.5 - 8.0 [facility] [place] Protein Ql (U) Negative Negative mg[facility] SPECIFIC GRAVITY UA (POCT) >=1.030 1.005 - 1.030 [facility] [place] UROBILINOGEN UA (POCT) 0.2 E.U./dL Normal E.U./dL [facility] [place] Basophil percentageOrdered B y: Jan Guzmanlay on 06-16-2023 WBC (Bld) [#/Vol] 7.0 10*3/uL 4.4-11.0 [facility] Blood erythrocytes count (nu mber/volume)Ordered By: Jan Muñoz on 06-16-2023 RBC (Bld) [#/Vol] 4.68 10*6/uL 4.2-5.4 [facility] Blood hemoglobin measurement (mass/volume)Ordered By: Jan Muñoz on 06-16-2023 Hemoglobin (Bld) [Mass/Vol] 13.6 g/dL 12.0-15.0 [facility] Blood platelet mean volumeOr dered By: Jan Muñzo on 06-16-2023 Platelet mean volume (Bld) [Entitic vol] 9.8 fL 6.2-12.0 [facility] Determination of erythrocyte mean corpuscular volume (MCV)Ordered By: Jan Muñoz on 06-16-2023 MCV (RBC) [Entitic vol] 88.9 fL 81-99 [facility] Hematocrit Auto (Bld) [Volum e fraction]Ordered By: Jan Muñoz on 06-16-2023 Hematocrit (Bld) [Volume fraction] 41.6 % 37-47 [facility] Laboratory - Chemistry and C hemistry - challengeOrdered By: Jan Muñoz on 06-16-2023 Cobalamin (Vitamin B12) [Mass/Vol] 715 pg/mL 211-911 [facility] Magnesium [Mass/Vol] 2.1 mg/dL 1.6-2.6 [facility] Laboratory - Hematology and Cell countsOrdered By: Jan Muñoz on 06-16-2023 Erythrocyte distribution width (RBC) [Entitic vol] 39.9 fL 35.1-43.9 [facility] Erythrocyte distribution width (RBC) [Ratio] 12.3 % 11.6-14.6 [facility] MCH (RBC) [Entitic mass] 29.1 pg 27.0-32.0 [facility] MCHC Auto (RBC) [Mass/Vol]Or dered By: Jan Muñoz on 06-16-2023 MCHC (RBC) [Mass/Vol] 32.7 g/dL 32-36 [facility] Platelets bldOrdered By: He Muñoz on 06-16-2023 Platelets (Bld) [#/Vol] 278 10*3/uL 150-450 [facility] Laboratory - Hematology and Cell countson 04-21-2023 HbA1c (Bld) [Mass fraction] 7.8 % 4.2-6.3 [facility] Basophil percentageOrdered B y: Colleen Recinos on 01-13-2023 Bilirubin [Mass/Vol] 0.80 mg/dL 0.20-1.00 [facility] Comment on above: For patients on eltr ombopag therapy, use of Dimension [place] TBIL is not recommended. Chloride [Moles/Vol] 105 mmol/L 98-107 [facility] Cholesterol [Mass/Vol] 147 mg/dL <200 [facility] Comment on above: <200 mg/dL Desirable 200-240 mg/dL Borderline >240 mg/dL High Risk Glucose [Mass/Vol] 124 mg/dL 74-106 [facility] Comment on above: Fasting Glucose resu lt from 100 to 125 mg/dL suggests IMPAIRED HOMEOSTASIS per A.D.A. criteria. Potassium [Moles/Vol] 4.2 mmol/L 3.5-5.1 [facility] Protein [Mass/Vol] 7.1 g/dL 6.4-8.2 [facility] Sodium [Moles/Vol] 138 mmol/L 136-145 [facility] Triglyceride [Mass/Vol] 139 mg/dL <199 [facility] Comment on above: The drugs N-Acetylcy steine and Metamizole may falsely depress this assay.Serum Triglycerides Reference Interval Normal <150 mg/dL Borderline high 150 - 199 mg/dL High 200 - 499 mg/dL Very High > or = 500 mg/dL Laboratory - Chemistry and C hemistry - challengeOrdered By: Colleen Recinos on 01-13-2023 ALP [Catalytic activity/Vol] 78 U/L 45-117 [facility] ALT [Catalytic activity/Vol] 19 U/L 13-56 [facility] CO2 [Moles/Vol] 28.0 mmol/L 21.0-32.0 [facility] Globulin (S) [Mass/Vol] 3.6 g/dL 2.2-4.2 [facility] Urea nitrogen/Creatinine [Mass ratio] 24.0 mg/mg 10-20 [facility] No Panel InformationOrdered By: Colleen Recinos on 01-13-2023 Estimated GFR (MDRD) Amer 77 mL/min >60 [facility] Comment on above: GFR Calc Estimated GFR (MDRD) Non-Af Amer 63 mL/min >60 [facility] Comment on above: Non- GFR Calc Thyroid Stimulating Hormone (TSH) 2.46 uIU/mL 0.358-3.74 [facility] Urine Microalbumin/Creatini ne Ratio 7.5 mg/g CRE <30 [facility] Vitamin D 25-Hydroxy 67.9 ng/mL [facility] Comment on above: Vitamin D 25(OH) Sta tus Range Deficiency <20 ng/mL (50nmol/L) Insufficiency 20 - 30 ng/mL (50 - 75 nmol/L) Sufficiency 30 - 100 ng/mL (75 - 250 nmol/L) Toxicity >100 ng/mL (>250 nmol/L) Serum or plasma albumin nely urement (mass/volume)Ordered By: Colleen Recinos on 01-13-2023 Albumin [Mass/Vol] 3.5 g/dL 3.2-5.0 [facility] Serum or plasma albumin/glob ulin mass ratioOrdered By: Colleen Recinos on 01-13-2023 Albumin/Globulin [Mass ratio] 1.0 {ratio} 0.9-2.4 [facility] Serum or plasma calcium nely urement (mass/volume)Ordered By: Colleen Recinos on 01-13-2023 Calcium [Mass/Vol] 8.9 mg/dL 8.5-10.1 [facility] Serum or plasma cholesterol in HDL measurement (mass/volume)Ordered By: Colleen Recinos on 01-13-2023 Cholesterol in HDL [Mass/Vol] 32 mg/dL >40 [facility] Comment on above: The drugs N-Acetylcy steine and Metamizole may falsely depress this assay. Reference Range HDL <40 mg/dL Low HDL Cholesterol HDL >or= 60 mg/dL High HDL Cholesterol Serum or plasma cholesterol in VLDL measurement (mass/volume)Ordered By: Colleen Recinos on 01-13-2023 Cholesterol in VLDL [Mass/Vol] 28 mg/dL 5-40 [facility] Serum or plasma creatinine m easurement (mass/volume)Ordered By: Colleen Recinos on 01-13-2023 Creatinine [Mass/Vol] 1.00 mg/dL 0.55-1.02 [facility] Comment on above: The validity of the calculated GFR & GFRAA in patients over 70 years has not been determined. Clinical correlation is essential. Serum or plasma low density lipoprotein (LDL) cholesterol measurement (mass/volume)Ordered By: Colleen Recinos on 01-13-2023 Cholesterol in LDL [Mass/Vol] 87 mg/dL 0-130 [facility] Serum or plasma urea nitroge n measurement (mass/volume)Ordered By: Colleen Recinos on 01-13-2023 Urea nitrogen [Mass/Vol] 24 mg/dL 7-18 [facility] Thin prep Papanicolaou smear with manual screeningOrdered By: Colleen Recinos on 01-13-2023 Thin prep Papanicolaou smear with manual screening 11 U/L 15-37 [facility] Thin prep Papanicolaou smear with manual screening 5 5-15 [facility] Thin prep Papanicolaou smear with manual screening 7.9 mg/L NO RANGE EST. [facility] Urine creatinine measurement (mass/volume)Ordered By: Colleen Recinos on 01-13-2023 Creatinine (U) [Mass/Vol] 106.00 mg/dL NO RANGE EST. [facility] Whole blood hemoglobin A1c/t otal hemoglobin ratio (mass fraction)Ordered By: Colleen Recinos on 01-10-2023 HbA1c (Bld) [Mass fraction] 7.6 % 3.8-5.6 [facility] Comment on above: Normal < 5.7 % Predi abetic 5.7 - 6.4 % Diabetic >or= 6.5 % Please note range changes. LABORATORYOrdered By: Lucy Moya on 12-02-2022 Albumin DL <= 20 mg/L (U) [Mass/Vol] 682 mcg/dL Invalid Interpretation Code AO ADM SS Albumin/Creatinine DL <= 20 mg/L (U) [Mass ratio] 6 mcg/mg Invalid Interpretation Code 0 - 30 mcg/mg AO ADM SS Creatinine (U) [Mass/Vol] 111.4 mg/dL Invalid Interpretation Code 28.0 - 117.0 mg/dL AO ADM SS Basophil percentageon 2021 Bilirubin [Mass/Vol] 1.10 mg/dL 0.20-1.00 [facility] Work Phone: Comment on above: For patients on eltr ombopag therapy, use of Dimension [place] TBIL is not recommended. Chloride [Moles/Vol] 105 mmol/L 98-107 [facility] Work Phone: Cholesterol [Mass/Vol] 125 mg/dL <200 [facility] Work Phone: Comment on above: <200 mg/dL Desirable 200-240 mg/dL Borderline >240 mg/dL High Risk Glucose [Mass/Vol] 135 mg/dL 74-106 [facility] Work Phone: Comment on above: Fasting Glucose resu lt greater than or equal to 126 mg/dL suggests DIABETES MELLITUS per A.D.A. criteria. Potassium [Moles/Vol] 3.9 mmol/L 3.5-5.1 [facility] Work Phone: Protein [Mass/Vol] 6.8 g/dL 6.4-8.2 [facility] Work Phone: Sodium [Moles/Vol] 135 mmol/L 136-145 [facility] Work Phone: Triglyceride [Mass/Vol] 97 mg/dL [facility] Work Phone: Comment on above: The drugs N-Acetylcy steine and Metamizole may falsely depress this assay.Serum Triglycerides Reference Interval Normal <150 mg/dL Borderline high 150 - 199 mg/dL High 200 - 499 mg/dL Very High > or = 500 mg/dL Laboratory - Chemistry and C hemistry - challengeon 12-30-2021 ALP [Catalytic activity/Vol] 57 U/L 45-117 [facility] Work Phone: ALT [Catalytic activity/Vol] 26 U/L 13-56 [facility] Work Phone: CO2 [Moles/Vol] 26.0 mmol/L 21.0-32.0 [facility] Work Phone: Globulin (S) [Mass/Vol] 3.3 g/dL 2.2-4.2 [facility] Work Phone: Urea nitrogen/Creatinine [Mass ratio] 19.2 mg/mg 10-20 [facility] Work Phone: No Panel Informationon 12-30 Urine Microalbumin/Creatini ne Ratio 7.6 mg/g CRE <30 [facility] Work Phone: Estimated GFR (MDRD) Amer 83 mL/min >60 [facility] Work Phone: Comment on above: GFR Calc Estimated GFR (MDRD) Non-Af Amer 69 mL/min >60 [facility] Work Phone: Comment on above: Non- GFR Calc Hepatitis C Antibody Non-Reactive Nonreactive [facility] Work Phone: Comment on above: Non Reactive: < 0.8 Equivocal: >/= 0.8 to < 1.0 Reactive: >/= 1.0The CDC recommends that a reactive/equivocal HCV antibody result be followed up by the HCV Nucleic Acid Amplificationtest ([id number]) Thyroid Stimulating Hormone (TSH) 2.94 uIU/mL 0.358-3.74 [facility] Work Phone: Vitamin D 25-Hydroxy 61.4 ng/mL [facility] Work Phone: Comment on above: Vitamin D 25(OH) Sta tus Range Deficiency <20 ng/mL (50nmol/L) Insufficiency 20 - 30 ng/mL (50 - 75 nmol/L) Sufficiency 30 - 100 ng/mL (75 - 250 nmol/L) Toxicity >100 ng/mL (>250 nmol/L) Serum or plasma albumin nely urement (mass/volume)on 12-30-2021 Albumin [Mass/Vol] 3.5 g/dL 3.2-5.0 [facility] Work Phone: Serum or plasma albumin/glob ulin mass ratioon 12-30-2021 Albumin/Globulin [Mass ratio] 1.1 {ratio} 0.9-2.4 [facility] Work Phone: Serum or plasma calcium nely urement (mass/volume)on 12-30-2021 Calcium [Mass/Vol] 9.0 mg/dL 8.5-10.1 [facility] Work Phone: Serum or plasma cholesterol in HDL measurement (mass/volume)on 12-30-2021 Cholesterol in HDL [Mass/Vol] 35 mg/dL [facility] Work Phone: Comment on above: The drugs N-Acetylcy steine and Metamizole may falsely depress this assay. Reference Range HDL <40 mg/dL Low HDL Cholesterol HDL >or= 60 mg/dL High HDL Cholesterol Serum or plasma cholesterol in VLDL measurement (mass/volume)on 12-30-2021 Cholesterol in VLDL [Mass/Vol] 19 mg/dL 5-40 [facility] Work Phone: Serum or plasma creatinine m easurement (mass/volume)on 12-30-2021 Creatinine [Mass/Vol] 0.94 mg/dL 0.55-1.02 [facility] Work Phone: Comment on above: The validity of the calculated GFR & GFRAA in patients over 70 years has not been determined. Clinical correlation is essential. Serum or plasma low density lipoprotein (LDL) cholesterol measurement (mass/volume)on 12-30-2021 Cholesterol in LDL [Mass/Vol] 71 mg/dL 0-130 [facility] Work Phone: Serum or plasma urea nitroge n measurement (mass/volume)on 12-30-2021 Urea nitrogen [Mass/Vol] 18 mg/dL 7-18 [facility] Work Phone: Thin prep Papanicolaou smear with manual screeningon 12-30-2021 Thin prep Papanicolaou smear with manual screening 14.9 mg/L NO RANGE EST. [facility] Work Phone: Thin prep Papanicolaou smear with manual screening 16 U/L 15-37 [facility] Work Phone: Thin prep Papanicolaou smear with manual screening 4 5-15 [facility] Work Phone: Urine creatinine measurement (mass/volume)on 12-30-2021 Creatinine (U) [Mass/Vol] 195.00 mg/dL NO RANGE EST. [facility] Work Phone: Whole blood hemoglobin A1c/t otal hemoglobin ratio (mass fraction)on 12-30-2021 HbA1c (Bld) [Mass fraction] 6.9 % 3.8-5.6 [facility] Work Phone: Comment on above: Normal < 5.7 % Predi abetic 5.7 - 6.4 % Diabetic >or= 6.5 % Please note range changes. Laboratory - Hematology and Cell countson 10-08-2021 HbA1c (Bld) [Mass fraction] 8.0 % [facility] Work Phone: Lab Report: Comprehensive [facility] Profilon 07-18-2017 Alanine aminotransferase (ALT) 21 U/L Invalid Interpretation Code 12-78 [facility] Work Phone: Albumin 3.4 g/dL Invalid Interpretation Code 3.4-5.0 [facility] Work Phone: Albumin/Globulin Ratio 1 {ratio} Invalid Interpretation Code 0.9-2.4 [facility] Work Phone: Alkaline phosphatase (ALP) 89 U/L Invalid Interpretation Code 45-117 [place] Work Phone: Anion gap 10 mmol/L Invalid Interpretation Code 5-15 [facility] Work Phone: Aspartate aminotransferase (AST) 9 U/L Low 15-37 [facility] Work Phone: Bilirubin (total) 0.60 mg/dL Invalid Interpretation Code 0.20-1.00 [facility] Work Phone: BUN/Creatinine Ratio 13.4 RATIO Invalid Interpretation Code 10-20 [place] [facility] Work Phone: Calcium 8.4 mg/dL Low 8.5-10.1 [place] [facility] Work Phone: Chloride 100 mmol/L Invalid Interpretation Code 98-107 [place] [facility] Work Phone: CO2 27.0 mmol/L Invalid Interpretation Code 21.0-32.0 [place] [employer] Work Phone: Creatinine 0.89 mg/dL Invalid Interpretation Code 0.55-1.02 [facility] Work Phone: eGFR (non-black) 89 mL/min/{1.73_m2} Invalid Interpretation Code >60 [facility] Work Phone: eGFR (non-black) 74 mL/min/{1.73_m2} Invalid Interpretation Code >60 [facility] Work Phone: Globulin 3.5 g/dL Invalid Interpretation Code 2.2-4.2 [facility] Work Phone: Glucose mass conc 247 mg/dL High 70-110 [facility] Work Phone: Potassium molar conc 3.7 mmol/L Invalid Interpretation Code 3.5-5.1 [facility] Work Phone: Protein 6.9 g/dL Invalid Interpretation Code 6.4-8.2 [facility] Work Phone: Sodium 137 mmol/L Invalid Interpretation Code 136-145 [facility] Work Phone: Urea nitrogen 12 mg/dL Invalid Interpretation Code 7-18 [facility] Work Phone: Lab Report: Hemoglobin A1con 07-18-2017 Hemoglobin A1c/Hemoglobin.total mass fraction (Bld) 9.3 % High 4.2-6.3 [facility] Work Phone: Lab Report: Lipid Profileon 07-18-2017 Cholesterol 185 mg/dL Invalid Interpretation Code 200 [facility] Work Phone: HDL Cholesterol 39 mg/dL Low [facility] Work Phone: LDL Cholesterol 107 mg/dL Invalid Interpretation Code 0-130 [facility] Work Phone: Triglyceride 195 mg/dL Invalid Interpretation Code [facility] Work Phone: very low density lipoproteins 39 mg/dL Invalid Interpretation Code 5-40 [facility] Work Phone: Office Visit: Diabetes Follo w Upon 06-09-2017 Documentation of current medications (procedure) Done Invalid Interpretation Code [facility] Work Phone: Lab Report: C-Peptideon 06-2 C PEPTIDE [id number] < 0.1 ng/mL Low 1.1-4.4 [facility] Work Phone: Lab Report: Microalb:Creat R atio,Random URon 02-07-2017 ACR (microalbumin/creatin ine) ratio Test not performed mg/g CRE Invalid Interpretation Code <30 mg/g CRE [facility] Work Phone: Urine, creatinine 41.30 mg/dL Invalid Interpretation Code NO RANGE EST. [facility] Work Phone: Urine, microalbumin < 5.0 mg/L Invalid Interpretation Code NO RANGE EST. [facility] Work Phone: Lab Report: Thyroid Stim Hor mikhail (TSH)on 02-07-2017 Thyroid stimulating hormone (TSH) 3.82 u[iU]/mL High 0.358-3.74 [facility] Work Phone: Office Visit: Follow upon Alcoholism counseling (procedure) no Invalid Interpretation Code [facility] Work Phone: Dietary management education, guidance, and counseling (procedure) yes Invalid Interpretation Code [facility] Work Phone: Fall risk assessment No Invalid Interpretation Code [place] Phone: Tobacco smoking status NHIS Never Invalid Interpretation Code [facility] Work Phone: Tobacco use CPHS Never smoker Invalid Interpretation Code [facility] Phone: Office Visit: Follow up appo intkari-diabeteson 12-23-2016 Fall risk assessment Fall risk assessment Invali d Interpretation Code [facility] Phone: Office Visit: Transition of care Diabetes Type 110-14-2016 Adult depression screening assessment Adult depression screening assessment Invalid Interpretation Code [place] Phone: Office Visit: Transition of care Diabetes Type 107-22-2016 Breast Mammogram screening Normal Bilateral Invalid Interpretation Code [facility] Phone: Office Visit: Transition of care Diabetes Type 108-22-2015 General categories [Interpretation] of Cervical or vaginal smear or scraping by Cyto stain Normal Invalid Interpretation Code [facility] Work Phone: Vital Signs Date Time Vital Sign Value Performing Clinician Facility 02-11-2025 14:06-0400 Body height 154.[address] Jan Muñoz DO Work Phone: [facility] 02-11-2025 14:06-0400 Body mass index (BMI) [Ratio] 40.2 kg/m2 Dr. Jan Muñoz DO Work Phone: [facility] 02-11-2025 14:06-0400 Body weight 96.[address] Jan Muñoz DO Work Phone: [facility] 02-11-2025 14:06-0400 Diastolic blood pressure 74 mm[Hg] Dr. Jan Muñoz DO Work Phone: [facility] 02-11-2025 14:06-0400 Heart rate 75 /min Dr. Jan Muñoz DO Work Phone: [facility] 02-11-2025 14:06-0400 SaO2% (BldA) [Mass fraction] 96 % Dr. Jan Muñoz DO Work Phone: [facility] 02-11-2025 14:06-0400 Systolic blood pressure 139 mm[Hg] Dr. Jan Muñoz DO Work Phone: [facility] 11-19-2024 14:34-0400 Body mass index (BMI) [Ratio] 39.9 kg/m2 Dr. Jan Muñoz DO Work Phone: [facility] 11-19-2024 14:34-0400 Body weight 95.[address] Jan Muñoz DO Work Phone: [facility] 11-19-2024 14:34-0400 Diastolic blood pressure 73 mm[Hg] Dr. Jan Muñoz DO Work Phone: [facility] 11-19-2024 14:34-0400 Heart rate 72 /min Dr. Jan Muñoz DO Work Phone: [facility] 11-19-2024 14:34-0400 SaO2% (BldA) [Mass fraction] 97 % Dr. Jan Muñoz DO Work Phone: [facility] 11-19-2024 14:34-0400 Systolic blood pressure 128 mm[Hg] Dr. Jan Muñoz DO Work Phone: [facility] 11-05-2024 08:49-0400 Body height 155.7 cm Cristin Charlotte SENIOR CUSTOMER SERVICE REPRESENTATIVE.VIDEO GAME REPAIR TECHNICIAN Work Phone: [facility] 11-05-2024 08:49-0400 Body mass index (BMI) [Ratio] 38.62 kg/m2 Cristin Charlotte SENIOR CUSTOMER SERVICE REPRESENTATIVE.VIDEO GAME REPAIR TECHNICIAN Work Phone: [facility] 11-05-2024 08:49-0400 Body weight 93.62 kg Cristin Charlotte SENIOR CUSTOMER SERVICE REPRESENTATIVE.VIDEO GAME REPAIR TECHNICIAN Work Phone: [facility] 11-05-2024 08:49-0400 Diastolic blood pressure 76 mm[Hg] Cristin Charlotte SENIOR CUSTOMER SERVICE REPRESENTATIVE.VIDEO GAME REPAIR TECHNICIAN Work Phone: [facility] 11-05-2024 08:49-0400 Systolic blood pressure 124 mm[Hg] Cristin Charlotte SENIOR CUSTOMER SERVICE REPRESENTATIVE.VIDEO GAME REPAIR TECHNICIAN Work Phone: [facility] 09-19-2024 12:14-0500 Body mass index (BMI) [Ratio] 40.66 kg/m2 Camila Carranza APRN.VIDEO GAME REPAIR TECHNICIAN Work Phone: [facility] 09-19-2024 12:14-0500 Body temperature 97.2 [degF] Camila Carranza APRN.VIDEO GAME REPAIR TECHNICIAN Work Phone: [facility] 09-19-2024 12:14-0500 Body weight 97.6 kg Camila Carranza APRN.VIDEO GAME REPAIR TECHNICIAN Work Phone: [facility] 09-19-2024 12:14-0500 Diastolic blood pressure 82 mm[Hg] Camila Carranza APRN.VIDEO GAME REPAIR TECHNICIAN Work Phone: [facility] 09-19-2024 12:14-0500 Heart rate 86 /min Camila Carranza APRN.VIDEO GAME REPAIR TECHNICIAN Work Phone: [facility] 09-19-2024 12:14-0500 Respiratory rate 16 /min Camila Carranza APRN.VIDEO GAME REPAIR TECHNICIAN Work Phone: [facility] 09-19-2024 12:14-0500 SaO2% (BldA) [Mass fraction] 98 % Camila Carranza APRN.VIDEO GAME REPAIR TECHNICIAN Work Phone: [facility] 09-19-2024 12:14-0500 Systolic blood pressure 142 mm[Hg] Camila Carranza APRN.VIDEO GAME REPAIR TECHNICIAN Work Phone: [facility] 03-23-2024 11:11-0400 Body mass index (BMI) [Ratio] 39.24 kg/m2 Prakash Da Silva MD Work Phone: [facility] 03-23-2024 11:11-0400 Body temperature 97.3 [degF] Prakash Da Silva MD Work Phone: [facility] 03-23-2024 11:11-0400 Body weight 94.2 kg Prakash Da Silva MD Work Phone: [facility] 03-23-2024 11:11-0400 Diastolic blood pressure 58 mm[Hg] Prakash Da Silva MD Work Phone: [facility] 03-23-2024 11:11-0400 Heart rate 82 /min Prakash Da Silva MD Work Phone: [facility] 03-23-2024 11:11-0400 Respiratory rate 20 /min Prakash Da Silva MD Work Phone: [facility] 03-23-2024 11:11-0400 SaO2% (BldA) [Mass fraction] 98 % Prakash Da Silva MD Work Phone: [facility] 03-23-2024 11:11-0400 Systolic blood pressure 114 mm[Hg] Prakash Da Silva MD Work Phone: [facility] 11-03-2023 11:23-0400 Body height 154.9 cm Cristin Charlotte SENIOR CUSTOMER SERVICE REPRESENTATIVE.VIDEO GAME REPAIR TECHNICIAN Work Phone: [facility] 11-03-2023 11:23-0400 Body weight 87.18 kg Cristin Chetopa SENIOR CUSTOMER SERVICE REPRESENTATIVE.VIDEO GAME REPAIR TECHNICIAN Work Phone: [facility] 11-03-2023 11:23-0400 Diastolic blood pressure 62 mm[Hg] Cristin Charlotte SENIOR CUSTOMER SERVICE REPRESENTATIVE.VIDEO GAME REPAIR TECHNICIAN Work Phone: [facility] 11-03-2023 11:23-0400 Systolic blood pressure 110 mm[Hg] Cristin Charlotte SENIOR CUSTOMER SERVICE REPRESENTATIVE.VIDEO GAME REPAIR TECHNICIAN Work Phone: [facility] 09-24-2023 08:16-0500 Body temperature 97.81 [degF] Nadja Praisler-Wood SENIOR CUSTOMER SERVICE REPRESENTATIVE.VIDEO GAME REPAIR TECHNICIAN Work Phone: [facility] 09-24-2023 08:16-0500 Body weight 89.27 kg Nadja Praisler-Wood SENIOR CUSTOMER SERVICE REPRESENTATIVE.VIDEO GAME REPAIR TECHNICIAN Work Phone: [facility] 09-24-2023 08:16-0500 Diastolic blood pressure 68 mm[Hg] Nadja Praisler-Wood SENIOR CUSTOMER SERVICE REPRESENTATIVE.VIDEO GAME REPAIR TECHNICIAN Work Phone: [facility] 09-24-2023 08:16-0500 Heart rate 69 /min Nadja Praisler-Wood SENIOR CUSTOMER SERVICE REPRESENTATIVE.VIDEO GAME REPAIR TECHNICIAN Work Phone: [facility] 09-24-2023 08:16-0500 Respiratory rate 18 /min Nadja Praisler-Wood SENIOR CUSTOMER SERVICE REPRESENTATIVE.VIDEO GAME REPAIR TECHNICIAN Work Phone: [facility] 09-24-2023 08:16-0500 SaO2% (BldA) [Mass fraction] 99 % Nadja Praisler-Wood SENIOR CUSTOMER SERVICE REPRESENTATIVE.VIDEO GAME REPAIR TECHNICIAN Work Phone: [facility] 09-24-2023 08:16-0500 Systolic blood pressure 118 mm[Hg] Nadja Praisler-Wood SENIOR CUSTOMER SERVICE REPRESENTATIVE.VIDEO GAME REPAIR TECHNICIAN Work Phone: [facility] 04-21-2023 14:15-0400 Body height 154.[address] Jan Muñoz Work Phone: [facility] 04-21-2023 14:15-0400 Body mass index (BMI) [Ratio] 35.5 kg/m2 Dr. Jan Muñoz Work Phone: [facility] 04-21-2023 14:15-0400 Body temperature 98.2 [degF] Dr. Jan Muñoz Work Phone: [facility] 04-21-2023 14:15-0400 Body weight 85.[address] Jan Muñoz Work Phone: [facility] 04-21-2023 14:15-0400 Diastolic blood pressure 76 mm[Hg] Dr. Jan Muñoz Work Phone: [facility] 04-21-2023 14:15-0400 Heart rate 76 /min Dr. Jan Muñoz Work Phone: [facility] 04-21-2023 14:15-0400 Respiratory rate 18 /min Dr. Jan Muñoz Work Phone: [facility] 04-21-2023 14:15-0400 SaO2% (BldA) [Mass fraction] 97 % Dr. Jan Muñoz Work Phone: [facility] 04-21-2023 14:15-0400 Systolic blood pressure 126 mm[Hg] Dr. Jan Muñoz Work Phone: [facility] 01-13-2023 09:36-0400 Body height 154.[address] Jan Muñoz Work Phone: [facility] 01-13-2023 09:36-0400 Body mass index (BMI) [Ratio] 34.9 kg/m2 Dr. Jan Muñoz Work Phone: [facility] 01-13-2023 09:36-0400 Body temperature 98.4 [degF] Dr. Jan Muñoz Work Phone: [facility] 01-13-2023 09:36-0400 Body weight 83.[address] Jan Muñoz Work Phone: [facility] 01-13-2023 09:36-0400 Diastolic blood pressure 78 mm[Hg] Dr. Jan Muñoz Work Phone: [facility] 01-13-2023 09:36-0400 Heart rate 60 /min Dr. Jan Muñoz Work Phone: [facility] 01-13-2023 09:36-0400 Respiratory rate 18 /min Dr. Jan Muñoz Work Phone: [facility] 01-13-2023 09:36-0400 SaO2% (BldA) [Mass fraction] 98 % Dr. Jan Muñoz Work Phone: [facility] 01-13-2023 09:36-0400 Systolic blood pressure 136 mm[Hg] Dr. Jan Muñoz Work Phone: [facility] 07-19-2022 06:53-0500 Body height 154.9 cm Cristin Chetopa SENIOR CUSTOMER SERVICE REPRESENTATIVE.VIDEO GAME REPAIR TECHNICIAN Work Phone: [facility] 07-19-2022 06:53-0500 Body weight 92.35 kg Cristin Charlotte SENIOR CUSTOMER SERVICE REPRESENTATIVE.VIDEO GAME REPAIR TECHNICIAN Work Phone: [facility] 07-19-2022 06:53-0500 Diastolic blood pressure 60 mm[Hg] Cristin Chetopa SENIOR CUSTOMER SERVICE REPRESENTATIVE.VIDEO GAME REPAIR TECHNICIAN Work Phone: [facility] 07-19-2022 06:53-0500 Systolic blood pressure 118 mm[Hg] Cristin Chetopa SENIOR CUSTOMER SERVICE REPRESENTATIVE.VIDEO GAME REPAIR TECHNICIAN Work Phone: [facility] 01-04-2022 09:57-0400 Body height 154.[address] Jan Muñoz Work Phone: [facility] Work Phone: 01-04-2022 09:57-0400 Body mass index (BMI) [Ratio] 37.8 kg/m2 Dr. Jan Muñoz Work Phone: [facility] Work Phone: 01-04-2022 09:57-0400 Body temperature 94.9 [degF] Dr. Jan Muñoz Work Phone: [facility] Work Phone: 01-04-2022 09:57-0400 Body weight 90.[address] Jan Muñoz Work Phone: [facility] Work Phone: 01-04-2022 09:57-0400 Diastolic blood pressure 60 mm[Hg] Dr. Jan Muñoz Work Phone: [facility] Work Phone: 01-04-2022 09:57-0400 Heart rate 82 /min Dr. Jan Muñoz Work Phone: [facility] Work Phone: 01-04-2022 09:57-0400 Respiratory rate 16 /min Dr. Jan Muñoz Work Phone: [facility] Work Phone: 01-04-2022 09:57-0400 SaO2% (BldA) [Mass fraction] 99 % Dr. Jan Muñoz Work Phone: [facility] Work Phone: 01-04-2022 09:57-0400 Systolic blood pressure 120 mm[Hg] Dr. Jan Muñoz Work Phone: [facility] Work Phone: 10-08-2021 14:53-0500 Body mass index (BMI) [Ratio] 37.7 kg/m2 Dr. Jan Muñoz Work Phone: [facility] Work Phone: 10-08-2021 14:53-0500 Body temperature 97.3 [degF] Dr. Jan Muñoz Work Phone: [facility] Work Phone: 10-08-2021 14:53-0500 Body weight 90.[address] Jan Muñoz Work Phone: [facility] Work Phone: 10-08-2021 14:53-0500 Diastolic blood pressure 60 mm[Hg] Dr. Jan Muñoz Work Phone: [facility] Work Phone: 10-08-2021 14:53-0500 Heart rate 96 /min Dr. Jan Muñoz Work Phone: [facility] Work Phone: 10-08-2021 14:53-0500 Respiratory rate 18 /min Dr. Jan Muñoz Work Phone: [facility] Work Phone: 10-08-2021 14:53-0500 SaO2% (BldA) [Mass fraction] 98 % Dr. Jan Muñoz Work Phone: [facility] Work Phone: 10-08-2021 14:53-0500 Systolic blood pressure 130 mm[Hg] Dr. Jan Muñoz Work Phone: [facility] Work Phone: 06-09-2017 09:48-0400 BMI (Body Mass Index) 34.88 kg/m2 Wendy Amezcua NP [facility] Work Phone: 06-09-2017 09:48-0400 BP Diastolic 60 mm[Hg] Wendy Amezcua NP [facility] Work Phone: 06-09-2017 09:48-0400 BP Systolic 110 mm[Hg] Wendy Amezcua NP [facility] Work Phone: 06-09-2017 09:48-0400 Height 153.67 cm Wendy Amezcua NP [facility] Work Phone: 06-09-2017 09:48-0400 Pulse (Heart Rate) 76 /min Wendy Amezcua NP [facility] Work Phone: 06-09-2017 09:48-0400 Respiratory Rate 18 /min Wendy Amezcua NP [facility] Work Phone: 06-09-2017 09:48-0400 Weight 82.37 kg Wendy Amezcua PSYCHOLOGY ASSOCIATE [facility] Work Phone: 03-31-2017 13:31-0400 Body Temperature 97.8 [degF] Wendy Amezcua PSYCHOLOGY ASSOCIATE [facility] Work Phone: 01-24-2017 15:17-0400 Body Temperature 98.01 [degF] Wendy Amezcua PSYCHOLOGY ASSOCIATE [facility] Work Phone: 01-24-2017 15:17-0400 Height 153.67 cm Wendy Amezcua NP [facility] Work Phone: 01-24-2017 15:17-0400 Weight 80.74 kg Wendy Amezcua NP [facility] Work Phone: 12-23-2016 15:15-0400 BSA (Body Surface Area) 1.79 m2 Wendy Amezcua PSYCHOLOGY ASSOCIATE [facility] Work Phone: Encounters Encounter Date Encounter Type Care Provider Facility Start: 02-11-2025 End: 02-11-2025 Patient encounter procedure Colleen Recinos PSYCHOLOGY ASSOCIATE-C -[facility] Work Phone: Start: 02-11-2025 End: 02-11-[address] Jan Muñoz DO Work Phone: [facility] Work Phone: Start: 11-19-2024 End: 11-19-2024 Patient encounter procedure Colleen Recinos NP-C -[facility] Work Phone: Start: 11-19-2024 End: 11-19-2024 ambulatory Jan Muñoz Facility:[facility] Start: 11-06-2024 End: 01-06-2025 Follow-up encounter Cristin Chetopa SENIOR CUSTOMER SERVICE REPRESENTATIVE.VIDEO GAME REPAIR TECHNICIAN Work Phone: OB/Gynecology Start: 11-05-2024 End: 11-05-2024 ambulatory CRISTIN CHARLOTTE Facility:[facility] Start: 11-05-2024 End: 11-05-2024 Patient encounter procedure Cristin Elias TATIANA.VIDEO GAME REPAIR TECHNICIAN Work Phone: OB/Gynecology Comment on above: Encounter for gyneco logical examination (general) (routine) without abnormal findings (Primary Dx); Encounter for screening mammogram for breast cancer Start: 11-05-2024 End: 11-05-2024 Patient encounter status Cristin Elias TATIANA.VIDEO GAME REPAIR TECHNICIAN Work Phone: [facility] Start: 11-05-2024 End: 11-05-2024 Subsequent hospital visit by physician Screen Mammo [facility] Comment on above: Encounter for screen ing mammogram for breast cancer [Z12.31] Start: 10-04-2024 End: 10-04-2024 ambulatory JAN MUÑOZ DO Facility:[facility] Start: 10-04-2024 End: 10-04-2024 Patient encounter procedure JAN MUÑOZ DO [facility] Start: 09-19-2024 End: 09-19-2024 ambulatory JAN MUÑOZ Facility:[facility] Start: 09-19-2024 End: 09-19-2024 Patient encounter procedure Camila Carranza APRN.VIDEO GAME REPAIR TECHNICIAN Work Phone: [facility] Comment on above: Urinary frequency (P rimary Dx) Start: 07-30-2024 End: 07-30-2024 ambulatory Jan Muñoz Facility:[facility] Start: 05-03-2024 End: 05-03-2024 ambulatory Jan Muñoz Facility:[facility] Start: 05-01-2024 Encounter for genera l adult medical examination without abnormal findings Jan Muñoz [facility] Start: 03-31-2024 End: 03-31-2024 ambulatory Jan Muñoz Facility:[facility] Start: 03-23-2024 End: 03-23-2024 ambulatory JAN MUÑOZ Facility:[facility] Start: 03-23-2024 End: 03-23-2024 Office outpatient visit 25 minutes Prakash Da Silva MD Work Phone: [facility] Comment on above: Urinary frequency (P rimary Dx) Start: 12-29-2023 End: 01-03-2024 ambulatory JAN MUÑOZ DO Facility:[facility] Start: 12-29-2023 End: 01-02-2024 Outreach Lab JAN MUÑOZ DO [facility] Start: 11-03-2023 End: 11-03-2023 Patient encounter procedure Cristin Charlotte SENIOR CUSTOMER SERVICE REPRESENTATIVE.VIDEO GAME REPAIR TECHNICIAN Work Phone: OB/Gynecology Comment on above: Encounter for gyneco logical examination (general) (routine) without abnormal findings (Primary Dx); Screening for cervical cancer; Encounter for screening for human papillomavirus (HPV); Encounter for screening mammogram for breast cancer Start: 11-03-2023 End: 11-03-2023 Patient encounter status Cristin Elias SENIOR CUSTOMER SERVICE REPRESENTATIVE.VIDEO GAME REPAIR TECHNICIAN Work Phone: [facility] Start: 09-25-2023 Telephone encounter Yolanda Sarah luevano SENIOR CUSTOMER SERVICE REPRESENTATIVE.VIDEO GAME REPAIR TECHNICIAN Work Phone: [facility] Comment on above: Results Start: 09-24-2023 End: 09-24-2023 Patient encounter procedure Nadja Mccarthy SENIOR CUSTOMER SERVICE REPRESENTATIVE.VIDEO GAME REPAIR TECHNICIAN Work Phone: [facility] Comment on above: Urinary frequency (P rimary Dx) Start: 06-16-2023 End: 06-16-[address] Jan Muñoz Work Phone: [facility] Work Phone: Start: 06-16-2023 End: 06-16-[address] Jan Muñoz Work Phone: [facility] Work Phone: Start: 04-21-2023 End: 04-21-[address] Jan Muñoz Work Phone: [facility] Work Phone: Start: 01-13-2023 End: 01-13-[address] Jan Muñoz Work Phone: [facility] Work Phone: Start: 01-13-2023 End: 01-13-[address] Jan Muñoz Work Phone: [facility] Start: 01-10-2023 End: 01-10-[address] Jan Muñoz Work Phone: [facility] Work Phone: Start: 01-10-2023 End: 01-10-[address] Jan Muñoz Work Phone: [facility] Start: 12-02-2022 End: 12-06-2022 Outreach Lab JAN MUÑOZ DO [facility] Start: 09-13-2022 Documentation procedure Mammog anastasiya Coordinator [facility] Start: 09-13-2022 Letter encounter Mammography Coordinator [facility] Department Start: 09-09-2022 End: 09-09-2022 ambulatory Heather Borrero PT Work Phone: [facility] Comment on above: Adhesive capsulitis of right shoulder (Primary Dx); Chronic right shoulder pain Start: 08-26-2022 End: 08-26-2022 ambulatory Heather Borrero PT Work Phone: [facility] Comment on above: Adhesive capsulitis of right shoulder (Primary Dx); Chronic right shoulder pain Start: 08-19-2022 End: 08-19-2022 ambulatory Heather Borrero PT Work Phone: [facility] Comment on above: Adhesive capsulitis of right shoulder (Primary Dx); Chronic right shoulder pain Start: 08-12-2022 End: 08-12-2022 ambulatory Heather Borrero PT Work Phone: [facility] Comment on above: Adhesive capsulitis of right shoulder (Primary Dx); Chronic right shoulder pain Start: 08-09-2022 End: 08-09-2022 ambulatory Latonia Connor FORENSIC COMPUTER EXAMINER Work Phone: [facility] Comment on above: Adhesive capsulitis of right shoulder (Primary Dx); Chronic right shoulder pain Start: 07-23-2022 End: 07-23-2022 ambulatory Heather Borrero PT Work Phone: [facility] Comment on above: Adhesive capsulitis of right shoulder (Primary Dx); Chronic right shoulder pain Start: 07-19-2022 End: 07-19-2022 ambulatory Heather Borrero PT Work Phone: [facility] Comment on above: Adhesive capsulitis of right shoulder (Primary Dx); Chronic right shoulder pain Start: 07-19-2022 End: 07-19-2022 Patient encounter procedure Cristin Elias APRN.VIDEO GAME REPAIR TECHNICIAN Work Phone: OB/Gynecology Comment on above: Encounter for gyneco logical examination (general) (routine) without abnormal findings (Primary Dx); Encounter for screening mammogram for breast cancer Start: 07-19-2022 End: 07-19-2022 Patient encounter status Cristin Elias APRN.VIDEO GAME REPAIR TECHNICIAN Work Phone: OB/Gynecology Start: 07-16-2022 End: 07-16-2022 ambulatory Heather Borrero PT Work Phone: [facility] Comment on above: Adhesive capsulitis of right shoulder (Primary Dx); Chronic right shoulder pain Start: 07-13-2022 End: 07-13-2022 ambulatory Heather Borrero PT Work Phone: [facility] Comment on above: Adhesive capsulitis of right shoulder (Primary Dx); Chronic right shoulder pain Start: 07-07-2022 End: 07-07-2022 ambulatory Heather Borrero PT Work Phone: [facility] Comment on above: Chronic right should er pain (Primary Dx); Adhesive capsulitis of right shoulder Start: 06-30-2022 End: 06-30-2022 ambulatory [facility] Work Phone: Start: 06-30-2022 End: 06-30-2022 Patient encounter procedure [facility], [facility] Start: 01-04-2022 End: 01-04-[address] Jan Muñoz Work Phone: [facility] Start: 12-30-2021 End: 12-30-[address] Jan Muñoz Work Phone: [facility], [place] Start: 10-08-2021 End: 10-08-[address] Jan Muñoz Work Phone: [facility] Procedures Date Procedure Procedure Detail Performing Clinician Start: 09-19-2024 Urnls dip stick/tabl et rgnt auto w/o microscopy Nadja Mccarthy SENIOR CUSTOMER SERVICE REPRESENTATIVE.VIDEO GAME REPAIR TECHNICIAN Work Phone: Start: 03-23-2024 Urnls dip stick/tabl et rgnt auto w/o microscopy Camila Carranza SENIOR CUSTOMER SERVICE REPRESENTATIVE.VIDEO GAME REPAIR TECHNICIAN Work Phone: Start: 09-24-2023 Urnls dip stick/tabl et rgnt auto w/o microscopy Eduardo Hyman SENIOR CUSTOMER SERVICE REPRESENTATIVE.VIDEO GAME REPAIR TECHNICIAN Work Phone: Start: 09-13-2022 Mammography Mammograph y Coordinator Start: 06-30-2022 Procedure on extremity Start: 08-13-2021 Mammography Heather Ibarra son PT Work Phone: Start: 06-09-2017 End: 07-18-2017 *CMP Complete Metabolic Panel Wendy Amezcua NP Work Phone: Start: 06-09-2017 End: 07-18-2017 Hemoglobin A1c/Hemoglobin.total in Blood Wendy Amezcua NP Work Phone: Start: 06-09-2017 End: 07-18-2017 Lipid 1996 panel - Serum or Plasma Wendy Amezcua NP Work Phone: Start: 01-24-2017 End: 02-09-2017 *CMP Complete Metabolic Panel Wendy Amezcua NP Work Phone: Start: 01-24-2017 End: 02-09-2017 *Microalbumin, Creatine Ratio, rand urine Wendy Amezcua PSYCHOLOGY ASSOCIATE Work Phone: Start: 01-24-2017 End: 02-09-2017 Hemoglobin A1c/Hemoglobin.total in Blood Wendy Amezcua PSYCHOLOGY ASSOCIATE Work Phone: Start: 01-24-2017 End: 02-09-2017 Lipid 1996 panel - Serum or Plasma Wendy Amezcua PSYCHOLOGY ASSOCIATE Work Phone: Start: 01-24-2017 End: 02-09-2017 Thyrotropin [Units/volume] in Serum or Plasma Wendy Amezcua PSYCHOLOGY ASSOCIATE Work Phone: Start: 10-14-2016 End: 02-09-2017 *CMP Complete Metabolic Panel Wendy Amezcua PSYCHOLOGY ASSOCIATE Work Phone: Start: 10-14-2016 End: 02-09-2017 *Microalbumin, Creatine Ratio, rand urine Wendy Amezcua PSYCHOLOGY ASSOCIATE Work Phone: Start: 10-14-2016 End: 02-09-2017 Hemoglobin A1c/Hemoglobin.total in Blood Wendy Amezcua PSYCHOLOGY ASSOCIATE Work Phone: Start: 10-14-2016 End: 02-09-2017 Lipid 1996 panel - Serum or Plasma Wendy Amezcua PSYCHOLOGY ASSOCIATE Work Phone: ENT examination unde r general anesthesia JAN MUÑOZ DO Comment on above: Latera Implant in no se- Dr Jones Injection of eye JAN ALEXANDER DO Comment on above: right eye Vitrectomy JAN MUÑOZ DO Comment on above: Left eye Plan of Treatment Date Care Activity Detail Author Start: 06-03-2032 Urine microalbumin profile DTaP,Tdap,Td Vaccine (9 - Td or Tdap) [facility] Start: 11-02-2028 Screening for malign ant neoplasm of cervix Cervical Cancer Screening [facility] Start: 11-14-2025 End: 11-14-2025 Patient encounter procedure Mammogram Comment on above: Encounter for screen ing mammogram for breast cancer [Z12.31] annual Start: 11-05-2025 Screening for malign ant neoplasm of breast Mammogram Screening [facility] Start: 04-22-2025 Influenza vaccination Influenz a Vaccine (Season Ended) [facility] Start: 12-22-2024 Screening for malign ant neoplasm of colon [facility] Start: 11-05-2024 End: 11-05-2024 Patient encounter procedure OB/Gynecology Comment on above: Annual Exam Encounter for screen ing mammogram for breast cancer [Z12.31] Start: 04-22-2024 Covid-19 Vaccine ( season) Covid-19 Vaccine () [facility] Start: 04-22-2024 Influenza vaccination Influenza Vacc ine (#1) [facility] Start: 09-13-2023 Mammography MAMMOGRAM [facility] Start: 09-13-2023 Screening for malign ant neoplasm of breast Mammogram Screening [facility] Start: 08-22-2023 Depression Assessment Depression Ass essment [facility] Start: 05-01-2023 HPV TESTING HPV TESTING [facility] Start: 05-01-2023 PAP TESTING PAP TESTING [facility] Start: 05-01-2023 Screening for malign ant neoplasm of cervix [facility] Start: 04-22-2023 Covid-19 Vaccine () Covid-19 Vaccine () [facility] Start: 08-22-2022 DEPRESSION ASSESSMENT DEPRESSION ASS ESSMENT [facility] Start: 08-13-2022 Mammography MAMMOGRAM [facility] Start: 02-27-2022 Urine microalbumin profile DTAP,TDAP,TD (2 - Td or Tdap) [facility] Start: 09-04-2021 COVID-19 VACCINE (4 - Booster for Moderna series) COVID-19 VACCINE (4 - Booster for Moderna series) [facility] Start: 08-22-2021 DEPRESSION ASSESSMENT DEPRESSION ASS ESSMENT [facility] Start: 2021 COLOGUARD (FIT-DNA) COLOGUARD (FIT-D NA) [facility] Start: 2021 Colonoscopy COLONOSCOPY [facility] Start: 2021 COLORECTAL CANCER SCREENING COLORECTAL CANCER SCREENING [facility] Start: 11-10-[address] COLONOGRAPHY [facility] Start: 2021 FECAL OCCULT BLOOD FECAL OCCULT BLOO D [facility] Start: 2021 Screening for malign ant neoplasm of colon [facility] Start: 2021 SIGMOIDOSCOPY SIGMOIDOSCOPY [facility] Start: 07-18-2018 Hepatitis B surface antibody level LDL CHOLESTEROL [facility] Start: 06-09-2018 Hepatitis B surface antibody level LDL Cholesterol [facility] Start: 07-21-2017 End: 07-21-2017 Appointment Appointment [facility] Work Phone: Start: 06-09-2017 End: 07-18-2017 *CMP Complete Metabolic Panel *CMP Complete Metabolic Panel [facility] Work Phone: Start: 06-09-2017 End: 07-18-2017 Hemoglobin A1c/Hemoglobin.total mass fraction (Bld) *HgA1C [facility] Work Phone: Start: 06-09-2017 End: 07-18-2017 Lipid panel [AGGREGATE] *Lipid Profile [facility] Work Phone: Start: 05-05-2017 Hepatitis B screening URINE ALBUMIN:CREATININE RATIO [facility] Start: 05-05-2017 Hepatitis B surface antibody level LDL Cholesterol [facility] Start: 04-29-2017 Glaucoma screening Dilated Retinal E xam [facility] Start: 04-29-2017 Hepatitis C antibody , confirmatory test DILATED RETINAL EXAM [facility] Start: 02-04-2017 End: 02-04-2017 C peptide [Mass/volume] in Serum or Plasma *CPEP - C-Peptide [facility] Work Phone: Start: 02-04-2017 End: 02-04-2017 Glucose mass conc Fasting Glucose [facility] Work Phone: Start: 01-24-2017 End: 02-09-2017 *CMP Complete Metabolic Panel *CMP Complete Metabolic Panel [facility] Work Phone: Start: 01-24-2017 End: 02-09-2017 *Microalbumin, Creatine Ratio, rand urine *Microalbumin, Creatine Ratio, rand urine [facility] Work Phone: Start: 01-24-2017 End: 02-09-2017 Hemoglobin A1c/Hemoglobin.total mass fraction (Bld) *HgA1C [facility] Work Phone: Start: 01-24-2017 End: 02-09-2017 Lipid panel [AGGREGATE] *Lipid Profile [facility] Work Phone: Start: 01-24-2017 End: 02-09-2017 Thyroid stimulating hormone (TSH) *TSH [facility] Work Phone: Start: 10-14-2016 End: 02-09-2017 *CMP Complete Metabolic Panel *CMP Complete Metabolic Panel [facility] Work Phone: Start: 10-14-2016 End: 02-09-2017 *Microalbumin, Creatine Ratio, rand urine *Microalbumin, Creatine Ratio, rand urine [facility] Work Phone: Start: 10-14-2016 End: 02-09-2017 Hemoglobin A1c/Hemoglobin.total mass fraction (Bld) *HgA1C [facility] Work Phone: Start: 10-14-2016 End: 02-09-2017 Lipid panel [AGGREGATE] *[facility] Profile [facility] Work Phone: Start: 05-21-2016 Hemoglobin A1c measurement HbA1C [facility] Start: 05-21-2016 Hemoglobin A1c/Hemoglobin.total in Blood HBA1C [facility] Start: 05-15-2016 3 comp foot exam completed DIABETIC FOOT EXAM [facility] Start: 05-15-2016 Diabetic foot examination Diabetic Foot Exam [facility] Start: 09-01-2011 PNEUMOCOCCAL (2 - PCV) PNEUMOCOCCAL (2 - PCV) [facility] Start: 09-01-2011 Pneumococcal vaccination Pneumococcal Vaccine (2 of 2 - PCV) [facility] Start: 1995 Hepatitis B Vaccine (1 of 3 - 19+ 3-dose series) Hepatitis B Vaccine (1 of 3 - 19+ 3-dose series) [facility] Start: 1994 ANNUAL PCP TEAM RETAIL CLIENT SOLUTIONS ANALYST TOYA DISEASE VISIT ANNUAL PCP TEAM CHRONIC DISEASE VISIT [facility] Start: 1994 Anxiety Screening Anxiety Screening [facility] Start: 1994 Depression Screening Depression Scre ening [facility] Start: 1994 HEPATITIS C SCREENING HEPATITIS C SC [facility] Start: 1994 [facility] Start: 1994 HIV SCREENING HIV SCREENING [facility] Start: 1994 HIV screening HIV Screening [facility] Start: 1976 HEPATITIS B (1 of 3 - 3-dose series) HEPATITIS B (1 of 3 - 3-dose series) [facility] Start: 1976 Hepatitis B Vaccine (1 of 3 - 3-dose series) Hepatitis B Vaccine (1 of 3 - 3-dose series) [facility] Bacteria identified in Urine by Culture URINE CULTURE Microbiology Routine Urinary frequency Ordered: 09/24/2023 [facility] Work Phone: Comment on above: Ordered: 09/24/2023 Bacteria identified in Urine by Culture URINE CULTURE Microbiology Routine Dysuria Ordered: 09/25/2023 [facility] Work Phone: Comment on above: Ordered: 09/25/2023 Bacteria identified in Urine by Culture URINE CULTURE Microbiology Routine Urinary frequency 03/23/2024 11:40 AM EDT [facility] Work Phone: Bacteria identified in Urine by Culture BACTERIAL CULTURE, URINE Microbiology Routine Urinary frequency Ordered: 09/19/2024 [facility] Work Phone: Comment on above: Ordered: 09/19/2024 End: 12-05-2025 DBT Breast - bilateral screening RADHA SCREENING W KATTY Radiology Routine Encounter for gynecological examination (general) (routine) without abnormal findings Encounter for screening mammogram for breast cancer 1 Occurrences starting 11/05/2024 until 12/05/2025 [facility] Work Phone: Comment on above: 1 Occurrences starti ng 11/05/2024 until 12/05/2025 End: 12-02-2024 MG Breast Screening RADHA SCREENING Radiology Routine Encounter for screening mammogram for breast cancer 1 Occurrences starting 11/03/2023 until 12/02/2024 [facility] Work Phone: Comment on above: 1 Occurrences starti ng 11/03/2023 until 12/02/2024 MG Breast Screening RADHA SCREENIN G Radiology Routine Encounter for screening mammogram for breast cancer 11/05/2024 9:49 AM EDT [facility] Work Phone: PAP TEST PAP TEST Lab Ebony miner Encounter for gynecological examination (general) (routine) without abnormal findings Screening for cervical cancer Encounter for screening for human papillomavirus (HPV) 11/03/2023 12:10 PM EDT [facility] Work Phone: Patient Education WEIGHT%20MANAGEMENT [facility] Work Phone: End: 08-18-2023 Screening mammography bi 2-view breast inc cad RADHA SCREENING Radiology Routine Encounter for screening mammogram for breast cancer 1 Occurrences starting 07/19/2022 until 08/18/2023 [facility] Work Phone: Comment on above: 1 Occurrences starti ng 07/19/2022 until 08/18/2023 [facility] Immunizations Immunization Date Immunization Notes Care Provider [facility] 06-02-2023 influenza, injectabl e, quadrivalent, contains preservative; Translations: [Fluarix PF Quadrivalent ] JAN MUÑOZ DO [facility] 06-02-2023 influenza virus vacc ine, unspecified formulation Prakash Da Silva MD Work Phone: [facility] 06-03-2022 influenza, injectabl e, quadrivalent, contains preservative; Translations: [Fluarix PF Quadrivalent ] JAN MUÑOZ DO [facility] 06-03-2022 tetanus toxoid, redu fahad diphtheria toxoid, and acellular pertussis vaccine, adsorbed; Translations: [Boostrix (Tdap)] JAN MUÑOZ DO [facility] 07-10-2021 SARS-CoV-2 (COVID-19 ) mRNA-1273 vaccine JAN MUÑOZ DO [facility] 06-04-2021 influenza, injectabl e, quadrivalent, contains preservative; Translations: [Fluarix PF Quadrivalent ] JAN MUÑOZ DO [facility] 10-16-2020 COVID-19 original vaccine, full dose, monovalent (MODERNA) Heather Borrero PT Work Phone: [facility] Work Phone: Comment on above: Result Comment: 2020: [id number] 09-18-2020 COVID-19 original vaccine, full dose, monovalent (MODERNA) Heather Borrero PT Work Phone: [facility] Work Phone: 05-20-2020 Flucelvax Quad 2019- 2020 (PF) (flu vac qs 2020(4 yr up)CD(PF)) 60 mcg ([address] Jan Muñoz Work Phone: [facility] Work Phone: 07-23-2019 influenza, injectabl e, quadrivalent, preservative free; Translations: [Fluarix PF Quadrivalent ] JAN MUÑOZ DO [facility] 06-10-2017 influenza virus vacc ine, unspecified formulation JAN MUÑOZ DO [facility] 05-22-2015 influenza virus vacc ine, unspecified formulation JAN MUÑOZ DO [facility] 06-13-2014 influenza virus vacc ine, unspecified formulation JAN MUÑOZ DO [facility] 06-13-2014 influenza, seasonal, injectable Heather Borrero PT Work Phone: [facility] 05-22-2014 influenza virus vacc ine, unspecified formulation JAN MUÑOZ DO [facility] 06-05-2012 influenza virus vacc ine, unspecified formulation Heather Borrero PT Work Phone: [facility] Work Phone: 02-28-2012 tetanus toxoid, redu fahad diphtheria toxoid, and acellular pertussis vaccine, adsorbed Heather Borrero PT Work Phone: [facility] 07-20-2011 influenza virus vacc ine, unspecified formulation Heather Borrero PT Work Phone: [facility] Work Phone: 09-01-2010 pneumococcal polysaccharide vaccine, 23 valent Heather Borrero PT Work Phone: [facility] Work Phone: 05-21-2010 influenza virus vacc ine, unspecified formulation Heather Borrero PT Work Phone: [facility] Work Phone: 07-21-2009 novel influenza-H1N1 -09, all formulations Heather Borrero PT Work Phone: [facility] Work Phone: 06-24-2009 influenza virus vacc ine, unspecified formulation Heather Borrero PT Work Phone: [facility] Work Phone: 07-19-1994 influenza virus vacc ine, unspecified formulation JAN MUÑOZ DO [facility] 06-18-1992 influenza virus vacc ine, unspecified formulation JAN MUÑOZ DO [facility] 07-02-1991 influenza virus vacc ine, unspecified formulation JAN MUÑOZ DO [facility] 07-23-1990 tetanus and diphther ia toxoids, adsorbed, preservative free, for adult use (5 Lf of tetanus toxoid and 2 Lf of diphtheria toxoid) JAN MUÑOZ DO [facility] 06-30-1990 influenza virus vacc ine, unspecified formulation JAN TERESA DO [facility] 08-23-1989 measles/mumps/rubell a virus vaccine JAN TERESA DO [facility] 06-17-1989 influenza virus vacc ine, unspecified formulation JAN ETRESA DO [facility] 08-20-1986 influenza virus vacc ine, unspecified formulation JAN TERESA DO [facility] 07-15-1986 influenza virus vacc ine, unspecified formulation JAN TERESA DO [facility] 01-11-1978 diphtheria, tetanus toxoids and acellular pertussis vaccine JAN TERESA DO [facility] 01-11-1978 poliovirus vaccine, inactivated JAN TERESA DO [facility] 10-01-1977 measles/mumps/rubell a virus vaccine JAN TERESA DO [facility] 01-14-1977 diphtheria, tetanus toxoids and acellular pertussis vaccine JAN TERESA DO [facility] 01-14-1977 poliovirus vaccine, inactivated JAN TERESA DO [facility] 1976 diphtheria, tetanus toxoids and acellular pertussis vaccine JAN TERESA DO [facility] 1976 poliovirus vaccine, inactivated JAN TERESA DO [facility] 1976 diphtheria, tetanus toxoids and acellular pertussis vaccine JAN MUÑOZ DO [facility] 1976 poliovirus vaccine, inactivated JAN MUÑOZ DO [facility] Payers Date Payer Category Payer Self-pay [id number] 2016 [employer] BLUE ACCE PPO Member Subscriber Plan / Payer (Effective 2016-Present) Name: Marcie Velazco Macy Relation to Subscriber: Self Name: Marcie Velazco Macy Payer ID: [id number] (NAIC) Type: PPO Address: [address] [address] [id number] 08-22-2016 Unknown [id number] 08-22-2016 Unknown [id number] 1975 Unknown [id number] 1975 Unknown [id number] Unknown [id number] Unknown [id number] Unknown [id number] Unknown [id number] Unknown [id number] Social History Date Type Detail Facility Start: 01-04-2022 End: 04-21-2023 Tobacco smoking status NHIS Unknown if ever smoked [facility] Start: 1975 Sex Assigned At Female [facility] Start: 01-05-2011 End: 09-22-2023 Tobacco smoking status NHIS Never smoked tobacco [facility] Work Phone: Start: 01-05-2011 End: 11-03-2023 Tobacco use and exposure Smokeless tobacco non-user [facility] Work Phone: Start: 08-22-2021 End: 11-05-2024 Alcohol intake Current drinker of alcohol (finding) [facility] Start: 07-09-2022 End: 07-19-2022 Exposure to SARS-CoV-2 (event) Not sure [facility] Work Phone: Start: 09-24-2023 End: 11-03-2023 History of Social function [facility] Start: 09-24-2023 End: 11-03-2023 Tobacco use panel [facility] National Score (1-100), lower number is lower risk 50 [facility] Start: 08-04-2020 Gender identity Identifies as female gender (finding) [facility] Start: 11-03-2023 Education 17 [facility] Sexual Orientation [facility] tamy [facility] Start: 02-14-2019 Sex Female (finding) [facility] NEGATED: Highlighted rowStart: NINF History of tobacco use Passive smoker [facility] Medical Equipment Procedure Code Equipment Code Equipment Origin al Text Equipment Identifier Dates Blood Sugar Diagnostic (Accu-Chek Guide Test Strips) strip Start: 09-17-2021 Blood Sugar Diagnostic (Contour Next Test Strips) strip Start: 11-13-2018 End: 11-13-2018 Blood Sugar Diagnostic (Contour Next Test Strips) strip Start: 11-13-2018 End: 12-22-2020 Blood Sugar Diagnostic (Onetouch Ultra Blue Test Strip) strip Start: 11-16-2018 End: 11-18-2018 Blood Sugar Diagnostic (Onetouch Ultra Blue Test Strip) strip Start: 11-18-2018 End: 12-22-2020 Blood Sugar Diagnostic (Onetouch Ultra Blue Test Strip) strip Start: 12-22-2020 End: 09-17-2021 Blood Sugar Diagnostic (Onetouch Ultra Test) strip Start: 08-30-2017 End: 11-13-2018 Blood Sugar Diagnostic (Accu-Chek Guide Test Strips) strip Start: 09-17-2021 Blood Sugar Diagnostic (Contour Next Test Strips) strip Start: 11-13-2018 End: 11-13-2018 Blood Sugar Diagnostic (Contour Next Test Strips) strip Start: 11-13-2018 End: 12-22-2020 Blood Sugar Diagnostic (Onetouch Ultra Blue Test Strip) strip Start: 11-16-2018 End: 11-18-2018 Blood Sugar Diagnostic (Onetouch Ultra Blue Test Strip) strip Start: 11-18-2018 End: 12-22-2020 Blood Sugar Diagnostic (Onetouch Ultra Blue Test Strip) strip Start: 12-22-2020 End: 09-17-2021 Blood Sugar Diagnostic (Onetouch Ultra Test) strip Start: 08-30-2017 End: 11-13-2018 Testing up to si x times daily [id number] Start: 10-14-2015 Comment on above: Testing up to six ti mes daily One Touch Ultra Test Strips, 1, 6x/Day, 0 Refill(s) Start: 03-01-2019 Blood Sugar Diagnostic (Accu-Chek Guide Test Strips) strip Start: 09-29-2022 Blood Sugar Diagnostic (Accu-Chek Guide Test Strips) strip Start: 09-17-2021 End: 09-29-2022 Blood Sugar Diagnostic (Contour Next Test Strips) strip Start: 11-13-2018 End: 11-13-2018 Blood Sugar Diagnostic (Contour Next Test Strips) strip Start: 11-13-2018 End: 12-22-2020 Blood Sugar Diagnostic (Onetouch Ultra Blue Test Strip) strip Start: 11-16-2018 End: 11-18-2018 Blood Sugar Diagnostic (Onetouch Ultra Blue Test Strip) strip Start: 11-18-2018 End: 12-22-2020 Blood Sugar Diagnostic (Onetouch Ultra Blue Test Strip) strip Start: 12-22-2020 End: 09-17-2021 Blood Sugar Diagnostic (Onetouch Ultra Test) strip Start: 08-30-2017 End: 11-13-2018 Blood Sugar Diagnostic (Accu-Chek Guide Test Strips) strip Start: 09-29-2022 Blood Sugar Diagnostic (Accu-Chek Guide Test Strips) strip Start: 09-17-2021 End: 09-29-2022 Blood Sugar Diagnostic (Contour Next Test Strips) strip Start: 11-13-2018 End: 11-13-2018 Blood Sugar Diagnostic (Contour Next Test Strips) strip Start: 11-13-2018 End: 12-22-2020 Blood Sugar Diagnostic (Onetouch Ultra Blue Test Strip) strip Start: 11-16-2018 End: 11-18-2018 Blood Sugar Diagnostic (Onetouch Ultra Blue Test Strip) strip Start: 11-18-2018 End: 12-22-2020 Blood Sugar Diagnostic (Onetouch Ultra Blue Test Strip) strip Start: 12-22-2020 End: 09-17-2021 Blood Sugar Diagnostic (Onetouch Ultra Test) strip Start: 08-30-2017 End: 11-13-2018 Blood Sugar Diagnostic (Accu-Chek Guide Test Strips) strip Start: 09-29-2022 Blood Sugar Diagnostic (Accu-Chek Guide Test Strips) strip Start: 09-17-2021 End: 09-29-2022 Blood Sugar Diagnostic (Contour Next Test Strips) strip Start: 11-13-2018 End: 11-13-2018 Blood Sugar Diagnostic (Contour Next Test Strips) strip Start: 11-13-2018 End: 12-22-2020 Blood Sugar Diagnostic (Onetouch Ultra Blue Test Strip) strip Start: 11-16-2018 End: 11-18-2018 Blood Sugar Diagnostic (Onetouch Ultra Blue Test Strip) strip Start: 11-18-2018 End: 12-22-2020 Blood Sugar Diagnostic (Onetouch Ultra Blue Test Strip) strip Start: 12-22-2020 End: 09-17-2021 Blood Sugar Diagnostic (Onetouch Ultra Test) strip Start: 08-30-2017 End: 11-13-2018 One Touch Ultra Test Strips, 1, 6x/Day, 0 Refill(s) Start: 03-01-2019 Blood Sugar Diagnostic (Accu-Chek Guide Test Strips) strip Start: 09-29-2022 Insulin Syringe-Needle U-100 (Bd Insulin Syringe Ultra-Fine) 0.5 mL 31 gauge x 5/16 syringe Start: 04-20-2024 Blood Sugar Diagnostic (Accu-Chek Guide Test Strips) strip Start: 09-17-2021 End: 09-29-2022 Blood Sugar Diagnostic (Contour Next Test Strips) strip Start: 11-13-2018 End: 11-13-2018 Blood Sugar Diagnostic (Contour Next Test Strips) strip Start: 11-13-2018 End: 12-22-2020 Blood Sugar Diagnostic (Onetouch Ultra Blue Test Strip) strip Start: 11-16-2018 End: 11-18-2018 Blood Sugar Diagnostic (Onetouch Ultra Blue Test Strip) strip Start: 11-18-2018 End: 12-22-2020 Blood Sugar Diagnostic (Onetouch Ultra Blue Test Strip) strip Start: 12-22-2020 End: 09-17-2021 Blood Sugar Diagnostic (Onetouch Ultra Test) strip Start: 08-30-2017 End: 11-13-2018 Functional Status Date Assessment Result Facility 06-13-2014 Are you deaf, or do you have serious difficulty hearing No 06/13/2014 4:47 PM Nancy Lopez LPN No [facility] 06-13-2014 Are you blind, or do you have serious difficulty seeing, even when wearing glasses No 06/13/2014 4:47 PM Nancy Lopez LPN No [facility] 06-13-2014 Do you have serious difficulty walking or climbing stairs No 06/13/2014 4:47 PM Nancy Lopez LPN No [facility] 06-13-2014 Do you have difficul ty dressing or bathing No 06/13/2014 4:47 PM Nancy Lopez LPN No [facility] 06-13-2014 Because of a physica l, mental, or emotional condition, do you have difficulty doing errands alone such as visiting a physician's office or shopping No 06/13/2014 4:47 PM Nancy Lopez LPN No [facility] Mental Status Date Assessment Result Facility 06-13-2014 Because of a physica l, mental, or emotional condition, do you have serious difficulty concentrating, remembering, or making decisions No 06/13/2014 4:47 PM EDT Nancy Tan LPN No [facility] Clinical Notes 05-28-2005 to 11-19-2024 Note Date & Type Note Facility 11-19-2024 Evaluation note Diagnosis Onset Date Resolution Insulin pump titration chronic Ma rch 2024 2:21pm Microalbuminuria chronic November 192024 2:21pm Mixed hyperlipidemia chronic [place] [facility] 2024 2:21pm Obesity chronic November 19 2:21pm Presence of insulin pump chronic November 19, 2024 2:21pm Proliferative diabetic retinopathy associated with type 1 diabetes mellitus chronic November 19, 2024 2:21pm Type 1 diabetes mellitus with hyperglycemia chronic November 19 2:21pm [facility] [place] Work Phone: [phone] History of Present illness Narrative* Jaspal Pond Mammo Tech - 11/05/2024 9:30 AM EDT Radiology Service Progress Note PATIENT NAME: Marcie Velazco DATE OF SERVICE: November 05, 2024 TIME: 10:09 AM PATIENT IDENTITY VERIFICATION COMPLETED USING TWO (2) IDENTIFIERS: Name and Date of confirmedby patient verbally. FALL SCREENING: Has the patient had 2 falls in the last year or 1 fall with injury or currently using an Ambulatory Assistive Device (Walker, Cane, Wheelchair, Crutches, etc.)? No PATIENT GENDER DATA: Assigned female at . status: : No status:NO. PATIENT RELEVANT IMPLANT DATA REVIEWED: Not Applicable PATIENT PRESENTS WITH AN IMPLANTABLE OR ATTACHED HIRED HELP: No RADIOLOGY DEPARTMENT: Mammography PERIPHERAL IV DATA: Not applicable SIGNED BY: Cintia Antonio November 05, 2024 10:09 AM documented in this encounter[facility] [place]25 NoteHNO ID: [id number] Author: JASPAL POND Mammo Tech Service: ? Author Type: Retail Team Leader Type: Progress Notes Filed: 11/05/2024 10:09 Note Text: Radiology Service Progress Note PATIENT NAME: Marcie Velazco DATE OF SERVICE: November 05, 2024 TIME: 10:09 AM PATIENT IDENTITY VERIFICATION COMPLETED USING TWO (2) IDENTIFIERS: Name and Date of confirmed by patient verbally. FALL SCREENING: Has the patient had 2 falls in the last year or 1 fall with injury or currently using an Ambulatory Assistive Device (Walker, Cane, Wheelchair, Crutches, etc.)? No PATIENT GENDER DATA: Assigned female at . status: : No status: NO. PATIENT RELEVANT IMPLANT DATA REVIEWED: Not Applicable PATIENT PRESENTS WITH AN IMPLANTABLE OR ATTACHED HIRED HELP: No RADIOLOGY DEPARTMENT: Mammography PERIPHERAL IV DATA: Not applicable SIGNED BY: Jaspal Pond [employer] November 05, 2024 10:09 [facility]03-17-2025 NoteHNO ID: [id number] Author: CRISTIN ELIAS APRN.CNP Service: ? Author Type: Nurse Practitioner Type: Progress Notes Filed: 11/05/2024 09:32 Note Text: Patient declined port warden. Marcie is a 49 year old who presents for an annual gynecologic exam without complaints. Menses: cycles every 25-26 days and 3-5 days of flow. Contraception: vasectomy HPV vaccine: N/A Last Pap: 10/2023 normal HPV: 10/2023 negative History of abnormal pap: Yes 2015 ASCUS Last mammogram: 2024 today Sexually active: Yes OB History Gravida0 Para0 Term0 Preterm0 AB0 Living0 SAB0 IAB0 Ectopic0 Multiple0 Live Births0 FAMILY HISTORY Problem Relation Age of Onset Coronary Artery Disease Mother Diabetes Father Heart Father Fatal [place] Diabetes Other mat gr aunt SOCIAL HISTORY Social History Tobacco Use Smoking status: Never Passive exposure: Never Smokeless tobacco: Never Vaping Use Vaping status: Never Used Substance Use Topics Alcohol use: Yes Comment: occasionally Drug use: No REVIEW OF SYSTEMS Abdomen: No abdominal pain, nausea, vomiting, diarrhea, or constipation. No bloating, early satiety, indigestion, or increased flatulence. Bladder: No dysuria, gross hematuria, urinary frequency, urinary urgency, or incontinence. Breast: No breast lumps, nipple d/c, overlying skin changes, redness or skin retraction. Allergies and current medication updated:Yes SENSITIVE EXAM: The sensitive examination was discussed with the Patient or Patient's Authorized Wharf Labourer. As applicable, any other physician, advance practice provider, medical student, or other health professional student that will be observing or involved in the sensitive examination for educational or training purposes was discussed with the Patient or Authorized Wharf Labourer. The Patient or Authorized Wharf Labourer has agreed to proceed with the sensitive examination. (Sensitive examination includes inspection and/or palpation of the breasts, pelvis, prostate and anorectal regions). EXAM: BP 124/76 Ht 5' 1.299 (1.56m) Wt 206 lb 6.4 oz (93.6kg) LMP 10/24/2024 BMI 38.62 kg/(m2). GENERAL: pleasant, female in no apparent distress HEENT: Normocephalic, atraumatic, mucus membranes moist, and no lesions DERMATOLOGY: Normal, without lesions, non-icteric, and non-hirsute BREAST: soft, non-tender, symmetric, no dominant mass, normal nipple-areolar complex, no lymphadenopathy, and no nipple discharge CHEST: Normal inspiratory effort ABDOMEN: soft, non-tender, and no masses PELVIC: external genitalia normal, normal Bartholin's glands, urethra, Keener's glands, no vulvar lesions, no cervical lesions, physiologic discharge present, normal appearing perineal body and perianal region BIMANUAL: uterus normal size, shape and consistency, no adnexal masses, and non-tender RECTOVAGINAL: deferred. NEURO: alert and oriented x3,exam grossly non-focal EXTREMITIES: normal ASSESSMENT/PLAN: 1) Health maintenance: Pap/HPV up to date. Mammogram up to date . Nutrition, exercise and routine health maintenance exams reviewed. Calcium/Vitamin D supplementation information provided. Colon cancer screening: up to date with screening done 2021 2) Contraception: vasectomy. Contraceptive options reviewed and information provided. 3) STD screening: Declined STD check. 4) Follow up one year or sooner as needed [facility]in Elias [facility]N.[facility] History of Present illness Narrative* Cristin Elias APRN.XOCHILT - 11/05/2024 8:36 AM EDT Patient declined port warden. Marcie is a 49 year old who presents for an annual gynecologic exam without complaints. Menses: cycles every 25-26 days and 3-5 days of flow. Contraception: vasectomy HPV vaccine: N/A Last Pap: 10/2023 normal HPV: 10/2023 negative History of abnormal pap: Yes 2015 ASCUS Last mammogram: 2024 today Sexually active: Yes OB History Gravida0 Para0 Term0 Preterm0 AB0 Living0 SAB0 IAB0 Ectopic0 Multiple0 Live Births0 FAMILY HISTORY Problem Relation Age of Onset Coronary Artery Disease Mother Diabetes Father Heart Father Fatal [place] Diabetes Other mat gr aunt SOCIAL HISTORY Social History Tobacco Use Smoking status: Never Passive exposure: Never Smokeless tobacco: Never Vaping Use Vaping status: Never Used Substance Use Topics Alcohol use: Yes Comment: occasionally Drug use: No REVIEW OF SYSTEMS Abdomen: No abdominal pain, nausea, vomiting, diarrhea, or constipation. No bloating, early satiety, indigestion, or increased flatulence. Bladder: No dysuria, gross hematuria, urinary frequency, urinary urgency, or incontinence. Breast: No breast lumps, nipple d/c, overlying skin changes, redness or skin retraction. Allergies and current medication updated:Yes SENSITIVE EXAM: The sensitive examination was discussed with the Patient or Patient's Authorized Wharf Labourer. As applicable, any other physician, advance practice provider, medical student, or other health professional student that will be observing or involved in the sensitive examination for educational or training purposes was discussed with the Patient or Authorized Wharf Labourer. The Patient or Authorized Wharf Labourer has agreed to proceed with the sensitive examination. (Sensitive examination includes inspection and/or palpation of the breasts, pelvis, prostate and anorectal regions). EXAM: BP 124/76 Ht 5' 1.299 (1.56m) Wt 206 lb 6.4 oz (93.6kg) LMP 10/24/2024 BMI 38.62 kg/(m^2). GENERAL: pleasant, female in no apparent distress HEENT: Normocephalic, atraumatic, mucus membranes moist, and no lesions DERMATOLOGY: Normal, without lesions, non-icteric, and non-hirsute BREAST: soft, non-tender, symmetric, no dominant mass, normal nipple-areolar complex, no lymphadenopathy, and no nipple discharge CHEST: Normal inspiratory effort ABDOMEN: soft, non-tender, and no masses PELVIC: external genitalia normal, normal Bartholin's glands, urethra, Keener's glands, no vulvar lesions, no cervical lesions, physiologic discharge present, normal appearing perineal body and perianal region BIMANUAL: uterus normal size, shape and consistency, no adnexal masses, and non-tender RECTOVAGINAL: deferred. NEURO: alert and oriented x3,exam grossly non-focal EXTREMITIES: normal ASSESSMENT/PLAN: 1) Health maintenance: Pap/HPV up to date. Mammogram up to date . Nutrition, exercise and routine health maintenance exams reviewed. Calcium/Vitamin D supplementation information provided. Colon cancer screening: up to date with screening done 2021 2) Contraception: vasectomy. Contraceptive options reviewed and information provided. 3) STD screening: Declined STD check. 4) Follow up one year or sooner as needed Cristin Elias APRN.XOCHILT documented in this encounterSelect [facility] [place]-29-2025 NoteHNO ID: [id number] Author: CAMILA CARRANZA APRN.CNP Service: ? Author Type: Nurse Practitioner Type: Progress Notes Filed: 09/19/2024 12:25 Note Text: CC: Patient presents with: Urinary Frequency: burning with urination x 5 days HPI Marcie Velazco is a 49 year old female who presents with complaint of possible UTI. These symptoms have been present for 5 days. Associated symptoms: burning and urgency Denies: fever, chills, sweats, abdominal pain, and flank pain Treatments: nothing The ROS was otherwise negative. PMH, Medications, labs, allergies, and recent past visits with PCP were reviewed and updated as able. PHYSICAL EXAM: BP 142/82 Pulse 86 Temp 36.2 ?C (97.2 ?F) Resp 16 Wt 97.6 kg (215 lb 2.7 oz) LMP 10/19/2023 SpO2 98% BMI 40.66 kg/m? General: Well appearing and alert CV: Regular rate and rhythm without obvious murmur Lungs: clear to auscultation bilaterally Back: straight and symmetric Abdomen: soft, nontender, nondistended PAST MEDICAL HISTORY Diagnosis Date Anxiety Diabetes mellitus Frozen shoulder right shoulder PAST SURGICAL HISTORY Procedure Laterality Date INSULIN PUMP IMPLANTATION HX 2006 PAST SURGICAL HISTORY OF 01/05/07 removal of insulin pump PAST SURGICAL HISTORY OF 03/27/2012 eye surgery PAST SURGICAL HISTORY OF 07/2018 nasal implant ALLERGIES Adhesive Tape-Silicones MEDICATIONS vit B complex no.12/niacin,B3, (VITAMIN B COMPLEX NO.12-NIACIN ORAL) Take by mouth. atorvastatin (LIPITOR) 10 mg tablet docosahexanoic acid/epa (FISH OIL ORAL) Take by mouth. Flaxseed Oil 1,000 mg cap Take by mouth. enalapril (VASOTEC) 20 mg tablet Take 1 tablet by mouth once daily. insulin glargine (LANTUS) 100 unit/mL injection Inject 44 Units subcutaneously daily at bedtime. if pump fails (total of basal rates) insulin lispro (HUMALOG) 100 unit/mL injection Uses with insulin pump, up to 100 units daily blood sugar diagnostic (AccountNowTOUCH ULTRA TEST) test strip Testing up to six times daily ASPIRIN ORAL Take 81 mg by mouth once daily. Insulin Syringe-Needle U-100 (BD INSULIN SYRINGE UF II) 1/2 mL 31 x 5/16 Syrg use as directed if pump fails citalopram (CELEXA) 20 mg tablet Take 20 mg by mouth once daily. COMPOUNDED PRESCRIPTION Transmitter adhesive patch. Apply with trasmitter INSULIN SYRINGE-NEEDLE U-100 0.5 ML 31 X 3/8 use as directed with each meal nitrofurantoin monohydrate and macrocrystal (MACROBID) 100 mg capsule Take 1 capsule by mouth two times a day for 5 days. FAMILY HISTORY Problem Relation Age of Onset Coronary Artery Disease Mother Diabetes Father Heart Father Fatal [place] Diabetes Other mat gr aunt Social History Tobacco Use Smoking status: Never Passive exposure: Never Smokeless tobacco: Never Vaping Use Vaping status: Never Used Substance Use Topics Alcohol use: Yes Comment: occasionally Drug use: No ASSESSMENT/PLAN: 1. Urinary frequency - ICD9: 788.41, ICD10: R35.0 - UA DIP, URINE (POC) - BACTERIAL CULTURE, URINE - NITROFURANTOIN MONOHYDRATE AND MACROCRYSTAL 100 MG ORAL CAP Prescription instructions reviewed with patient as applicable. Potential red flag symptoms discussed with the patient. Reviewed appropriate action plan to take if red flag symptoms occur. Patient agreeable to treatment plan. Camila Carranza APRN.[facility]01-29-2025 History of Present illness Narrative* Camila Carranza APRN.[facility] - 09/19/2024 12:23 PM EST CC: Patient presents with: Urinary Frequency: burning with urination x 5 days HPI Marcie Velazco is a 49 year old female who presents with complaint of possible UTI. These symptoms have been present for 5 days. Associated symptoms: burning and urgency Denies: fever, chills, sweats, abdominal pain, and flank pain Treatments: nothing The ROS was otherwise negative. PMH, Medications, labs, allergies, and recent past visits with PCP were reviewed and updated as able. PHYSICAL EXAM: BP 142/82 Pulse 86 Temp 36.2 C (97.2 F) Resp 16 Wt 97.6 kg (215 lb 2.7 oz) LMP 10/19/2023 SpO2 98% BMI 40.66 kg/m General: Well appearing and alert CV: Regular rate and rhythm without obvious murmur Lungs: clear to auscultation bilaterally Back: straight and symmetric Abdomen: soft, nontender, nondistended PAST MEDICAL HISTORY Diagnosis Date Anxiety Diabetes mellitus Frozen shoulder right shoulder PAST SURGICAL HISTORY Procedure Laterality Date INSULIN PUMP IMPLANTATION HX 2006 PAST SURGICAL HISTORY OF 01/05/07 removal of insulin pump PAST SURGICAL HISTORY OF 03/27/2012 eye surgery PAST SURGICAL HISTORY OF 07/2018 nasal implant ALLERGIES Adhesive Tape-Silicones MEDICATIONS vit B complex no.12/niacin,B3, (VITAMIN B COMPLEX NO.12-NIACIN ORAL) Take by mouth. atorvastatin (LIPITOR) 10 mg tablet docosahexanoic acid/epa (FISH OIL ORAL) Take by mouth. Flaxseed Oil 1,000 mg cap Take by mouth. enalapril (VASOTEC) 20 mg tablet Take 1 tablet by mouth once daily. insulin glargine (LANTUS) 100 unit/mL injection Inject 44 Units subcutaneously daily at bedtime. ifpump fails (total of basal rates) insulin lispro (HUMALOG) 100 unit/mL injection Uses with insulin pump, up to 100 units daily blood sugar diagnostic (ONETOUCH ULTRA TEST) test strip Testing up to six times daily ASPIRIN ORAL Take 81 mg by mouth once daily. Insulin Syringe-Needle U-100 (BD INSULIN SYRINGE UF II) 1/2 mL 31 x 516 Syrg use as directed if pump fails citalopram (CELEXA) 20 mg tablet Take 20 mg by mouth once daily. COMPOUNDED PRESCRIPTION Transmitter adhesive patch. Apply with trasmitter INSULIN SYRINGE-NEEDLE U-100 0.5 ML 31 X 3/8 use as directed with each meal nitrofurantoin monohydrate and macrocrystal (MACROBID) 100 mg capsule Take 1 capsule by mouth two times a day for 5 days. FAMILY HISTORY Problem Relation Age of Onset Coronary Artery Disease Mother Diabetes Father Heart Father Fatal [place] Diabetes Other mat gr aunt Social History Tobacco Use Smoking status: Never Passive exposure: Never Smokeless tobacco: Never Vaping Use Vaping status: Never Used Substance Use Topics Alcohol use: Yes Comment: occasionally Drug use: No ASSESSMENT/PLAN: 1. Urinary frequency - ICD9: 788.41, ICD10: R35.0 - UA DIP, URINE (POC) - BACTERIAL CULTURE, URINE - NITROFURANTOIN MONOHYDRATE & MACROCRYSTAL 100 MG ORAL CAP Prescription instructions reviewed with patient as applicable. Potential red flag symptoms discussed with the patient. Reviewed appropriate action plan to take if red flag symptoms occur. Patient agreeable to treatment plan. Camila Carranza APRN.VIDEO GAME REPAIR TECHNICIAN documented in this encounterSelect [facility]ty [facility] [place]08-02-2024 NoteHNO ID: [id number] Author: PRAKASH DA SILVA MD Service: ? Author Type: Physician Type: Progress Notes Filed: 03/23/2024 11:35 Note Text: Patient presents with: Urinary Problem: Frequency, pain x 4 days HPI: Symptoms for 4 days. Dysuria: Yes Frequency: Yes Hematuria: pink when wiping today Nausea: No Fever or chills: No Back pain: No Abdominal pain: bladder area pressure Prior UTI: Yes, E coli 2021, mixed 09/2023. Blood sugar has been running OK. PAST MEDICAL HISTORY No date: Anxiety No date: Diabetes mellitus No date: Frozen shoulder Comment: right shoulder PAST SURGICAL HISTORY 2007: INSULIN PUMP IMPLANTATION HX 01/05/07: PAST SURGICAL HISTORY OF Comment: removal of insulin pump 03/27/2012: PAST SURGICAL HISTORY OF Comment: eye surgery 07/2018: PAST SURGICAL HISTORY OF Comment: nasal implant MEDICATIONS: Current Outpatient Medications Medication Sig vit B complex no.12/niacin,B3, (VITAMIN B COMPLEX NO.12-NIACIN ORAL) Take by mouth. atorvastatin (LIPITOR) 10 mg tablet docosahexanoic acid/epa (FISH OIL ORAL) Take by mouth. Flaxseed Oil 1,000 mg cap Take by mouth. enalapril (VASOTEC) 20 mg tablet Take 1 tablet by mouth once daily. insulin glargine (LANTUS) 100 unit/mL injection Inject 44 Units subcutaneously daily at bedtime. if pump fails (total of basal rates) insulin lispro (HUMALOG) 100 unit/mL injection Uses with insulin pump, up to 100 units daily blood sugar diagnostic (ONETOUCH ULTRA TEST) test strip Testing up to six times daily ASPIRIN ORAL Take 81 mg by mouth once daily. Insulin Syringe-Needle U-100 (BD INSULIN SYRINGE UF II) 1/2 mL 31 x 5/16 Syrg use as directed if pump fails citalopram (CELEXA) 20 mg tablet Take 20 mg by mouth once daily. COMPOUNDED PRESCRIPTION Transmitter adhesive patch. Apply with trasmitter INSULIN SYRINGE-NEEDLE U-100 0.5 ML 31 X 3/8 use as directed with each meal No current facility-administered medications for this visit. ALLERGIES: ALLERGIES Allergen Reactions Adhesive Tape-Silic* Hives, Itching VITALS: BP 114/58 Pulse 82 Temp 36.3 ?C (97.3 ?F) Resp 20 Wt 94.2 kg (207 lb 10.8 oz) LMP 10/19/2023 SpO2 98% BMI 39.24 kg/m? PHYSICAL EXAM: GEN: NAD HEENT: EOMI, conjunctiva clear, HEART: regular rate and rhythm, no murmurs LUNGS: clear to auscultation, no wheezes or crackles, no increased WOB ABDOMEN: Soft, nondistended, no masses, no suprapubic tenderness BACK: No CVA tenderness ASSESSMENT/PLAN: 1. Urinary frequency - ICD9: 788.41, ICD10: R35.0 - UA positive for hilario esterase and hematuria - UA DIP, URINE (POC) - URINE CULTURE - NITROFURANTOIN MONOHYDRATE AND MACROCRYSTAL 100 MG ORAL CAP Prakash Da Silva [facility]08-02-2024 History of Present illness Narrative* Prakash Da Silva MD - 03/23/2024 11:28 AM EDT Patient presents with: Urinary Problem: Frequency, pain x 4 days HPI: Symptoms for 4 days. Dysuria: Yes Frequency: Yes Hematuria: pink when wiping today Nausea: No Fever or chills: No Back pain: No Abdominal pain: bladder area pressure Prior UTI: Yes, E coli 2021, mixed 09/2023. Blood sugar has been running OK. PAST MEDICAL HISTORY No date: Anxiety No date: Diabetes mellitus No date: Frozen shoulder Comment: right shoulder PAST SURGICAL HISTORY 2007: INSULIN PUMP IMPLANTATION HX 01/05/07: PAST SURGICAL HISTORY OF Comment: removal of insulin pump 03/27/2012: PAST SURGICAL HISTORY OF Comment: eye surgery 07/2018: PAST SURGICAL HISTORY OF Comment: nasal implant MEDICATIONS: Current Outpatient Medications Medication Sig vit B complex no.12/niacin,B3, (VITAMIN B COMPLEX NO.12-NIACIN ORAL) Take by mouth. atorvastatin (LIPITOR) 10 mg tablet docosahexanoic acid/epa (FISH OIL ORAL) Take by mouth. Flaxseed Oil 1,000 mg cap Take by mouth. enalapril (VASOTEC) 20 mg tablet Take 1 tablet by mouth once daily. insulin glargine (LANTUS) 100 unit/mL injection Inject 44 Units subcutaneously daily at bedtime. ifpump fails (total of basal rates) insulin lispro (HUMALOG) 100 unit/mL injection Uses with insulin pump, up to 100 units daily blood sugar diagnostic (ONETOUCH ULTRA TEST) test strip Testing up to six times daily ASPIRIN ORAL Take 81 mg by mouth once daily. Insulin Syringe-Needle U-100 (BD INSULIN SYRINGE UF II) 1/2 mL 31 x 5/16 Syrg use as directed if pump fails citalopram (CELEXA) 20 mg tablet Take 20 mg by mouth once daily. COMPOUNDED PRESCRIPTION Transmitter adhesive patch. Apply with trasmitter INSULIN SYRINGE-NEEDLE U-100 0.5 ML 31 X 3/8 use as directed with each meal No current facility-administered medications for this visit. ALLERGIES: ALLERGIES Allergen Reactions Adhesive Tape-Silic* Hives, Itching VITALS: BP 114/58 Pulse 82 Temp 36.3 C (97.3 F) Resp 20 Wt 94.2 kg (207 lb 10.8 oz) LMP 10/19/2023 SpO2 98% BMI 39.24 kg/m PHYSICAL EXAM: GEN: NAD HEENT: EOMI, conjunctiva clear, HEART: regular rate and rhythm, no murmurs LUNGS: clear to auscultation, no wheezes or crackles, no increased WOB ABDOMEN: Soft, nondistended, no masses, no suprapubic tenderness BACK: No CVA tenderness ASSESSMENT/PLAN: 1. Urinary frequency - ICD9: 788.41, ICD10: R35.0 - UA positive for hilario esterase and hematuria - UA DIP, URINE (POC) - URINE CULTURE - NITROFURANTOIN MONOHYDRATE & MACROCRYSTAL 100 MG ORAL CAP Prakash Da Silva MD documented in this encounterSelect Medical [facility] [place]-02-2024 Evaluation + Plan note Future Appointments Appointment Date:01/11/2024 09:15:00 AM Scheduled Provider: Location:[facility] Appointment Type:PC Nurse Injection Appointment Date:01/13/2024 09:15:00 AM Scheduled Provider: Location:[facility] Appointment Type:PC Nurse TB Read Appointment Date:04/05/2024 09:00:00 AM Scheduled Provider:JAN MUÑOZ DO Location:[facility] Appointment Type: Wellness Annual Future Scheduled Tests Laboratory* Magnesium Level 06/02/23 * Thyroid Stimulating Hormone 12/29/23 * Vitamin B12 Level 06/02/23 * Complete Blood Count 12/29/23 * Complete Blood Count 06/02/23 * Lipid Profile 12/29/23 * Vitamin D Level 12/29/23 * Complete Metabolic Panel 12/29/23 [facility] 03-14-2024 History of Present illness Narrative* Cristin Elias APRN.VIDEO GAME REPAIR TECHNICIAN - 11/03/2023 11:23 AM EDT Glass Cut Off Tender offered: Patient declines. Marcie is a 48 year old who presents for an annual gynecologic exam without complaints. Menses: cycles every 25-26 days and 3-5 days of flow. Contraception: vasectomy HPV vaccine: N/A Last Pap: 05/10/2018 normal HPV: 05/04/2018 negative History of abnormal pap: Yes 2015 ASCUS Last mammogram: 2022normal Sexually active: Yes Pain with intercourse: No Postcoital bleeding: No OB History T0 L0 SAB0 IAB0 Ectopic0 Multiple0 Live Births0 [employer] Fire[employer] History LMP: 10/19/2023, Having periods Age at Menarche: Age at First : Age at Menopause: [employer] Fire[employer] History Comments: Sexual Activity: Yes; Male Contraception: Vasectomy PAST MEDICAL HISTORY Diagnosis Date Anxiety Diabetes mellitus Frozen shoulder right shoulder PAST SURGICAL HISTORY Procedure Laterality Date INSULIN PUMP IMPLANTATION HX 2006 PAST SURGICAL HISTORY OF 01/05/07 removal of insulin pump PAST SURGICAL HISTORY OF 03/27/2012 eye surgery PAST SURGICAL HISTORY OF 07/2018 nasal implant FAMILY HISTORY Problem Relation Age of Onset Coronary Artery Disease Mother Diabetes Father Heart Father Fatal [place] Diabetes Other mat gr aunt SOCIAL HISTORY Social History Tobacco Use Smoking status: Never Passive exposure: Never Smokeless tobacco: Never Vaping Use Vaping Use: Never used Substance Use Topics Alcohol use: Yes Comment: occasionally Drug use: No REVIEW OF SYSTEMS Abdomen: No abdominal pain, nausea, vomiting, diarrhea, or constipation. No bloating, early satiety, indigestion, or increased flatulence. Bladder: No dysuria, gross hematuria, urinary frequency, urinary urgency, +stress incontinence. Breast: No breast lumps, nipple d/c, overlying skin changes, redness or skin retraction. Allergies and current medication updated:Yes EXAM: Ht 5' 1 (1.55m) Wt 192 lb 3.2 oz (87.2kg) LMP 10/19/2023 BMI 36.33 kg/(m^2). GENERAL: pleasant, female in no apparent distress HEENT: Normocephalic, atraumatic, mucus membranes moist, and no lesions NECK: Supple, full range of motion, no adenopathy, and thyroid normal DERMATOLOGY: Normal, without lesions, non-icteric, and non-hirsute BREAST: soft, non-tender, symmetric, no dominant mass, normal nipple-areolar complex, no lymphadenopathy, and no nipple discharge CHEST: Normal inspiratory effort ABDOMEN: soft, non-tender, and no masses PELVIC: external genitalia normal, normal Bartholin's glands, urethra, Keener's glands, no vulvar lesions, no cervical lesions, good vaginal support, physiologic discharge present, normal appearing perineal body and perianal region BIMANUAL: uterus normal size, shape and consistency, no adnexal masses, and non-tender RECTOVAGINAL: deferred. NEURO: alert and oriented x3,exam grossly non-focal EXTREMITIES: normal ASSESSMENT/PLAN: 1) Health maintenance: Pap done with HPV. Mammogram ordered. Nutrition, exercise and routine health maintenance exams reviewed. Calcium/Vitamin D supplementation information provided. 2) Contraception: vasectomy. Contraceptive options reviewed and information provided. 3) STD screening: Declined STD check. 4) Follow up one year or sooner as needed Cristin Elias APRN.CNP documented [facility] [place] Miscellaneous Notes* Telephone Encounter - Yolanda Vogel APRN.CNP - 09/25/2023 2:14 PM EST Urine culture reveals mixed bacteria Mychart message sent requesting new specimen. documented in this encounterSelect [facility] [place]24 Instructions* Patient Instructions* Nadja Mccarthy APRN.CNP - 09/24/2023 8:29 AM EST ASSESSMENT/PLAN: 1. Urinary frequency - ICD9: 788.41, ICD10: R35.0 acute - UA positive for hematuria - Send urine for culture - Begin treatment with Macrobid 100 mg BID for 5 days - Patient education for prevention given - UA DIP, URINE (POC) - URINE CULTURE - NITROFURANTOIN MONOHYDRATE & MACROCRYSTAL 100 MG ORAL CAP - Follow-up with your PCP in 3-5 days if symptoms have not improved or sooner if symptoms worsen - Discussed red flags and need for immediate medical evaluation if any occur. - Discussed supportive care treatment with fluids, rest and analgesia. - Discussed expected course of illness Nadja Mccarthy APRN.CNP [facility] PATIENT INFO BLADDER INFECTION OVERVIEW Bladder infections are one of the most common infections, causing symptoms of burning with urination and needing to urinate frequently. A bladder infection is a type of urinary tract infection (UTI).Bladder infections are more common is women than men. Most women have an uncomplicated bladder infection that is easily treated with a short course of antibiotics. In men, bladder infections may alsoaffect the prostate gland, and a longer course of treatment may be needed. BLADDER INFECTION CAUSES The urinary tract includes the kidneys (which filter urine), ureters (the tube that carries urine from the kidneys to the bladder), the bladder (which stores urine), and urethra (the tube that carries urine out of the bladder). Bacteria do not normally live in these areas. However, bacteria normally live close to the urethra in women and men who are not circumcised. Bladder infections occur when bacteria travel up the urethra into the bladder. Factors that increase the risk of developing a bladder infection include: Vaginal sex Use of spermicides History of past bladder infections Diabetes In men, not being circumcised or having anal sex increase the risk of bladder infections. BLADDER INFECTION SYMPTOMS The typical symptoms of a bladder infection include: Pain or burning when urinating Frequent need to urinate Urgent need to urinate Blood in the urine Fever, back pain, nausea, or vomiting are not common symptoms of a bladder infection, but can occurin people with a kidney infection (pyelonephritis). If you have these symptoms, you should call your doctor or nurse immediately. Is it a bladder infection or something else? -- Burning with urination can also occur in people with vaginitis (eg, yeast infection) or urethritis (inflammation of the urethra). For this reason, it is important to call your healthcare provider before assuming you have a bladder infection. BLADDER INFECTION DIAGNOSIS Simple bladder infections are usually diagnosed based upon your symptoms alone. However, most patients, especially those who have bladder infection symptoms for the first time, should see a healthcare provider for urine testing. Urine culture -- A urine culture is a test that uses a sample of urine to try and grow bacteria in a laboratory. It usually requires about 48 hours to get results. However, a urine culture is not always required to diagnose a bladder infection. Urine culture is often recommended if: You have never had a bladder infection before You have symptoms that are not typical for bladder infection You have had resistant bladder infections before You have frequent bladder infections You do not begin to feel better within 24 to 48 hours after starting antibiotics You are BLADDER INFECTION TREATMENT Bladder infection -- In young, healthy adolescents and adults with a bladder infection, the usual treatment includes a three to seven day course of antibiotics. The typical drugs chosen are: trimethoprim-sulfamethoxazole (Bactrim ), nitrofurantoin (Macrobid ), ciprofloxacin (Cipro ) or levofloxacin (Levaquin ). In men, the infection may involve your prostate gland and treatment is usually given for at least 7days. Your symptoms should begin to resolve within one day after starting treatment. It is important to take the full course of antibiotics to completely eliminate the infection. If your symptoms persist for more than two or three days after starting treatment, call your healthcare provider. If needed, you can take a prescription medication that numbs the bladder and urethra (phenazopyridine [Pyridium ]) to reduce the burning pain of some UTIs. A similar medication is available without aprescription (eg, Uristat). Both medications change the color of the urine (usually blue or orange)and can interfere with laboratory testing. You should not take these medications for more than 48 hours due to the risk of side effects. These medications do not treat the infection and must be takenalong with an antibiotic. Some providers recommend drinking more fluids while treating bladder infections to help flush bacteria from the bladder. Others believe that drinking more fluids may dilute the antibiotic in the bladder and make the medication less effective. No studies have been performed to address this issue. There are also no good studies on the effectiveness of cranberry juice for treating a bladder infection; we do not recommend using cranberry juice to treat bladder infections. Follow-up care -- Follow-up testing is not needed in healthy, young men or women with a bladder infection if symptoms resolve. women are usually asked to have a repeat urine culture one to two weeks after treatment has ended to make sure the bacteria are no longer in the urine. RECURRENT BLADDER INFECTIONS Bladder infections versus other causes -- Some adults, especially women, develop bladder infectionsfrequently. In this case, it is important to confirm that your symptoms (eg, pain or burning, frequency, and urgency) are caused by a bladder infection. Symptoms are usually similar from one infection to another. The best way to confirm an infection is to have a urine culture. If your urine culture is negative for infection, other causes of pain, burning, and frequency should be investigated. There is no reason to take antibiotics if your urine culture is negative. Need for further testing -- If you continue to develop bladder infections, you may require further testing. If you continue to notice blood in your urine after your bladder infection has cleared, you should have further testing. Preventing recurrent UTIs -- Women with recurrent urinary tract infections may be advised to take steps to prevent bladder infections, including one or more of the following: Changes in control -- Women who develop frequent bladder infections and use spermicides, particularly those who also use a diaphragm, may be encouraged to use an alternate method of control. Cranberry products -- Taking cranberry juice or cranberry tablets has been promoted as one way to help prevent frequent bladder infections. However, this has not been proven. Drinking more fluid and urinating after intercourse -- Although studies have not proven that drinking more fluids or urinating soon after intercourse can prevent infection, some healthcare providers recommend these measures since they are not harmful. Drinking more fluid may help to wash out bacteria that enter the bladder. Postmenopausal women -- Postmenopausal women who develop recurrent bladder infections may benefit from using vaginal estrogen. Vaginal estrogen is available in a flexible ring that is worn in the vagina for three months (eg, Estring ), a small tablet (Vagifem ), or a cream (eg, Premarin or Estrace ). Vaginal estrogen is discussed in more detail in a separate topic review. Antibiotics -- A preventive antibiotic treatment may be recommended if you repeatedly develop bladder infections and have not responded to other preventive measures. Antibiotics are highly effective in preventing recurrent bladder infections and can be taken in several different ways. Preventive antibiotic -- You can take a low dose of an antibiotic once per day or three times per week for six months to several years. Antibiotics following intercourse -- In women who develop urinary tract infections after sex, taking a single low dose antibiotic after intercourse can help to prevent bladder infections. Self-treatment -- A plan to begin antibiotics at the first sign of a bladder infection may be recommended in some situations. Before starting this regimen, it is important that you have had testing (urine cultures) to confirm that your symptoms are caused by a bladder infection; some people have symptoms of a bladder infection but do not actually have an infection. documented in this encounterSelect [facility] [place] History of Present illness Narrative* Nadja Mccarthy APRN.XOCHILT - 09/24/2023 8:18 AM EST Subjective HPI Marcie Velazco is a 48 year old female who presents with 3 days of urinary frequency and burning. Denies fever, chills, nausea, vomiting, back pain or abdominal pain. She has not taken any medication today for symptoms. Review of Systems Constitutional: Negative for chills and fever. Respiratory: Negative. Cardiovascular: Negative. Gastrointestinal: Negative for abdominal pain, nausea and vomiting. Genitourinary: Positive for dysuria, frequency and urgency. Musculoskeletal: Negative for back pain. BP 118/68 Pulse 69 Temp 36.6 C (97.8 F) (Tympanic) Resp 18 Wt 89.3 kg (196 lb 12.8 oz) LMP 06/26/2022 SpO2 99% BMI 37.19 kg/m PAST MEDICAL HISTORY Diagnosis Date Anxiety Diabetes mellitus Frozen shoulder right shoulder PAST SURGICAL HISTORY Procedure Laterality Date INSULIN PUMP IMPLANTATION HX 2006 PAST SURGICAL HISTORY OF 01/05/07 removal of insulin pump PAST SURGICAL HISTORY OF 03/27/2012 eye surgery PAST SURGICAL HISTORY OF 07/2018 nasal implant ALLERGIES Tape [Other] MEDICATIONS vit B complex no.12/niacin,B3, (VITAMIN B COMPLEX NO.12-NIACIN ORAL) Take by mouth. atorvastatin (LIPITOR) 10 mg tablet docosahexanoic acid/epa (FISH OIL ORAL) Take by mouth. Flaxseed Oil 1,000 mg cap Take by mouth. enalapril (VASOTEC) 20 mg tablet Take 1 tablet by mouth once daily. ergocalciferol, vitamin D2, (DRISDOL) 50,000 unit capsule Take 1 capsule by mouth once each week. insulin glargine (LANTUS) 100 unit/mL injection Inject 44 Units subcutaneously daily at bedtime. ifpump fails (total of basal rates) insulin lispro (HUMALOG) 100 unit/mL injection Uses with insulin pump, up to 100 units daily blood sugar diagnostic (ONETOUCH ULTRA TEST) test strip Testing up to six times daily ASPIRIN ORAL Take 81 mg by mouth once daily. Insulin Syringe-Needle U-100 (BD INSULIN SYRINGE UF II) 1/2 mL 31 x 5/16 Syrg use as directed if pump fails citalopram (CELEXA) 20 mg tablet Take 20 mg by mouth once daily. COMPOUNDED PRESCRIPTION Transmitter adhesive patch. Apply with trasmitter INSULIN SYRINGE-NEEDLE U-100 0.5 ML 31 X 3/8 use as directed with each meal FAMILY HISTORY Problem Relation Age of Onset Diabetes Father Heart Father Fatal [place] Coronary Artery Disease Mother Diabetes Other mat gr aunt Social History Tobacco Use Smoking status: Never Smokeless tobacco: Never Vaping Use Vaping Use: Never used Substance Use Topics Alcohol use: Yes Comment: occasionally Drug use: No Objective Physical Exam Vitals and nursing note reviewed. Constitutional: General: She is not in acute distress. Appearance: Normal appearance. She is obese. She is not ill-appearing. Cardiovascular: Rate and Rhythm: Regular rhythm. Pulmonary: Effort: Pulmonary effort is normal. Breath sounds: Normal breath sounds. Abdominal: General: There is no distension. Palpations: Abdomen is soft. There is no mass. Tenderness: There is no abdominal tenderness. There is no right CVA tenderness, left CVA tendernessor guarding. Skin: General: Skin is warm and dry. Neurological: Mental Status: She is alert. ASSESSMENT/PLAN: 1. Urinary frequency - ICD9: 788.41, ICD10: R35.0 acute - UA positive for hematuria - Send urine for culture - Begin treatment with Macrobid 100 mg BID for 5 days - Patient education for prevention given - UA DIP, URINE (POC) - URINE CULTURE - NITROFURANTOIN MONOHYDRATE & MACROCRYSTAL 100 MG ORAL CAP - Follow-up with your PCP in 3-5 days if symptoms have not improved or sooner if symptoms worsen - Discussed red flags and need for immediate medical evaluation if any occur. - Discussed supportive care treatment with fluids, rest and analgesia. - Discussed expected course of illness Nadja Mccarthy APRN.VIDEO GAME REPAIR TECHNICIAN documented in this encounterSelect [facility] [place]-23-2023 Miscellaneous Notes* Letter - Mammography Coordinator - 09/13/2022 3:25 PM EST September 15, 2022 PID: [id number] Marcie Velazco [address] [place] [address] Dear Ms. Velazco, We are pleased to inform you that the results of your recent breast imaging exam on 09/13/2022 are normal. Early detection of cancer is very important. We also understand recommendations regarding breast cancer screening are controversial. Please discuss with your primary care provider which strategy is best for you and whether a mammogram is right for you. Your imaging studies and report will be kept on file at [facility] as part of your permanent medical record and are available for your continuing care. Thank you for allowing us to help in meeting your health care needs. Sincerely, Dr. Torres Interpreting Radiologist [facility] (Normal over 40) documented in this encounterSelect Medical [facility] [place]01-19-2023 History of Present illness Narrative* Heather Adair, PT - 09/09/2022 11:43 AM EST Episode Visit Count: 10 Therapist That Will Accept/Oversee The Plan Of Care: Heather Borrero PT Start of Care Date: 07/07/22 Onset Date: 10/16/20 Patient Identified by Name and Date of : Yes REHABILITATION AND SPORTS THERAPY PHYSICAL THERAPY DISCONTINUANCE OF CARE PLAN OF CARE UPDATE: Assessment: Marcie Velazco is discontinued from Physical Therapy services due to goal achievement and maximal benefit.. Patient was seen for 10 visits from Start of Care Date: 07/07/22 to 09/09/2022 and treatment included: Therapeutic exercise, Manual therapy, Self-[facility] management, and Patient/Fa tamra/Caregiver Education. Goals for Episode of Care: created on 07/07/22 through 08/18/22 updated 08/12/22 updated 09/09/22 [place] in home exercise program./achieved Patient will decrease pain to 0/10 with functional activities to allow patient to improve reaching and use of arm /achieved Patient will increase active ROM of right shoulder to equal left to allow pt to to improve performance of ADLs./ partially achieved Perform ADL's with decreased report of symptoms/pain in 4 weeks./ achieved Patient Goals: get motion back/ achieved SUBJECTIVE: Patient Reason for Visit: Pt notes that she continues to do exercises several times perweek. Still has some trouble getting comfortable at night and uncomfortable with reaching at the extreme of elevation . Overall does not ache as much as it had.. Pain: Pain Pain Level: 0 Pain Location: Shoulder - Right Frequency: Intermittent Post Treatment Pain Post Treatment Pain Level: No Change PROMIS Scales Higher is Better 07/05/2022 08/08/2022 09/09/2022 Phys Func - Score 42 (mild dysfunction) 44 (mild dysfunction) 42 (mild dysfunction) Phys Func - Percentile 21 % 27 % 21 % Social Roles - Score - - - Social Role - Percentile - - - GH Physical - Score 42.3 (Good) - - GH Physical - Percentile 22 % - - GH Mental - Score 41.1 (Good) - - GH Mental - Percentile 19 % - - Self-Eff Symptom - Score 46 (Average) 46 (Average) 48 (Average) Self-Eff Symptom - Percentile 34 % 34 % 42 % T-scores: mean of general population = 50. 5 points is clinically meaningfully difference Percentiles provide an indication of how the patient's score ranks in relation to the general population. Higher percentile rankings indicate better function/quality of life. 50th percentile is the average of the general population and indicates half of respondents had a worse score. Lower is Better 04/14/2021 05/24/2021 06/19/2021 Fatigue - Score 47 (within normal limits) 53 (within normal limits) 48 (within normal limits) Fatigue - Percentile 62 % 38 % 58 % T-scores: mean of general population = 50. 5 points is clinically meaningfully difference Percentiles provide an indication of how the patient's score ranks in relation to the general population. Higher percentile rankings indicate better function/quality of life. 50th percentile is the average of the general population and indicates half of respondents had a worse score. OBJECTIVE MEASURES WITH LEVEL OF FUNCTION: UE AROM R Shoulder Flex: 165 Degrees R Shoulder ABduction: 173 Degrees R Shoulder Internal Rotation (Functional): 2less at L4 R Shoulder External Rotation (Functional): T3 equal left Functional Strength Functional Strength: no deficits noted TREATMENT: Therapeutic Exercise: 1: shoulder hiu fleixon 2x10 2: shoulder hui abduction 2x10 pull but not pain 3: wand assisted ER 1x10 4: Standing AROM flexion 1x10 5: horizontal adduction stretch 5 sec hold x5 6: wand abduction 1x10 7: Standing AROm abduction 1x10 8: holding onto parallel bars and passive step forward for shoulder extenison 1x10 9: parallel bar hold with IR/ADD stretch 1x12 Skilled Intervention: Reviewed and educated patient on additions/changes for home exercise program . Skilled judgment was provided in selection of appropriate interventions. Correct performance of therapeutic exercises was facilitated with verbal and visual cuing. Patient education as noted. Manual Therapy: 1: PROM for ER with some abduction and IR with some abduction 2x10 supine Joint Mobilizations: Body Region Treated;Patient Position;Joint;Grade;Repetitions Body Region Treated: shoulder right Patient Position: supine Joint: GH Grade: 1-2 ant/ post/ inferior with PROM fpr IR and ER Repetitions: 3x10 Skilled Intervention: Manual skills to improve joint mobility, ROM, and decrease pain. Utilized anatomy knowledge of the therapist, and assessment of patient's response to intervention. Home Exercise Program Assigned: 1: reviewed importance of continued stretching Billing Therapeutic Exercise Treatment Minutes: 20 Manual TherapyTreatment Minutes: 15 Total Treatment Time Minutes (timed/untimed): 35 Heather Borrero PT documented in this encounterSelect [facility] [place]-05-2023 History of Present illness Narrative* Heather Borrero PT - 08/26/2022 9:25 AM EST Episode Visit Count: 9 Therapist That Will Accept/Oversee The Plan Of Care: Heather Borrero PT Start of Care Date: 07/07/22 Onset Date: 10/16/20 Patient Identified by Name and Date of : Yes REHABILITATION AND SPORTS THERAPY PHYSICAL THERAPY TREATMENT NOTE ASSESSMENT: Marcie Velazco tolerated the session with no issues. She demonstrated improvements in method of stretching for IR/ADD. The patient will continue to benefit from ongoing skilled physical therapy to progress toward set goals. PLAN FOR NEXT VISIT: POC/ measurements SUBJECTIVE: Patient Reason for Visit: Pt notes that she has been doing the static stretch reaching behind the back which she is able to do more frequently Pain: Pain Pain Level: 1 Pain Location: Shoulder - Right Frequency: Intermittent Post Treatment Pain Post Treatment Pain Level: No Change OBJECTIVE MEASURES WITH LEVEL OF FUNCTION: TREATMENT: Therapeutic Exercise: 1: shoulder hui fleixon 2x10 2: shoulder hui abduction 2x10 pull but not pain 3: wand assisted ER 1x10 4: Standing AROM flexion 1x10 5: horizontal adduction stretch 5 sec hold x5 6: wand abduction 1x10 7: Standing AROm abduction 1x10 8: holding onto parallel bars and passive step forward for shoulder extenison 1x10 9: parallel bar hold with IR/ADD stretch 1x12 Skilled Intervention: Skilled judgment was provided in selection of appropriate interventions. Correct performance of therapeutic exercises was facilitated with verbal and visual cuing. Manual Therapy: 1: PROM for ER with some abduction and IR with some abduction 2x10 supine Joint Mobilizations: Body Region Treated;Patient Position;Joint;Grade;Repetitions Body Region Treated: shoulder right Patient Position: supine Joint: GH Grade: 1-2 ant/ post/ inferior with PROM fpr IR and ER Repetitions: 3x10 Skilled Intervention: Manual skills to improve joint mobility, ROM, and decrease pain. Utilized anatomy knowledge of the therapist, and assessment of patient's response to intervention. Billing Therapeutic Exercise Treatment Minutes: 15 Manual TherapyTreatment Minutes: 20 Total Treatment Time Minutes (timed/untimed): 35 Heather Borrero PT documented in this encounterSelect [facility] [place]12-29-2022 History of Present illness Narrative* Heather Borrero PT - 08/19/2022 6:50 PM EST Episode Visit Count: 8 Therapist That Will Accept/Oversee The Plan Of Care: Heather Borrero PT Start of Care Date: 07/07/22 Onset Date: 10/16/20 Patient Identified by Name and Date of : Yes REHABILITATION AND SPORTS THERAPY PHYSICAL THERAPY TREATMENT NOTE ASSESSMENT: Marcie Velazco tolerated the session with no issues. She demonstrated difficulty with limited ROM for IR/ADD. The patient will continue to benefit from ongoing skilled physical therapy to progress toward set goals. PLAN FOR NEXT VISIT: low intensity longer duration stretch for IR/ADD SUBJECTIVE: Patient Reason for Visit: Pt notes that she still has trouble reaching behind back. Wasencouraged by her doctor to continue with home exs. Pain: Pain Pain Level: 1 Pain Location: Shoulder - Right Frequency: Intermittent Post Treatment Pain Post Treatment Pain Level: Better OBJECTIVE MEASURES WITH LEVEL OF FUNCTION: lacks 3 1/2 for IR/ADD at end of session TREATMENT: Therapeutic Exercise: 1: shoulder hui fleixon 2x10 2: shoulder hui abduction 2x10 pull but not pain 3: wand assisted ER 1x10 4: Standing AROM flexion 1x10 5: horizontal adduction stretch 5 sec hold x5 6: wand abduction 1x10 7: Standing AROm abduction 1x10 8: holding onto parallel bars and passive step forward for shoulder extenison 1x10 9: parallel bar hold with IR/ADD stretch 1x12 Skilled Intervention: Skilled judgment was provided in selection of appropriate interventions. Correct performance of therapeutic exercises was facilitated with verbal and visual cuing. Manual Therapy: 1: PROM for ER with some abduction and IR with some abduction 2x10 supine Joint Mobilizations: Body Region Treated;Patient Position;Joint;Grade;Repetitions Body Region Treated: shoulder right Patient Position: supine Joint: GH Grade: 1-2 ant/ post/ inferior with PROM fpr IR and ER Repetitions: 3x10 Skilled Intervention: Manual skills to improve joint mobility, ROM, and decrease pain. Utilized anatomy knowledge of the therapist, and assessment of patient's response to intervention. Billing Therapeutic Exercise Treatment Minutes: 10 Manual TherapyTreatment Minutes: 20 Total Treatment Time Minutes (timed/untimed): 30 Heather Borrero PT documented in this encounterSelect [facility] [place]22-[facility]22 History of Present illness Narrative* Heather Borrero PT - 08/12/2022 9:42 AM EST Episode Visit Count: 7 Therapist That Will Accept/Oversee The Plan Of Care: Heather Borrero PT Start of Care Date: 07/07/22 Onset Date: 10/16/20 Patient Identified by Name and Date of : Yes REHABILITATION AND SPORTS THERAPY PHYSICAL THERAPY PROGRESS REPORT PLAN OF CARE UPDATE: Assessment: Marcie Velazco demonstrates moderate improvement in ROM and physical activities. She hasprogressed toward goals. Patient continues to present with impairments in range of motion that interfere with . Current prognosis is Good due to: current objective clinical presentation;positive past response to therapy . She will benefit from continued skilled therapy services to meet the updated goals for this plan of care as noted below. Goals for Episode of Care: created on 07/07/22 through 08/18/22 updated 08/12/22 [place] in home exercise program./ partially achieved fair compliance Patient will decrease pain to 0/10 with functional activities to allow patient to improve reaching and use of arm / progressing . Patient will increase active ROM of right shoulder to equal left to allow pt to to improve performance of ADLs./ partially achieved Perform ADL's with decreased report of symptoms/pain in 4 weeks./ partially achieved Patient Goals: get motion back/ partially achieved Planned Interventions, Frequency, and Duration: 1x/week, 4 weeks Total Number of Visits Planned: 4 Patient to be seen for Therapeutic exercise ([id number]);Manual therapy ([id number]);Neuromuscular re-education ([id number]);Self-[place] [facility] management ([id number]);Patient/Family/Caregiver Education PLAN FOR NEXT VISIT: Will continue [facility] work on ROM emphasis IR/ adduction SUBJECTIVE: Patient Reason for Visit: Pt notes overall her shoulder is feeling pretty good but still bothers her at times. Sees the physician today.. Pain: Pain Pain Level: 1 Pain Location: Shoulder - Right Frequency: Intermittent Post Treatment Pain Post Treatment Pain Level: Better PROMIS Scales Higher is Better 06/19/2021 07/05/2022 08/08/2022 Phys Func - Score 46 (within normal limits) 42 (mild dysfunction) 44 (mild dysfunction) Phys Func - Percentile 34 % 21 % 27 % Social Roles - Score 50 (within normal limits) - - Social Role - Percentile 50 % - - GH Physical - Score - 42.3 (Good) - GH Physical - Percentile - 22 % - GH Mental - Score - 41.1 (Good) - GH Mental - Percentile - 19 % - Self-Eff Symptom - Score 41 (Average) 46 (Average) 46 (Average) Self-Eff Symptom - Percentile 18 % 34 % 34 % T-scores: mean of general population = 50. 5 points is clinically meaningfully difference Percentiles provide an indication of how the patient's score ranks in relation to the general population. Higher percentile rankings indicate better function/quality of life. 50th percentile is the average of the general population and indicates half of respondents had a worse score. Lower is Better 04/14/2021 05/24/2021 06/19/2021 Fatigue - Score 47 (within normal limits) 53 (within normal limits) 48 (within normal limits) Fatigue - Percentile 62 % 38 % 58 % T-scores: mean of general population = 50. 5 points is clinically meaningfully difference Percentiles provide an indication of how the patient's score ranks in relation to the general population. Higher percentile rankings indicate better function/quality of life. 50th percentile is the average of the general population and indicates half of respondents had a worse score. OBJECTIVE MEASURES WITH LEVEL OF FUNCTION: UE AROM R Shoulder Flex: 160 Degrees R Shoulder ABduction: 165 Degrees R Shoulder Internal Rotation (Functional): 4 less R Shoulder External Rotation (Functional): T3 equal to left TREATMENT: Therapeutic Exercise: 1: shoulder hui fleixon 2x10 2: shoulder hui abduction 2x10 pull but not pain 3: wand assisted ER 1x10 4: Standing AROM flexion 1x10 5: horizontal adduction stretch 5 sec hold x5 6: wand abduction 1x10 7: Standing AROm abduction 1x10 8: holding onto parallel bars and passive step forward for shoulder extenison 1x10 9: parallel bar hold with IR/ADD stretch 1x12 Skilled Intervention: Skilled judgment was provided in selection of appropriate interventions. Correct performance of therapeutic exercises was facilitated with verbal and visual cuing. Patient education as noted. Manual Therapy: 1: PROM for ER with some abduction and IR with some abduction 2x10 supine Joint Mobilizations: Body Region Treated;Patient Position;Joint;Grade;Repetitions Body Region Treated: shoulder right Patient Position: supine Joint: GH Grade: 1-2 ant/ post/ inferior Repetitions: 3x10 Skilled Intervention: Manual skills to improve joint mobility, ROM, and decrease pain. Utilized anatomy knowledge of the therapist, and assessment of patient's response to intervention. Billing Therapeutic Exercise Treatment Minutes: 25 Manual TherapyTreatment Minutes: 15 Total Treatment Time Minutes (timed/untimed): 40 Heather Borrero PT [facility] [place] History of Present illness Narrative* Heather Borrero PT - 08/09/2022 8:02 AM EST Episode Visit Count: 6 Therapist That Will Accept/Oversee The Plan Of Care: Heather Borrero PT Start of Care Date: 07/07/22 Onset Date: 10/16/20 Patient Identified by Name and Date of : Yes REHABILITATION AND SPORTS THERAPY PHYSICAL THERAPY TREATMENT NOTE ASSESSMENT: Marcie Velazco tolerated the session with decreased symptoms. She demonstrated difficulty with wand AAROM ER. The patient will continue to benefit from ongoing skilled physical therapy to progress toward set goals. PLAN FOR NEXT VISIT: continue with manual therapy and exs SUBJECTIVE: Patient Reason for Visit: Pt reports that if she would have done her exercises, it may feel better, it isn't terrible today. Pt has had a busy past few weeks. Pt states she doens't have the pain she did, but when she stretches different ways she can feel it. Pain: Pain Pain Level: 0 Pain Location: Shoulder - Right Frequency: Continuous Post Treatment Pain Post Treatment Pain Level: Better OBJECTIVE MEASURES WITH LEVEL OF FUNCTION: UE AROM R Shoulder Flex: 157 Degrees R Shoulder ABduction: 165 Degrees TREATMENT: Therapeutic Exercise: 1: shoulder hui fleixon 2x10 2: shoulder hui abduction 2x10 pull but not pain 3: wand assisted ER 1x10 4: Standing AROM flexion 1x10 5: horizontal adduction stretch 5 sec hold x5 6: wand abduction 1x10 7: Standing AROm abduction 1x10 8: holding onto parallel bars and passive step forward for shoulder extenison 1x10 9: parallel bar hold with IR/ADD stretch 1x12 Skilled Intervention: Patient was educated in proper exercise technique and purpose for exercises. Skilled judgment was provided in selection of appropriate interventions. Correct performance of therapeutic exercises was facilitated with verbal and visual cuing. Manual Therapy: 1: PROM for ER with some abduction and IR with some abduction 2x10 supine Joint Mobilizations: Body Region Treated;Patient Position;Joint;Grade;Repetitions Body Region Treated: shoulder right Patient Position: supine Joint: GH Grade: 1-2 ant/ post/ inferior Repetitions: 3x10 Skilled Intervention: Manual skills to improve joint mobility, ROM, and decrease pain. Utilized anatomy knowledge of the therapist, and assessment of patient's response to intervention. Billing Therapeutic Exercise Treatment Minutes: 23 Manual TherapyTreatment Minutes: 15 Total Treatment Time Minutes (timed/untimed): 38 Latonia Connor PTA/Heather Borrero PT documented in this encounterSelect [facility] [place] History of Present illness Narrative* Heather Borrero PT - 07/23/2022 7:38 AM EST Episode Visit Count: 5 Therapist That Will Accept/Oversee The Plan Of Care: Heather Borrero PT Start of Care Date: 07/07/22 Onset Date: 10/16/20 Patient Identified by Name and Date of : Yes REHABILITATION AND SPORTS THERAPY PHYSICAL THERAPY TREATMENT NOTE ASSESSMENT: Marcie Velazco tolerated the session with no issues. She demonstrated improvements in overall ROM. Improved sleeping reaching . The patient will continue to benefit from ongoing skilled physical therapy to progress toward set goals. PLAN FOR NEXT VISIT: continue with manual therapy and exs SUBJECTIVE: Patient Reason for Visit: Pt states that she is able to reach upward better to latch the door and stretching behind her back is getting easier Pain: Pain Pain Level: 0 Pain Location: Shoulder - Right Description: Aching Frequency: Continuous Post Treatment Pain Post Treatment Pain Level: No Change OBJECTIVE MEASURES WITH LEVEL OF FUNCTION: ER with 90 abduction to approx 70 degrees TREATMENT: Therapeutic Exercise: 1: shoulder hui fleixon 2x10 2: shoulder hui abduction 2x10 pull but not pain 3: wand assisted ER 1x10 5: horizontal adduction stretch 5 sec hold x5 6: wand abduction 1x10 8: holding onto parallel bars and passive step forward for shoulder extenison 1x10 9: parallel bar hold with IR/ADD stretch 1x12 Skilled Intervention: Skilled judgment was provided in selection of appropriate interventions. Correct performance of therapeutic exercises was facilitated with verbal and visual cuing. Manual Therapy: 1: PROM for ER with some abduction and IR with some abduction 2x10 supine Joint Mobilizations: Body Region Treated;Patient Position;Joint;Grade;Repetitions Body Region Treated: shoulder right Patient Position: supine Joint: GH Grade: 1-2 ant/ post/ inferior Repetitions: 3x10 Skilled Intervention: Manual skills to improve joint mobility, ROM, and decrease pain. Utilized anatomy knowledge of the therapist, and assessment of patient's response to intervention. Billing Therapeutic Exercise Treatment Minutes: 20 Manual TherapyTreatment Minutes: 16 Total Treatment Time Minutes (timed/untimed): 36 Heather Borrero PT documented [facility] this encounter[facility] [place] History of Present illness Narrative* Heather Borrero PT - 07/19/2022 5:52 PM EST Episode Visit Count: 4 Therapist That Will Accept/Oversee The Plan Of Care: Heather Borrero PT Start of Care Date: 07/07/22 Onset Date: 10/16/20 Patient Identified by Name and Date of : Yes REHABILITATION AND SPORTS THERAPY PHYSICAL THERAPY TREATMENT NOTE ASSESSMENT: Marcie Velazco tolerated the session with no issues. She demonstrated improvements in AROM for elevation and abduction . The patient will continue to benefit from ongoing skilled physical therapy to progress toward set goals. PLAN FOR NEXT VISIT: will continue to work on functional IR/ADD ROM SUBJECTIVE: Patient Reason for Visit: Pt notes that she found a counter that works well for new exs.feels that she has more movement Pain: Pain Pain Level: 0 Pain Location: Shoulder - Right Description: Aching Frequency: Continuous Post Treatment Pain Post Treatment Pain Level: No Change Post Treatment Pain Location: Shoulder - Right OBJECTIVE MEASURES WITH LEVEL OF FUNCTION: UE AROM R Shoulder Flex: 160 Degrees R Shoulder ABduction: 165 Degrees TREATMENT: Therapeutic Exercise: 1: shoulder hui fleixon 2x10 2: shoulder hui abduction 2x10 pull but not pain 3: wand assisted ER 1x10 4: wand assisted extension 1x10 5: horizontal adduction stretch 5 sec hold x5 6: wand abduction 1x10 7: wand IR behind back lifting wand upward 1x10 8: holding onto parallel bars and passive step forward for shoulder extenison 1x10 9: parallel bar hold with IR/ADD stretch 1x12 Skilled Intervention: Patient was educated in proper exercise technique and purpose for exercises. Skilled judgment was provided in selection of appropriate interventions. Correct performance of therapeutic exercises was facilitated with verbal and visual cuing. Manual Therapy: 1: PROM for ER with some abduction and IR with some abduction 2x10 supine Joint Mobilizations: Body Region Treated;Patient Position;Joint;Grade;Repetitions Body Region Treated: shoulder right Patient Position: supine Joint: GH Grade: 1-2 ant/ post/ inferior Repetitions: 3x10 Skilled Intervention: Manual skills to improve joint mobility, ROM, and decrease pain. Utilized anatomy knowledge of the therapist, and assessment of patient's response to intervention. Billing Therapeutic Exercise Treatment Minutes: 20 Manual TherapyTreatment Minutes: 20 Total Treatment Time Minutes (timed/untimed): 40 Heather Borrero PT documented in this encounterSelect [facility] [place]28-[facility] History of Present illness Narrative* Cristin Elias APRN.[facility] - 07/19/2022 6:52 AM EST Marcie is a 47 year old who presents for an annual gynecologic exam without complaints. Menses: cycles every 24-28 days and 5 days of flow. Contraception: vasectomy HPV vaccine: N/A Last Pap: 05/10/2018 normal HPV: 05/04/2018 negative History of abnormal pap: Yes 2016 ASCUS Last mammogram: 2020normal Sexually active: Yes Pain with intercourse: No Postcoital bleeding: No OB History T0 L0 SAB0 IAB0 Ectopic0 Multiple0 Live Births0 [employer] History LMP: 06/26/2022, Having periods Age at Menarche: Age at First : Age at Menopause: [employer] History Comments: Sexual Activity: Yes; Male Contraception: Vasectomy PAST MEDICAL HISTORY Diagnosis Date Anxiety Diabetes mellitus Frozen shoulder right shoulder PAST SURGICAL HISTORY Procedure Laterality Date INSULIN PUMP IMPLANTATION HX 2006 PAST SURGICAL HISTORY OF 01/05/07 removal of insulin pump PAST SURGICAL HISTORY OF 03/27/2012 eye surgery PAST SURGICAL HISTORY OF 07/2018 nasal implant FAMILY HISTORY Problem Relation Age of Onset Diabetes Father Heart Father Fatal [place] Coronary Artery Disease Mother Diabetes Other mat gr aunt SOCIAL HISTORY Social History Tobacco Use Smoking status: Never Smokeless tobacco: Never Vaping Use Vaping Use: Never used Substance Use Topics Alcohol use: Yes Comment: occasionally Drug use: No REVIEW OF SYSTEMS Abdomen: No abdominal pain, nausea, vomiting, diarrhea, or constipation. No bloating, early satiety, indigestion, or increased flatulence. Bladder: No dysuria, gross hematuria, urinary frequency, urinary urgency, + stress incontinence. Breast: No breast lumps, nipple d/c, overlying skin changes, redness or skin retraction. Allergies and current medication updated:Yes EXAM: Ht 5' 1 (1.55m) Wt 203 lb 9.6 oz (92.4kg) LMP 06/26/2022 BMI 38.49 kg/(m^2). GENERAL: pleasant, female in no apparent distress HEENT: Normocephalic, atraumatic, and no lesions NECK: Supple, full range of motion, no adenopathy, and thyroid normal DERMATOLOGY: Normal, without lesions, non-icteric, and non-hirsute BREAST: soft, non-tender, symmetric, no dominant mass, normal nipple-areolar complex, no lymphadenopathy, and no nipple discharge CHEST: Normal inspiratory effort ABDOMEN: soft, non-tender, and no masses PELVIC: external genitalia normal, normal Bartholin's glands, urethra, Keener's glands, no vulvar lesions, no cervical lesions, physiologic discharge present, normal appearing perineal body and perianal region BIMANUAL: uterus normal size, shape and consistency, no adnexal masses, and non-tender RECTOVAGINAL: deferred. NEURO: alert and oriented x3,exam grossly non-focal EXTREMITIES: normal ASSESSMENT/PLAN: 1) Health maintenance: Pap/HPV up to date. Mammogram ordered. Nutrition, exercise and routine health maintenance exams reviewed. Calcium/Vitamin D supplementation information provided. 2) Contraception: vasectomy. Contraceptive options reviewed and information provided. 3) STD screening: Declined STD check. 4) Follow up one year or sooner as needed Cologuard negative December 2021 Cristin Elias APRN.[employer]CH[employer]IC[employer] documented in this encounterSelect [facility] [place] History of Present illness Narrative* Heather Borrero, PT - 07/16/2022 8:27 AM EST Episode Visit Count: 3 Therapist That Will Accept/Oversee The Plan Of Care: Heather Borrero PT Start of Care Date: 07/07/22 Onset Date: 10/16/20 Patient Identified by Name and Date of : Yes REHABILITATION AND SPORTS THERAPY PHYSICAL THERAPY TREATMENT NOTE ASSESSMENT: Marcie Velazco tolerated the session with no issues. She demonstrated improvements in ROM and stretch for IR/add using parallel bar rather than wand . The patient will continue to benefit from ongoing skilled physical therapy to progress toward set goals. PLAN FOR NEXT VISIT: SUBJECTIVE: Patient Reason for Visit: Pt notes that she is doing pretty well today . Most difficulty with reaching behind her back . States that her carpal tunnel is bothering her more than her shoulder Pain: Pain Pain Level: 0 Pain Location: Shoulder - Right Description: Aching Frequency: Continuous Post Treatment Pain Post Treatment Pain Level: No Change Post Treatment Pain Location: Shoulder - Right OBJECTIVE MEASURES WITH LEVEL OF FUNCTION: lateral / mid sacrum for IR/ADD TREATMENT: Therapeutic Exercise: 1: shoulder hui fleixon 2x10 2: shoulder hui abduction 2x10 pull but not pain 3: wand assisted ER 1x10 4: wand assisted extension 1x10 5: horizontal adduction stretch 5 sec hold x5 6: wand abduction 1x10 7: wand IR behind back lifting wand upward 1x10 8: holding onto parallel bars and passive step forward for shoulder extenison 1x10 9: parallel bar hold with IR/ADD stretch 1x12 Skilled Intervention: Patient was educated in proper exercise technique and purpose for exercises. Reviewed and educated patient on additions/changes for home exercise program . Skilled judgment was provided in selection of appropriate interventions. Correct performance of therapeutic exercises was facilitated with verbal and visual cuing. Patient education as noted. Manual Therapy: 1: PROM for ER with some abduction and IR with some abduction 2x10 supine Joint Mobilizations: Body Region Treated;Patient Position;Joint;Grade;Repetitions Body Region Treated: shoulder right Patient Position: supine Joint: GH Grade: 1-2 ant/ post/ inferior Repetitions: 3x10 Skilled Intervention: Manual skills to improve joint mobility, ROM, and decrease pain. Utilized anatomy knowledge of the therapist, and assessment of patient's response to intervention. Home Exercise Program Assigned: 1: use fixed object to hold onto for extension stretch with step forward and IR/ADD with step to the side Billing Therapeutic Exercise Treatment Minutes: 20 Manual TherapyTreatment Minutes: 18 Total Treatment Time Minutes (timed/untimed): 38 Heather Borrero PT documented in this encounterSelect [facility] [place]22-[facility] History of Present illness Narrative* Heather Borrero PT - 07/13/2022 9:35 AM EST Episode Visit Count: 2 Therapist That Will Accept/Oversee The Plan Of Care: Heather Borrero PT Start of Care Date: 07/07/22 Onset Date: 10/16/20 Patient Identified by Name and Date of : Yes REHABILITATION AND SPORTS THERAPY PHYSICAL THERAPY TREATMENT NOTE ASSESSMENT: Marcie Velazco tolerated the session with no issues. She demonstrated improvements in ROM. The patient will continue to benefit from ongoing skilled physical therapy to progress toward setgoals. PLAN FOR NEXT VISIT: continue to progress ROM exs. SUBJECTIVE: Patient Reason for Visit: Pt reports that she has been doing exs. Pain: Pain Pain Level: 2 Pain Location: Shoulder - Right Description: Aching Frequency: Continuous Post Treatment Pain Post Treatment Pain Level: No Change Post Treatment Pain Location: Shoulder - Right OBJECTIVE MEASURES WITH LEVEL OF FUNCTION: TREATMENT: Therapeutic Exercise: 1: shoulder hui fleixon 1x10 2: shoulder hui abduction 1x10 pull but not pain 3: wand assisted ER 1x10 4: wand assisted extension 1x10 5: horizontal adduction stretch 5 sec hold x5 6: wand abduction 1x10 7: wand IR behind back lifting wand upward 1x10 Skilled Intervention: Patient was educated in proper exercise technique and purpose for exercises. Reviewed and educated patient on additions/changes for home exercise program . Skilled judgment was provided in selection of appropriate interventions. Correct performance of therapeutic exercises was facilitated with verbal and visual cuing. Patient education as noted. Manual Therapy: 1: PROM for ER with some abduction and IR with some abduction 2x10 supine Joint Mobilizations: Body Region Treated;Patient Position;Joint;Grade;Repetitions Body Region Treated: shoulder right Patient Position: supine Joint: GH Grade: 1-2 ant/ post/ inferior Repetitions: 3x10 Skilled Intervention: Manual skills to improve joint mobility, ROM, and decrease pain. Utilized anatomy knowledge of the therapist, and assessment of patient's response to intervention. Home Exercise Program Assigned: 1: add wand IR with wand behind back Billing Therapeutic Exercise Treatment Minutes: 20 Manual TherapyTreatment Minutes: 20 Total Treatment Time Minutes (timed/untimed): 40 Heather Borrero PT documented in this encounterSelect [facility] [place] History of Present illness Narrative* Heather Borrero PT - 07/07/2022 10:20 AM EST Episode Visit Count: 1 Therapist That Will Accept/Oversee The Plan Of Care: Heather Borrero PT Start of Care Date: 07/07/22 Onset Date: 10/16/20 REHABILITATION AND SPORTS THERAPY PHYSICAL THERAPY EVALUATION PLAN OF CARE: Assessment: Marcie Velazco presents with diagnosis of adhesive capsulitis right shoulder with cortisone injection one week ago that interferes with dressing;reaching overhead;reaching behind back;sleeping . She presents with impairments in ADL's, flexibility, overall function, and range of motion. PROMIS (Patient-Reported Outcomes Measurement Information System) scores were reviewed and physical function domain identified as a rehabilitation concern. Prognosis for therapy is Good due to: currentobjective clinical presentation . She will benefit from skilled therapy services to meet the goals established for this plan of care as noted below. Goals for Episode of Care: created on 07/07/22 through 08/18/22 [place] in home exercise program. Patient will decrease pain to 0/10 with functional activities to allow patient to improve reaching and use of arm . Patient will increase active ROM of right shoulder to equal left to allow pt to to improve performance of ADLs. Perform ADL's with decreased report of symptoms/pain in 4 weeks. Patient Goals: get motion back Planned Interventions, Frequency, and Duration: Current Frequency: 2x/week Duration: 4 weeks Total Number of Visits Planned: 8 Planned Treatment Interventions: Therapeutic exercise ([id number]);Neuromuscular re- education ([id number]);Manual therapy ([id number]);Self-[place] [facility] management ([id number]);Patient/Family/Caregiver Education PLAN FOR NEXT VISIT: Will add IR/ stretch behind back Patient demonstrates good understanding of plan of care and treatment. The above goals and plan of care were discussed and agreed upon by patient/family. SUBJECTIVE: Marcie Velazco is a 47 year old female seen today for Pt reports that she has continued to have pain since last seen. went to orthopedic doctor and received cortisone injection last Tue and is now to work on ROM. Pt reports that shoulder is less painful but no extra movement. 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 Intake Information: Prescription present Previous Treatment: Physical Therapy Pain: Pain Pain Level: 2 Pain Location: Shoulder - Right Description: Aching Frequency: Continuous Post Treatment Pain Post Treatment Pain Level: No Change Post Treatment Pain Location: Shoulder - Right Post Treatment Pain Description: Aching PROMIS Scales Higher is Better 05/24/2021 06/19/2021 07/05/2022 Phys Func - Score 46 (within normal limits) 46 (within normal limits) 42 (mild dysfunction) Phys Func - Percentile 34 % 34 % 21 % Social Roles - Score 46 (within normal limits) 50 (within normal limits) - Social Role - Percentile 34 % 50 % - GH Physical - Score - - 42.3 (Good) GH Physical - Percentile - - 22 % GH Mental - Score - - 41.1 (Good) GH Mental - Percentile - - 19 % Self-Eff Symptom - Score 44 (Average) 41 (Average) 46 (Average) Self-Eff Symptom - Percentile 27 % 18 % 34 % T-scores: mean of general population = 50. 5 points is clinically meaningfully difference Percentiles provide an indication of how the patient's score ranks in relation to the general population. Higher percentile rankings indicate better function/quality of life. 50th percentile is the average of the general population and indicates half of respondents had a worse score. Lower is Better 04/14/2021 05/24/2021 06/19/2021 Fatigue - Score 47 (within normal limits) 53 (within normal limits) 48 (within normal limits) Fatigue - Percentile 62 % 38 % 58 % T-scores: mean of general population = 50. 5 points is clinically meaningfully difference Percentiles provide an indication of how the patient's score ranks in relation to the general population. Higher percentile rankings indicate better function/quality of life. 50th percentile is the average of the general population and indicates half of respondents had a worse score. OBJECTIVE MEASURES WITH LEVEL OF FUNCTION: Posture / Alignment Posture: Forward head;Rounded shoulders;Increased thoracic kyphosis UE Observations: no UE guarding UE AROM R Shoulder Flex: 140 Degrees R Shoulder ABduction: 160 Degrees R Shoulder Internal Rotation (Functional): 6 behind greater trochanter R Shoulder External Rotation: 20 Degrees (no abduction) R Shoulder External Rotation (Functional): T3 equal left R Shoulder Horizontal ADduction: (to acromion) L Shoulder Flex: 170 Degrees L Shoulder ABduction: 170 Degrees L Shoulder Internal Rotation (Functional): L3 L Shoulder External Rotation (Functional): T3 UE PROM R Shoulder Flex: 155 Degrees UE Joint Mobility R Shoulder joint mobility: Hypomobile Functional Strength Functional Strength: deferred Education: Education Learning Preferences: Demonstration;Explanation;Performance;Printed Materials Barriers: None Learning/educational needs: Home exercise program;Plan of Care Education Provided: Yes, see treatment interventions for education provided Education Provided To: Patient Education Mode/Type: Demonstration;Explanation/Discussion;Literature/Printed Materials;Performance Response to Education/Teach Back: States/Identifies;Return Demonstration TREATMENT: PT Treatment Interventions: Therapeutic Exercise Evaluation Therapeutic Exercise: 1: shoulder hui fleixon 1x5 2: shoulder hui abduction 1x5 pull but not pain 3: wand assisted ER 1x5 4: wand assisted extension 1x5 5: horizontal adduction stretch 5 sec hold x5 6: discussed stretch pull but no pain with ROM activities Skilled Intervention: Patient was educated in proper exercise technique and purpose for exercises. Skilled judgment was provided in selection of appropriate interventions. Educated patient on rationale for performing exercises in regards to ROM and function . Patient education as noted. Home Exercise Program Assigned: 1: as outlined above to perform 2x/day as tolerated Billing * Evaluation Low Complexity: 1 Unit Therapeutic Exercise Treatment Minutes: 25 Total Treatment Time Minutes (timed/untimed): 40 Heather Borrero PT [facility] History of Past illness Narrative* Problem Noted Date Resolved Date Diabetes mellitus types 1 & 2 05/28/2005 Overview: * Type (10/20/1982): dx type 1 diabetes, age 9. * Control hx (): VbA6w=6.7% (): DwU2j=0.9% (): Lqy5j=23.7% (): WpJ8v=17.7% (): KhM9eo=53.5% (09/08/09): TlM6v=7.8% (01/20/10): EzI4h=06.0% (07/07/10): TjJ8u=8.2% * Eye hx (): exam Dr. 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 (): exam Dr. Abel, Moderate non proliferative retinopathy both eyes, RTC 6mo (): exam Dr. 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 * Neuro hx (07/21/10): no resting acral dysesthesias, gets shaky sweaty with hypoglycemia.. * Renal hx (): urine albumin =3.4 mcg/mg creat (): urine albumin=3 mcg/mg creat (): urine albumin=2 mcg/mg creat (09/08/09): urine albumin=3 mcg/mg creat * Vascular hx (02/08/2005): on lipitor 10 mg/d, ouct=834, EL=600, HDL=38.4. No hx WA or stroke. (09/08/09): wuko=634, MS=344, HDL=33, dLDL=68 documented as of this encounter (statuses as of 07/07/2022) [facility] [place] History of Past illness Narrative* Problem Noted Date Resolved Date Diabetes mellitus types 1 & 2 05/28/2005 Overview: * Type (10/20/1982): dx type 1 diabetes, age 9. * Control hx (): WwF0y=0.7% (): TiO6e=9.9% (): Vmf6a=83.7% (): NiV8x=28.7% (): MiW4zz=23.5% (09/08/09): VuL0j=9.8% (01/20/10): QgP6z=53.0% (07/07/10): UfC7q=1.2% * Eye hx (): exam Dr. 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 (): exam Dr. Abel, Moderate non proliferative retinopathy both eyes, RTC 6mo (): exam Dr. 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 * Neuro hx (07/21/10): no resting acral dysesthesias, gets shaky sweaty with hypoglycemia.. * Renal hx (): urine albumin =3.4 mcg/mg creat (): urine albumin=3 mcg/mg creat (): urine albumin=2 mcg/mg creat (09/08/09): urine albumin=3 mcg/mg creat * Vascular hx (02/08/2005): on lipitor 10 mg/d, lejk=531, KM=071, HDL=38.4. No hx WA or stroke. (09/08/09): wibi=920, UL=354, HDL=33, dLDL=68 documented as of this encounter (statuses as of 07/13/2022) [facility] [place] History of Past illness Narrative* Problem Noted Date Resolved Date Diabetes mellitus types 1 & 2 05/28/2005 Overview: * Type (10/20/1982): dx type 1 diabetes, age 9. * Control hx (): VnQ3u=7.7% (): GhF8j=7.9% (): Pmy0o=90.7% (): TyU1j=85.7% (): PyO7vs=10.5% (09/08/09): KkF9y=6.8% (01/20/10): RiA7p=43.0% (07/07/10): BrQ7n=8.2% * Eye hx (): exam Dr. 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 (): exam Dr. Aebl, Moderate non proliferative retinopathy both eyes, RTC 6mo (): exam Dr. 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 * Neuro hx (07/21/10): no resting acral dysesthesias, gets shaky sweaty with hypoglycemia.. * Renal hx (): urine albumin =3.4 mcg/mg creat (): urine albumin=3 mcg/mg creat (): urine albumin=2 mcg/mg creat (09/08/09): urine albumin=3 mcg/mg creat * Vascular hx (02/08/2005): on lipitor 10 mg/d, vsrd=962, ET=501, HDL=38.4. No hx WA or stroke. (09/08/09): rekp=499, ZD=052, HDL=33, dLDL=68 documented as of this encounter (statuses as of 07/16/2022) [facility] History of Past illness Narrative* Problem Noted Date Resolved Date Diabetes mellitus types 1 & 2 05/28/2005 Overview: * Type (10/20/1982): dx type 1 diabetes, age 9. * Control hx (): QvM4k=6.7% (): WxS9o=7.9% (): Amw1y=87.7% (): VtF3j=10.7% (): MtA9jp=95.5% (09/08/09): WuZ9f=3.8% (01/20/10): LqX1o=27.0% (07/07/10): TtG6z=3.2% * Eye hx (): exam Dr. 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 (): exam Dr. Abel, Moderate non proliferative retinopathy both eyes, RTC 6mo (): exam Dr. 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 * Neuro hx (07/21/10): no resting acral dysesthesias, gets shaky sweaty with hypoglycemia.. * Renal hx (): urine albumin =3.4 mcg/mg creat (): urine albumin=3 mcg/mg creat (): urine albumin=2 mcg/mg creat (09/08/09): urine albumin=3 mcg/mg creat * Vascular hx (02/08/2005): on lipitor 10 mg/d, adss=514, PN=256, HDL=38.4. No hx WA or stroke. (09/08/09): znuc=723, ME=611, HDL=33, dLDL=68 documented as of this encounter (statuses as of 07/19/2022) [facility] [place] History of Past illness Narrative* Problem Noted Date Resolved Date Diabetes mellitus types 1 & 2 05/28/2005 Overview: * Type (10/20/1982): dx type 1 diabetes, age 9. * Control hx (): YrJ2p=0.7% (): UoH0r=4.9% (): Mvx9e=07.7% (): TaA6d=81.7% (): FwE8pd=99.5% (09/08/09): XgA7e=7.8% (01/20/10): ObY1z=24.0% (07/07/10): YlX5v=0.2% * Eye hx (): exam Dr. 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 (): exam Dr. Abel, Moderate non proliferative retinopathy both eyes, RTC 6mo (): exam Dr. 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 * Neuro hx (07/21/10): no resting acral dysesthesias, gets shaky sweaty with hypoglycemia.. * Renal hx (): urine albumin =3.4 mcg/mg creat (): urine albumin=3 mcg/mg creat (): urine albumin=2 mcg/mg creat (09/08/09): urine albumin=3 mcg/mg creat * Vascular hx (02/08/2005): on lipitor 10 mg/d, zvjl=815, ZR=034, HDL=38.4. No hx WA or stroke. (09/08/09): nhyi=836, FX=560, HDL=33, dLDL=68 documented as of this encounter (statuses as of 07/23/2022) [facility] [place] History of Past illness Narrative* Problem Noted Date Resolved Date Diabetes mellitus types 1 & 2 05/28/2005 Overview: * Type (10/20/1982): dx type 1 diabetes, age 9. * Control hx (): VaR5t=8.7% (): BrX0k=1.9% (): Arj8w=13.7% (): BkT9d=94.7% (): FhK1hc=18.5% (09/08/09): RgJ0l=3.8% (01/20/10): AuT2w=44.0% (07/07/10): OrK2j=4.2% * Eye hx (): exam Dr. 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 (): exam Dr. Abel, Moderate non proliferative retinopathy both eyes, RTC 6mo (): exam Dr. 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 * Neuro hx (07/21/10): no resting acral dysesthesias, gets shaky sweaty with hypoglycemia.. * Renal hx (): urine albumin =3.4 mcg/mg creat (): urine albumin=3 mcg/mg creat (): urine albumin=2 mcg/mg creat (09/08/09): urine albumin=3 mcg/mg creat * Vascular hx (02/08/2005): on lipitor 10 mg/d, tuvo=167, IB=339, HDL=38.4. No hx WA or stroke. (09/08/09): uuqt=104, UP=998, HDL=33, dLDL=68 documented as of this encounter (statuses as of 08/09/2022) [facility] [place] History of Past illness Narrative* Problem Noted Date Resolved Date Diabetes mellitus types 1 & 2 05/28/2005 Overview: * Type (10/20/1982): dx type 1 diabetes, age 9. * Control hx (): OkY0g=5.7% (): UjM7q=1.9% (): Pbh9i=64.7% (): KlM0r=50.7% (): HzV3us=06.5% (09/08/09): AkA3e=1.8% (01/20/10): VyZ2v=06.0% (07/07/10): YhI7l=9.2% * Eye hx (): exam Dr. 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 (): exam Dr. Abel, Moderate non proliferative retinopathy both eyes, RTC 6mo (): exam Dr. 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 * Neuro hx (07/21/10): no resting acral dysesthesias, gets shaky sweaty with hypoglycemia.. * Renal hx (): urine albumin =3.4 mcg/mg creat (): urine albumin=3 mcg/mg creat (): urine albumin=2 mcg/mg creat (09/08/09): urine albumin=3 mcg/mg creat * Vascular hx (02/08/2005): on lipitor 10 mg/d, jowq=007, WF=629, HDL=38.4. No hx WA or stroke. (09/08/09): gpoj=922, QU=923, HDL=33, dLDL=68 documented as of this encounter (statuses as of 08/13/2022) [facility] [place] History of Past illness Narrative* Problem Noted Date Resolved Date Diabetes mellitus types 1 & 2 05/28/2005 Overview: * Type (10/20/1982): dx type 1 diabetes, age 9. * Control hx (): ThM6u=4.7% (): PbA5x=2.9% (): Rnt0b=94.7% (): UuG5d=68.7% (): FkF3nr=82.5% (09/08/09): GhM0w=6.8% (01/20/10): RcO7a=58.0% (07/07/10): KnD9c=6.2% * Eye hx (): exam Dr. 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 (): exam Dr. Abel, Moderate non proliferative retinopathy both eyes, RTC 6mo (): exam Dr. 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 * Neuro hx (07/21/10): no resting acral dysesthesias, gets shaky sweaty with hypoglycemia.. * Renal hx (): urine albumin =3.4 mcg/mg creat (): urine albumin=3 mcg/mg creat (): urine albumin=2 mcg/mg creat (09/08/09): urine albumin=3 mcg/mg creat * Vascular hx (02/08/2005): on lipitor 10 mg/d, gevm=418, TY=540, HDL=38.4. No hx WA or stroke. (09/08/09): lvae=820, KF=468, HDL=33, dLDL=68 documented as of this encounter (statuses as of 08/25/2022) [facility] [place] History of Past illness Narrative* Problem Noted Date Resolved Date Diabetes mellitus types 1 & 2 05/28/2005 Overview: * Type (10/20/1982): dx type 1 diabetes, age 9. * Control hx (): ZlR2q=3.7% (): TbU1r=7.9% (): Ffi4o=14.7% (): ImR8v=51.7% (): GaI1mh=70.5% (09/08/09): TbG8m=4.8% (01/20/10): PgK9v=37.0% (07/07/10): PpO0k=2.2% * Eye hx (): exam Dr. 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 (): exam Dr. Abel, Moderate non proliferative retinopathy both eyes, RTC 6mo (): exam Dr. 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 * Neuro hx (07/21/10): no resting acral dysesthesias, gets shaky sweaty with hypoglycemia.. * Renal hx (): urine albumin =3.4 mcg/mg creat (): urine albumin=3 mcg/mg creat (): urine albumin=2 mcg/mg creat (09/08/09): urine albumin=3 mcg/mg creat * Vascular hx (02/08/2005): on lipitor 10 mg/d, rvqi=075, RS=770, HDL=38.4. No hx WA or stroke. (09/08/09): ozzp=066, RO=905, HDL=33, dLDL=68 documented as of this encounter (statuses as of 08/27/2022) [facility] [place] History of Past illness Narrative* Problem Noted Date Resolved Date Diabetes mellitus types 1 & 2 05/28/2005 Overview: * Type (10/20/1982): dx type 1 diabetes, age 9. * Control hx (): IhX1u=6.7% (): XfM3z=9.9% (): Yyk6q=87.7% (): MqC2l=83.7% (): AqB9wm=98.5% (09/08/09): MuW3t=2.8% (01/20/10): YaL2d=03.0% (07/07/10): ZhP8h=0.2% * Eye hx (): exam Dr. 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 (): exam Dr. Abel, Moderate non proliferative retinopathy both eyes, RTC 6mo (): exam Dr. 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 * Neuro hx (07/21/10): no resting acral dysesthesias, gets shaky sweaty with hypoglycemia.. * Renal hx (): urine albumin =3.4 mcg/mg creat (): urine albumin=3 mcg/mg creat (): urine albumin=2 mcg/mg creat (09/08/09): urine albumin=3 mcg/mg creat * Vascular hx (02/08/2005): on lipitor 10 mg/d, nkuo=476, VV=340, HDL=38.4. No hx WA or stroke. (09/08/09): gnns=283, EK=324, HDL=33, dLDL=68 documented as of this encounter (statuses as of 09/09/2022) [facility] [place] History of Past illness Narrative* Problem Noted Date Resolved Date Diabetes mellitus types 1 & 2 05/28/2005 Overview: * Type (10/20/1982): dx type 1 diabetes, age 9. * Control hx (): VfQ1n=8.7% (): CcY5v=9.9% (): Cqm2j=77.7% (): LbG7z=53.7% (): TcN5dp=90.5% (09/08/09): PeC9w=2.8% (01/20/10): YdM8t=95.0% (07/07/10): PmT3q=1.2% * Eye hx (): exam Dr. 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 (): exam Dr. Abel, Moderate non proliferative retinopathy both eyes, RTC 6mo (): exam Dr. 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 * Neuro hx (07/21/10): no resting acral dysesthesias, gets shaky sweaty with hypoglycemia.. * Renal hx (): urine albumin =3.4 mcg/mg creat (): urine albumin=3 mcg/mg creat (): urine albumin=2 mcg/mg creat (09/08/09): urine albumin=3 mcg/mg creat * Vascular hx (02/08/2005): on lipitor 10 mg/d, sfhx=850, FI=593, HDL=38.4. No hx WA or stroke. (09/08/09): yild=711, EQ=821, HDL=33, dLDL=68 documented as of this encounter (statuses as of 09/16/2022) [facility] History of Past illness Narrative* Problem Noted Date Diagnosed Date Resolved Date Diabetes mellitus types 1 & 2 05/28/2005 02/20/2016 Overview: * Type (10/20/1982): dx type 1 diabetes, age 9. * Control hx (): LuT6s=7.7% (): LxQ2s=6.9% (): Vnu3r=33.7% (): RfE3w=51.7% (): CwZ5ff=26.5% (09/08/09): KtU9t=6.8% (01/20/10): SlS9w=51.0% (07/07/10): QcN0g=9.2% * Eye hx (): exam Dr. 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 (): exam Dr. Abel, Moderate non proliferative retinopathy both eyes, RTC 6mo (): exam Dr. 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 * Neuro hx (07/21/10): no resting acral dysesthesias, gets shaky sweaty with hypoglycemia.. * Renal hx (): urine albumin =3.4 mcg/mg creat (): urine albumin=3 mcg/mg creat (): urine albumin=2 mcg/mg creat (09/08/09): urine albumin=3 mcg/mg creat * Vascular hx (02/08/2005): on lipitor 10 mg/d, kgyd=753, KT=687, HDL=38.4. No hx WA or stroke. (09/08/09): nfbe=328, LB=873, HDL=33, dLDL=68 documented as of this encounter (statuses as of 09/24/2023) [facility] [place] History of Past illness Narrative* Problem Noted Date Diagnosed Date Resolved Date Diabetes mellitus types 1 & 2 05/28/2005 02/20/2016 Overview: * Type (10/20/1982): dx type 1 diabetes, age 9. * Control hx (): UsX7m=0.7% (): QiF5b=5.9% (): Vtv1y=29.7% (): WsH0g=14.7% (): PrJ8uu=22.5% (09/08/09): SeK1a=0.8% (01/20/10): PfW3p=72.0% (07/07/10): DuL8y=1.2% * Eye hx (): exam Dr. 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 (): exam Dr. Abel, Moderate non proliferative retinopathy both eyes, RTC 6mo (): exam Dr. 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 * Neuro hx (07/21/10): no resting acral dysesthesias, gets shaky sweaty with hypoglycemia.. * Renal hx (): urine albumin =3.4 mcg/mg creat (): urine albumin=3 mcg/mg creat (): urine albumin=2 mcg/mg creat (09/08/09): urine albumin=3 mcg/mg creat * Vascular hx (02/08/2005): on lipitor 10 mg/d, qxuh=421, AP=492, HDL=38.4. No hx WA or stroke. (09/08/09): qbsg=323, IL=649, HDL=33, dLDL=68 documented as of this encounter (statuses as of 09/25/2023) [facility] History of Past illness Narrative* Problem Noted Date Diagnosed Date Resolved Date Diabetes mellitus types 1 & 2 05/28/2005 02/20/2016 Overview: * Type (10/20/1982): dx type 1 diabetes, age 9. * Control hx (): EoT9l=8.7% (): QfM0v=0.9% (): Hhd0c=48.7% (): RvP7w=64.7% (): KbQ6cu=85.5% (09/08/09): XkF5r=2.8% (01/20/10): RkW3c=00.0% (07/07/10): SdN7k=6.2% * Eye hx (): exam Dr. 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 (): exam Dr. Abel, Moderate non proliferative retinopathy both eyes, RTC 6mo (): exam Dr. 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 * Neuro hx (07/21/10): no resting acral dysesthesias, gets shaky sweaty with hypoglycemia.. * Renal hx (): urine albumin =3.4 mcg/mg creat (): urine albumin=3 mcg/mg creat (): urine albumin=2 mcg/mg creat (09/08/09): urine albumin=3 mcg/mg creat * Vascular hx (02/08/2005): on lipitor 10 mg/d, zspt=794, SJ=304, HDL=38.4. No hx WA or stroke. (09/08/09): phqk=215, CP=130, HDL=33, dLDL=68 documented as of this encounter (statuses as of 11/03/2023) [facility] Appointment Date:06/02/2023 09:30:00 AM Scheduled Provider:JAN MUÑOZ DO Location:[facility] Appointment Type: Wellness Annual [facility] Evaluation + Plan note Future Appointments Appointment Date:04/18/2025 10:00:00 AM Scheduled Provider:JAN MUÑOZ DO Location:[facility] Appointment Type:[facility] Annual Future Scheduled Tests Laboratory* Thyroid Stimulating Hormone 04/03/25 * Complete Blood Count 04/03/25 * Lipid Profile 04/03/25 * Vitamin D Level 04/03/25 * Complete Metabolic Panel 04/03/25 [facility] evaluation note* Diagnosis Onset Date Resolution Status Diabetes acute Hypothyroidism (acquired) ac [place] Mixed hyperlipidemia chronic Obesity chronic Presence of insulin pump chr onic Vitamin D deficiency chronic [facility] Work Phone: Evalugdndm noteNo assessment information available [facility] Work Phone: evaluation note* Diagnosis Chronic right shoulder pain- Primary Pain in joint, shoulder region Adhesive capsulitis of right shoulder Adhesive capsulitis of shoulder [facility]* Diagnosis Adhesive capsulitis of right shoulder- Primary Adhesive capsulitis of shoulder Chronic right shoulder pain Pain in joint, shoulder region documented in this encounter [facility] note* Diagnosis Adhesive capsulitis of right shoulder- Primary Adhesive capsulitis of shoulder Chronic right shoulder pain Pain in joint, shoulder region [facility]* Diagnosis Encounter for gynecological examination (general) (routine) without abnormal findings- Primary Encounter for screening mammogram for breast cancer [facility]* Diagnosis Adhesive capsulitis of right shoulder- Primary Adhesive capsulitis of shoulder Chronic right shoulder pain Pain in joint, shoulder region [facility]* Diagnosis Adhesive capsulitis of right shoulder- Primary Adhesive capsulitis of shoulder Chronic right shoulder pain Pain in joint, shoulder region documented [facility] this [facility]* Diagnosis Adhesive capsulitis of right shoulder- Primary Adhesive capsulitis of shoulder Chronic right shoulder pain Pain in joint, shoulder region [facility]* Diagnosis Adhesive capsulitis of right shoulder- Primary Adhesive capsulitis of shoulder Chronic right shoulder pain Pain in joint, shoulder region [facility]* Diagnosis Adhesive capsulitis of right shoulder- Primary Adhesive capsulitis of shoulder Chronic right shoulder pain Pain in joint, shoulder region [facility]* Diagnosis Onset Date Resolution Status Hypothyroidism (acquired) ch ronic Insulin pump titration chron ic Obesity chronic Presence of insulin pump chr onic Type 1 diabetes mellitus with hyperglycemia [facility] Work Phone: Evaluation note* Diagnosis Onset Date Resolution Status Insulin pump titration chron ic Obesity chronic Presence of insulin pump chr onic Type 1 diabetes mellitus with hyperglycemia [facility] Work Phone: Evaluation note* Diagnosis Urinary frequency- Primary [facility] Diagnosis Dysuria- Primary [facility]* Diagnosis Encounter for gynecological examination (general) (routine) without abnormal findings- Primary Screening for cervical cancer Screening for malignant neoplasm of the cervix Encounter for screening for human papillomavirus (HPV) Special screening examination for human papillomavirus (HPV) Encounter for screening mammogram for breast cancer [facility]* Diagnosis Encounter for gynecological examination (general) (routine) without abnormal findings- Primary Encounter for screening mammogram for breast cancer documented [facility] this [facility]* Diagnosis Encounter for screening mammogram for breast cancer [facility] N[facility] No data available for this section [facility] Hospital Discharge instructions No data available for this section [facility] Progress note No data available for this section [facility] Reason for referral (narrative)* Diagnostic Procedure Only (Routine) - Authorized Specialty Diagnoses / Procedures Referred By Contac t Referred To Contact [facility] Diagnoses Encounter for screening mammogram for breast cancer Procedures RADHA SCREENING SCREENING MAMMOGRAPHY BI 2-VIEW BREAST INC CAD [place], Cristin, SENIOR CUSTOMER SERVICE REPRESENTATIVE.VIDEO GAME REPAIR TECHNICIAN [address] [place] [address] [facility] [address] [place] [address] Referral ID Status Reason Start Date Expiration Date Visits Requested Visits Authorized [id number] Authorized Auto-Generat ed Referral 08/18/2023 1 1 [facility] Diagnostic Procedure Only (Routine) - Authorized Specialty Diagnoses / Procedures Referred By Latoya t Referred To Contact [facility] Diagnoses Encounter for screening mammogram for breast cancer Procedures RADHA SCREENING SCREENING MAMMOGRAPHY BI 2-VIEW BREAST INC CAD CharlotteCristin, SENIOR CUSTOMER SERVICE REPRESENTATIVE.VIDEO GAME REPAIR TECHNICIAN [address] [place] [address] [facility] [address] [place] [address] Referral ID Status Reason Start Date Expiration Date Visits Requested Visits Authorized [id number] Authorized Auto-Generat ed Referral 11/03/2023 12/02/2024 1 1 [facility]narrative)No reason for referral [facility]: Reason for visit Narrative* Diagnostic Procedure Only (Routine) - Closed Specialty Diagnoses / Procedures Referred By Contac t Referred To Contact [facility] Diagnoses Encounter for screening mammogram for breast cancer Procedures RADHA SCREENING SCREENING MAMMOGRAPHY BI 2-VIEW BREAST INC Cristin Ramos APRN.VIDEO GAME REPAIR TECHNICIAN [address] [place] [address] Phone: tel: fax: [facility] [address] [place] [address] Referral ID Status Reason Start Date Expiration Date V isits Requested Visits Authorized [id number] Closed Auto-Generate d Referral 11/03/2023 12/02/2024 1 1 [facility] Chief Complaint and Reason for Visit Chief Complaint 4 M FU 2 ORDERS / 2 DRS- EORDER FOR MESHA 3 M FU Reason for Visit Diabetes Hypothyroidism (acquired) Mixed hyperlipidemia Obesity Presence of insulin pump Vitamin D deficiency Chief Complaint Adhesive capsulitis of right shoulder Chief Complaint EORDER 6 M FU EORDER Reason for Visit Hypothyroidism (acqu ired) Insulin pump titration Obesity Presence of insulin pump Type 1 diabetes mellitus with hyperglycemia Chief Complaint 3 M FU Reason for Visit Insulin pump titrati on Obesity Presence of insulin pump Type 1 diabetes mellitus with hyperglycemia Chief Complaint Admit Date 3 M FU November 19, 2024 2:2 1pm 3 M FU February 11, 2025 1:57 pm Reason for Visit Admit Date Insulin pump titration November 19, 2024 2:21pm Microalbuminuria November 19, 2024 2:2 1pm Mixed hyperlipidemia November 19, 2024 2: 21pm Obesity November 19, 2024 2:2 1pm Presence of insulin pump November 19 2:21pm 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 Pt [facility] [address] [place] [address] [facility] [address] [address] Referral ID Status Reason Start Date Expiration Date Visits Requested Visits Authorized [id number] Pending Review PCP Requested Referral Auto-Generate d Referral 2 10/05/2022 1 1 Specialty Diagnoses / Procedures Referred By Contac t Referred To Contact [facility] Diagnoses Adhesive capsulitis of right shoulder Chronic right shoulder pain Procedures PT REHAB FOLLOW UP ORDER THERAPEUTIC EXERCISES RE, EA 15 MIN. Jak Tubbs MD [address] [address] Referral ID Status Reason Start Date Expiration Date Visits Requested Visits Authorized [id number] Pending Review PCP Requested Referral Auto-Generate d Referral 2 11/10/2022 1 1 Summary Purpose Advance Directives No Advanced Directives Records FoundNo Advanced Directives Records FoundNo Advanced Directives Records FoundNo Advanced Directives Records Found Additional Source Comments Goals (unrecognized section and content) Goals may be documented in a n alternate sectionGoals may be documented in an alternate section No data available for this sectionGoals may be documented in an alternate sectionGoals may be documented in an alternate sectionGoals may be documented in an alternate section No data available for this section No data available for this sectionGoals may be documented in an alternate section Source Comments (unrecognize d section and content) In the event this informatio n is protected by the Federal Confidentiality of Alcohol and Drug Abuse Patient Records regulations: The Federal rules restrict any use of the information to criminally investigate or prosecute any alcohol or drug abuse patient.[facility] the event this information is protected by the Federal Confidentiality of Alcohol and Drug Abuse Patient Records regulations: The Federal rules restrict any use of the information to criminally investigate or prosecute any alcohol or drug abuse patient.[facility] the event this information is protected by the Federal Confidentiality of Alcohol and Drug Abuse Patient Records regulations: The Federal rules restrict any use of the information to criminally investigate or prosecute any alcohol or drug abuse patient.[facility] the event this information is protected by the Federal Confidentiality of Alcohol and Drug Abuse Patient Records regulations: The Federal rules restrict any use of the information to criminally investigate or prosecute any alcohol or drug abuse patient.[facility] the event this information is protected by the Federal Confidentiality of Alcohol and Drug Abuse Patient Records regulations: The Federal rules restrict any use of the information to criminally investigate or prosecute any alcohol or drug abuse patient.[facility] the event this information is protected by the Federal Confidentiality of Alcohol and Drug Abuse Patient Records regulations: The Federal rules restrict any use of the information to criminally investigate or prosecute any alcohol or drug abuse patient.[facility] the event this information is protected by the Federal Confidentiality of Alcohol and Drug Abuse Patient Records regulations: The Federal rules restrict any use of the information to criminally investigate or prosecute any alcohol or drug abuse patient.[facility] the event this information is protected by the Federal Confidentiality of Alcohol and Drug Abuse Patient Records regulations: The Federal rules restrict any use of the information to criminally investigate or prosecute any alcohol or drug abuse patient.[facility] the event this information is protected by the Federal Confidentiality of Alcohol and Drug Abuse Patient Records regulations: The Federal rules restrict any use of the information to criminally investigate or prosecute any alcohol or drug abuse patient.[facility] the event this information is protected by the Federal Confidentiality of Alcohol and Drug Abuse Patient Records regulations: The Federal rules restrict any use of the information to criminally investigate or prosecute any alcohol or drug abuse patient.[facility] the event this information is protected by the Federal Confidentiality of Alcohol and Drug Abuse Patient Records regulations: The Federal rules restrict any use of the information to criminally investigate or prosecute any alcohol or drug abuse patient.[facility] the event this information is protected by the Federal Confidentiality of Alcohol and Drug Abuse Patient Records regulations: The Federal rules restrict any use of the information to criminally investigate or prosecute any alcohol or drug abuse patient.[facility] the event this information is protected by the Federal Confidentiality of Alcohol and Drug Abuse Patient Records regulations: The Federal rules restrict any use of the information to criminally investigate or prosecute any alcohol or drug abuse patient.[facility] the event this information is protected by the Federal Confidentiality of Alcohol and Drug Abuse Patient Records regulations: The Federal rules restrict any use of the information to criminally investigate or prosecute any alcohol or drug abuse patient.[facility] the event this information is protected by the Federal Confidentiality of Alcohol and Drug Abuse Patient Records regulations: The Federal rules restrict any use of the information to criminally investigate or prosecute any alcohol or drug abuse patient.[facility] the event this information is protected by the Federal Confidentiality of Alcohol and Drug Abuse Patient Records regulations: The Federal rules restrict any use of the information to criminally investigate or prosecute any alcohol or drug abuse patient.[facility] the event this information is protected by the Federal Confidentiality of Alcohol and Drug Abuse Patient Records regulations: The Federal rules restrict any use of the information to criminally investigate or prosecute any alcohol or drug abuse patient.[facility] the event this information is protected by the Federal Confidentiality of Alcohol and Drug Abuse Patient Records regulations: The Federal rules restrict any use of the information to criminally investigate or prosecute any alcohol or drug abuse patient.[facility] the event this information is protected by the Federal Confidentiality of Alcohol and Drug Abuse Patient Records regulations: The Federal rules restrict any use of the information to criminally investigate or prosecute any alcohol or drug abuse patient.[facility] the event this information is protected by the Federal Confidentiality of Alcohol and Drug Abuse Patient Records regulations: The Federal rules restrict any use of the information to criminally investigate or prosecute any alcohol or drug abuse patient.[facility] Reason for Visit (unrecogniz ed section and content) Reason Comments Physical Therapy Specialty Diagnoses / Procedures Referred By Contac t Referred To Contact [facility] Diagnoses Adhesive capsulitis of right shoulder Chronic right shoulder pain Procedures PT REHAB FOLLOW UP ORDER THERAPEUTIC EXERCISES RE, EA 15 MIN. Jak Tubbs MD [address] [employer] [address] [place] [address] [facility] [place] [facility] [place] [address] Referral ID Status Reason Start Date Expiration Date Visits Requested Visits Authorized [id number] Pending Review PCP Requested Referral Auto-Generate d Referral 11/10/2022 1 1 Reason Comments PT Progress Note Specialty Diagnoses / Procedures Referred By Contac t Referred To Contact Physical Therapy / PHYSICAL THERAPY Diagnoses shoulder pain Procedures NEW RS PT ORTH MSK Self Heather Borrero, PT [address] [place] [address] Referral ID Status Reason Start Date Expiration Date V isits Requested Visits Authorized [id number] Authorized 08/22/2021 08/21/2022 20 20 Reason Comments PT Eval Patient Education Specialty Diagnoses / Procedures Referred By Contac t Referred To Contact Physical Therapy / PHYSICAL THERAPY Diagnoses shoulder pain Procedures NEW RS PT ORTH MSK Self Heather Borrero, PT [address] [place] [address] Reason Comments Yearly Exam Referral ID Status Reason Start Date Expiration Date Visits Re quested Visits Authorized [id number] Closed 08/22/2021 08/21/2022 20 20 Reason Comments PT Discharge Specialty Diagnoses / Procedures Referred By Contac t Referred To Contact Physical Therapy / PHYSICAL THERAPY Diagnoses M25.511,G89.29 (ICD-10-CM) - Chronic right shoulder pain M75.01 (ICD-10-CM) - Adhesive capsulitis of right shoulder Procedures EST RS PT ORTH MSK Jak Tubbs MD [address] [place] [address] Heather Borrero, PT [address] [place] [address] Referral ID Status Reason Start Date Expiration Date V isits Requested Visits Authorized [id number] Authorized 08/22/2022 08/21/2023 20 20 Reason Comments Urinary Frequency Frequency and burnin g x 3 days Reason Comments Results Reason Comments Urinary Problem Frequency, pain x 4 days Reason Comments Urinary Frequency burning with urinati on x 5 days Reason Comments [facility] Teams (unrecognized sec tion and content) Local Flatbed Driver Relationship Specialty Start Date End Date Jan Muñoz, DO [address] [place] [address] PCP - General Family Medicine 08/04/18 Local Flatbed Driver Relationship Specialty Start Date End Date Jan Muñoz, DO [address] [place] [address] PCP - General Family Medicine 08/04/18 Local Flatbed Driver Relationship Specialty Start Date End Date Jan Muñoz, DO [address] [place] [address] PCP - General Family Medicine 08/04/18 Local Flatbed Driver Relationship Specialty Start Date End Date Jan Muñoz, DO [address] [place] [address] PCP - General Family Medicine 08/04/18 Local Flatbed Driver Relationship Specialty Start Date End Date Jan Muñoz, DO [address] [place] [address] PCP - General Family Medicine 08/04/18 Local Flatbed Driver Relationship Specialty Start Date End Date Jan Muñoz, DO [address] [place] [address] PCP - General Family Medicine 08/04/18 Local Flatbed Driver Relationship Specialty Start Date End Date Jan Muñoz, [place] [address] PCP - General Family Medicine 08/04/18 Local Flatbed Driver Relationship Specialty Start Date End Date Jan Muñoz, DO [address] [place] [address] PCP - General Family Medicine 08/04/18 Local Flatbed Driver Relationship Specialty Start Date End Date Jan Muñoz DO [address] [place] [address] PCP - General Family Medicine 08/04/18 Local Flatbed Driver Relationship Specialty Start Date End Date Jan Muñoz DO [address] [place] [address] PCP - General Family Medicine 08/04/18 Team Status: Active Member Role Status Dates Jan Goodwin DO Family Provider Active Dr. Jan Muñoz DO Primary Care Provider Active Team Status: Inactive Member Role Status Dates Dr. Jan Muñoz DO Primary Care Provider, Referri ng Provider Active MARLENE Rosas Attending Provider Active Team Status: Inactive Member Role Status Dates Dr. Jan Muñoz DO Primary Care Provider Active MARLENE Rosas Attending Provider, Referring Pr ovider Active Team Status: Active Member Role Status Dates Dr. Jan Muñoz DO Primary Care Provider Active MARLENE Rosas Attending Provider, Referring Pr ovider Active Team Status: Inactive Member Role Status Dates Dr. Jan Muñoz DO Primary Care Pro vider, Attending Provider, Referring Provider Active Local Flatbed Driver Relationship Specialty Start Date End Date Jan Muñoz DO [address] [place] [address] PCP - General Family Medicine 08/04/18 Local Flatbed Driver Relationship Specialty Start Date End Date Jan Muñoz DO [address] [place] [address] PCP - General Family Medicine 08/04/18 Local Flatbed Driver Relationship Specialty Start Date End Date Jan Muñoz DO [address] [place] [address] PCP - General Family Medicine 08/04/18 Local Flatbed Driver Relationship Specialty Start Date End Date Jan Muñoz DO [address] [place] [address] PCP - General Family Medicine 08/04/18 Local Flatbed Driver Relationship Specialty Start Date End Date Jan Muñoz DO [address] [place] [address] PCP - General Family Medicine 08/04/18 Local Flatbed Driver Relationship Specialty Start Date End Date Jan Muñoz DO [address] [place] [address] PCP - General [facility] Medicine 08/04/18 Team Status: Inactive Member Role Status Dates Dr. Jan Muñoz DO Primary Care Provider Active Start: November 19, 2024 End: November 19, 2024 Dr. Jan Muñoz DO Referring Provider Active Start: November 19, 2024 End: November 19, 2024 MARLENE Rosas Attending Provider Active Start: November 19, 2024 End: November 19, 2024 Team Status: Inactive Member Role Status Dates Dr. Jan Muñoz DO Primary Care Provider Active Start: February 11, 2025 End: February 11, 2025 Dr. Jan Muñoz DO Referring Provider Active Start: February 11, 2025 End: February 11, 2025 MARLENE Rosas Attending Provider Active Start: February 11, 2025 End: February 11, 2025 INFORMATION SOURCE (unrecogn ized section and content) DATE CREATED AUTHOR 01/04/2024 [facility] DATE CREATED AUTHOR AUTHOR'S ORGANIZ ATION 10/06/2024 [facility] DATE CREATED AUTHOR AUTHOR'S ORGANIZ ATION 11/06/2024 [facility] DATE CREATED AUTHOR AUTHOR'S ORGANIZ ATION 02/12/2025 [facility] FOR RECORDS PERTAINING TO PATIENTS WHO ARE OR HAVE BEEN ENROLLED IN A CHEMICAL DEPENDENCY/SUBSTANCEABUSE PROGRAM, SOME INFORMATION MAY BE OMITTED. This clinical summary was aggregated from multiple sources. Caution should be exercised in using it in the provision of clinical care. This summary normalizes information from multiple sources, and as a consequence, information in this document may materially change the coding, format and clinical context of patient data. In addition, data may be omitted in some cases. CLINICAL DECISIONS SHOULD BE BASED ON THE PRIMARY CLINICAL RECORDS. [facility] [employer] [facility]. provides no warranty or guarantee of the accuracy or completeness of information in this document.
[2025-04-08 10:29] LABS: Hematocrit 42.3 % (37-47); Hemoglobin 13.6 g/dL (12.0-15.0); Mean Corp Hgb Conc 32.2 g/dL (32-36); Mean Corpuscular Volume 89.6 fL (81-99); Mean Platelet Vol. 10.3 fl (6.2-12.0); Platelet Count 260 K/mm3 (150-450); RBC Distribution Width CV 13.1 % (11.6-14.6); RBC Distribution Width SD 42.5 fl (35.1-43.9); Red Blood Count 4.72 M/mm3 (4.2-5.4); White Blood Count 10.6 K/mm3 (4.4-11.0)
[2025-04-08 11:03] LABS: AST(SGOT) 19 U/L (<=31); Alanine Aminotransfer ALT/SGPT 20 U/L (<=34); Albumin, Serum 4.2 g/dL (3.5-5.0); Alkaline Phosphatase 64 U/L (35-104); Anion Gap 11 (5-15); BUN 26 mg/dL (4-19); BUN/Creat Ratio 22.5 RATIO (10-20); Calcium,Total 9.5 mg/dL (7.6-11.0); Carbon Dioxide 25.2 mmol/L (21.0-32.0); Chloride 104 mmol/L (98-108); Globulin 2.6 g/dL (2.2-4.2); Glucose 96 mg/dL (70-99); Potassium 4.1 mmol/L (3.3-5.1); Vitamin D,25 Hydroxy 31.4 ng/mL (30-100)
[2025-04-08 12:00] LABS: Cholesterol 154 mg/dL (<=200); Low Density Lipoprotein Calc. 90 mg/dL; Triglycerides 150 mg/dL; Very Low Density Lipoprotein 30 mg/dL (5-40); cholesterol:hdl ratio screen 4.56
== END | disposition home or self-care (01) ==
LOC: MTLAB 07:09
PROVIDERS: PCP Family Medicine; Referring Provider Family Medicine; Visit Provider Family Medicine
DX: Z00.00 Encounter for general adult medical examination without abnormal findings (principal); E10.319 Type 1 diabetes mellitus with unspecified diabetic retinopathy without macular edema; Z13.0 Encounter for screening for diseases of the blood and blood-forming organs and certain disorders involving the immune mechanism; Z13.29 Encounter for screening for other suspected endocrine disorder; E55.9 Vitamin D deficiency, unspecified; E78.5 Hyperlipidemia, unspecified
CPT/HCPCS: 36415; 80053; 80061; 82306; 84443; 85027

== ENCOUNTER → 2025-05-13 | Outpatient (CLI) | payer BC, SELFPAY ==
[2025-05-13 13:02] LABS: Anion Gap 12 (5-15); BUN 20 mg/dL (4-19); BUN/Creat Ratio 20.5 RATIO (10-20); Calcium,Total 9.6 mg/dL (7.6-11.0); Carbon Dioxide 21.9 mmol/L (21.0-32.0); Chloride 102 mmol/L (98-108); Free T3 2.4 pg/mL (2.18-3.98); Glucose 63 mg/dL (70-99); Potassium 3.8 mmol/L (3.3-5.1)
== END | disposition home or self-care (01) ==
LOC: MTLAB 10:58
PROVIDERS: PCP Family Medicine; Referring Provider Family Medicine; Visit Provider Family Medicine
DX: E10.69 Type 1 diabetes mellitus with other specified complication (principal); R79.89 Other specified abnormal findings of blood chemistry
CPT/HCPCS: 36415; 80048; 84439; 84443; 84481